=== PATIENT | male | born 1950 | race Caucasian/White ===

== ENCOUNTER → 2016-10-25 | Outpatient (CLI) | payer MEDICARE ==
--- NOTE | 2016-10-25 15:50 | XR ---
EXAMINATION TYPE: XR chest 2V DATE OF EXAM: 10/25/2016 COMPARISON: Prior chest x-ray 10/16/2008 HISTORY: Annual physical, I 82.90, Z 87.89 1 TECHNIQUE: Frontal and lateral views of the chest are obtained. FINDINGS: Patient is post median sternotomy. Minimal strand-like densities at the lung bases compati ble with subsegmental atelectasis or scarring. Patient is rotated, heart size thought to be borderlin e enlarged. Patient is status post aortic valve replacement. Prominent lung volumes suggest underlyin g COPD. No evident pneumothorax. No pleural effusion. IMPRESSION: Subsegmental atelectasis or scarring at the lung bases. Borderline cardiac enlargement.
[2016-10-25 16:23] LABS: Blood Urea Nitrogen 9 mg/dL (9-20); Non-African American GFR(MDRD) >60 (>60 ml/min/1.73 sqM)
--- NOTE | 2016-10-26 09:09 | CT ---
EXAMINATION TYPE: CT abdomen pelvis wo/w con DATE OF EXAM: 10/25/2016 COMPARISON: NONE HISTORY: Right foot/ankle swelling x 20 months. Looking for possible tumors in pelvis per patient. CT DLP: 2938.00 mGycm Automated exposure control for dose reduction was used. TECHNIQUE: Helical acquisition of images was performed from the lung bases through the pelvis. CONTRAST: Performed with Oral Contrast and without and with IV Contrast, patient injected with 100 mL of Omnipa que 300. FINDINGS: LUNG BASES: Subcentimeter noncalcified right basilar pulmonary nodule is present. Minimal subsegmenta l bibasilar atelectasis is also seen. LIVER/GB: Solitary punctate hypoattenuated hepatic lesion is seen on series 6 image 19 that is too sm all to accurately characterize. Mild fatty infiltration is seen in segment IVb on series 6 image 21. The remainder of the liver is of normal enhancement and morphology. The gallbladder contained a singl e lamellated calcified gallstone in the gallbladder fundus measuring 1.9 cm. No common bile duct dila tion. PANCREAS: There is mild fatty atrophy of the pancreatic head with no ductal dilatation. Duodenal dive rticulum is present impressing upon the uncinate process and inferior body. SPLEEN: No significant abnormality is seen. ADRENALS: No significant abnormality is seen. KIDNEYS: No significant abnormality is seen. FREE AIR: No free air is visualized. RETROPERITONEAL ADENOPATHY: None visualized REPRODUCTIVE ORGANS: The prostate gland is enlarged and heterogenous containing central gland calcifi cations and measuring 5.9 cm in transverse dimension. Small fat filled left inguinal hernia is presen t. URINARY BLADDER: No significant abnormality is seen. PELVIC ADENOPATHY: None visualized. OSSEOUS STRUCTURES: Appearance of surgical clips are seen along the right abdominal wall musculature extending towards the right pubic symphysis. Mild degenerative changes are seen of the femoral aceta bular joints and thoracolumbar spine. No suspicious osseous lesions are identified. There is partial visualization of median sternotomy wires. BOWEL: The cecum is slightly malrotated with the terminal ileum oriented anterior posterior and a re trocecal appendix containing intraluminal air, within normal limits. Tethered to this there is a comp genny lesion measuring high density complex fluid and simple fluid in portions without surrounding infl ammatory change. This is intimately associated with the appendix but appears to be nonobstructive as there is no periappendiceal fat stranding. The more solid portion, complex fluid attenuated, does min imally enhance. Overall this mass measures approximately 3.8 x 2.6 x 3.6 cm in transverse by anterior posterior by craniocaudal dimension. No air is seen within this collection to suggest abscess or per forated appendicitis. No obstructive bowel process is identified. Descending duodenal diverticulum is seen, which is large and impresses upon the pancreas. Scattered c olonic diverticula are seen without pericolonic fat stranding. Small bowel is nondilated. VASCULATURE: Abdominal aorta is of normal course and caliber. Mild atheromatous changes are seen of t he abdominal aorta and its branches. IMPRESSION: 1. COMPLEX, MINIMALLY ENHANCING 3.8 CM MASS INTIMATELY ASSOCIATED WITH THE RETROCECAL APPENDIX ALONG THE RIGHT LATERAL CONAL FASCIA WITHOUT SURROUNDING INFLAMMATORY CHANGE OR INTERNAL AIR. PRIMARY DIAGN OSTIC CONSIDERATION IS FOR COMPLICATED ENTERIC DUPLICATION CYST ALTHOUGH OTHER ETIOLOGIES SUCH MUC INOUS NEOPLASM OR PERITONEAL METASTASIS ARE POSSIBLE. CONSIDERATION COULD BE GIVEN TO PET CT OR DISCU SSION WITH INTERVENTIONAL RADIOLOGY REGARDING ASPIRATION/BIOPSY ALTHOUGH THIS DOES ABUT BOWEL MUCOSA. 2. 6 MM NONCALCIFIED RIGHT LOWER LOBE PULMONARY NODULE. CT THORAX COULD BE PERFORMED FOR FULL EVALUAT ION OF THE CHEST. IF CT CHEST IS NOT PERFORMED, FOLLOW-UP IN 12 MONTHS IS RECOMMENDED FOR REEVALUATIO N OF THIS NODULE. 3. CHOLELITHIASIS WITHOUT CT EVIDENCE OF CHOLECYSTITIS. 4. PANCOLONIC DIVERTICULOSIS.
== END | disposition home or self-care (01) ==
LOC: RADCTMAIN 15:26
PROVIDERS: ATTEND Family Medicine
DX: K80.20 Calculus of gallbladder without cholecystitis without obstruction (principal); K57.30 Diverticulosis of large intestine without perforation or abscess without bleeding; K38.8 Other specified diseases of appendix; I82.890 Acute embolism and thrombosis of other specified veins; I51.7 Cardiomegaly; Z87.891 Personal history of nicotine dependence
CPT/HCPCS: 82565; 84520; 71020; 74178; 36415; Q9967

== ENCOUNTER → 2016-11-10 | Outpatient (CLI) | payer MEDICARE ==
[2016-11-10 18:56] LABS: Blood Urea Nitrogen 11 mg/dL (9-20); Non-African American GFR(MDRD) >60 (>60 ml/min/1.73 sqM)
--- NOTE | 2016-11-10 19:34 | CT ---
EXAMINATION TYPE: CT chest w con DATE OF EXAM: 11/10/2016 COMPARISON: NONE HISTORY: Abnormal CT scan on 10/25/16. No Chest complaints at time of scan CT DLP: 671 mGycm Automated exposure control for dose reduction was used. CONTRAST: CT scan of the chest is performed with IV Contrast, patient injected with 100 mL of Omnipaque 300. FINDINGS: The lungs are clear of consolidation. There is patchy linear density at the lung bases consistent wit h scarring and atelectasis. There is a very low density 7 mm rounded nodule at the subpleural lateral right lung base. There is no evidence of a pulmonary mass. There is some coronary artery calcification. There are sternal wires. There is aortic valve prosthesi s. Heart is enlarged. There is no evidence of aortic dissection. Ascending aorta measures 3.7 cm. The re is no mediastinal adenopathy. There are no hilar masses. IMPRESSION: There is subsegmental atelectasis or scarring at the lung bases without change compared to CT scan 10/25/2016. Low-density right lower lobe nodule is unchanged. This is of doubtful clinical significance. Cardiomegaly. Atherosclerotic vascular disease.
== END ==
LOC: RADCTMAIN 18:23
PROVIDERS: ATTEND Family Medicine
DX: I51.7 Cardiomegaly (principal); I70.90 Unspecified atherosclerosis
CPT/HCPCS: 82565; 84520; 71260; 36415; Q9967

== ENCOUNTER 2016-11-13 10:21 | Day surgery (SDC) | payer MEDICARE ==
[2016-11-08 15:50] VITALS: BMI 30.8
[~2016-11-13 10:21] MED LIST: LACTATED RINGERS 1,000 ML IV SCH
[2016-11-13 10:35] VITALS: RESP 16; TEMP 97.9
[2016-11-13] MEDS ORDERED: LIDOCAINE 1% 20 ML VIAL (10MG/ML) FOR IV START INTRADERMA ONE (10:42)
[2016-11-13] MEDS ORDERED: PROPOFOL 10 MG/ML 20 ML VIAL IV ONE (11:41)
[2016-11-13] MEDS ORDERED: LIDOCAINE 1% INJ 10MG/ML (20 ML MDV) ONE (11:41)
[2016-11-13 13:02] VITALS: BP 138/80; PULSE 66
--- NOTE | 2016-12-14 16:59 | P.OP ---
Date of Procedure: 11/13/16 Preoperative Diagnosis: Right lower quadrant mass Right lower extremity swelling Postoperative Diagnosis: Same Procedure(s) Performed: Colonoscopy Implants: NA Anesthesia: MAC Surgeon: Kitty Carpio Pathology: none sent Condition: stable Disposition: PACU Indications for Procedure: 66 years old male presents with intermittent swelling of the right lower extremity. Computed tomography scan of the abdomen and pelvis shows a mass in the right lower quadrant which is suspicious to be arising from appendix vs colon vx duplication cyst. On consent obtained and patient elected to undergo colonoscopy with possible biopsy. Operative Findings: Sigmoid diverticulosis Description of Procedure: The patient was brought to the endoscopy suite and placed in lateral decubitus position. IV sedation was given as per anesthesia team. Patient was on continuous vitals and pulse oximetry monitoring throughout the procedure. A timeout was performed to verify correct patient and correct procedure. Perianal examination did not show any external hemorrhoids. Digital rectal examination was performed. No masses or gross blood. A well-lubricated Olympus colonoscope was passed per rectally and was gradually advanced beyond the sigmoid colon, splenic flexure, transverse colon, hepatic flexure and cecum. The ileocecal valve was visualized as well as the appendiceal orifice . The colonoscope was gradually withdrawn inspecting all the mucosal surfaces. Bowel prep was good. No polyps, masses, AV malformations noted. Sigmoid diverticulosis noted without any evidence of acute diverticulitis. The scope was gradually withdrawn and retroflexed in the rectum . Grade 1 internal hemorrhoids seen. Total withdrawal time was greater than 6 minutes . Patient tolerated the procedure well and was taken to post anesthesia care unit in stable condition. Recommend repeat colonoscopy in 10 years .
== END 2016-11-13 14:00 | disposition home or self-care (01) ==
LOC: ORWHC2ENDO 10:21
PROVIDERS: ATTEND Surgery
DX: K57.30 Diverticulosis of large intestine without perforation or abscess without bleeding (principal); K64.0 First degree hemorrhoids; R19.03 Right lower quadrant abdominal swelling, mass and lump; I10 Essential (primary) hypertension; Z88.0 Allergy status to penicillin; Z79.82 Long term (current) use of aspirin; Z79.899 Other long term (current) drug therapy; Z95.2 Presence of prosthetic heart valve
CPT/HCPCS: 45378; J2001; J2704

== ENCOUNTER → 2016-12-07 | Outpatient (CLI) | payer MEDICARE ==
[2016-12-07 09:39] LABS: EKG EKG PERFORMED
[2016-12-07 09:55] LABS: Basophils % (A) 1 %; CH 32.3; CHCM 32.9; Eosinophils # (A) 0.2 k/uL (0-0.7); Eosinophils % (A) 3 %; HDW 2.23; HGB 15.2 gm/dL (13.0-17.5); Luc % (Auto) 5; Lymphocytes # (A) 1.7 k/uL (1.0-4.8); Lymphocytes % (A) 26 %; MCH 33.3 pg (25.0-35.0); MCHC 33.8 g/dL (31.0-37.0); MCV 98.6 fL (80.0-100.0); Mean Platelet Volume 6.8; Monocytes # (A) 0.5 k/uL (0-1.0); Monocytes % (A) 8 %; Neutrophils # (A) 3.8 k/uL (1.3-7.7); Neutrophils % (A) 58 %; RBC 4.57 m/uL (4.30-5.90); RDW 12.4 % (11.5-15.5); WBC 6.6 k/uL (3.8-10.6); WBC (Perox) 6.61
[2016-12-07 10:13] LABS: Anion Gap 8 mmol/L; Carbon Dioxide 26 mmol/L (22-30); Chloride 100 mmol/L (98-107); Potassium 4.8 mmol/L (3.5-5.1); Sodium 134 mmol/L (137-145)
== END | disposition home or self-care (01) ==
LOC: LABPAT 09:16
PROVIDERS: ATTEND Surgery
DX: Z01.810 Encounter for preprocedural cardiovascular examination (principal); R94.31 Abnormal electrocardiogram [ECG] [EKG]; I10 Essential (primary) hypertension
CPT/HCPCS: 36415; 80051; 85025; 86850; 86900; 86901; 93005

== ENCOUNTER 2016-12-15 09:00 | Inpatient (IN) | payer MEDICARE ==
[2016-12-06 14:47] VITALS: BMI 30.8
[~2016-12-15 09:00] MED LIST changes: +DEXAMETHASONE SOD PHOSPHATE 10 MG/ML 1 ML VIAL IV ONE; +HEPARIN SODIUM,PORCINE 5,000 UNIT/ML 1 ML VIAL SQ ONE; +HYDROmorphone 0.5 MG/0.5 ML SYRINGE IVP PRN; -LACTATED RINGERS 1,000 ML IV SCH; +MIDAZOLAM 2 MG/2 ML VIAL IV PRN; +ONDANSETRON 4 MG/2 ML VIAL IVP ONE; +ceFAZolin 2 GM in SODIUM CHLORIDE 0.9% 100 ML IVPB ONE
[2016-12-15] MEDS ORDERED: LIDOCAINE 1% 20 ML VIAL (10MG/ML) FOR IV START INTRADERMA ONE (13:36)
[2016-12-15] MEDS: LACTATED RINGERS 1,000 ML IV SCH (14:03)
[2016-12-15] MEDS ORDERED: NEOSTIGMINE 1 MG/ML 10 ML VIAL ONE (14:36)
[2016-12-15] MEDS ORDERED: LABETALOL 5 MG/ML VIAL MDV ONE (14:36)
[2016-12-15] MEDS ORDERED: MIDAZOLAM 2 MG/2 ML VIAL ONE (14:36)
[2016-12-15] MEDS ORDERED: ROCURONIUM BROMIDE 10 MG/ML 10 ML VIAL IV ONE (14:36)
[2016-12-15] MEDS ORDERED: fentaNYL (PF) 50 MCG/ML 2 ML AMP ONE (14:36)
[2016-12-15] MEDS ORDERED: GLYCOPYRROLATE 0.2 MG/ML 2 ML VIAL ONE (14:36)
[2016-12-15] MEDS ORDERED: PROPOFOL 10 MG/ML 20 ML VIAL IV ONE (14:36)
[2016-12-15] MEDS ORDERED: ePHEDrine SULFATE/0.9% NACL/PF 50 MG/5 ML SYRINGE IV ONE (14:36)
[2016-12-15] MEDS ORDERED: SUCCINYLCHOLINE CHLORIDE 100 MG/5 ML SYR IV ONE (14:36)
[2016-12-15] MEDS ORDERED: BUPIVACAINE-EPI 0.5%-1:200,000 10 ML VIAL SQ ONE (15:48)
[2016-12-15] MEDS ORDERED: LACTATED RINGERS 1,000 ML IV ONE (15:49)
[2016-12-15] MEDS ORDERED: HYDROmorphone 1 MG/ML 1 ML SYRINGE IVP PRN (17:12)
--- NOTE | 2016-12-15 17:21 | P.OP ---
Date of Procedure: 12/15/16 Preoperative Diagnosis: RLQ mass on CT scan Right lower extremity swelling Postoperative Diagnosis: No definite intrabdominal mass Procedure(s) Performed: Diagnostic laparoscopy Laparoscopic appendectomy Lysis of adhesions Implants: NA Anesthesia: KITAA Surgeon: Kitty Carpio Estimated Blood Loss (ml): 10 Pathology: other Condition: stable Disposition: PACU Indications for Procedure: 66 years old male presents with right lower quadrant mass on CT scan. Colonoscopy was negative for any colonic mass. Patient denies any abdominal pain. Informed consent obtained for diagnostic laparoscopy, possible small bowel resection, possible appendicectomy and all indicated procedure Operative Findings: Adhesions between right lower quadrant and small bowel. The cecum appeared normal. The appendix appeared normal. The small bowel was run from ligament of Treitz to terminal ileum and no small bowel diverticulum noted Description of Procedure: The patient was brought to the operating room and placed in supine position with left arm tucked and a footboard was placed. General anesthesia with endotracheal intubation was performed as per anesthesia team. A Cunningham catheter was inserted under sterile aseptic precautions. Chlorhexidine was used to prep the abdomen followed by application of sterile drapes. A timeout was performed to verify correct patient and correct procedure. Patient was confirmed to receive perioperative IV antibiotics, subcutaneous heparin for VTE prophylaxis and bilateral SCDs were placed. A 5 mm skin incision was made in the left anterior axillary line and a Veress needle was inserted into the peritoneal cavity and CO2 insufflated to a pressure of 15 mmHg. A 5 mm Optiview trocar was loaded on a 5 mm 30 laparoscope and peritoneal cavity was entered under direct vision. An additional 5 mm trocar was placed in the suprapubic location in midline and a 12 mm trocar in the infraumbilical location. Patient was placed in Trendelenburg with right side up. There were adhesions between small bowel and right anterior abdominal wall which were taken down using sharp dissection. The appendix was identified. It appeared normal .A window was made in the mesoappendix close to the cecal base using a [place] dissector. Laparoscopic Ligasure was used to divide the mesoappendix. No bleeding noted from the mesoappendiceal stump. The appendix was divided at its base, at the confluence of three tenia using Ethicon stapler 45 blue load. The staple line was intact without evidence of bleeding. The appendix was placed in an endocatch bag and was retrieved through the periumbilical port site. All the trocar sites were examined and no evidence of bleeding. The small The 12 mm trocar site was closed using three transfascial sutures of 0 Vicryl which were placed using a Sin Roxane device. Local anesthetic was infiltrated along all the ports sites. The sponge, instrument and needle count were correct x2. CO2 gas was evacuated and trocars were removed. 4-0 Monocryl was used to close the skin incisions followed by Dermabond skin glue. Cunningham catheter was discontinued. Patient tolerated the procedure well and was taken to post anesthesia care unit in stable condition.
[2016-12-15] MEDS: HYDROcodone/APAP 5-325MG 1 EACH TAB PO PRN (20:29)
[2016-12-16] MEDS: HYDROcodone/APAP 5-325MG 1 EACH TAB PO PRN ×5 (02:23→23:14)
[2016-12-16] MEDS: LACTATED RINGERS 1,000 ML IV SCH (12:09)
[2016-12-16] MEDS ORDERED: BISACODYL 10 MG SUPP RECTAL STA (12:23)
[2016-12-16] MEDS ORDERED: FUROSEMIDE 20 MG TAB PO PRN (15:00)
[2016-12-16] MEDS: METOPROLOL TARTRATE 25 MG TAB PO SCH (21:02)
--- NOTE | 2016-12-16 22:19 | P.PN ---
Subjective Progress Note Date: 12/16/16 Principal diagnosis: S/P diagnostic laparoscopy S/P diagnostic lap, lysis of adhesions and appendectomy. Pain is well controlled. No nausea or vomiting. No flatus or BM. He c/o abdominal bloating. Ambulating in hallways. Objective - Vital Signs Vital signs: Vital Signs Temp 98.3 F 12/16/16 22:04 Pulse 83 12/16/16 22:04 Resp 17 12/16/16 22:04 BP 127/65 12/16/16 22:04 Pulse Ox 97 12/16/16 22:04 Intake & Output 12/16/16 12/16/16 12/17/16 06:59 18:59 06:59 Intake Total 70 2100 Output Total 600 Balance 70 2100 -600 Weight 108.862 kg Intake: Intake, IV Titration 70 Amount Lactated Ringers 1,000 ml 70 @ 20 mls/hr IV .Q24H NOAH Rx#:[id number] Oral 2100 Output: Urine 600 Other: Voiding Method Toilet # Voids 1 2 - Exam General: Alert and orinted, not in acute distress Abdominal: Mild distension, sluggish bowel sounds - Labs CBC & Chem 7: 12/15/16 13:55 Assessment and Plan (1) History of appendectomy Status: Acute Plan: 1. POD#1 S/P diagnostic laparoscopy, lysis of adhesions and appendectomy 2. No bowel function yet 3. Sips of clear liquid only 4, Start home meds 5. CBC, CMP in am 6. Dulcolax suppository 7. If no improvement, AXR in am
[2016-12-17] MEDS: METOPROLOL TARTRATE 25 MG TAB PO SCH (07:46)
[2016-12-17 08:01] LABS: Basophils % (A) 0 %; CH 33.4; CHCM 34.3; Eosinophils # (A) 0.1 k/uL (0-0.7); Eosinophils % (A) 1 %; HCT 38.8 % (39.0-53.0); HDW 2.26; Luc % (Auto) 2; Lymphocytes # (A) 2.2 k/uL (1.0-4.8); Lymphocytes % (A) 18 %; MCH 32.9 pg (25.0-35.0); MCHC 33.6 g/dL (31.0-37.0); MCV 97.9 fL (80.0-100.0); Mean Platelet Volume 7.4; Monocytes # (A) 0.8 k/uL (0-1.0); Monocytes % (A) 6 %; Neutrophils % (A) 73 %; RBC 3.96 m/uL (4.30-5.90); RDW 12.8 % (11.5-15.5); WBC 12.3 k/uL (3.8-10.6); WBC (Perox) 12.49
[2016-12-17 08:04] VITALS: BP 117/72; PULSE 78; RESP 14; TEMP 97.2
[2016-12-17 08:23] LABS: ALT 31 U/L (21-72); AST 20 U/L (17-59); Alkaline Phosphatase 60 U/L (38-126); Anion Gap 12 mmol/L; Blood Urea Nitrogen 11 mg/dL (9-20); Calcium 9.3 mg/dL (8.4-10.2); Carbon Dioxide 21 mmol/L (22-30); Chloride 100 mmol/L (98-107); Glucose 108 mg/dL (74-99); Non-African American GFR(MDRD) >60 (>60 ml/min/1.73 sqM); Sodium 133 mmol/L (137-145); Total Bilirubin 1.1 mg/dL (0.2-1.3); Total Protein 6.8 g/dL (6.3-8.2)
[2016-12-17] MEDS ORDERED: LISINOPRIL 20 MG TAB PO SCH (09:00)
[2016-12-17] MEDS ORDERED: MULTIVITAMINS, THERA 1 EACH TAB PO SCH (09:00)
--- NOTE | 2016-12-17 09:54 | P.DS ---
Providers Date of admission: 12/15/16 10:26 Expected date of discharge: 12/17/16 Attending physician: Kitty Carpio Primary care physician: Stated None - Discharge Diagnosis(es) (1) History of appendectomy Status: Acute Hospital Course: S/P diagnostic laparoscopy,lysis of adhesions and appendectomy Procedures: Diagnostic laparoscopy, lap lysis of adhesions and lap appendectomy Patient Condition at Discharge: Good Plan - Discharge Summary New Discharge Prescriptions: No Action Metoprolol Tartrate [Lopressor] 25 mg PO BID Lisinopril [Zestril] 20 mg PO DAILY Vit C/E/Zn/Coppr/Lutein/Zeaxan [Preservision Areds 2 Softgel] 1 cap PO DAILY Multivit-Min/FA/Lycopen/Lutein [Centrum Silver Men Tablet] 1 tab PO DAILY Aspirin [Adult Low Dose Aspirin EC] 81 mg PO DAILY Furosemide [Lasix] 20 mg PO DAILY PRN PRN Reason: leg edema Potassium Chloride [K-Tab ER] 10 meq PO DAILY PRN PRN Reason: with lasix Discharge Medication List Aspirin [Adult Low Dose Aspirin EC] 81 mg PO DAILY 11/08/16 [History] Lisinopril [Zestril] 20 mg PO DAILY 11/08/16 [History] Metoprolol Tartrate [Lopressor] 25 mg PO BID 11/08/16 [History] Multivit-Min/FA/Lycopen/Lutein [Centrum Silver Men Tablet] 1 tab PO DAILY [History] Vit C/E/Zn/Coppr/Lutein/Zeaxan [Preservision Areds 2 Softgel] 1 cap PO DAILY 08/19 [History] Furosemide [Lasix] 20 mg PO DAILY PRN 12/06/16 [History] Potassium Chloride [K-Tab ER] 10 meq PO DAILY PRN 12/06/16 [History] Follow up Appointment(s)/Referral(s): Kitty Carpio MD [STAFF PHYSICIAN] - 1 Week Activity/Diet/Wound Care/Special Instructions: OK to shower . No soaking bath. No heavy lifting more than 10 lbs for 6 weeks post surgery. No driving while taking narcotics for pain. May use ice packs for local pain relief Take Motrin 600 mg po TID after meals if pain is not controlled Use incentive spirometry 10 times an hour while awake Discharge Disposition: HOME SELF-CARE
== END 2016-12-17 12:20 | disposition home or self-care (01) | DRG 337 ==
LOC: 2ORWHC 10:26 → 3SUR 16:31
PROVIDERS: ADMIT Surgery; ATTEND Surgery
PROC: 0DTJ4ZZ Resection of Appendix, Percutaneous Endoscopic Approach (ICD-10-PCS; principal; 2016-12-15 11:40)
PROC: 0DN84ZZ Release Small Intestine, Percutaneous Endoscopic Approach (ICD-10-PCS; principal; 2016-12-15 11:40)
DX: K66.0 Peritoneal adhesions (postprocedural) (postinfection) (principal); I10 Essential (primary) hypertension; Z82.49 Family history of ischemic heart disease and other diseases of the circulatory system; Z79.82 Long term (current) use of aspirin; Z79.899 Other long term (current) drug therapy; Z95.2 Presence of prosthetic heart valve
CPT/HCPCS: 80053; 84132; 85025; 86850; 86900; 86901; 88304

== ENCOUNTER 2018-09-30 15:46 | Inpatient (IN) | payer MEDICARE ==
--- NOTE | 2018-09-30 16:00 | US ---
EXAMINATION TYPE: US abdomen limited DATE OF EXAM: 09/30/2018 COMPARISON: CT 02/12/2017 CLINICAL HISTORY: 68-year-old male pain, Attn: gallbladder R10.11 RUQ pain. Known gallstones, abdomin al pain. TECHNIQUE: Multiple sonographic images of the right upper quadrant are obtained. FINDINGS: EXAM MEASUREMENTS: Liver Length: 17.9 cm Gallbladder Wall: 1.0 cm CBD: 0.4 cm Right Kidney: 11.5 x 5.6 x 5.2 cm Property [employer] Officer notes: Difficult exam due to overlying bowel gas Pancreas: Obscured by bowel gas Liver: Heterogeneous, somewhat hypoechoic appearance to the liver. There is a small echogenic lesion measuring 1.2 x 0.8 x 0.8 cm that was not well depicted on CT. Gallbladder: Hydropic, gallbladder wall thickened measuring 1 cm with trace pericholecystic fluid, s tone visualized within neck measuring 1.2 cm with sludge Evidence for sonographic Ayala's sign: Yes CBD: wnl as visualized, distal portion obscured by bowel gas Right Kidney: No hydronephrosis or masses seen Property And Supply Officer notes: Preliminary results called to Dr. Hendrickson at time of exam. Patient taken to ER to be admitted to hospital at time of exam IMPRESSION: 1. Cholelithiasis with gallbladder wall thickening, trace pericholecystic fluid, and positive sonogra phic Ayala's sign. Findings suggestive of acute cholecystitis. 2. Heterogeneous, somewhat hypoechoic appearance to the liver. Correlate with LFTs in patient risk fa ctors to exclude hepatitis. 3. A 1.2 cm echogenic lesion within the liver not well depicted on patient's recent CT. A benign alexandre ngioma is suspected. Follow-up ultrasound in 3 months to reassess.
[2018-09-30] MEDS ORDERED: SODIUM CHLORIDE 0.9% 1,000 ML IV STA (17:47)
[2018-09-30] MEDS ORDERED: cefTRIAXone IN SWFI 1,000 MG/10 ML SYRINGE IVP STA ×2 (18:04→18:14)
--- NOTE | 2018-09-30 18:16 | ED ---
General Adult HPI - General Source: patient, RN notes reviewed Mode of arrival: ambulatory Limitations: no limitations <Luis Alberto Quijano - Last Filed: 09/30/18 20:02> <Jose Davis - Last Filed: 09/30/18 21:08> - General Chief complaint: Abdominal Pain Stated complaint: ABd Pain - History of Present Illness Initial comments: Neville is a 68-year-old male with a past medical history of hypertension, cardiac valve replacement who presents to the emergency department for a chief complaint of right upper quadrant pain 3 days. Patient states that Sunday night he woke up in the middle of the night with a mild dull right upper quadrant pain. States over the past several days as has worsened. Denies nausea or vomiting but states he has not eaten since this started. States he is drinking water. Denies diarrhea. Patient does admit to subjective fevers and chills. States he had an out patient ultrasound ordered and was told to come here to the emergency department.Patient has no other complaints at this time including shortness of breath, chest pain, nausea or vomiting, headache, or visual changes. (Luis Alberto Quijano) - Related Data Home Medications Medication Instructions Recorded Confirmed Aspirin [Adult Low Dose Aspirin EC] 81 mg PO DAILY 11/08/16 09/30/18 Metoprolol Tartrate [Lopressor] 25 mg PO BID 11/08/16 09/30/18 Vit C/E/Zn/Coppr/Lutein/Zeaxan 1 cap PO DAILY 11/08/16 09/30/18 [Preservision Areds 2 Softgel] Irbesartan [Avapro] 300 mg PO DAILY 09/30/18 09/30/18 Allergies Allergy/AdvReac Type Severity Reaction Status Date / Time Penicillins Allergy Rash/Hives Verified 09/30/18 17:06 Review of Systems ROS Other: All systems not noted in ROS Statement are negative. <Luis Alberto Quijano - Last Filed: 09/30/18 20:02> ROS Other: All systems not noted in ROS Statement are negative. <Jose Davis - Last Filed: 09/30/18 21:08> ROS Statement: Those systems with pertinent positive or pertinent negative responses have been documented in the HPI. Past Medical History Past Medical History: Hypertension History of Any Multi-Drug Resistant Organisms: None Reported Past Surgical History: Cardiac Valve Replacement, Hernia Repair Additional Past Surgical History / Comment(s): AORTIC VALVE REPLACEMENT 2009. INGUINAL HERNIA REPAIR. UMBILICAL HERNIA REPAIR. COLONOSCOPY Past Anesthesia/Blood Transfusion Reactions: No Reported Reaction Past Psychological History: No Psychological Hx Reported Smoking Status: Former smoker Past Alcohol Use History: Daily, Heavy Past Drug Use History: None Reported - Past Family History Mother Family Medical History: No Reported History, Hypertension <Luis Alberto Quijano - Last Filed: 09/30/18 20:02> General Exam Limitations: no limitations General appearance: alert, in no apparent distress Head exam: Present: atraumatic, normocephalic, normal inspection Eye exam: Present: normal appearance, PERRL, EOMI. Absent: scleral icterus, conjunctival injection, periorbital swelling ENT exam: Present: normal exam, mucous membranes moist Neck exam: Present: normal inspection, full ROM. Absent: tenderness, meningismus, lymphadenopathy Respiratory exam: Present: normal lung sounds bilaterally. Absent: respiratory distress, wheezes, rales, rhonchi, stridor Cardiovascular Exam: Present: regular rate, normal rhythm, normal heart sounds. Absent: systolic murmur, diastolic murmur, rubs, gallop, clicks GI/Abdominal exam: Present: soft, tenderness (Tenderness noted in the RUQ, + ayala sign), normal bowel sounds. Absent: distended, guarding, rebound, rigid Neurological exam: Present: alert Psychiatric exam: Present: normal affect, normal mood <Luis Alberto Quijano - Last Filed: 09/30/18 20:02> Course <Jose Davis - Last Filed: 09/30/18 21:08> Vital Signs 09/30/18 09/30/18 15:58 19:27 Temperature 98.3 F 98.4 F Pulse Rate 111 H 75 Respiratory 18 18 Rate Blood Pressure 151/77 135/82 O2 Sat by Pulse 95 96 Oximetry - Reevaluation(s) Reevaluation #1: 09/30/18 21:07 PA supervision: I proceeded [id number] evaluation the patient did discuss findings with him and his as well as with Dr. Silverio who is covering for Dr. Arriola. Patient does demonstrate evidence of cholecystitis and cholelithiasis. He will be admitted and placed on IV antibiotics. After discussion he will be placed on Zosyn. He states he does have a mild rash when he was on penicillin the past and had an issue with any other medication he is aware of. (Jose Davis) Medical Decision Making - Lab Data Result diagrams: 09/30/18 18:22 09/30/18 18:22 <Luis Alberto Quijano - Last Filed: 09/30/18 20:02> - Lab Data Result diagrams: 09/30/18 18:22 09/30/18 18:22 <Jose Davis - Last Filed: 09/30/18 21:08> - Medical Decision Making Neville is a 68-year-old male with a past medical history of hypertension, cardiac valve replacement who presents to the ED for a chief complaint of right upper quadrant pain 3 days. Patient states he has not been eating since that time due to the pain. Denies nausea vomiting. Patient does have tenderness noted to the right upper quadrant. Positive Ayala sign. Outpatient ultrasound did show findings consistent with acute cholecystitis. There is also a liver lesion likely a benign hemangioma noted. CBC does show mild leukocytosis of 12.9 with a left shift. CMP shows a hyperbilirubinemia of 2.0, otherwise unremarkable. Patient has seen Dr Arriola in the past but Dr. Ovalle is covering for him. Discussed case with Dr. Davis who discussed this case with Dr. Ovalle. Patient does have an ALLERGY to penicillins but his ALLERGY is a rash, no anaphy lactic reaction. Dr. Ovalle prefers he has Zosyn as this is the best medication of choice, Benadryl will be ordered as well. Patient will be kept nothing by mouth after midnight. (Luis Alberto Quijano) - Lab Data Lab Results 09/30/18 09/30/18 09/30/18 Range/Units 18:22 18:22 18:22 WBC 12.9 H (3.8-10.6) k/uL RBC 4.17 L (4.30-5.90) m/uL Hgb 13.7 (13.0-17.5) gm/dL Hct 40.1 (39.0-53.0) % MCV 96.2 (80.0-100.0) fL MCH 32.7 (25.0-35.0) pg MCHC 34.0 (31.0-37.0) g/dL RDW 14.0 (11.5-15.5) % Plt Count 140 L (150-450) k/uL Neutrophils % 91 % Lymphocytes % 3 % Monocytes % 4 % Eosinophils % 0 % Basophils % 0 % Neutrophils # 11.7 H (1.3-7.7) k/uL Lymphocytes # 0.4 L (1.0-4.8) k/uL Monocytes # 0.6 (0-1.0) k/uL Eosinophils # 0.0 (0-0.7) k/uL Basophils # 0.0 (0-0.2) k/uL Sodium 134 L (137-145) mmol/L Potassium 3.7 (3.5-5.1) mmol/L Chloride 102 (98-107) mmol/L Carbon Dioxide 22 (22-30) mmol/L Anion Gap 10 mmol/L BUN 12 (9-20) mg/dL Creatinine 0.60 L (0.66-1.25) mg/dL Est GFR (CKD-EPI)AfAm >90 (>60 ml/min/1.73 sqM) Est GFR (CKD-EPI)NonAf >90 (>60 ml/min/1.73 sqM) Glucose 112 H (74-99) mg/dL Plasma Lactic Acid Srinivasan 1.0 (0.7-2.0) mmol/L Calcium 8.8 (8.4-10.2) mg/dL Total Bilirubin 2.0 H (0.2-1.3) mg/dL AST 23 (17-59) U/L ALT 24 (21-72) U/L Alkaline Phosphatase 71 (38-126) U/L Total Protein 6.6 (6.3-8.2) g/dL Albumin 3.8 (3.5-5.0) g/dL Amylase 34 (30-110) U/L Lipase 20 L (23-300) U/L Urine Color Urine Appearance (Clear) Urine pH (5.0-8.0) Ur Specific [place] (1.001-1.035) Urine Protein (Negative) Urine Glucose (UA) (Negative) Urine Ketones (Negative) Urine Blood (Negative) Urine Nitrite (Negative) Urine Bilirubin (Negative) Urine Urobilinogen (<2.0) mg/dL Ur Leukocyte Esterase (Negative) Urine RBC (0-5) /hpf Urine WBC (0-5) /hpf Ur Squamous Epith Cells (0-4) /hpf Hyaline Casts (0-2) /lpf Urine Mucus (None) /hpf 09/30/18 Range/Units 18:22 WBC (3.8-10.6) k/uL RBC (4.30-5.90) m/uL Hgb (13.0-17.5) gm/dL Hct (39.0-53.0) % MCV (80.0-100.0) fL MCH (25.0-35.0) pg MCHC (31.0-37.0) g/dL RDW (11.5-15.5) % Plt Count (150-450) k/uL Neutrophils % % Lymphocytes % % Monocytes % % Eosinophils % % Basophils % % Neutrophils # (1.3-7.7) k/uL Lymphocytes # (1.0-4.8) k/uL Monocytes # (0-1.0) k/uL Eosinophils # (0-0.7) k/uL Basophils # (0-0.2) k/uL Sodium (137-145) mmol/L Potassium (3.5-5.1) mmol/L Chloride (98-107) mmol/L Carbon Dioxide (22-30) mmol/L Anion Gap mmol/L BUN (9-20) mg/dL Creatinine (0.66-1.25) mg/dL Est GFR (CKD-EPI)AfAm (>60 ml/min/1.73 sqM) Est GFR (CKD-EPI)NonAf (>60 ml/min/1.73 sqM) Glucose (74-99) mg/dL Plasma Lactic Acid Srinivasan (0.7-2.0) mmol/L Calcium (8.4-10.2) mg/dL Total Bilirubin (0.2-1.3) mg/dL AST (17-59) U/L ALT (21-72) U/L Alkaline Phosphatase (38-126) U/L Total Protein (6.3-8.2) g/dL Albumin (3.5-5.0) g/dL Amylase (30-110) U/L Lipase (23-300) U/L Urine Color Louisa Urine Appearance Clear (Clear) Urine pH 7.0 (5.0-8.0) Ur Specific [place] 1.030 (1.001-1.035) Urine Protein 2+ H (Negative) Urine Glucose (UA) Trace H (Negative) Urine Ketones 3+ H (Negative) Urine Blood Trace H (Negative) Urine Nitrite Negative (Negative) Urine Bilirubin 1+ H (Negative) Urine Urobilinogen 12.0 (<2.0) mg/dL Ur Leukocyte Esterase Negative (Negative) Urine RBC 6 H (0-5) /hpf Urine WBC 1 (0-5) /hpf Ur Squamous Epith Cells <1 (0-4) /hpf Hyaline Casts 1 (0-2) /lpf Urine Mucus Rare H (None) /hpf Disposition Is patient prescribed a controlled substance at d/c from ED?: No Time of Disposition: 20:03 <Luis Alberto Quijano - Last Filed: 09/30/18 20:02> <Jose Davis - Last Filed: 09/30/18 21:08> Clinical Impression: Acute cholecystitis, Leukocytosis Disposition: ADMITTED IP TO THIS HOSP Condition: Fair Referrals: Ryan Hendrickson DO [Primary Care Provider] - 1-2 days
[2018-09-30 18:42] LABS: Appearance,Urine Clear (Clear); Bilirubin,Urine 1+ (Negative); Blood,Urine Trace (Negative); Color,Urine Orange; Glucose,Urine (UA) Trace (Negative); Hyaline Casts,Urine 1 /lpf (0-2); Ketones,Urine 3+ (Negative); Leukocyte Esterase,Urine Negative (Negative); Mucus,Urine Rare /hpf; Nitrite,Urine Negative (Negative); Protein,Urine 2+ (Negative); RBC,Urine 6 /hpf (0-5); Squamous Epithelial Cell,Urine <1 /hpf (0-4); WBC,Urine 1 /hpf (0-5)
[2018-09-30 18:43] LABS: ALT 24 U/L (21-72); AST 23 U/L (17-59); African American GFR (CKD) >90 (>60 ml/min/1.73 sqM); Albumin 3.8 g/dL (3.5-5.0); Alkaline Phosphatase 71 U/L (38-126); Amylase 34 U/L (30-110); Anion Gap 10 mmol/L; Blood Urea Nitrogen 12 mg/dL (9-20); Calcium 8.8 mg/dL (8.4-10.2); Carbon Dioxide 22 mmol/L (22-30); Chloride 102 mmol/L (98-107); Glucose 112 mg/dL (74-99); Non-African American GFR(CKD) >90 (>60 ml/min/1.73 sqM); Potassium 3.7 mmol/L (3.5-5.1); Sodium 134 mmol/L (137-145); Total Protein 6.6 g/dL (6.3-8.2)
[2018-09-30 18:51] LABS: Basophils % (A) 0 %; Eosinophils % (A) 0 %; HCT 40.1 % (39.0-53.0); HGB 13.7 gm/dL (13.0-17.5); Lymphocytes # (A) 0.4 k/uL (1.0-4.8); Lymphocytes % (A) 3 %; MCH 32.7 pg (25.0-35.0); MCV 96.2 fL (80.0-100.0); Mean Platelet Volume 7.3; Monocytes # (A) 0.6 k/uL (0-1.0); Monocytes % (A) 4 %; Neutrophils # (A) 11.7 k/uL (1.3-7.7); Neutrophils % (A) 91 %; Platelet Count 140 k/uL (150-450); RBC 4.17 m/uL (4.30-5.90); WBC 12.9 k/uL (3.8-10.6)
[2018-09-30] MEDS ORDERED: NALOXONE 0.4 MG/ML 1 ML VIAL IV PRN (19:58)
[2018-09-30] MEDS ORDERED: diphenhydrAMINE 50 MG/ML 1 ML VIAL IVP PRN (19:59)
[2018-09-30] MEDS: SODIUM CHLORIDE 0.9% 1,000 ML IV SCH (20:07)
[2018-09-30] MEDS ORDERED: PIPERACILLIN-TAZOBACTAM 3.375 GM in SODIUM CHLORIDE 0.9% 100 ML IVPB STA (20:41)
[2018-10-01] MEDS: PIPERACILLIN-TAZOBACTAM 3.375 GM in SODIUM CHLORIDE 0.9% 100 ML IVPB SCH ×3 (03:11→19:52)
[2018-10-01] MEDS: SODIUM CHLORIDE 0.9% 1,000 ML IV SCH ×3 (05:10→23:56)
[2018-10-01 10:14] LABS: Basophils % (A) 0 %; Eosinophils % (A) 0 %; HCT 37.7 % (39.0-53.0); HGB 12.3 gm/dL (13.0-17.5); Lymphocytes # (A) 0.3 k/uL (1.0-4.8); Lymphocytes % (A) 3 %; MCH 31.2 pg (25.0-35.0); MCHC 32.7 g/dL (31.0-37.0); MCV 95.5 fL (80.0-100.0); Mean Platelet Volume 7.2; Monocytes # (A) 0.5 k/uL (0-1.0); Monocytes % (A) 5 %; Neutrophils # (A) 10.1 k/uL (1.3-7.7); Neutrophils % (A) 90 %; Platelet Count 161 k/uL (150-450); RBC 3.95 m/uL (4.30-5.90); RDW 12.5 % (11.5-15.5); WBC 11.2 k/uL (3.8-10.6)
[2018-10-01] MEDS: PANTOPRAZOLE 40 MG/10 ML VIAL IVP SCH (10:21)
[2018-10-01 10:22] LABS: ALT 26 U/L (21-72); AST 27 U/L (17-59); African American GFR (CKD) >90 (>60 ml/min/1.73 sqM); Albumin 3.4 g/dL (3.5-5.0); Alkaline Phosphatase 74 U/L (38-126); Anion Gap 10 mmol/L; Blood Urea Nitrogen 12 mg/dL (9-20); Calcium 8.2 mg/dL (8.4-10.2); Carbon Dioxide 22 mmol/L (22-30); Chloride 103 mmol/L (98-107); Glucose 120 mg/dL (74-99); Non-African American GFR(CKD) >90 (>60 ml/min/1.73 sqM); Potassium 3.5 mmol/L (3.5-5.1); Sodium 135 mmol/L (137-145); Total Bilirubin 1.8 mg/dL (0.2-1.3); Total Protein 6.1 g/dL (6.3-8.2)
[2018-10-01] MEDS ORDERED: METOPROLOL TARTRATE 25 MG TAB PO SCH (11:45)
[2018-10-01] MEDS: ASPIRIN 81 MG PO SCH (11:52)
[2018-10-01] MEDS: LOSARTAN 50 MG TAB PO SCH (11:54)
[2018-10-01] MEDS ORDERED: METOPROLOL TARTRATE 25 MG TAB PO STA (12:47)
[2018-10-01] MEDS ORDERED: POTASSIUM CHLORIDE ER 20 MEQ TAB.ER PO STA (12:50)
[2018-10-01] MEDS ORDERED: LORazepam 2 MG/ML INJ IV PRN ×3 (12:56)
--- NOTE | 2018-10-01 13:07 | P.GSHP ---
<Iman Reina A - Last Filed: 10/01/18 13:06> History of Present Illness H&P Date: 10/01/18 Chief Complaint: abdominal pain CHIEF COMPLAINT: Abdominal pain HISTORY OF PRESENT ILLNESS: 68-year-old male who presents to emergency room with chief complaint of abdominal pain. Patient reports he began having generalized abdominal pain around midnight on Sunday. He states he initially thought he was having gas pains and possibly needed to have a bowel movement. He reports his pain has continued since that time and is mostly localized to the right upper quadrant currently. Patient denies nausea or vomiting. He denies fever or chills. PAST MEDICAL HISTORY: See list. PAST SURGICAL HISTORY: See list. MEDICATIONS: See list. ALLERGIES: See list. SOCIAL HISTORY: No illicit drug use. REVIEW OF SYSTEMS: CONSTITUTIONAL: Denies fever or chills. HEENT: Denies blurred vision, vision changes, or eye pain. Denies hemoptysis ENDOCRINE: Denies heat or cold intolerance. CARDIOVASCULAR: Denies chest pain or pressure. Reports history of aortic valve replacement. RESPIRATORY: No shortness of breath. GASTROINTESTINAL: See HPI for pertinent findings. NEURO: Denies history of seizures. PSYCH: No depression or suicidal ideation HEMATOLOGIC: Denies bleeding disorders. Denies long-term anticoagulation. LYMPHATIC: The patient denies any lumps and bumps around the neck. GENITOURINARY: Denies any blood in urine or increased urinary frequency. MUSCULOSKELETAL: Denies myalgias. Denies joint swelling. Denies decreased range of motion beyond patients baseline. SKIN: Denies pruitis. Denies rash. PHYSICAL EXAM: VITAL SIGNS: Reviewed GENERAL: Well-developed in no acute distress. HEENT: No sclera icterus. Extraocular movements grossly intact. Moist buccal mucosa. Head is atraumatic, normocephalic. Hears conversational speech. No nasal drainage. NECK: Supple without lymphadenopathy. CHEST: Non-labored respirations and equal bilateral excursions. CARDIOVASCULAR: Irregular rhythm. Palpable 2+ radial pulses. ABDOMEN: Soft. Nondistended, but obese. Tenderness upon palpation of right upper quadrant. Positive bowel sounds. MUSCULOSKELETAL: No clubbing, cyanosis or edema. NEUROLOGIC: No focal or lateralizing signs. Cranial nerves II through XII grossly intact. PSYCH: Appropriate affect. Alert and oriented to person, place and time. SKIN: Well perfused. Good skin turgor. LABORATORY DATA: Laboratory data on admission reveals white count 12.9. Hemoglobin 13.7. Neutrophil count 11.7. Sodium 134. Potassium 3.7. BUN 12. Creatinine 0.60. Lactic acid 1.0. Bilirubin 2.0. AST 23. ALT 24. Amylase 34. Lipase 20. IMAGING: Abdominal ultrasound: Cholelithiasis with gallbladder wall thickening, trace pericholecystic fluid, and positive sonographic Ayala sign. Findings suggestive of acute cholecystitis. Heterogeneous, somewhat hypoechoic appearance to the liver. A 1.2 cm echogenic lesion within the liver not well depicted on patient's recent CAT scan. A benign hemangioma suspected. Follow- up ultrasound in 3 months to reassess. ASSESSMENT: 1. Abdominal pain 2. Acute cholecystitis 3. History of aortic valve replacement 4. History of hernia repair and appendectomy 5. History of nicotine dependence, quit smoking in 2003 6. Daily alcohol use 7. Hypokalemia PLAN: 1. Nothing by mouth except ice chips and medications. Continue IV fluids at 100 mL an hour 2. 40 mEq potassium chloride 1 dose. Magnesium level added to AM labs. Replace magnesium per protocol if magnesium less than 2.0. 3. Continue Zosyn IV every 8 hours 4. Consult cardiology for surgical clearance 5. CIWA scale secondary to daily alcohol use Nurse practitioner note has been reviewed by physician. Signing provider agrees with the documented findings, assessment, and plan of care. Past Medical History Past Medical History: Hypertension History of Any Multi-Drug Resistant Organisms: None Reported Past Surgical History: Appendectomy, Cardiac Valve Replacement, Hernia Repair Additional Past Surgical History / Comment(s): AORTIC VALVE REPLACEMENT 2008. INGUINAL HERNIA REPAIR. UMBILICAL HERNIA REPAIR. COLONOSCOPY Past Anesthesia/Blood Transfusion Reactions: No Reported Reaction Past Psychological History: No Psychological Hx Reported Smoking Status: Former smoker Past Alcohol Use History: Daily, Heavy Additional Past Alcohol Use History / Comment(s): QUIT SMOKING 2003. DRINKS 4-5 BEERS DAILY Past Drug Use History: None Reported - Past Family History Mother Family Medical History: No Reported History, Hypertension Medications and Allergies Home Medications Medication Instructions Recorded Confirmed Type Aspirin [Adult Low Dose Aspirin EC] 81 mg PO DAILY 11/08/16 09/30/18 History Metoprolol Tartrate [Lopressor] 25 mg PO BID 11/08/16 09/30/18 History Vit C/E/Zn/Coppr/Lutein/Zeaxan 1 cap PO DAILY 11/08/16 09/30/18 History [Preservision Areds 2 Softgel] Irbesartan [Avapro] 300 mg PO DAILY 09/30/18 09/30/18 History Allergies Allergy/AdvReac Type Severity Reaction Status Date / Time Penicillins Allergy Rash/Hives Verified 09/30/18 17:06 Surgical - Exam Vital Signs Temp Pulse Resp BP Pulse Ox 98.3 F 111 H 18 151/77 95 09/30/18 15:58 09/30/18 15:58 09/30/18 15:58 09/30/18 15:58 09/30/18 15:58 Results - Labs 10/01/18 09:25 10/01/18 09:25 Abnormal Lab Results - Last 24 Hours (Table) 09/30/18 09/30/18 09/30/18 Range/Units 18:22 18:22 18:22 WBC 12.9 H (3.8-10.6) k/uL RBC 4.17 L (4.30-5.90) m/uL Hgb (13.0-17.5) gm/dL Hct (39.0-53.0) % Plt Count 140 L (150-450) k/uL Neutrophils # 11.7 H (1.3-7.7) k/uL Lymphocytes # 0.4 L (1.0-4.8) k/uL Sodium 134 L (137-145) mmol/L Creatinine 0.60 L (0.66-1.25) mg/dL Glucose 112 H (74-99) mg/dL Calcium (8.4-10.2) mg/dL Total Bilirubin 2.0 H (0.2-1.3) mg/dL Total Protein (6.3-8.2) g/dL Albumin (3.5-5.0) g/dL Lipase 20 L (23-300) U/L Urine Protein 2+ H (Negative) Urine Glucose (UA) Trace H (Negative) Urine Ketones 3+ H (Negative) Urine Blood Trace H (Negative) Urine Bilirubin 1+ H (Negative) Urine RBC 6 H (0-5) /hpf Urine Mucus Rare H (None) /hpf 10/01/18 10/01/18 Range/Units 09:25 09:25 WBC 11.2 H (3.8-10.6) k/uL RBC 3.95 L (4.30-5.90) m/uL Hgb 12.3 L (13.0-17.5) gm/dL Hct 37.7 L (39.0-53.0) % Plt Count (150-450) k/uL Neutrophils # 10.1 H (1.3-7.7) k/uL Lymphocytes # 0.3 L (1.0-4.8) k/uL Sodium 135 L (137-145) mmol/L Creatinine (0.66-1.25) mg/dL Glucose 120 H (74-99) mg/dL Calcium 8.2 L (8.4-10.2) mg/dL Total Bilirubin 1.8 H (0.2-1.3) mg/dL Total Protein 6.1 L (6.3-8.2) g/dL Albumin 3.4 L (3.5-5.0) g/dL Lipase (23-300) U/L Urine Protein (Negative) Urine Glucose (UA) (Negative) Urine Ketones (Negative) Urine Blood (Negative) Urine Bilirubin (Negative) Urine RBC (0-5) /hpf Urine Mucus (None) /hpf Diabetes panel 09/30/18 10/01/18 Range/Units 18:22 09:25 Sodium 134 L 135 L (137-145) mmol/L Potassium 3.7 3.5 (3.5-5.1) mmol/L Chloride 102 103 (98-107) mmol/L Carbon Dioxide 22 22 (22-30) mmol/L BUN 12 12 (9-20) mg/dL Creatinine 0.60 L 0.72 (0.66-1.25) mg/dL Glucose 112 H 120 H (74-99) mg/dL Calcium 8.8 8.2 L (8.4-10.2) mg/dL AST 23 27 (17-59) U/L ALT 24 26 (21-72) U/L Alkaline Phosphatase 71 74 (38-126) U/L Total Protein 6.6 6.1 L (6.3-8.2) g/dL Albumin 3.8 3.4 L (3.5-5.0) g/dL Calcium panel 09/30/18 10/01/18 Range/Units 18:22 09:25 Calcium 8.8 8.2 L (8.4-10.2) mg/dL Albumin 3.8 3.4 L (3.5-5.0) g/dL Pituitary panel 09/30/18 10/01/18 Range/Units 18:22 09:25 Sodium 134 L 135 L (137-145) mmol/L Potassium 3.7 3.5 (3.5-5.1) mmol/L Chloride 102 103 (98-107) mmol/L Carbon Dioxide 22 22 (22-30) mmol/L BUN 12 12 (9-20) mg/dL Creatinine 0.60 L 0.72 (0.66-1.25) mg/dL Glucose 112 H 120 H (74-99) mg/dL Calcium 8.8 8.2 L (8.4-10.2) mg/dL Adrenal panel 09/30/18 10/01/18 Range/Units 18:22 09:25 Sodium 134 L 135 L (137-145) mmol/L Potassium 3.7 3.5 (3.5-5.1) mmol/L Chloride 102 103 (98-107) mmol/L Carbon Dioxide 22 22 (22-30) mmol/L BUN 12 12 (9-20) mg/dL Creatinine 0.60 L 0.72 (0.66-1.25) mg/dL Glucose 112 H 120 H (74-99) mg/dL Calcium 8.8 8.2 L (8.4-10.2) mg/dL Total Bilirubin 2.0 H 1.8 H (0.2-1.3) mg/dL AST 23 27 (17-59) U/L ALT 24 26 (21-72) U/L Alkaline Phosphatase 71 74 (38-126) U/L Total Protein 6.6 6.1 L (6.3-8.2) g/dL Albumin 3.8 3.4 L (3.5-5.0) g/dL Assessment and Plan (1) Acute cholecystitis Current Visit: Yes Status: Acute Code(s): K81.0 - ACUTE CHOLECYSTITIS SNOMED Code(s): 50147744 <Mely Ovalle - Last Filed: 10/02/18 08:48> History of Present Illness Patient seen and evaluated. He reports a three-day history of right upper quadrant abdominal pain. I personally reviewed his ultrasound however findings more consistent with gallbladder wall of 4 mm not 10 mm as per radiology report. Otherwise recommended robotic cholecystectomy as he is high risk for intraoperative and perioperative complications for the severity of acute cholecystitis including possibility of open technique and injury to biliary tree Surgical - Exam Vital Signs Temp Pulse Resp BP Pulse Ox 98.3 F 111 H 18 151/77 95 09/30/18 15:58 09/30/18 15:58 09/30/18 15:58 09/30/18 15:58 09/30/18 15:58 Results - Labs 10/02/18 07:24 10/02/18 07:15 Abnormal Lab Results - Last 24 Hours (Table) 10/01/18 10/01/18 10/02/18 Range/Units 09:25 09:25 07:15 WBC 11.2 H (3.8-10.6) k/uL RBC 3.95 L (4.30-5.90) m/uL Hgb 12.3 L (13.0-17.5) gm/dL Hct 37.7 L (39.0-53.0) % Plt Count (150-450) k/uL Neutrophils # 10.1 H (1.3-7.7) k/uL Lymphocytes # 0.3 L (1.0-4.8) k/uL Sodium 135 L (137-145) mmol/L Chloride 109 H (98-107) mmol/L Glucose 120 H 116 H (74-99) mg/dL Calcium 8.2 L 7.7 L (8.4-10.2) mg/dL Magnesium 2.5 H (1.6-2.3) mg/dL Total Bilirubin 1.8 H (0.2-1.3) mg/dL Total Protein 6.1 L (6.3-8.2) g/dL Albumin 3.4 L (3.5-5.0) g/dL 10/02/18 Range/Units 07:24 WBC (3.8-10.6) k/uL RBC 3.47 L (4.30-5.90) m/uL Hgb 11.4 L (13.0-17.5) gm/dL Hct 34.6 L (39.0-53.0) % Plt Count 119 L (150-450) k/uL Neutrophils # (1.3-7.7) k/uL Lymphocytes # (1.0-4.8) k/uL Sodium (137-145) mmol/L Chloride (98-107) mmol/L Glucose (74-99) mg/dL Calcium (8.4-10.2) mg/dL Magnesium (1.6-2.3) mg/dL Total Bilirubin (0.2-1.3) mg/dL Total Protein (6.3-8.2) g/dL Albumin (3.5-5.0) g/dL Microbiology - Last 24 Hours (Table) 09/30/18 18:22 Blood Culture Gram Stain - Preliminary Blood 09/30/18 18:22 Blood Culture - Final Blood Diabetes panel 10/01/18 10/02/18 Range/Units 09:25 07:15 Sodium 135 L 139 (137-145) mmol/L Potassium 3.5 3.5 (3.5-5.1) mmol/L Chloride 103 109 H (98-107) mmol/L Carbon Dioxide 22 24 (22-30) mmol/L BUN 12 19 (9-20) mg/dL Creatinine 0.72 0.84 (0.66-1.25) mg/dL Glucose 120 H 116 H (74-99) mg/dL Calcium 8.2 L 7.7 L (8.4-10.2) mg/dL AST 27 (17-59) U/L ALT 26 (21-72) U/L Alkaline Phosphatase 74 (38-126) U/L Total Protein 6.1 L (6.3-8.2) g/dL Albumin 3.4 L (3.5-5.0) g/dL Thyroid panel 10/01/18 Range/Units 09:25 TSH 1.150 (0.465-4.680) mIU/L Calcium panel 10/01/18 10/02/18 Range/Units 09:25 07:15 Calcium 8.2 L 7.7 L (8.4-10.2) mg/dL Albumin 3.4 L (3.5-5.0) g/dL Pituitary panel 10/01/18 10/01/18 10/02/18 Range/Units 09:25 09:25 07:15 Sodium 135 L 139 (137-145) mmol/L Potassium 3.5 3.5 (3.5-5.1) mmol/L Chloride 103 109 H (98-107) mmol/L Carbon Dioxide 22 24 (22-30) mmol/L BUN 12 19 (9-20) mg/dL Creatinine 0.72 0.84 (0.66-1.25) mg/dL Glucose 120 H 116 H (74-99) mg/dL Calcium 8.2 L 7.7 L (8.4-10.2) mg/dL TSH 1.150 (0.465-4.680) mIU/L Adrenal panel 10/01/18 10/02/18 Range/Units 09:25 07:15 Sodium 135 L 139 (137-145) mmol/L Potassium 3.5 3.5 (3.5-5.1) mmol/L Chloride 103 109 H (98-107) mmol/L Carbon Dioxide 22 24 (22-30) mmol/L BUN 12 19 (9-20) mg/dL Creatinine 0.72 0.84 (0.66-1.25) mg/dL Glucose 120 H 116 H (74-99) mg/dL Calcium 8.2 L 7.7 L (8.4-10.2) mg/dL Total Bilirubin 1.8 H (0.2-1.3) mg/dL AST 27 (17-59) U/L ALT 26 (21-72) U/L Alkaline Phosphatase 74 (38-126) U/L Total Protein 6.1 L (6.3-8.2) g/dL Albumin 3.4 L (3.5-5.0) g/dL
[2018-10-01] MEDS ORDERED: diphenhydrAMINE 25 MG CAP PO PRN (14:02)
--- NOTE | 2018-10-01 14:43 | P.CRDCN ---
History of Present Illness History of present illness: This is a pleasant 68-year-old male past medical history significant for aortic insufficiency status post aortic valve repair with a tissue valve in 2008, hypertension, former nicotine dependence and regular daily alcohol use. We have been asked to see him in consultation secondary to pre-surgical evaluation. He initially presented to the hospital yesterday afternoon with sym ptoms of abdominal discomfort. Abdominal ultrasound revealed cholelithiasis with gallbladder wall thickening, trace pericholecystic fluid and positive Ayala sign suggestive of acute cholecystitis. He is seen and examined sitting up in bed in no acute distress. He continues to complain of significant right upper quadrant tenderness. He denies chest pain, shortness of breath, dizziness or palpitations. We requested an EKG as part of her preoperative evaluation. The EKG revealed left bundle branch block pattern, atrial fibrillation and left axis deviation. The patient states he did have an episode of atrial fibrillation back in 2008 just after his valve was replaced however since that t di has not had any recurrences no longer on anticoagulation. Laboratory data reviewed, WBC 11.2, hemoglobin 12.3, platelets 161, sodium 135, potassium 3.5, creatinine 0.72, magnesium 1.6. Current cardiac medications include aspirin 81 mg daily, irbesartan 300 mg daily and Lopressor 25 mg twice a day. He underwent cardiac catheterization in 2008 prior to his valve surgery revealing normal coronary arteries with no obstructive disease. At the time of my exam: CONSTITUTIONAL: Denies fever. Denies chills. EYES: Denies blurred vision. Denies vision changes. Denies eye pain. EARS, NOSE, MOUTH & THROAT: Denies headache. Denies sore throat. Denies ear pain. CARDIOVASCULAR: Denies chest pain. Denies shortness of breath. Denies orthopnea. Denies PND. Denies palpitations. RESPIRATORY: Denies cough. GASTROINTESTINAL: Complains of right upper quadrant abdominal pain. Denies diarrhea. Denies constipation. Denies nausea. Denies vomiting. MUSCULOSKELETAL: Denies myalgias. INTEGUMENTARY: Denies pruitis. Denies rash. NEUROLOGIC: Denies numbness. Denies tingling. Denies weakness. PSYCHIATRIC: Denies anxiety. Denies depression. ENDOCRINE: Denies fatigue. Denies weight change. Denies polydipsia. Denies polyurina. GENITOURINARY: Denies burning, hematuria or urgency with micturation. HEMATOLOGIC: Denies history of anemia. Denies bleeding. Blood pressure 149/87 heart rate 107 afebrile maintaining oxygen saturation on room air GENERAL: This is a 68-year-old male in no apparent distress at the time of my examination. HEENT: Head is atraumatic, normocephalic. Pupils are equal, round. Sclerae anicteric. Conjunctivae are clear. Mucous membranes of the mouth are moist. Neck is supple. There is no jugular venous distention. No carotid bruit is heard. LUNGS: Clear to auscultation no wheezes, rales or rhonchi. No chest wall tenderness is noted on palpation or with deep breathing. HEART: Irregular rate and rhythm without murmurs, rubs or gallops. S1 and S2 heard. ABDOMEN: Soft, tenderness noted to right upper quadrant. Bowel sounds are heard. No organomegaly noted. EXTREMITIES: No evidence of peripheral edema and no calf tenderness noted. VASCULAR: Radial and dorsalis pedis pulses palpated, no evidence of clubbing. NEUROLOGIC: Patient is awake, alert and oriented x3. ASSESSMENT Acute cholecystitis with cholelithiasis and wall thickening Leukocytosis Febrile illness New onset paroxysmal atrial fibrillation with mildly rapid ventricular rates Non-ischemic cardiomyopathy, last EF 42% with mild MR, mild TR and normally functioning prosthetic valve Hypertension History of aortic insufficiency s/p tissue valve replacement 2008 PLAN Increase beta emma to 50 mg BID, given an additional dose of 25 mg now. Continue losartan. Check TSH. Obtain 2D echocardiogram and doppler study to assess cardiac structure and function. Apply gambling monitor for ongoing evaluation of heart rates. This does not contraindicate him from undergoing surgery. He is a moderate risk due to his co-morbid conditions. We recommend optimal heart rate control with continuous use of beta blockers. He will require buttermaker continuous churn anti-coagulation, however this will be initiated after he undergoes surgery for thromboembolic protection. Further recommendations to follow based on clinical course. Thank you kindly for this consultation. Nurse Practitioner note has been reviewed, I agree with a documented findings and plan of care. Patient was seen and examined. Past Medical History Past Medical History: Hypertension History of Any Multi-Drug Resistant Organisms: None Reported Past Surgical History: Appendectomy, Cardiac Valve Replacement, Hernia Repair Additional Past Surgical History / Comment(s): AORTIC VALVE REPLACEMENT 2009. INGUINAL HERNIA REPAIR. UMBILICAL HERNIA REPAIR. COLONOSCOPY Past Anesthesia/Blood Transfusion Reactions: No Reported Reaction Past Psychological History: No Psychological Hx Reported Smoking Status: Former smoker Past Alcohol Use History: Daily, Heavy Additional Past Alcohol Use History / Comment(s): QUIT SMOKING 2003. DRINKS 4-5 BEERS DAILY Past Drug Use History: None Reported - Past Family History Mother Family Medical History: No Reported History, Hypertension Medications and Allergies Home Medications Medication Instructions Recorded Confirmed Type Aspirin [Adult Low Dose Aspirin EC] 81 mg PO DAILY 11/08/16 09/30/18 History Metoprolol Tartrate [Lopressor] 25 mg PO BID 11/08/16 09/30/18 History Vit C/E/Zn/Coppr/Lutein/Zeaxan 1 cap PO DAILY 11/08/16 09/30/18 History [Preservision Areds 2 Softgel] Irbesartan [Avapro] 300 mg PO DAILY 09/30/18 09/30/18 History Allergies Allergy/AdvReac Type Severity Reaction Status Date / Time Penicillins Allergy Rash/Hives Verified 09/30/18 17:06 Physical Exam Vitals: Vital Signs Temp Pulse Pulse Resp BP BP Pulse Ox 10/01/18 13:51 97.3 F L 107 H 16 149/87 93 L 10/01/18 12:29 97.6 F 113 H 20 137/93 97 10/01/18 10:50 98.5 F 136 H 22 160/81 96 10/01/18 07:11 98.7 F 10/01/18 04:00 100.1 F H 95 20 106/64 92 L 09/30/18 22:20 98 F 97 20 144/98 98 09/30/18 21:38 98 18 155/92 97 09/30/18 19:27 98.4 F 75 18 135/82 96 09/30/18 15:58 98.3 F 111 H 18 151/77 95 Intake and Output 09/30/18 10/01/18 10/01/18 22:59 06:59 14:59 Intake Total 0 Balance 0 Intake: Oral 0 Other: Voiding Method Toilet # Voids 1 2 2 Weight 108.862 kg Results 10/01/18 09:25 10/01/18 09:25 Cardiac Enzymes 09/30/18 10/01/18 Range/Units 18:22 09:25 AST 23 27 (17-59) U/L CBC 09/30/18 10/01/18 Range/Units 18:22 09:25 WBC 12.9 H 11.2 H (3.8-10.6) k/uL RBC 4.17 L 3.95 L (4.30-5.90) m/uL Hgb 13.7 12.3 L (13.0-17.5) gm/dL Hct 40.1 37.7 L (39.0-53.0) % Plt Count 140 L 161 (150-450) k/uL Comprehensive Metabolic Panel 09/30/18 10/01/18 Range/Units 18:22 09:25 Sodium 134 L 135 L (137-145) mmol/L Potassium 3.7 3.5 (3.5-5.1) mmol/L Chloride 102 103 (98-107) mmol/L Carbon Dioxide 22 22 (22-30) mmol/L BUN 12 12 (9-20) mg/dL Creatinine 0.60 L 0.72 (0.66-1.25) mg/dL Glucose 112 H 120 H (74-99) mg/dL Calcium 8.8 8.2 L (8.4-10.2) mg/dL AST 23 27 (17-59) U/L ALT 24 26 (21-72) U/L Alkaline Phosphatase 71 74 (38-126) U/L Total Protein 6.6 6.1 L (6.3-8.2) g/dL Albumin 3.8 3.4 L (3.5-5.0) g/dL Current Medications Generic Name Dose Route Start Last Admin Trade Name Freq PRN Reason Stop Dose Admin Aspirin 81 mg 10/01/18 11:45 10/01/18 11:52 Aspirin PO 81 mg DAILY NOAH Administration Diphenhydramine HCl 25 mg 10/01/18 14:02 Benadryl PO Q6H PRN Rash Heparin Sodium (Porcine) 5,000 unit 10/01/18 16:00 Heparin SQ Q8HR NOAH Hydromorphone HCl 0.5 mg 09/30/18 19:58 Dilaudid IVP Q6H PRN Severe Pain Piperacillin Sod/Tazobactam 100 mls @ 25 mls/hr 10/01/18 04:00 10/01/18 11:19 Sod 3.375 gm/ Sodium Chloride IVPB 25 mls/hr Q8H NOAH Administration Sodium Chloride 1,000 mls @ 100 mls/hr 09/30/18 20:00 10/01/18 05:10 Saline 0.9% IV Not Given .Q10H NOAH Lorazepam 1 mg 10/01/18 12:56 Ativan IV Q2HR PRN CIWA 8 or 9 Lorazepam 1 mg 10/01/18 12:56 Ativan IV Q1HR PRN CIWA 10 to 15 Lorazepam 2 mg 10/01/18 12:56 Ativan IV 10/03/18 12:56 Q10M PRN CIWA 16 or higher Losartan Potassium 100 mg 10/01/18 11:40 10/01/18 11:54 Cozaar PO 100 mg DAILY NOAH Administration Metoprolol Tartrate 25 mg 10/01/18 11:45 10/01/18 11:52 Lopressor PO 25 mg BID NOAH Administration Naloxone HCl 0.2 mg 09/30/18 19:58 Narcan IV Q2M PRN Opioid Reversal Pantoprazole Sodium 40 mg 10/01/18 09:45 10/01/18 10:21 Protonix IVP 40 mg DAILY NOAH Administration Thiamine HCl 100 mg 10/02/18 17:30 Vitamin B-1 PO BID-W/MEALS NOAH Intake and Output 09/30/18 10/01/18 10/01/18 22:59 06:59 14:59 Intake Total 0 Balance 0 Intake: Oral 0 Other: Voiding Method Toilet # Voids 1 2 2 Weight 108.862 kg 10/01/18 09:25 10/01/18 09:25
[2018-10-01] MEDS ORDERED: Magnesium Replacement Protocol 1 EACH MISC MISCELLANE PRN (15:13)
[2018-10-01] MEDS: MAGNESIUM SULFATE-D5W PMX 1 GM in DEXTROSE/WATER 1 100ML.BAG IVPB SCH ×2 (16:20→17:50)
[2018-10-01] MEDS: HEPARIN SODIUM,PORCINE 5,000 UNIT/ML 1 ML VIAL SQ SCH ×2 (16:24→22:52)
[2018-10-01] MEDS: DILTIAZEM 125 MG in SODIUM CHLORIDE 0.9% 100 ML IV SCH (19:34)
[2018-10-01] MEDS: METOPROLOL TARTRATE 50 MG TAB PO SCH (19:40)
[2018-10-02] MEDS: DILTIAZEM 125 MG in SODIUM CHLORIDE 0.9% 100 ML IV SCH ×2 (03:07→20:43)
[2018-10-02] MEDS: PIPERACILLIN-TAZOBACTAM 3.375 GM in SODIUM CHLORIDE 0.9% 100 ML IVPB SCH ×3 (03:09→17:35)
[2018-10-02 07:52] LABS: African American GFR (CKD) >90 (>60 ml/min/1.73 sqM); Anion Gap 6 mmol/L; Blood Urea Nitrogen 19 mg/dL (9-20); Calcium 7.7 mg/dL (8.4-10.2); Carbon Dioxide 24 mmol/L (22-30); Chloride 109 mmol/L (98-107); Glucose 116 mg/dL (74-99); Magnesium 2.5 mg/dL (1.6-2.3); Non-African American GFR(CKD) 89 (>60 ml/min/1.73 sqM); Potassium 3.5 mmol/L (3.5-5.1); Sodium 139 mmol/L (137-145)
[2018-10-02 08:20] LABS: HCT 34.6 % (39.0-53.0); HGB 11.4 gm/dL (13.0-17.5); MCH 32.7 pg (25.0-35.0); MCHC 32.8 g/dL (31.0-37.0); MCV 99.8 fL (80.0-100.0); Mean Platelet Volume 7.9; Platelet Count 119 k/uL (150-450); RBC 3.47 m/uL (4.30-5.90); RDW 13.8 % (11.5-15.5); WBC 6.2 k/uL (3.8-10.6)
[2018-10-02] MEDS ORDERED: ONDANSETRON 4 MG/2 ML VIAL IVP ONE (08:35)
[2018-10-02] MEDS ORDERED: DEXAMETHASONE SOD PHOSPHATE 10 MG/ML 1 ML VIAL IV ONE (08:35)
[2018-10-02] MEDS ORDERED: HYDROmorphone 0.5 MG/0.5 ML SYRINGE IVP PRN (08:35)
[2018-10-02] MEDS ORDERED: LIDOCAINE 1% 20 ML VIAL (10MG/ML) FOR IV START INTRADERMA PRN (08:35)
[2018-10-02] MEDS ORDERED: ONDANSETRON 4 MG/2 ML VIAL IVP PRN (08:35)
[2018-10-02] MEDS: HEPARIN SODIUM,PORCINE 5,000 UNIT/ML 1 ML VIAL SQ SCH ×3 (08:37→23:02)
[2018-10-02] MEDS: METOPROLOL TARTRATE 50 MG TAB PO SCH ×2 (08:37→21:00)
[2018-10-02] MEDS: PANTOPRAZOLE 40 MG/10 ML VIAL IVP SCH (08:41)
[2018-10-02] MEDS ORDERED: POTASSIUM CHLORIDE ER 20 MEQ TAB.ER PO STA (08:48)
--- NOTE | 2018-10-02 08:49 | P.HPADDEND ---
H&P Addendum H&P Addendum Date: 10/02/18 Overall findings consistent with acute cholecystitis with new atrial fibrillation. Patient has history of aortic valvular replacement. Cardiac consultation appreciated. We'll proceed with robotic cholecystectomy
[2018-10-02 10:13] LABS: Band Neutrophils % 1 %; Lymphocytes # (M) 0.62 k/uL (1.0-4.8); Monocytes # (M) 0.56 k/uL (0-1.0); Neutrophils % (M) 80 %; Nucleated Red Blood Cells 0 /100 WBC (0-0); Total Cells Counted 100
[2018-10-02] MEDS ORDERED: INDOCYANINE GREEN 25 MG VIAL IV STA (10:42)
--- NOTE | 2018-10-02 11:13 | ECHOF ---
Referral Reason: MEASUREMENTS -------- HEIGHT: 188.0 cm WEIGHT: 108.9 kg BP: 106/64 RVIDd: 4.7 cm (< 3.3) IVSd: 1.4 cm (0.6 - 1.1) LVIDd: 5.2 cm (3.9 - 5.3) LVPWd: 1.4 cm (0.6 - 1.1) IVSs: 1.8 cm LVIDs: 4.0 cm LVPWs: 1.8 cm LAESV Index (A-L): 40.60 ml/m Ao Diam: 3.9 cm (2.0 - 3.7) AV Cusp: 1.8 cm (1.5 - 2.6) LA Diam: 5.3 cm (2.7 - 3.8) MV EXCURSION: 14.837 mm (> 18.000) MV EF SLOPE: 86 mm/s (70 - 150) EPSS: 2.3 cm AV maxP.20 mmHg AV meanP.69 mmHg RAP: 5.00 mmHg RVSP: 54.48 mmHg FINDINGS -------- Atrial fibrillation. This was a technically difficult study with suboptimal views. The left ventricular size is normal. There is moderate concentric left ventricular hypertrophy. T here is moderate global hypokinesis of LV . Overall left ventricular systolic function is severely impaired with, an EF between 25 - 30 %. Left ventricular fillimg pressure cannot be estimated due t o Atrial fibrillation. The right ventricle is severely enlarged. LA is severely dilated >40 ml/m2 RA appears enlarged. xx ml of Lumason was utilized for enhancement of images. Interatrial and interventricular septum intact. Peak/mean gradient across the Aortic Valve is 27.20mmHg / 15.69mmHg. There is mild stenosis of the bioprosthetic aortic valve. Mild mitral annular calcification present. Cahs-tp-eyefogpt mitral regurgitation is present. Moderate tricuspid regurgitation present. There is moderate to severe pulmonary hypertension. The right ventricular systolic pressure, as measured by Doppler, is 54.48mmHg. There is no pulmonic regurgitation present. The aortic root size is normal. IVC Not well visulized. There is no pericardial effusion. CONCLUSIONS -------- 1. Atrial fibrillation. 2. This was a technically difficult study with suboptimal views. 3. The left ventricular size is normal. 4. There is moderate concentric left ventricular hypertrophy. 5. There is moderate global hypokinesis of LV . 6. Left ventricular fillimg pressure cannot be estimated due to Atrial fibrillation. 7. The right ventricle is severely enlarged. 8. LA is severely dilated >40 ml/m2 9. RA appears enlarged. 10. xx ml of Lumason was utilized for enhancement of images. 11. Interatrial and interventricular septum intact. 12. Peak/mean gradient across the Aortic Valve is 27.20mmHg / 15.69mmHg. 13. There is mild stenosis of the bioprosthetic aortic valve. 14. Mild mitral annular calcification present. 15. Umzz-fa-wrcreqdf mitral regurgitation is present. 16. Moderate tricuspid regurgitation present. 17. There is moderate to severe pulmonary hypertension. 18. The right ventricular systolic pressure, as measured by Doppler, is 54.48mmHg. 19. There is no pulmonic regurgitation present. 20. The aortic root size is normal. 21. IVC Not well visulized. 22. There is no pericardial effusion. MONOTYPE MACHINIST: Liz Candelario RDCS
[2018-10-02] MEDS ORDERED: IV FLUID CONTINUATION 1,000 ML IV ONE (11:34)
--- NOTE | 2018-10-02 12:20 | P.PN ---
Subjective Progress Note Date: 10/02/18 This is a pleasant 68-year-old male past medical history significant for aortic insufficiency status post aortic valve repair with a tissue valve in 2008, hypertension, former nicotine dependence and regular daily alcohol use. We have been asked to see him in consultation secondary to pre-surgical evaluation. He initially presented to the hospital yesterday afternoon with symptoms of abdominal discomfort. Abdominal ultrasound revealed cholelithiasis with gallbladder wall thickening, trace pericholecystic fluid and positive Ayala sign suggestive of acute cholecystitis. He is seen and examined sitting up in bed in no acute distress. He continues to complain of significant right upper quadrant tenderness. He denies chest pain, shortness of breath, dizziness or palpitations. We requested an EKG as part of her preoperative evaluation. The EKG revealed left bundle branch block pattern, atrial fibrillation and left axis deviation. The patient states he did have an episode of atrial fibrillation back in 2008 just after his valve was replaced however since that time has not had any recurrences no longer on anticoagulation. Laboratory data reviewed, WBC 11.2, hemoglobin 12.3, platelets 161, sodium 135, potassium 3.5, creatinine 0.72, magnesium 1.6. Current cardiac medications include aspirin 81 mg daily, irbesartan 300 mg daily and Lopressor 25 mg twice a day. He underwent cardiac catheterization in 2008 prior to his valve surgery revealing normal coronary arteries with no obstructive disease. 10/02/2018 Patient continues to be in atrial fibrillation this morning, his heart rate of 70-80, blood pressure 122/60. Scheduled for gallbladder surgery today. Objective - Vital Signs Vital signs: Vital Signs Temp 96.5 F L 10/02/18 11:28 Pulse 86 10/02/18 11:28 Resp 16 10/02/18 11:28 BP 118/61 10/02/18 11:28 Pulse Ox 92 L 10/02/18 11:28 Intake & Output 10/01/18 10/02/18 10/02/18 18:59 06:59 18:59 Intake Total 75.5 Balance 75.5 Intake: Intake, IV Titration 75.5 Amount Diltiazem 125 mg In 75.5 Sodium Chloride 0.9% 100 ml @ 10 MG/HR 10 mls/hr IV .[id number] NOAH Rx#: [id number] Other: Voiding Method Toilet Toilet # Voids 2 1 - Exam GENERAL: This is a 68-year-old male in no apparent distress at the time of my examination. HEENT: Head is atraumatic, normocephalic. Pupils are equal, round. Sclerae anicteric. Conjunctivae are clear. Mucous membranes of the mouth are moist. Neck is supple. There is no jugular venous distention. No carotid bruit is heard. LUNGS: Clear to auscultation no wheezes, rales or rhonchi. No chest wall tenderness is noted on palpation or with deep breathing. HEART: Irregular rate and rhythm without murmurs, rubs or gallops. S1 and S2 heard. ABDOMEN: Soft, tenderness noted to right upper quadrant. Bowel sounds are heard. No organomegaly noted. EXTREMITIES: No evidence of peripheral edema and no calf tenderness noted. VASCULAR: Radial and dorsalis pedis pulses palpated, no evidence of clubbing. NEUROLOGIC: Patient is awake, alert and oriented x3. - Labs CBC & Chem 7: 10/02/18 07:24 10/02/18 07:15 Labs: Abnormal Lab Results - Last 24 Hours (Table) 10/02/18 10/02/18 Range/Units 07:15 07:24 RBC 3.47 L (4.30-5.90) m/uL Hgb 11.4 L (13.0-17.5) gm/dL Hct 34.6 L (39.0-53.0) % Plt Count 119 L (150-450) k/uL Lymphocytes # (Manual) 0.62 L (1.0-4.8) k/uL Chloride 109 H (98-107) mmol/L Glucose 116 H (74-99) mg/dL Calcium 7.7 L (8.4-10.2) mg/dL Magnesium 2.5 H (1.6-2.3) mg/dL Microbiology - Last 24 Hours (Table) 09/30/18 18:22 Blood Culture Gram Stain - Preliminary Blood 09/30/18 18:22 Blood Culture - Final Blood Assessment and Plan Plan: ASSESSMENT and plan #1 Acute cholecystitis with cholelithiasis and wall thickening, scheduled for surgery today #2 Leukocytosis #3 Febrile illness #4 New onset paroxysmal atrial fibrillation with mildly rapid ventricular rates #5 Non-ischemic cardiomyopathy, last EF 42% with mild MR, mild TR and normally functioning prosthetic valve #6 Hypertension #7 History of aortic insufficiency s/p tissue valve replacement 2009 Plan Echocardiogram with Doppler study revealed an ejection fraction of 25-30%, mild to moderate mitral regurgitation noted. Patient had been seen in consultation yesterday by Dr. KRIS Hinojosa and approved for surgery today. We will continue to follow him throughout his duration. DNP note has been reviewed, I agree with a documented findings and plan of care. Patient was seen and examined.
[2018-10-02] MEDS ORDERED: ROCURONIUM BROMIDE 10 MG/ML 10 ML VIAL IV ONE (12:59)
[2018-10-02] MEDS ORDERED: PROPOFOL 10 MG/ML 20 ML VIAL IV ONE (12:59)
[2018-10-02] MEDS ORDERED: NEOSTIGMINE 1 MG/ML 10 ML VIAL ONE (12:59)
[2018-10-02] MEDS ORDERED: HYDROmorphone (PF) 1 MG/ML ONE (12:59)
[2018-10-02] MEDS ORDERED: SUCCINYLCHOLINE CHLORIDE 100 MG/5 ML SYR IV ONE (12:59)
[2018-10-02] MEDS ORDERED: INDOCYANINE GREEN 25 MG VIAL IV ONE (12:59)
[2018-10-02] MEDS ORDERED: GLYCOPYRROLATE 0.2 MG/ML 2 ML VIAL ONE (12:59)
[2018-10-02] MEDS ORDERED: MIDAZOLAM 2 MG/2 ML VIAL ONE (12:59)
[2018-10-02] MEDS ORDERED: LIDOCAINE 1% INJ 10MG/ML (20 ML MDV) ONE (12:59)
[2018-10-02] MEDS ORDERED: PHENYLEPHRINE-0.9% NACL SYG 1 MG/10 ML SYRINGE ONE (12:59)
[2018-10-02] MEDS ORDERED: fentaNYL (PF) 50 MCG/ML 2 ML AMP ONE (12:59)
[2018-10-02] MEDS ORDERED: BUPIVACAINE (PF) 0.5% 30 ML VIAL SQ ONE (13:31)
--- NOTE | 2018-10-02 17:18 | P.OP ---
Date of Procedure: 10/02/18 Description of Procedure: Date of Procedure: 10/02/18 SURGEON: ADELAIDE CRUZ MD PREOPERATIVE DIAGNOSES: 1. Acute cholecystitis with localized peritonitis 2. Hypertensive heart disease 3. History of aortic valvular replacement 4. Atrial fibrillation, new onset 5. History of anticoagulant use POSTOPERATIVE DIAGNOSES: 1. Acute cholecystitis with localized peritonitis 2. Hypertensive heart disease 3. History of aortic valvular replacement 4. Atrial fibrillation, new onset 5. History of anticoagulant use 6. Purulent necrotic acute cholecystitis with localized perforation OPERATION: 1. Robotic-assisted da Rere Xi laparoscopic cholecystectomy, multiport with FIREFLY 2. Placement of #19 Ismael-Avitia drain Anesthesia: GETA, local Estimated Blood Loss (ml): 40 Pathology: other (gallbladder and gallbladder fluid) Condition: stable Disposition: floor OPERATIVE FINDINGS: 1. Purulent necrotic acute cholecystitis with localized perforation INDICATIONS: The patient is a 68-year-old male who presents with acute right upper quadrant abdominal pain. Surgical intervention with a laparoscopic cholecystectomy was described at length including injury to the biliary tree, bleeding, infection, need for further surgery. Informed consent was obtained. Robotic assisted laparoscopic approach was described. Benefits and risks of the procedure including but not limited to bleeding, infection, injury to the biliary tree was described. Informed consent was obtained. DESCRIPTION OF PROCEDURE: Patient was brought to the operating room, placed in supine position. After general induction, the abdomen had been prepped and draped in standard sterile fashion. The robotic da Rere XI system was primed. After a timeout protocol was performed, the patient had been prepped and draped in standard sterile fashion. The patient was injected with indocyanine green. A 5 mm 0 degrees laparoscopic trocar entry was performed along the left upper quadrant. The abdomen insufflated to 15 mmHg pressure which he tolerated well. Diagnostic laparoscopy demonstrated no injury to bowel viscera or mesentery. The gallbladder was completely encased in omentum with localized perforation. Next, two 8 mm robotic ports were placed along the right upper abdomen. The camera 8-mm port was maintained along the epigastrium. Another 8 mm port was placed along the left upper abdominal wall after exchanging the 5 mm port. Please note that the ports were placed at least 10 to 15 cm away from the target anatomy of the gallbladder. The robot was docked along the left lateral abdomen. The patient was repositioned in reverse Trendelenburg position. Using a grasper for arm 3, a grasper for arm 4, including hook cautery for arm 1, the robotic system was docked and primed as described. Instruments were interchanged by the laundry assistant including hook cautery, Bovie cautery and clip appliers. I had sat at the console. Adhesions were identified along the infundibulum of the gallbladder and addressed using hook cautery. The gallbladder fundus was retracted over the dome of the liver. Initial attention was brought to the infundibulum which was gently retracted in the inferior lateral approach. The cystic structures were completely obscured with edematous infundibulum and fatty tissue. A dome down technique was performed removing the gallbladder from the hepatic fossa. Additionally the gallbladder was intrahepatic adding complexity to the case. The gallbladder wall was completely necrotic with purulence including localized perforation to the hepatic fossa. Additionally, firefly confirmed acute cholecystitis with nonvisualization of the gallbladder. Separately with the severe edema at the cystic structures, dissection was performed at the infundibulum and prepared for resection. The port along the left upper quadrant was exchanged for a 12 mm port. A green 45 mm robotic stapler was used to divide the gallbladder at the infundibulum. Electro-Bovie cautery was used to remove the gallbladder from the hepatic fossa. Hemostasis was checked and found to be adequate. The abdomen was irrigated with 1 L normal saline until solution was clear. A round #19 drain was placed at the hepatic fossa and exited via the right lateral abdominal wall with a 2-0 nylon stitch and bulb suction. The robot was undocked. I re-scrubbed into the case. Using a 10 mm Endo Catch bag via the left upper quadrant incision, the specimen was removed from the abdominal cavity. All pneumoperitoneum instruments were evacuated from the abdominal cavity. The incisions were reapproximated using 4-0 Monocryl in an interrupted subcuticular fashion. Fascial defects were less than 8 mm in size. Please note along the trocar sites, local anesthetic was placed as a field block prior to insertion of all instruments. The skin was cleansed with dilute hydrogen peroxide. Liquid glue was applied to the skin. Optifoam dressing was placed along the left upper quadrant and IVONNE drain site. At the end of the procedure needle, sponge, and instrument count had been verified correct by the surgical technology instructor. The patient was transferred to postanesthesia care unit in stable condition. Console time over 90 minutes
[2018-10-02] MEDS: SODIUM CHLORIDE 0.9% 1,000 ML IV SCH ×2 (17:34→23:00)
[2018-10-02] MEDS: THIAMINE 100 MG TAB PO SCH (17:37)
[2018-10-02] MEDS: LACTATED RINGERS 1,000 ML IV SCH (18:39)
[2018-10-02] MEDS: ASPIRIN 81 MG PO SCH (18:40)
[2018-10-02] MEDS: LOSARTAN 50 MG TAB PO SCH (18:40)
[2018-10-02] MEDS: HYDROmorphone 1 MG/ML 1 ML SYRINGE IVP PRN (21:01)
[2018-10-03] MEDS: PIPERACILLIN-TAZOBACTAM 3.375 GM in SODIUM CHLORIDE 0.9% 100 ML IVPB SCH ×3 (02:01→19:43)
[2018-10-03] MEDS: HYDROmorphone 1 MG/ML 1 ML SYRINGE IVP PRN (05:34)
[2018-10-03] MEDS: THIAMINE 100 MG TAB PO SCH ×2 (05:39→15:52)
[2018-10-03 06:47] LABS: Basophils % (A) 0 %; Eosinophils # (A) 0.1 k/uL (0-0.7); Eosinophils % (A) 1 %; HCT 36.9 % (39.0-53.0); HGB 11.6 gm/dL (13.0-17.5); Lymphocytes # (A) 0.8 k/uL (1.0-4.8); Lymphocytes % (A) 10 %; MCH 31.7 pg (25.0-35.0); MCHC 31.6 g/dL (31.0-37.0); MCV 100.2 fL (80.0-100.0); Mean Platelet Volume 8.2; Monocytes # (A) 0.6 k/uL (0-1.0); Monocytes % (A) 8 %; Neutrophils # (A) 6.2 k/uL (1.3-7.7); Neutrophils % (A) 77 %; Platelet Count 143 k/uL (150-450); RBC 3.68 m/uL (4.30-5.90); RDW 13.5 % (11.5-15.5); WBC 8.1 k/uL (3.8-10.6)
[2018-10-03 06:55] LABS: ALT 44 U/L (21-72); AST 50 U/L (17-59); African American GFR (CKD) >90 (>60 ml/min/1.73 sqM); Albumin 2.8 g/dL (3.5-5.0); Alkaline Phosphatase 65 U/L (38-126); Anion Gap 7 mmol/L; Blood Urea Nitrogen 22 mg/dL (9-20); Calcium 7.7 mg/dL (8.4-10.2); Carbon Dioxide 25 mmol/L (22-30); Chloride 107 mmol/L (98-107); Glucose 103 mg/dL (74-99); Non-African American GFR(CKD) >90 (>60 ml/min/1.73 sqM); Potassium 3.6 mmol/L (3.5-5.1); Sodium 139 mmol/L (137-145); Total Bilirubin 0.5 mg/dL (0.2-1.3); Total Protein 5.5 g/dL (6.3-8.2)
[2018-10-03] MEDS ORDERED: SODIUM CHLORIDE 0.9% 500 ML 500 ML IV ONE (08:58)
[2018-10-03] MEDS: METOPROLOL TARTRATE 50 MG TAB PO SCH ×2 (09:22→21:26)
[2018-10-03] MEDS: LOSARTAN 50 MG TAB PO SCH (09:22)
[2018-10-03] MEDS: PANTOPRAZOLE 40 MG/10 ML VIAL IVP SCH (09:22)
[2018-10-03] MEDS: HEPARIN SODIUM,PORCINE 5,000 UNIT/ML 1 ML VIAL SQ SCH ×3 (09:22→23:36)
[2018-10-03] MEDS: ASPIRIN 81 MG PO SCH (09:23)
[2018-10-03] MEDS: LACTATED RINGERS 1,000 ML IV SCH (09:23)
[2018-10-03] MEDS: SODIUM CHLORIDE 0.9% 1,000 ML IV SCH ×2 (09:23→15:54)
[2018-10-03] MEDS: DILTIAZEM 125 MG in SODIUM CHLORIDE 0.9% 100 ML IV SCH (09:30)
[2018-10-03] MEDS: HYDROcodone/APAP 5-325MG 1 EACH TAB PO PRN ×2 (09:34→19:43)
--- NOTE | 2018-10-03 09:58 | P.PN ---
<Iman Reina Gabby - Last Filed: 10/03/18 09:50> Subjective Progress Note Date: 10/03/18 CHIEF COMPLAINT: Abdominal pain HISTORY OF PRESENT ILLNESS: patient is status post robotic cholecystectomy and was found to have a purulent necrotic gallbladder. POD #1. Patient examined at t he bedside. He denies abdominal pain. He has been tolerating ice chips, popsicles, and sips of water. Denies nausea or vomiting. Urinal at bedside with 150cc of dark bette urine. WBC 8.1. Hemoglobin 11.6. Potassium 3.6. PHYSICAL EXAM: VITAL SIGNS: Reviewed GENERAL: Well-developed in no acute distress. HEENT: No sclera icterus. Extraocular movements grossly intact. Moist buccal mucosa. Head is atraumatic, normocephalic. Hears conversational speech. No nasal drainage. NECK: Supple without lymphadenopathy. CHEST: Non-labored respirations and equal bilateral excursions. CARDIOVASCULAR: Irregular rhythm. Palpable 2+ radial pulses. ABDOMEN: Soft. Nondistended. Surgical incision sites clean dry intact without drainage or signs of infection. Positive bowel sounds. IVONNE drain with serosanguineous fluid. MUSCULOSKELETAL: No clubbing, cyanosis or edema. NEUROLOGIC: No focal or lateralizing signs. Cranial nerves II through XII grossly intact. PSYCH: Appropriate affect. Alert and oriented to person, place and time. SKIN: Well perfused. Good skin turgor. ASSESSMENT: 1. Abdominal pain 2. Acute cholecystitis 3. History of aortic valve replacement 4. History of hernia repair and appendectomy 5. History of nicotine dependence, quit smoking in 2003 6. Daily alcohol use 7. Hypokalemia PLAN: 1. Begin clear liquid diet 2. Continue to monitor IVONNE drainage 3. Incentive spirometry 4. Activity as tolerated 5. 500cc bolus secondary to dark bette urine. Continue maintenance IV fluids 6. Continue Zosyn 7. Replace potassium Nurse practitioner note has been reviewed by physician. Signing provider agrees with the documented findings, assessment, and plan of care. Objective - Vital Signs Vital signs: Vital Signs Temp 98.4 F 10/03/18 03:33 Pulse 80 10/03/18 03:33 Resp 20 10/03/18 03:33 BP 131/79 10/03/18 03:33 Pulse Ox 96 10/03/18 03:33 Intake & Output 10/02/18 10/03/1819 18:59 06:59 18:59 Intake Total 780 100 Output Total 1140 470 Balance -360 -370 Weight 110.4 kg Intake: IV 700 Intake, IV Titration 100 Amount Piperacillin-Tazobactam 3 100 .375 gm In Sodium Chloride 0.9% 100 ml @ 25 mls/hr IVPB Q8H [facility] Rx#: [id number] Oral 80 Output: Drainage 20 Right Medial Abdomen 20 Urine 1100 450 Estimated Blood Loss 40 Other: Voiding Method Toilet Toilet # Voids 1 - Labs CBC & Chem 7: 10/03/18 06:04 10/03/18 06:04 Labs: Abnormal Lab Results - Last 24 Hours (Table) 10/02/18 10/03/18 10/03/18 Range/Units 07:24 06:04 06:04 RBC 3.68 L (4.30-5.90) m/uL Hgb 11.6 L (13.0-17.5) gm/dL Hct 36.9 L (39.0-53.0) % MCV 100.2 H (80.0-100.0) fL Plt Count 143 L (150-450) k/uL Lymphocytes # 0.8 L (1.0-4.8) k/uL Lymphocytes # (Manual) 0.62 L (1.0-4.8) k/uL BUN 22 H (9-20) mg/dL Glucose 103 H (74-99) mg/dL Calcium 7.7 L (8.4-10.2) mg/dL Total Protein 5.5 L (6.3-8.2) g/dL Albumin 2.8 L (3.5-5.0) g/dL Microbiology - Last 24 Hours (Table) 10/02/18 15:40 Gram Stain - Preliminary Abdomen Wound Culture - Preliminary 09/30/18 18:22 Blood Culture Gram Stain - Final Blood Blood Culture - Final Bacteroides distasonis 10/02/18 15:40 Anaerobic Culture - Preliminary Abdomen Assessment and Plan (1) Acute cholecystitis Current Visit: Yes Status: Acute Code(s): K81.0 - ACUTE CHOLECYSTITIS SNOMED Code(s): 27599732 <Mely Ovalle N - Last Filed: 10/03/18 23:01> Subjective Intraoperative findings reviewed. He is tolerating diet. IVONNE is more serous than sanguinous. May start anticoagulation in 24 hrs. Will advance diet. Keep IVONNE drain for 2 weeks for removal in office October 22. Objective - Vital Signs Vital signs: Vital Signs Temp 97.5 F L 10/03/18 15:30 Pulse 90 10/03/18 15:30 Resp 18 10/03/18 15:30 BP 127/78 10/03/18 15:30 Pulse Ox 97 10/03/18 15:30 Intake & Output 10/03/18 10/03/18 10/04/18 06:59 18:59 06:59 Intake Total 100 1460 Output Total 470 50 Balance -370 1410 Weight 110.4 kg Intake: Intake, IV Titration 100 500 Amount Piperacillin-Tazobactam 3 100 .375 gm In Sodium Chloride 0.9% 100 ml @ 25 mls/hr IVPB Q8H [facility] Rx#: [id number] Sodium Chloride 0.9% 500 500 ml 500 ml @ 999 mls/hr IV .Q31M ONE Rx#:[id number] Oral 960 Output: Drainage 20 50 Right Medial Abdomen 20 50 Urine 450 Other: Voiding Method Toilet # Voids 1 - Labs CBC & Chem 7: 10/03/18 06:04 10/03/18 06:04 Labs: Abnormal Lab Results - Last 24 Hours (Table) 10/03/18 10/03/18 Range/Units 06:04 06:04 RBC 3.68 L (4.30-5.90) m/uL Hgb 11.6 L (13.0-17.5) gm/dL Hct 36.9 L (39.0-53.0) % MCV 100.2 H (80.0-100.0) fL Plt Count 143 L (150-450) k/uL Lymphocytes # 0.8 L (1.0-4.8) k/uL BUN 22 H (9-20) mg/dL Glucose 103 H (74-99) mg/dL Calcium 7.7 L (8.4-10.2) mg/dL Total Protein 5.5 L (6.3-8.2) g/dL Albumin 2.8 L (3.5-5.0) g/dL Microbiology - Last 24 Hours (Table) 10/02/18 15:40 Gram Stain - Preliminary Abdomen Wound Culture - Preliminary 09/30/18 18:22 Blood Culture Gram Stain - Final Blood Blood Culture - Final Bacteroides distasonis 10/02/18 15:40 Anaerobic Culture - Preliminary Abdomen
[2018-10-03] MEDS ORDERED: POTASSIUM CHLORIDE ER 20 MEQ TAB.ER PO STA (09:59)
--- NOTE | 2018-10-03 12:50 | P.PN ---
Subjective Progress Note Date: 10/03/18 This is a pleasant 68-year-old male past medical history significant for aortic insufficiency status post aortic valve repair with a tissue valve in 2008, hypertension, former nicotine dependence and regular daily alcohol use. We have been asked to see him in consultation secondary to pre-surgical evaluation. He initially presented to the hospital yesterday afternoon with symptoms of abdominal discomfort. Abdominal ultrasound revealed cholelithiasis with gallbladder wall thickening, trace pericholecystic fluid and positive Ayala sign suggestive of acute cholecystitis. He is seen and examined sitting up in bed in no acute distress. He continues to complain of significant right upper quadrant tenderness. He denies chest pain, shortness of breath, dizziness or palpitations. We requested an EKG as part of her preoperative evaluation. The EKG revealed left bundle branch block pattern, atrial fibrillation and left axis deviation. The patient states he did have an episode of atrial fibrillation back in 2008 just after his valve was replaced however since that time has not had any recurrences no longer on anticoagulation. Laboratory data reviewed, WBC 11.2, hemoglobin 12.3, platelets 161, sodium 135, potassium 3.5, creatinine 0.72, magnesium 1.6. Current cardiac medications include aspirin 81 mg daily, irbesartan 300 mg daily and Lopressor 25 mg twice a day. He underwent cardiac catheterization in 2008 prior to his valve surgery revealing normal coronary arteries with no obstructive disease. 10/02/2018 Patient continues to be in atrial fibrillation this morning, his heart rate of 70-80, blood pressure 122/60. Scheduled for gallbladder surgery today. 10/03/2018 Patient was seen and examined this morning, he is status post robotic cholecystectomy, was found to have a purulent necrotic gallbladder, denies any abdominal discomfort today. Blood pressure 130/70 with a heart rate in the 100s, 96% on room air. White blood cell count 8.1, hemoglobin 11.6, platelet count 143. Sodium 139, potassium 3.6, BUN 22 and creatinine 0.8. Continues at this time to be on a Cardizem drip at 10 mg per hour. Objective - Vital Signs Vital signs: Vital Signs Temp 98.4 F 10/03/18 03:33 Pulse 80 10/03/18 03:33 Resp 20 10/03/18 03:33 BP 131/79 10/03/18 03:33 Pulse Ox 96 10/03/18 03:33 Intake & Output 10/02/18 10/03/18 10/03/18 18:59 06:59 18:59 Intake Total 780 100 Output Total 1140 470 Balance -360 -370 Weight 110.4 kg Intake: IV 700 Intake, IV Titration 100 Amount Piperacillin-Tazobactam 3 100 .375 gm In Sodium Chloride 0.9% 100 ml @ 25 mls/hr IVPB Q8H [facility] Rx#: [id number] Oral 80 Output: Drainage 20 Right Medial Abdomen 20 Urine 1100 450 Estimated Blood Loss 40 Other: Voiding Method Toilet Toilet # Voids 1 - Exam GENERAL: This is a 68-year-old male in no apparent distress at the time of my examination. HEENT: Head is atraumatic, normocephalic. Pupils are equal, round. Sclerae anicteric. Conjunctivae are clear. Mucous membranes of the mouth are moist. Neck is supple. There is no jugular venous distention. No carotid bruit is heard. LUNGS: Clear to auscultation no wheezes, rales or rhonchi. No chest wall tenderness is noted on palpation or with deep breathing. HEART: Irregular rate and rhythm without murmurs, rubs or gallops. S1 and S2 heard. ABDOMEN: Soft, no distention noted, surgical incision sites clean and dry without any evidence of any drainage. IVONNE Drain in place with serosanguineous fluid tenderness noted to right upper quadrant. Bowel sounds are heard. No organomegaly noted. EXTREMITIES: No evidence of peripheral edema and no calf tenderness noted. VASCULAR: Radial and dorsalis pedis pulses palpated, no evidence of clubbing. NEUROLOGIC: Patient is awake, alert and oriented x3. - Labs CBC & Chem 7: 10/03/18 06:04 10/03/18 06:04 Labs: Abnormal Lab Results - Last 24 Hours (Table) 10/03/18 10/03/18 Range/Units 06:04 06:04 RBC 3.68 L (4.30-5.90) m/uL Hgb 11.6 L (13.0-17.5) gm/dL Hct 36.9 L (39.0-53.0) % MCV 100.2 H (80.0-100.0) fL Plt Count 143 L (150-450) k/uL Lymphocytes # 0.8 L (1.0-4.8) k/uL BUN 22 H (9-20) mg/dL Glucose 103 H (74-99) mg/dL Calcium 7.7 L (8.4-10.2) mg/dL Total Protein 5.5 L (6.3-8.2) g/dL Albumin 2.8 L (3.5-5.0) g/dL Microbiology - Last 24 Hours (Table) 10/02/18 15:40 Gram Stain - Preliminary Abdomen Wound Culture - Preliminary 09/30/18 18:22 Blood Culture Gram Stain - Final Blood Blood Culture - Final Bacteroides distasonis 10/02/18 15:40 Anaerobic Culture - Preliminary Abdomen Assessment and Plan Plan: ASSESSMENT and plan #1 Acute cholecystitis with cholelithiasis and wall thickening, scheduled for surgery today #2 Leukocytosis #3 Febrile illness #4 New onset paroxysmal atrial fibrillation with mildly rapid ventricular rates #5 Non-ischemic cardiomyopathy, last EF 42% with mild MR, mild TR and normally functioning prosthetic valve #6 Hypertension #7 History of aortic insufficiency s/p tissue valve replacement 2008 Plan We will continue the IV Cardizem drip at this time until the patient is taking a full diet. Patient will need to be on oral anticoagulation once cleared from surgery perspective. DNP note has been reviewed, I agree with a documented findings and plan of care. Patient was seen and examined.
[2018-10-03 13:02] VITALS: RESP 18
[2018-10-04] MEDS: PIPERACILLIN-TAZOBACTAM 3.375 GM in SODIUM CHLORIDE 0.9% 100 ML IVPB SCH (02:52)
[2018-10-04] MEDS: SODIUM CHLORIDE 0.9% 1,000 ML IV SCH (02:53)
[2018-10-04 04:30] VITALS: BP 131/88; PULSE 88; TEMP 98
[2018-10-04] MEDS: THIAMINE 100 MG TAB PO SCH (05:56)
[2018-10-04] MEDS: HEPARIN SODIUM,PORCINE 5,000 UNIT/ML 1 ML VIAL SQ SCH (07:44)
[2018-10-04] MEDS: HYDROcodone/APAP 5-325MG 1 EACH TAB PO PRN (07:44)
[2018-10-04] MEDS: LACTATED RINGERS 1,000 ML IV SCH (07:52)
[2018-10-04] MEDS ORDERED: BISACODYL 10 MG SUPP RECTAL STA (08:45)
[2018-10-04] MEDS ORDERED: ACETAMINOPHEN TAB 325 MG TAB PO PRN (08:47)
[2018-10-04] MEDS: PANTOPRAZOLE 40 MG/10 ML VIAL IVP SCH (09:21)
[2018-10-04] MEDS: LOSARTAN 50 MG TAB PO SCH (09:22)
[2018-10-04] MEDS: ASPIRIN 81 MG PO SCH (09:22)
[2018-10-04] MEDS: METOPROLOL TARTRATE 50 MG TAB PO SCH (09:22)
[2018-10-04 09:56] LABS: ALT 35 U/L (21-72); AST 25 U/L (17-59); African American GFR (CKD) >90 (>60 ml/min/1.73 sqM); Alkaline Phosphatase 70 U/L (38-126); Anion Gap 9 mmol/L; Blood Urea Nitrogen 15 mg/dL (9-20); Calcium 8.1 mg/dL (8.4-10.2); Carbon Dioxide 24 mmol/L (22-30); Chloride 107 mmol/L (98-107); Glucose 112 mg/dL (74-99); Non-African American GFR(CKD) >90 (>60 ml/min/1.73 sqM); Potassium 3.8 mmol/L (3.5-5.1); Sodium 140 mmol/L (137-145); Total Bilirubin 0.5 mg/dL (0.2-1.3); Total Protein 5.8 g/dL (6.3-8.2)
[2018-10-04 09:58] LABS: Basophils % (A) 0 %; Eosinophils # (A) 0.2 k/uL (0-0.7); Eosinophils % (A) 2 %; HCT 38.9 % (39.0-53.0); HGB 12.5 gm/dL (13.0-17.5); Lymphocytes # (A) 1.1 k/uL (1.0-4.8); Lymphocytes % (A) 13 %; MCH 31.8 pg (25.0-35.0); MCV 99.3 fL (80.0-100.0); Mean Platelet Volume 8.2; Monocytes # (A) 0.5 k/uL (0-1.0); Monocytes % (A) 6 %; Neutrophils # (A) 6.4 k/uL (1.3-7.7); Neutrophils % (A) 76 %; Platelet Count 189 k/uL (150-450); RBC 3.92 m/uL (4.30-5.90); RDW 13.9 % (11.5-15.5); WBC 8.5 k/uL (3.8-10.6)
[2018-10-04] MEDS ORDERED: APIXABAN 5 MG TAB PO SCH (10:00)
--- NOTE | 2018-10-04 11:00 | P.DS ---
Providers Date of admission: 10/01/18 11:45 Expected date of discharge: 10/04/18 Attending physician: Mely Ovalle Consults: 10/01/18 08:51 Consult Physician Routine Consulting Provider: Qian Otero Consult Reason/Comments: surgical clearance Do you want consulting provider notified?: Yes Primary care physician: Ryan Hendrickson - Discharge Diagnosis(es) (1) Acute cholecystitis Current Visit: Yes Status: Acute Hospital Course: 68-year-old male presenting to the emergency room she complained of abdominal pain. Patient was found to have acute cholecystitis. Patient underwent robotic cholecystectomy. He was found to have a purulent necrotic gallbladder. Cardiology was consulted for surgical clearance. Patient was found to be in atrial fibrillation. His metoprolol was increased to 50 mg bid. He was also started on Eliquis 5 mg twice a day. Patient is tolerating diet without nausea or vomiting. He is passing flatus. Vital signs have been stable. Pain is controlled on oral medications. Patient is stable for discharge home today. Patient requesting to be discharged home on Tylenol only for pain control. He does not want narcotics. Patient also discharged home with Augmentin for 7 days. Penicillin listed as allergy in EMR but patient has been tolerating Zosyn since admission. Patient to be discharged home today with IVONNE drain intact. He will have this removed at his follow-up appointment with Dr. Ovalle on 10/15/2018. Please see EMR for further hospital course details. Discharge Diagnosis: 1. Abdominal pain 2. Acute cholecystitis 3. History of aortic valve replacement 4. History of hernia repair and appendectomy 5. History of nicotine dependence, quit smoking in 2003 6. Daily alcohol use 7. Hypokalemia Nurse practitioner note has been reviewed by physician. Signing provider agrees with the documented findings, assessment, and plan of care. Patient Condition at Discharge: Stable Plan - Discharge Summary New Discharge Prescriptions: New Amoxic-Pot Clav 875-125Mg [Augmentin 875-125] 1 tab PO Q12HR #14 tablet Acetaminophen Tab [Tylenol Tab] 650 mg PO Q4H PRN #30 tablet PRN Reason: Pain Apixaban [Eliquis] 5 mg PO BID #60 tab Metoprolol Tartrate [Lopressor] 50 mg PO BID #60 tab Continue Vit C/E/Zn/Coppr/Lutein/Zeaxan [Preservision Areds 2 Softgel] 1 cap PO DAILY Aspirin [Adult Low Dose Aspirin EC] 81 mg PO DAILY Irbesartan [Avapro] 300 mg PO DAILY Discontinued Metoprolol Tartrate [Lopressor] 25 mg PO BID Discharge Medication List Aspirin [Adult Low Dose Aspirin EC] 81 mg PO DAILY 11/08/16 [History] Vit C/E/Zn/Coppr/Lutein/Zeaxan [Preservision Areds 2 Softgel] 1 cap PO DAILY 11/08/16 [History] Irbesartan [Avapro] 300 mg PO DAILY 09/30/18 [History] Acetaminophen Tab [Tylenol Tab] 650 mg PO Q4H PRN #30 tablet 10/04/18 [Rx] Amoxic-Pot Clav 875-125Mg [Augmentin 875-125] 1 tab PO Q12HR #14 tablet 10/04/18 [Rx] Apixaban [Eliquis] 5 mg PO BID #60 tab 10/04/18 [Rx] Metoprolol Tartrate [Lopressor] 50 mg PO BID #60 tab 10/04/18 [Rx] Follow up Appointment(s)/Referral(s): Qian Otero MD [STAFF PHYSICIAN] - 10/18/18 9:30 am Mely Ovalle MD [STAFF PHYSICIAN] - 10/15/18 4:00 pm Ryan Hendrickson DO [Primary Care Provider] - 10/17/18 2:00 pm Patient Instructions/Handouts: A-fib (Atrial Fibrillation) (DC), Low Fat Diet (DC), Ismael-Avitia Drain Care (DC), Safe Use of Anticoagulants (DC), Laparoscopic Cholecystectomy (DC) Activity/Diet/Wound Care/Special Instructions: No lifting over 10 pounds in 10 days, Oct 12. Sponge bath. Low fat diet advised. Avoid bathtub soaks or getting IVONNE site wet. Discharge Disposition: HOME SELF-CARE
--- NOTE | 2018-10-04 11:24 | PN ---
PROGRESS NOTE A 68-year-old gentleman who was admitted to hospital with cholecystitis and was cleared for surgery by my associate, Dr. Hinojosa, currently in atrial fibrillation with controlled ventricular rate. His atrial fibrillation is new. He has a prosthetic valve and ideally should be on Coumadin but he does not want to take Coumadin. So we are going to give him Eliquis 5 b.i.d. as a compromise. He is on aspirin, Eliquis, Lopressor 50 b.i.d. PHYSICAL EXAMINATION: On exam, comfortable at rest. Vital signs are stable. Chest exam reveals good air entry bilaterally. Heart exam reveals first and second heart sounds. Ejection systolic murmur in the aortic area. Abdomen is soft. Examination of extremities did not reveal any edema. Peripheral pulses are felt. ASSESSMENT: 1. Persistent atrial fibrillation with controlled ventricular rate. 2. Status post aortic valve replacement. 3. Status post cholecystectomy. PLAN: Patient is doing better. I am told by the nurse that both the surgeon and the primary have okayed anticoagulant. Will start him on Eliquis 5 b.i.d. on discharge and follow up with Cardiology. MMODL / IJN: [id number] /
--- NOTE | 2018-10-07 11:26 | CDI ---
Documentation Clarification Form Date: 10/07/18 From: Renée Ruiz Phone: If you have a question regarding this query, please contact Arlin Jimenez at [phone] between 8am and 5pm. Admit Date: 10/01/2018 11:45:00 AM Patient Name: Neville Mcnair Visit Number: [id number] Discharge Date: 10/04/2018 2:22:00 PM ATTENTION: The Clinical Documentation Specialists (CDI) and [facility] Coding Staff appreciate your assistance in clarifying documentation. Please respond to the clarification below the line at the bottom and electronically sign. The CDI & [facility] Coding staff will review the response and follow-up if needed. Please note: Queries are made part of the Legal Health Record. If you have any questions, please contact the author of this message via ITS. Dr. Mely Ovalle The patient presented with acute cholecystitis with cholelithiasis, perforation and peritonitis. Sepsis was documented in the Op note but not consistently throughout the chart. History/Risk Factors: Acute cholecystitis Clinical Indicators: Leukocytosis. WBC: 12.9 Lactic acid: 1.0 Blood cultures: Bacteroides distasonis Vitals signs on admission: 98.3 on admit and up to 100.1 on 10/01, P. 111, R. 18, BP 151/77 Antibiotics: IV Cefazolin, IV Rocephin and IV Zosyn IV Bolus: 1 liter and then @100 mls/hr In your professional opinion, please clarify if these findings signify one of the following conditions, whether the condition is POA, and cause, if known: Sepsis ruled out SIRS, without underlying infectious process Sepsis Severe Sepsis Septic Shock Other, please specify Unable to determine Present on Admission Yes No Identify the (suspected) organism gallbladder Link or clarify if there is associated (due to/with): Organ failure Shock KM 8/11/19 @ 0813 NORISD
== END 2018-10-04 14:22 | disposition home or self-care (01) | DRG 853 ==
LOC: SUPCPDRO 15:46 → EC 15:46 → 4MS4W 21:07 → OBSVTOIN 10-01 11:45 → 3SCARD 10-01 13:42
PROVIDERS: ADMIT Surgery Plastic and Reconstructive Surgery; ATTEND Surgery Plastic and Reconstructive Surgery
PROC: 8E0W4CZ Robotic Assisted Procedure of Trunk Region, Percutaneous Endoscopic Approach (ICD-10-PCS; 2018-10-02)
PROC: 0FT44ZZ Resection of Gallbladder, Percutaneous Endoscopic Approach (ICD-10-PCS; principal; 2018-10-02 11:45)
DX: A41.9 Sepsis, unspecified organism (principal); K65.9 Peritonitis, unspecified; K80.00 Calculus of gallbladder with acute cholecystitis without obstruction; K82.A2 Perforation of gallbladder in cholecystitis; I42.9 Cardiomyopathy, unspecified; I48.0 Paroxysmal atrial fibrillation; K82.A1 Gangrene of gallbladder in cholecystitis; I08.1 Rheumatic disorders of both mitral and tricuspid valves; I44.7 Left bundle-branch block, unspecified; D18.03 Hemangioma of intra-abdominal structures; E87.6 Hypokalemia; I10 Essential (primary) hypertension; Z79.82 Long term (current) use of aspirin; Z79.899 Other long term (current) drug therapy; Z87.891 Personal history of nicotine dependence; Z88.0 Allergy status to penicillin; Z95.2 Presence of prosthetic heart valve; Z82.49 Family history of ischemic heart disease and other diseases of the circulatory system; Z90.49 Acquired absence of other specified parts of digestive tract
CPT/HCPCS: 36415; 76705; 80048; 80053; 81001; 82150; 83605; 83690; 83735; 84443; 85025; 87040; 87070; 87075; 87077; 87186; 87205; 88304; 93005; 93306; 96361; 96365; 96375; 99285

== ENCOUNTER → 2019-01-01 | Outpatient (CLI) | payer MEDICARE ==
[2019-01-01 12:48] LABS: HCT 41.9 % (39.0-53.0); HGB 14.1 gm/dL (13.0-17.5); MCH 32.3 pg (25.0-35.0); MCHC 33.7 g/dL (31.0-37.0); MCV 95.9 fL (80.0-100.0); Mean Platelet Volume 6.7; Platelet Count 206 k/uL (150-450); RBC 4.37 m/uL (4.30-5.90); RDW 13.3 % (11.5-15.5); WBC 7.2 k/uL (3.8-10.6)
[2019-01-01 13:05] LABS: African American GFR (CKD) >90 (>60 ml/min/1.73 sqM); Anion Gap 7 mmol/L; Blood Urea Nitrogen 11 mg/dL (9-20); Carbon Dioxide 26 mmol/L (22-30); Chloride 103 mmol/L (98-107); Glucose 97 mg/dL (74-99); Potassium 4.6 mmol/L (3.5-5.1); Sodium 136 mmol/L (137-145)
== END | disposition home or self-care (01) ==
LOC: LABPAT 11:47
PROVIDERS: ATTEND Internal Medicine Clinical Cardiac Electrophysiology
DX: Z01.812 Encounter for preprocedural laboratory examination (principal); I42.8 Other cardiomyopathies; I47.2 Ventricular tachycardia
CPT/HCPCS: 36415; 80051; 82565; 82947; 84520; 85027

== ENCOUNTER 2019-01-07 10:31 | Day surgery (SDC) | payer MEDICARE ==
[2019-01-02 11:47] VITALS: BMI 31.4
[2019-01-07] MEDS ORDERED: SODIUM CHLORIDE 0.9% 1,000 ML IV ONE (12:24)
[2019-01-07] MEDS ORDERED: IOPAMIDOL-370 50ML BTL INJ ONE (12:32)
[2019-01-07] MEDS: CLINDAMYCIN 600 MG in SODIUM CHLORIDE 0.9% IRRIGATIO 250 ML IRRIGATION ONE ×2 (12:33→12:34)
[2019-01-07] MEDS: CLINDAMYCIN 900 MG in DEXTROSE 5% IN WATER 50 ML IVPB ONE ×4 (12:33→12:34)
[2019-01-07] MEDS ORDERED: LIDOCAINE 1% INJ 10MG/ML (20 ML MDV) ONE (12:47)
[2019-01-07] MEDS ORDERED: LIDOCAINE 1% INJ 10MG/ML (20 ML MDV) SQ ONE ×6 (12:57→13:08)
[2019-01-07] MEDS ORDERED: ACETAMINOPHEN TAB 325 MG TAB PO PRN (15:16)
[2019-01-07] MEDS ORDERED: ACETAMINOPHEN IV (For NPO) 1,000 MG in EMPTY BAG 1 BAG IVPB ONE (15:16)
--- NOTE | 2019-01-07 15:24 | P.PRLE ---
RE: XuNeville Dear Ryan Lozada Xu underwent implantation of a biventricular ICD successfully for management of nonischemic cardiomyopathy congestive heart failure and a left bu ndle branch block pattern He does have frequent runs of fast nonsustained ventricular tachycardia Hopefully this helps with improvement in his LV function was heart failure status He will continue to follow with you and Dr. Otero as before Thank you for entrusting me with the care of the patient Warm regards Sincerely Denton Jackson
[2019-01-07] MEDS ORDERED: PROPOFOL 10 MG/ML 20 ML VIAL IV ONE (15:36)
[2019-01-07] MEDS ORDERED: MIDAZOLAM 2 MG/2 ML VIAL ONE (15:36)
[2019-01-07] MEDS ORDERED: fentaNYL (PF) 50 MCG/ML 2 ML AMP ONE (15:36)
[2019-01-07] MEDS ORDERED: METOPROLOL TARTRATE 50 MG TAB ONE (16:17)
[2019-01-07] MEDS: CLINDAMYCIN 900 MG in DEXTROSE 5% IN WATER 50 ML IVPB SCH ×2 (18:00)
[2019-01-07] MEDS: HYDROcodone/APAP 5-325MG 1 EACH TAB PO PRN (18:05)
[2019-01-07 18:14] VITALS: RESP 18
[2019-01-07] MEDS: SODIUM CHLORIDE 0.9% 1,000 ML IV SCH ×2 (19:33)
[2019-01-07] MEDS: APIXABAN 5 MG TAB PO SCH (20:33)
[2019-01-07] MEDS ORDERED: METOPROLOL TARTRATE 50 MG TAB PO SCH (21:00)
--- NOTE | 2019-01-08 00:06 | PCN ---
PROCEDURE NOTE Mr. Mcnair is a 68-year-old male patient who has severe nonischemic cardiomyopathy, valvular heart disease with underlying left bundle branch block, congestive heart failure, dilated left ventricle with very frequent episodes of nonsustained ventricular tachycardia, nonsustained fast VT. A biventricular ICD was recommended for primary prevention of sudden cardiac as well as heart failure management. DESCRIPTION OF PROCEDURE: The patient is brought to the EP lab in a fasting state. Written informed consent was obtained prior to the procedure. The left shoulder area was prepped and draped as per protocol. 1% lidocaine was used for local anesthesia. A 4 cm incision was made parallel to the deltopectoral groove, about 1.5 cm medial to it. The incision was carried down to the level of the pectoralis muscle. A subfascial pocket was made. Hemostasis was assured. The left axillary vein was accessed at the 2nd rib laterally and position of the right heart. Subsequently via appropriately-sized introducer sheaths, 3 leads were positioned. The atrial lead was a Medtronic model #708614, 52 cm in length and serial number [id number]. P waves 5.2 mV, pacing impedance 781 ohms, pacing threshold 0.3 V at 0.5 milliseconds. 10 V test negative. The ICD lead was a single coil Medtronic lead model #6935M, 62 cm length and serial [id number]. This was positioned in the RV apex. R-waves 16.5 mV, pacing impedance 566 ohms, pacing threshold 0.4 V at 0.5 milliseconds. 10 V test negative. The third lead was finally implanted in the left ventricle. However, before that physiologic septal pacing was attempted and the lead was screwed in at the proximal HIS bundle level and the distal HIS bundle level with excellent His bundle current of injury. However, while the pacing thresholds were excellent, and selective capture was obtained, there was absence of narrowing of the left bundle branch block to any appreciable extent. The left bundle branch block persisted beyond a QRS width of greater than 145 milliseconds and therefore this was abandoned. The LV lead was placed. The LV lead was placed successfully in the anterolateral vein but the tip was positioned in the lateral position in the GISELA view. Excellent thresholds were obtained. There was no evidence for phrenic nerve stimulation. This was a Medtronic model #4398, lead, 88 cm in length and serial number [id number]. Pacing impedance 1328 ohms, pacing threshold 2.1 V at 0.5 milliseconds in the distal bipolar. 10 V test negative. All 3 leads were secured to the underlying pectoralis fascia after removing the sheaths. The leads were connected to the generator ([employer] model number [id number], serial number [id number]) leads and generator were then placed in subfascial pocket. The wound was closed in 3 layers and dressed per protocol. The device is then programmed to adaptive LV pacing, VT zone 175 beats per minute, VF zone 214 beats per minute. Monitor zone 150 beats per minute. Appropriate antitachycardia pacing cardioversion defibrillations were programmed. RESULT: Successful biventricular ICD implantation for primary prevention of sudden cardiac and heart failure management. The patient tolerated the procedure well without any acute complication. MMJOSIANE / AZUCENAN: [id number] /
[2019-01-08] MEDS: CLINDAMYCIN 900 MG in DEXTROSE 5% IN WATER 50 ML IVPB SCH ×6 (00:39→12:01)
[2019-01-08] MEDS: SODIUM CHLORIDE 0.9% 1,000 ML IV SCH ×2 (01:47→03:41)
[2019-01-08] MEDS: HYDROcodone/APAP 5-325MG 1 EACH TAB PO PRN (02:13)
[2019-01-08] MEDS ORDERED: diphenhydrAMINE 50 MG/ML 1 ML VIAL IVP PRN (06:04)
[2019-01-08] MEDS: APIXABAN 5 MG TAB PO SCH (08:08)
--- NOTE | 2019-01-08 08:08 | P.DS ---
Providers Attending physician: Denton Jackson Primary care physician: [place] [facility] Course: Patient is doing well. He has minimal discomfort in the ICD site No swelling minimal oozing Blood pressure 135/75 mmHg temperature 97.5F pulse rate in the 60s normal respirations Patient is very comfortable no chest discomfort dizziness lightheadedness palpitations Breath sounds are equal bilaterally no rhonchi no crackles Heart sounds S1 and S2 are normal no murmurs or gallop or rub Abdomen soft nontender Extremities 70s are warm no edema Impression Severe nonischemic cardiomyopathy with class II CHF with chronic systolic dysfunction on medical treatment Left bundle branch block pattern Frequent runs of fast nonsustained ventricular tachycardia of different morphologies Status post AVR Status post biventricular ICD Plan - Discharge Summary Discharge Rx Participant: Yes New Discharge Prescriptions: No Action Vit C/E/Zn/Coppr/Lutein/Zeaxan [Preservision Areds 2 Softgel] 1 cap PO DAILY Irbesartan [Avapro] 300 mg PO DAILY Acetaminophen Tab [Tylenol Tab] 650 mg PO Q4H PRN #30 tablet PRN Reason: Pain Apixaban [Eliquis] 5 mg PO BID #60 tab Metoprolol Tartrate [Lopressor] 50 mg PO BID #60 tab Discharge Medication List Vit C/E/Zn/Coppr/Lutein/Zeaxan [Preservision Areds 2 Softgel] 1 cap PO DAILY 11/08/16 [History] Irbesartan [Avapro] 300 mg PO DAILY 09/30/18 [History] Acetaminophen Tab [Tylenol Tab] 650 mg PO Q4H PRN #30 tablet 10/04/18 [Rx] Apixaban [Eliquis] 5 mg PO BID #60 tab 10/04/18 [Rx] Metoprolol Tartrate [Lopressor] 50 mg PO BID #60 tab 10/04/18 [Rx] Follow up Appointment(s)/Referral(s): Qian Otero MD [STAFF PHYSICIAN] - 1 Week (Follow-up in the device clinic in one week Follow up with Dr. Otero/yasmin as previously scheduled or in 3 months) Activity/Diet/Wound Care/Special Instructions: PATIENT EDUCATION MATERIAL Instructions following a heart rhythm device implant. 1. Keep dressing DRY for 5 DAYS. You may cover the area with Saran or Cling Wrap, prior to a shower. 2. The dressing will be removed in the Device Clinic at [facility]. Absorbable sutures were used to close the wound. 3. Avoid raising the left arm above the shoulder level. 4 week restriction 4. Avoid arm movements, like backscratching, rubbing the head, or pulling on a cord. 4 weeks restriction 5. Gentle range of motion movements of the shoulder, closest to the incision should be performed to avoid a frozen shoulder. (Pendulum exercises of the shoulder) 6. The opposite arm may be used freely. 7. Avoid driving for 7 days. 8. Avoid activities such as golfing, swimming, weed whacking, lifting more than 10 pounds weight, bowling, gymnastics and weight training/lifting. (6 weeks restriction) 9. Activities such as wood chopping with an axe, pull-ups in the gymnasium, power lifting, arc-welding, being close to home induction cooktops will always be a problem. 10. Arm sling is only a reminder not to raise the arm above the head. You do not need to keep the arm completely immobilized. Your free to move the arm and use it and for normal activities. In case of any problems, please call [facility], [place], @ [phone], Attention: Device Clinic Device clinic follow-up in 5 days Follow-up with primary agricultural real estate agent in 2-3 months Continue all current cardiac medications Discharge Disposition: HOME SELF-CARE
--- NOTE | 2019-01-08 08:18 | XR ---
EXAMINATION TYPE: XR chest 2V DATE OF EXAM: 01/08/2019 COMPARISON: October 25, 2016 HISTORY: Shortness of breath TECHNIQUE: Frontal and lateral views of the chest are obtained. FINDINGS: Scattered senescent parenchymal changes noted. Hyperinflation compatible with COPD. No evidence for infiltrate. No evidence for atelectasis. Heart size is stable. Pacer device is place with the distal leads within the right atrium and right v entricle respectively. No evidence for pneumothorax. Mediastinal structures are stable and grossly unremarkable. No evidence for hilar prominence. Degenerative changes dorsal spine. IMPRESSION: 1. No evidence for acute pulmonary disease.
[2019-01-08] MEDS ORDERED: METOPROLOL TARTRATE 50 MG TAB PO SCH (09:00)
[2019-01-08] MEDS ORDERED: LOSARTAN 50 MG TAB PO SCH (09:00)
[2019-01-08 11:57] VITALS: BP 139/80; PULSE 52; TEMP 98.1
== END 2019-01-08 13:43 | disposition home or self-care (01) ==
LOC: CATHEP 10:31 → 1SOBS 16:15 → CATHEP 01-08 13:43
PROVIDERS: ATTEND Internal Medicine Clinical Cardiac Electrophysiology
DX: I11.0 Hypertensive heart disease with heart failure (principal); I50.9 Heart failure, unspecified; I47.2 Ventricular tachycardia; I44.7 Left bundle-branch block, unspecified; I48.0 Paroxysmal atrial fibrillation; Z87.891 Personal history of nicotine dependence; Z82.49 Family history of ischemic heart disease and other diseases of the circulatory system; Z79.01 Long term (current) use of anticoagulants; Z79.899 Other long term (current) drug therapy; Z88.0 Allergy status to penicillin
CPT/HCPCS: 33225; 33249; 71046; C1769 ×5; C1892; C1730; C1898; C1895; C1900; C1882; J2250; J1200; J2001; J3010; J2704; Q9967

== ENCOUNTER 2019-10-15 19:52 | Inpatient (IN) | payer MEDICARE ==
[2019-10-15] MEDS ORDERED: DILTIAZEM DRIP BOLUS FROM BAG 1 MG SOLN IV ONE ×2 (20:08→20:30)
[2019-10-15] MEDS ORDERED: DILTIAZEM 125 MG in SODIUM CHLORIDE 0.9% 100 ML IV SCH (20:15)
--- NOTE | 2019-10-15 20:19 | ED ---
Weakness HPI - General Chief complaint: Weakness Stated complaint: Fall Time Seen by Provider: 10/15/19 19:54 Source: EMS, RN notes reviewed, old records reviewed Mode of arrival: EMS Limitations: no limitations - History of Present Illness Initial comments: This is a 69-year-old male DF for evaluation of weakness coming in for severe weakness today that he may have passed out found down. Patient himself without complaint Lasix patient's activity level over the last 2 days of been significantly diminished. Patient states his urine output has been minimal but again denies abdominal pain no chest pain no shortness of breath or complaint patient does appear dehydrated states his appetite is been diminished MD Complaint: generalized weakness, lack of energy -: days(s) (2) Location: generalized Severity: moderate Severity scale (1-10): 6 Consistency: constant Improves with: none Worsens with: none Context: recent illness Associated Symptoms: confusion, loss of appetite - Related Data Home Medications Medication Instructions Recorded Confirmed Vit C/E/Zn/Coppr/Lutein/Zeaxan 1 cap PO DAILY 11/08/16 01/07/19 [Preservision Areds 2 Softgel] Irbesartan [Avapro] 300 mg PO DAILY 09/30/18 01/07/19 Previous Rx's Medication Instructions Recorded Acetaminophen Tab [Tylenol Tab] 650 mg PO Q4H PRN #30 tablet 10/04/18 Apixaban [Eliquis] 5 mg PO BID #60 tab 10/04/18 Metoprolol Tartrate [Lopressor] 50 mg PO BID #60 tab 10/04/18 Allergies Allergy/AdvReac Type Severity Reaction Status Date / Time Penicillins AdvReac Rash/Hives Verified 10/15/19 19:56 Review of Systems ROS Statement: Those systems with pertinent positive or pertinent negative responses have been documented in the HPI. ROS Other: All systems not noted in ROS Statement are negative. Past Medical History Past Medical History: Atrial Fibrillation, Eye Disorder, Hyperlipidemia, Hypertension Additional Past Medical History / Comment(s): PAST EPISODE OF AFIB SUMMER 2018. MACULAR DEGENERATION AND GLAUCOMA History of Any Multi-Drug Resistant Organisms: None Reported Past Surgical History: Appendectomy, Cardiac Valve Replacement, Cholecystectomy, Hernia Repair, Pacemaker Additional Past Surgical History / Comment(s): AORTIC VALVE REPLACEMENT 2008. INGUINAL HERNIA REPAIR. UMBILICAL HERNIA REPAIR. COLONOSCOPY Past Anesthesia/Blood Transfusion Reactions: No Reported Reaction Past Psychological History: No Psychological Hx Reported Smoking Status: Former smoker Past Alcohol Use History: Daily, Heavy Past Drug Use History: None Reported - Past Family History Mother Family Medical History: No Reported History, Hypertension General Exam Limitations: no limitations General appearance: alert, in no apparent distress, anxious, in distress Head exam: Present: atraumatic, normocephalic, normal inspection Eye exam: Present: normal appearance, PERRL, EOMI. Absent: scleral icterus, conjunctival injection, periorbital swelling ENT exam: Present: normal exam, mucous membranes moist Neck exam: Present: normal inspection. Absent: tenderness, meningismus, lymphadenopathy Respiratory exam: Present: normal lung sounds bilaterally. Absent: respiratory distress, wheezes, rales, rhonchi, stridor Cardiovascular Exam: Present: regular rate, normal rhythm, normal heart sounds. Absent: systolic murmur, diastolic murmur, rubs, gallop, clicks GI/Abdominal exam: Present: soft, normal bowel sounds. Absent: distended, tenderness, guarding, rebound, rigid Extremities exam: Present: normal inspection, full ROM, normal capillary refill. Absent: tenderness, pedal edema, joint swelling, calf tenderness Back exam: Present: normal inspection Neurological exam: Present: alert, oriented X3, CN II-XII intact Psychiatric exam: Present: normal affect, normal mood Skin exam: Present: warm, dry, intact, normal color. Absent: rash Course Vital Signs 10/15/19 10/15/19 10/15/19 19:53 20:04 20:55 Temperature 97.7 F Pulse Rate 156 H 172 H 124 H Respiratory 20 18 19 Rate Blood Pressure 101/67 90/61 129/11 O2 Sat by Pulse 98 97 100 Oximetry EKG Findings - EKG Comments: EKG Findings:: EKG is undetermined rhythm of 150 QRS 160 QTC 466 Medical Decision Making - Medical Decision Making 69 male persisting weakness has known hematuria on blood thinners patient also in nature for which with RVR will admit for cardiology evaluation and consultation - Lab Data Result diagrams: 10/15/19 20:16 10/15/19 20:16 Lab Results 10/15/19 10/15/19 10/15/19 Range/Units 20:16 20:16 20:16 WBC 7.8 (3.8-10.6) k/uL RBC 4.18 L (4.30-5.90) m/uL Hgb 13.1 (13.0-17.5) gm/dL Hct 40.2 (39.0-53.0) % MCV 96.2 (80.0-100.0) fL MCH 31.4 (25.0-35.0) pg MCHC 32.6 (31.0-37.0) g/dL RDW 12.9 (11.5-15.5) % PT 9.4 (9.0-12.0) sec INR 0.9 (<1.2) APTT 32.6 H (22.0-30.0) sec Sodium (137-145) mmol/L Potassium (3.5-5.1) mmol/L Chloride (98-107) mmol/L Carbon Dioxide (22-30) mmol/L Anion Gap mmol/L BUN (9-20) mg/dL Creatinine (0.66-1.25) mg/dL Est GFR (CKD-EPI)AfAm (>60 ml/min/1.73 sqM) Est GFR (CKD-EPI)NonAf (>60 ml/min/1.73 sqM) Glucose (74-99) mg/dL Plasma Lactic Acid Srinivasan (0.7-2.0) mmol/L Calcium (8.4-10.2) mg/dL Phosphorus (2.5-4.5) mg/dL Magnesium (1.6-2.3) mg/dL Total Bilirubin (0.2-1.3) mg/dL AST (17-59) U/L ALT (4-49) U/L Alkaline Phosphatase (38-126) U/L Creatine Kinase (55-170) U/L Troponin I (0.000-0.034) ng/mL Total Protein (6.3-8.2) g/dL Albumin (3.5-5.0) g/dL Urine Color Dark Brown Urine Appearance Turbid (Clear) Urine pH 5.5 (5.0-8.0) Ur Specific [place] 1.022 (1.001-1.035) Urine Protein 2+ H (Negative) Urine Glucose (UA) Negative (Negative) Urine Ketones Negative (Negative) Urine Blood Large H (Negative) Urine Nitrite Negative (Negative) Urine Bilirubin Negative (Negative) Urine Urobilinogen <2.0 (<2.0) mg/dL Ur Leukocyte Esterase Large H (Negative) Urine RBC 146 H (0-5) /hpf Urine WBC >182 H (0-5) /hpf Urine WBC Clumps Many H (None) /hpf Ur Squamous Epith Cells 3 (0-4) /hpf Urine Bacteria Many H (None) /hpf Hyaline Casts 129 H (0-2) /lpf Granular Casts 14 (0) /lpf Urine Mucus Moderate H (None) /hpf 10/15/19 10/15/19 10/15/19 Range/Units 20:16 20:16 20:16 WBC (3.8-10.6) k/uL RBC (4.30-5.90) m/uL Hgb (13.0-17.5) gm/dL Hct (39.0-53.0) % MCV (80.0-100.0) fL MCH (25.0-35.0) pg MCHC (31.0-37.0) g/dL RDW (11.5-15.5) % PT (9.0-12.0) sec INR (<1.2) APTT (22.0-30.0) sec Sodium 133 L (137-145) mmol/L Potassium 3.7 (3.5-5.1) mmol/L Chloride 105 (98-107) mmol/L Carbon Dioxide 16 L (22-30) mmol/L Anion Gap 12 mmol/L BUN 45 H (9-20) mg/dL Creatinine 1.87 H (0.66-1.25) mg/dL Est GFR (CKD-EPI)AfAm 41 (>60 ml/min/1.73 sqM) Est GFR (CKD-EPI)NonAf 36 (>60 ml/min/1.73 sqM) Glucose 127 H (74-99) mg/dL Plasma Lactic Acid Srinivasan 2.5 H* (0.7-2.0) mmol/L Calcium 8.1 L (8.4-10.2) mg/dL Phosphorus 1.4 L (2.5-4.5) mg/dL Magnesium 1.4 L (1.6-2.3) mg/dL Total Bilirubin 1.1 (0.2-1.3) mg/dL AST 29 (17-59) U/L ALT 15 (4-49) U/L Alkaline Phosphatase 114 (38-126) U/L Creatine Kinase 39 L (55-170) U/L Troponin I 0.129 H* (0.000-0.034) ng/mL Total Protein 5.8 L (6.3-8.2) g/dL Albumin 2.8 L (3.5-5.0) g/dL Urine Color Urine Appearance (Clear) Urine pH (5.0-8.0) Ur Specific [place] (1.001-1.035) Urine Protein (Negative) Urine Glucose (UA) (Negative) Urine Ketones (Negative) Urine Blood (Negative) Urine Nitrite (Negative) Urine Bilirubin (Negative) Urine Urobilinogen (<2.0) mg/dL Ur Leukocyte Esterase (Negative) Urine RBC (0-5) /hpf Urine WBC (0-5) /hpf Urine WBC Clumps (None) /hpf Ur Squamous Epith Cells (0-4) /hpf Urine Bacteria (None) /hpf Hyaline Casts (0-2) /lpf Granular Casts (0) /lpf Urine Mucus (None) /hpf - Radiology Data Radiology results: report reviewed (Chest x-rays negative for acute disease), image reviewed Critical Care Time Critical Care Time: Yes Total Critical Care Time: 31 Disposition Clinical Impression: Weakness, Hematuria, Atrial fibrillation with RVR Disposition: ADMITTED IP TO THIS [facility] Condition: Serious Is patient prescribed a controlled substance at d/c from ED?: No Referrals: Ryan Hendrickson DO [Primary Care Provider] - 1-2 days
--- NOTE | 2019-10-15 20:36 | XR ---
EXAMINATION TYPE: XR chest 2V DATE OF EXAM: 10/15/2019 COMPARISON: Chest x-ray January 08, 2019. CT chest November 10, 2016. HISTORY: Weakness. TECHNIQUE: Frontal and lateral views of the chest are obtained. FINDINGS: Background chronic emphysematous change with persistent left basilar linear scarring and el evated left hemidiaphragm. There is no new suspicious focal air space opacity, pleural effusion, or p neumothorax seen. The cardiac silhouette size remains enlarged with multi lead pacemaker/ICD redemon strated. Overlying sternal wires along with metallic aortic valve are again seen. The osseous struct ures are intact. IMPRESSION: Chronic changes and cardiomegaly without acute pulmonary process.
[2019-10-15 20:37] LABS: Albumin 2.8 g/dL (3.5-5.0); Calcium 8.1 mg/dL (8.4-10.2); Magnesium 1.4 mg/dL (1.6-2.3); Phosphorus 1.4 mg/dL (2.5-4.5); Potassium 3.7 mmol/L (3.5-5.1); Total Bilirubin 1.1 mg/dL (0.2-1.3); Total Protein 5.8 g/dL (6.3-8.2)
[2019-10-15 20:41] LABS: Appearance,Urine Turbid (Clear); Bacteria,Urine Many /hpf; Bilirubin,Urine Negative (Negative); Blood,Urine Large (Negative); Color,Urine Dark Brown; Glucose,Urine (UA) Negative (Negative); Granular Casts,Urine 14 /lpf (0); Hyaline Casts,Urine 129 /lpf (0-2); Ketones,Urine Negative (Negative); Leukocyte Esterase,Urine Large (Negative); Mucus,Urine Moderate /hpf; Nitrite,Urine Negative (Negative); PH, Urine 5.5 (5.0-8.0); Protein,Urine 2+ (Negative); RBC,Urine 146 /hpf (0-5); Specific Gravity,Urine 1.022 (1.001-1.035); Squamous Epithelial Cell,Urine 3 /hpf (0-4); Urobilinogen,Urine <2.0 mg/dL (<2.0); WBC,Urine >182 /hpf (0-5)
[2019-10-15 20:53] LABS: INR 0.9 (<1.2); Partial Thromboplastin Time 32.6 sec (22.0-30.0); Prothrombin Time 9.4 sec (9.0-12.0)
[2019-10-15 21:22] LABS: Basophils % (A) 0 %; Eosinophils % (A) 1 %; HCT 40.2 % (39.0-53.0); HGB 13.1 gm/dL (13.0-17.5); Lymphocytes # (A) 0.4 k/uL (1.0-4.8); Lymphocytes % (A) 5 %; MCH 31.4 pg (25.0-35.0); MCHC 32.6 g/dL (31.0-37.0); MCV 96.2 fL (80.0-100.0); Mean Platelet Volume 11.9; Monocytes # (A) 0.5 k/uL (0-1.0); Monocytes % (A) 7 %; Neutrophils # (A) 6.6 k/uL (1.3-7.7); Neutrophils % (A) 84 %; RBC 4.18 m/uL (4.30-5.90); RDW 12.9 % (11.5-15.5); WBC 7.8 k/uL (3.8-10.6)
[2019-10-15] MEDS ORDERED: HEPARIN SODIUM,PORCINE 5,000 UNIT/ML 1 ML VIAL IV PRN (21:29)
[2019-10-15] MEDS ORDERED: HEPARIN SODIUM,PORCINE 5,000 UNIT/ML 1 ML VIAL IV ONE (21:29)
[2019-10-15] MEDS ORDERED: POTASSIUM CHLORIDE 20 MEQ in WATER FOR INJECTION 1 100ML.BAG IVPB STA (21:29)
[2019-10-15] MEDS ORDERED: NITROGLYCERIN SL TABS 0.4 MG TAB SUBLINGUAL PRN (21:29)
[2019-10-15] MEDS ORDERED: MAGNESIUM OXIDE 400 MG TAB PO STA (21:29)
[2019-10-15] MEDS ORDERED: POTASSIUM BICARBONATE/CIT AC 20 MEQ TABLET.EFF PO ONE (21:29)
[2019-10-15] MEDS ORDERED: HEPARIN SOD,PORK IN 0.45% NACL 25,000 UNIT in 0.45% NACL 1 250ML.BAG IV SCH (21:30)
[2019-10-15 21:38] LABS: Platelet Count 38 k/uL (150-450)
[2019-10-15] MEDS: MAGNESIUM SULFATE-D5W PMX 1 GM in DEXTROSE/WATER 1 100ML.BAG IVPB SCH (22:11)
[2019-10-15] MEDS: POTASSIUM CHLORIDE 10 MEQ in WATER FOR INJECTION 1 100ML.BAG IVPB SCH (22:22)
[2019-10-15] MEDS: SODIUM CHLORIDE 0.9% 1,000 ML IV SCH (22:26)
[2019-10-16 03:08] LABS: Basophils % (A) 0 %; Eosinophils % (A) 0 %; HCT 40.4 % (39.0-53.0); HGB 13.2 gm/dL (13.0-17.5); Lymphocytes # (A) 0.3 k/uL (1.0-4.8); Lymphocytes % (A) 3 %; MCH 31.5 pg (25.0-35.0); MCHC 32.6 g/dL (31.0-37.0); MCV 96.7 fL (80.0-100.0); Mean Platelet Volume 11.8; Monocytes # (A) 0.5 k/uL (0-1.0); Monocytes % (A) 6 %; Neutrophils # (A) 8.1 k/uL (1.3-7.7); Neutrophils % (A) 86 %; RBC 4.17 m/uL (4.30-5.90); RDW 12.5 % (11.5-15.5); WBC 9.4 k/uL (3.8-10.6)
[2019-10-16 03:11] LABS: Platelet Count 35 k/uL (150-450)
[2019-10-16] MEDS: POTASSIUM CHLORIDE 10 MEQ in WATER FOR INJECTION 1 100ML.BAG IVPB SCH (03:12)
[2019-10-16] MEDS: MAGNESIUM SULFATE-D5W PMX 1 GM in DEXTROSE/WATER 1 100ML.BAG IVPB SCH (03:13)
[2019-10-16 03:26] LABS: Calcium 7.8 mg/dL (8.4-10.2); Potassium 3.7 mmol/L (3.5-5.1)
[2019-10-16] MEDS ORDERED: PANTOPRAZOLE 40 MG TABLET PO STA (05:36)
[2019-10-16] MEDS: SODIUM CHLORIDE 0.9% 1,000 ML IV SCH ×2 (08:28→18:03)
[2019-10-16] MEDS: APIXABAN 5 MG TAB PO SCH ×2 (08:29→21:04)
[2019-10-16] MEDS: TAMSULOSIN 0.4 MG CAP.ER.24H PO SCH (08:29)
[2019-10-16] MEDS ORDERED: METOPROLOL TARTRATE 50 MG TAB PO SCH ×2 (09:00→09:01)
[2019-10-16] MEDS ORDERED: ASPIRIN 325 MG TAB PO SCH (09:00)
[2019-10-16] MEDS ORDERED: METOPROLOL TARTRATE 25 MG TAB PO SCH (09:00)
[2019-10-16] MEDS ORDERED: LOSARTAN 50 MG TAB PO SCH (09:00)
--- NOTE | 2019-10-16 10:30 | P.NPCON ---
History of Present Illness - Reason for Consult acute renal failure - History of Present Illness Reason for consultation: Acute kidney injury History of present illness: Patient is a 69-year-old male seen in consultation for acute kidney injury. Patient baseline creatinine is near 1. Creatinine was 1.87 on admission and is 1.84 today. Patient presented to the hospital due to not feeling well and also sustained a fall yesterday. Patient states that for about last 2 weeks he has not been feeling well. Appetite has been poor. Patient states he was sleeping on a different bed which is narrow and subsequently fell last night and then came to the hospital. He was noted to be in A. fib with RVR and is currently on Cardizem drip. He admits to good urine output. Patient states he's having dysuria for the last week to 10 days. No hematuria. He admits to chills but denies any fever. Denies use of nonsteroidals. No edema. Chest x-ray is not suggestive of fluid overload. Patient has history of systolic CHF and has an AICD in place. Blood pressure was as low as 90/61 this admission and was 101/53 this morning. He was taking losartan at home which is currently held. He is currently maintained on metoprolol. He is also on anticoagulation. No history of diabetes. No family history of renal disease. Vital signs are stable. General: The patient appeared well nourished and normally developed. HEENT: Head exam is unremarkable. Neck is without jugular venous distension. LUNGS: Breath sounds decreased. HEART: Irregular rate and rhythm. ABDOMEN: Soft, nontender. EXTREMITITES: No clubbing, cyanosis, or edema. Past Medical History Past Medical History: Atrial Fibrillation, Eye Disorder, Hyperlipidemia, Hypertension Additional Past Medical History / Comment(s): PAST EPISODE OF AFIB SUMMER 2018. MACULAR DEGENERATION AND GLAUCOMA History of Any Multi-Drug Resistant Organisms: None Reported Past Surgical History: Appendectomy, Cardiac Valve Replacement, Cholecystectomy, Hernia Repair, Pacemaker Additional Past Surgical History / Comment(s): AORTIC VALVE REPLACEMENT 2008. INGUINAL HERNIA REPAIR. UMBILICAL HERNIA REPAIR. COLONOSCOPY. PACEMAKER 2019 Past Anesthesia/Blood Transfusion Reactions: No Reported Reaction Type of Cardiac Device: Permanent Pacemaker Device Placement Date:: 2018 Past Psychological History: No Psychological Hx Reported Smoking Status: Former smoker Past Alcohol Use History: Daily, Heavy Additional Past Alcohol Use History / Comment(s): QUIT SMOKING 2004. DRINKS 4-5 BEERS DAILY Past Drug Use History: None Reported - Past Family History Mother Family Medical History: Hypertension Father Additional Family Medical History / Comment(s): Enlarged Heart Medications and Allergies Home Medications Medication Instructions Recorded Confirmed Type Apixaban [Eliquis] 5 mg PO BID #60 tab 10/04/18 10/15/19 Rx Losartan Potassium 100 mg PO DAILY 10/15/19 10/15/19 History Metoprolol Tartrate [Lopressor] 75 mg PO BID 10/15/19 10/15/19 History Tamsulosin [Flomax] 0.4 mg PO DAILY 10/15/19 10/15/19 History Allergies Allergy/AdvReac Type Severity Reaction Status Date / Time Penicillins Allergy Rash/Hives Verified 10/15/19 22:08 Physical Exam Vitals: Vital Signs Temp Pulse Pulse Resp BP BP Pulse Ox 10/16/19 04:00 107 H 20 101/53 96 10/16/19 00:00 98.2 F 106 H 20 134/66 100 10/15/19 22:49 106 H 10/15/19 22:30 106 H 17 119/71 100 10/15/19 22:03 98.2 F 106 H 20 134/66 100 10/15/19 21:30 117 H 18 129/77 100 10/15/19 21:00 98.4 F 138 H 19 118/71 100 10/15/19 20:55 124 H 19 129/11 100 10/15/19 20:04 172 H 18 90/61 97 10/15/19 19:53 97.7 F 156 H 20 101/67 98 Intake and Output 10/15/19 10/16/19 10/16/19 22:59 06:59 14:59 Output Total 200 300 Balance -200 -300 Output: Urine 200 300 Other: Voiding Method Toilet Indwelling Catheter Urinal Weight 108.862 kg 105.5 kg Results - Lab Results Most recent lab results Calcium 7.8 mg/dL (8.4-10.2) L 10/16/19 03:00 Phosphorus 1.4 mg/dL (2.5-4.5) L 10/15/19 20:16 Magnesium 1.4 mg/dL (1.6-2.3) L 10/15/19 20:16 10/16/19 03:00 10/16/19 03:00 Assessment and Plan Plan: Assessment: 1. Acute kidney injury secondary to ATN secondary to hypotension and A. fib. Creatinine 1.87 on admission and fairly stable at 1.84 today. Baseline creati nine near 1. UA is to just above UTI. 2. A. fib with RVR maintained on Cardizem drip and anti-coagulation. 3. Metabolic acidosis secondary to acute kidney injury. 4. Chronic systolic CHF status post AICD placement. 5. Hypomagnesemia from poor intake. 6. Hyperphosphatemia from poor intake. Plan: Maintain normal saline at 75 mL an hour. Follow-up cultures. Add Rocephin 1 g every 24 hours. Add oral sodium bicarbonate. Check renal ultrasound. Maintain Cunningham catheter. Strict I's and O's. Check phosphorus and magnesium level today. Replace per protocol. Thank you for the consultation. I will continue to follow the patient with you during his hospital stay.
[2019-10-16 10:34] LABS: Magnesium 2.1 mg/dL (1.6-2.3); Potassium 3.7 mmol/L (3.5-5.1)
[2019-10-16] MEDS ORDERED: DEXTROSE 5% IN WATER 100 ML with AMIODARONE 150 MG IV ONE (11:15)
[2019-10-16] MEDS ORDERED: AMIODARONE 360 MG in DEXTROSE 5% IN WATER 200 ML IV ONE ×2 (11:30)
--- NOTE | 2019-10-16 11:31 | PN ---
PROGRESS NOTE Mr. Mcnair is a 69-year-old male with a known history of aortic valve replacement, performed in 2008. No history of obstructive coronary artery disease. History of paroxysmal fibrillation, history of nonischemic cardiomyopathy, status post ICD implantation who presented with symptoms of not feeling well. It started about 2 weeks ago when he felt chills that subsequently resolved then started to have again recurring symptoms with shows some symptoms of dyspnea with a decreased urine output and decreased appetite. He did not have any documented fever. He did not have any change in his breathing. He has chronic mild edema that has been stable. He has no chest pain. No PND. No orthopnea. He has been feeling progressively fatigued. Because of that, came into the emergency room and subsequently admitted. He is usually active physically, has no difficulty. His energy is good on a regular basis. He was noted to be in atrial fibrillation on presentation. The patient has been anticoagulated in the past. He has a history of hypertension. He is nondiabetic and his lipid profile has been normal. He was diagnosed with the atrial fibrillation paroxysmal recently and he was started on Eliquis. MEDICATION: At home included the Eliquis 5 mg twice a day, losartan 100 mg daily, Lopressor 75 mg twice a day, and Flomax 0.4 mg daily. REVIEW OF SYSTEMS: RESPIRATORY SYSTEM: He has dyspnea on exertion. No recent wheezing. No significant cough. No history of obstructive lung disease. GI SYSTEM: No recent GI bleeding, no peptic ulcer disease. SYSTEM: He had dysuria as well as decreased urine output. NERVOUS SYSTEM: No history of stroke or seizure. PAST SURGICAL HISTORY: Significant for the aortic valve replacement for bicuspid aortic valve performed in 2008. He also has a history of ICD implantation. PHYSICAL EXAMINATION: He is a 69-year-old male, alert, oriented, mild dyspnea. Blood pressure running in the 130s with a heart rate in the low 100s. HEAD: Normocephalic. EYES: Sclerae nonicteric. NECK: Good upstroke, no bruit, no jugular venous distention. LUNGS: Clear to auscultation. HEART: Irregular, regular, S1, S2. No S3 with systolic murmur heard at the base. No diastolic murmur, no rub. ABDOMEN: Soft, nontender, positive bowel sounds, no organomegaly. EXTREMITIES: 1+ edema, more on the right side that is chronic. EKG revealed atrial fibrillation with evidence of ventricular pacing and he had episodes on nonsustained ventricular tachycardia. His BUN and creatinine are 50 and 1.84, which is worse than his baseline. His potassium 3.7. Troponin 0.129, 0.154 and 0.1695. NT proBNP 17,100, hemoglobin of 13.2, white blood cell of 9.4. His cholesterol 96, LDL is 43. He has blood in the urine and large avascular side esterase. Chest x-ray shows no acute infiltrate. IMPRESSION: 1. Atrial fibrillation, paroxysmal in the past, has been anticoagulated. 2. Worsening renal failure with questionable urinary tract infection with symptoms of dyspnea of unclear etiology. 3. History of nonischemic cardiomyopathy, status post ICD implantation. 4. Status post aortic valve replacement for bicuspid aortic valve. 5. Prior history of hypertension. RECOMMENDATION: I would hold his losartan at this time. I do not believe that the elevation of the troponin presents an acute coronary syndrome. I will increase his IV fluid. The patient does not appear to be in heart failure and the elevation could be related to an infectious process and the cardiomyopathy in addition to the renal failure. Will interrogate his device. I will obtain a blood culture and renal evaluation. Will continue on the beta emma. I will stop the IV Cardizem. Will follow his lab data and depending on his progress, further recommendation will be made. Thank you for this consult. Will follow with you. EDUAR / DEE: [id number] /
[2019-10-16] MEDS ORDERED: Phosphorus Replacement Protoco 1 EACH MISC MISCELLANE PRN (12:04)
[2019-10-16] MEDS: SODIUM PHOSPHATE 10 MMOL in SODIUM CHLORIDE 0.9% 250 ML IVPB SCH ×2 (12:48→18:03)
--- NOTE | 2019-10-16 13:17 | P.HPIM ---
History of Present Illness H&P Date: 10/16/19 Chief Complaint: Weakness HISTORY OF PRESENT ILLNESS This is a 69-year-old male patient of Dr. Hendrickson and Dr. Otero with past medical history of nonischemic cardiomyopathy and nonsustained ventricular tachycardia status post biventricular AICD, prosthetic aortic valve, paroxysmal atrial fibrillation, hypertension, hyperlipidemia, glaucoma and macular degeneration, remote history of tobacco use. Patient states that he was going to bed early last night and falling out of bed. He states he slipped out onto the floor. He denies any injury and denies any loss of consciousness. He denies any episodes like this in the past. He denies having any chest pain, lightheadedness. He does complain of shortness of breath and mild lower extremity edema. Patient came into [facility] emergency center for evaluation. He was afebrile, initial heart rate 156. EKG ventricular paced rhythm at heart rate of 119 with wide complex beats possible ventricular tachycardia. Blood pressure 101/67, pulse ox 90% on room air. Initial blood work revealed the previously 7.8, hemoglobin 13.1, platelet count 38 with previous normal level. Sodium 133, potassium 3.7, chloride 105, CO2 16, BUN 45 creatinine 1.87. Blood sugar 127. Liver function tests normal. Phosphorus 1.4, magnesium 1.4. Lactic acid initially 2.5 and repeat of 1.6. Triglycerides 192, cholesterol 96, LDL 43, HDL 15. Chest x-ray revealed chronic changes and cardiomegaly without acute pulmonary process. Patient admitted to the cardiac stepdown unit and consult re quested with cardiology, nephrology and oncology. Echocardiogram and TSH pending. REVIEW OF SYSTEMS Constitutional: No fever, no chills, no night sweats. No weight change. Reports weakness, Reportsfatigue Reports lethargy. No daytime sleepiness. EENT: No headache. No blurred vision or double vision, no loss of vision. No loss of Hearing, no ringing in the ears, no dizziness. No nasal drainage or congestion. No epistaxis. No sore throat. Lungs: Reports shortness of breath, reports dyspnea on exertion, cough, no sputum production. No wheezing. Cardiovascular: No chest pain, Reports lower extremity edema. No palpitations. No paroxysmal nocturnal dyspnea. No orthopnea. No lightheadedness or dizziness. No syncopal episodes. Abdominal: No abdominal pain. No nausea, vomiting. No diarrhea. No constipation. No bloody or tarry stools.. No loss of appetite. Genitourinary: Reports dysuria, decreased frequency. No urinary retention. Musculoskeletal: No myalgias. No muscle weakness, no gait dysfunction, no frequent falls. No back pain. No neck pain. Integumentary: No wounds, no lesions. No rash or pruritus. No unusual bruising. No change in hair or nails. Neurologic: No aphasia. No facial droop. No change in mentation. No head injury. No headache. No paralysis. No paresthesia. Psychiatric: No depression. No anxiety. No mood swings. Endocrine: No abnormal blood sugars. No weight change. No excessive sweating or thirst. No cold intolerance. SOCIAL HISTORY Patient smoked 2 packs of cigarettes per day for 20 years and quit 15 years ago. Patient drinks 10 beers per day for at least the last 15-20 years. He denies any marijuana or illicit drug use. 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 He is and lives at home with his in the winter in [place]. FAMILY HISTORY Mother at age 97 from old age. Father at age 59 from cardiomyopathy. Patient has 1 brother with no major medical problems and one sister that from some type of cancer. Patient has one child with no major medical problems. PHYSICAL EXAMINATION Gen: This is 69-year-old male patient resting in bed and in no acute distress. HEENT: Head is atraumatic, normocephalic. Pupils equal, round. Sclerae is anicteric. NECK: Supple. No JVD. No lymphadenopathy. No thyromegaly. LUNGS: Clear to auscultation. No wheezes or rhonchi. No intercostal retractions. HEART: Irregularly irregular rate and rhythm. Systolic murmur. ABDOMEN: Soft. Bowel sounds are present. No masses. No tenderness. EXTREMITIES: 1+ bilateral pedal edema. No calf tenderness. Dorsalis pedis palpable bilaterally. NEUROLOGICAL: Patient is awake, alert and oriented x3. Cranial nerves 2 through 12 are grossly intact. ASSESSMENT AND PLAN 1. Episodes of nonsustained ventricular tachycardia with ventricular paced rhythm and atrial fibrillation. Cardiology consult. Dr. Otero discontinued Cardizem drip and patient was started on amiodarone drip. 2. Acute kidney injury secondary to ATN, hypotension and atrial fibrillation. Nephrology consult appreciated. Patient continued on normal saline at 75 mL per hour. Patient has Cunningham catheter. Sodium bicarb oral added and renal ultrasound ordered 3. Acute urinary tract infection. Continue Rocephin 1 g daily. Await urine culture. Blood cultures been ordered by cardiology. 4. Elevated troponin, rule out acute coronary syndrome. Cardiology consult. Echocardiogram. 5. Thrombocytopenia. Oncology consult. 6. Nonischemic cardiomyopathy and nonsustained ventricular tachycardia status post biventricular AICD. Cardiology consult. 7. Prosthetic aortic valve. 8. Paroxysmal atrial fibrillation. Continue eliquis 5 mg twice daily, Lopressor 50 mg 3 times daily. Patient is currently on amiodarone. 9. Hypertension. Continue Lopressor. 10. Hyperlipidemia. Patient is not currently on statin. 11. Benign prostatic hypertrophy. Continue Flomax or 0.4 mg daily. 12. Macular degeneration and glaucoma, stable. 13. GI prophylaxis. Protonix. 14. DVT prophylaxis. Eliquis. Patient will be admitted to the hospital for a minimum of 2 night stay. Discharge plan: To be determined. PT and OT evaluations. Impression and plan of care have been directed as dictated by the signing physician. Stephenie Chow nurse practitioner acting as scribe for signing physician. Past Medical History Past Medical History: Atrial Fibrillation, Eye Disorder, Hyperlipidemia, Hypertension Additional Past Medical History / Comment(s): PAST EPISODE OF AFIB SUMMER 2018. MACULAR DEGENERATION AND GLAUCOMA History of Any Multi-Drug Resistant Organisms: None Reported Past Surgical History: Appendectomy, Cardiac Valve Replacement, Cholecystectomy, Hernia Repair, Pacemaker Additional Past Surgical History / Comment(s): AORTIC VALVE REPLACEMENT 2008. INGUINAL HERNIA REPAIR. UMBILICAL HERNIA REPAIR. COLONOSCOPY. PACEMAKER 2018 Past Anesthesia/Blood Transfusion Reactions: No Reported Reaction Type of Cardiac Device: Permanent Pacemaker Device Placement Date:: 2018 Past Psychological History: No Psychological Hx Reported Smoking Status: Former smoker Past Alcohol Use History: Daily, Heavy Additional Past Alcohol Use History / Comment(s): QUIT SMOKING 2003. DRINKS 4-5 BEERS DAILY Past Drug Use History: None Reported - Past Family History Mother Family Medical History: Hypertension Father Additional Family Medical History / Comment(s): Enlarged Heart Medications and Allergies Home Medications Medication Instructions Recorded Confirmed Type Apixaban [Eliquis] 5 mg PO BID #60 tab 10/04/18 10/15/19 Rx Losartan Potassium 100 mg PO DAILY 10/15/19 10/15/19 History Metoprolol Tartrate [Lopressor] 75 mg PO BID 10/15/19 10/15/19 History Tamsulosin [Flomax] 0.4 mg PO DAILY 10/15/19 10/15/19 History Allergies Allergy/AdvReac Type Severity Reaction Status Date / Time Penicillins Allergy Rash/Hives Verified 10/15/19 22:08 Physical Exam Vitals: Vital Signs Temp Pulse Pulse Resp BP BP Pulse Ox 10/16/19 04:00 107 H 20 101/53 96 10/16/19 00:00 98.2 F 106 H 20 134/66 100 10/15/19 22:49 106 H 10/15/19 22:30 106 H 17 119/71 100 10/15/19 22:03 98.2 F 106 H 20 134/66 100 10/15/19 21:30 117 H 18 129/77 100 10/15/19 21:00 98.4 F 138 H 19 118/71 100 10/15/19 20:55 124 H 19 129/11 100 10/15/19 20:04 172 H 18 90/61 97 10/15/19 19:53 97.7 F 156 H 20 101/67 98 Intake and Output 10/15/19 10/16/19 10/16/19 22:59 06:59 14:59 Output Total 200 Balance -200 Output: Urine 200 Other: Voiding Method Toilet Indwelling Catheter Urinal Weight 108.862 kg 105.5 kg Results CBC & Chem 7: 10/16/19 03:00 10/16/19 09:42 Labs: Abnormal Lab Results - Last 24 Hours (Table) 10/15/19 10/15/19 10/15/19 Range/Units 20:16 20:16 20:16 RBC 4.18 L (4.30-5.90) m/uL Plt Count 38 L (150-450) k/uL Neutrophils # (1.3-7.7) k/uL Lymphocytes # 0.4 L (1.0-4.8) k/uL APTT 32.6 H (22.0-30.0) sec Sodium (137-145) mmol/L Carbon Dioxide (22-30) mmol/L BUN (9-20) mg/dL Creatinine (0.66-1.25) mg/dL Glucose (74-99) mg/dL Plasma Lactic Acid Srinivasan (0.7-2.0) mmol/L Calcium (8.4-10.2) mg/dL Phosphorus (2.5-4.5) mg/dL Magnesium (1.6-2.3) mg/dL Creatine Kinase (55-170) U/L Troponin I (0.000-0.034) ng/mL Total Protein (6.3-8.2) g/dL Albumin (3.5-5.0) g/dL Triglycerides (<150) mg/dL HDL Cholesterol (40-60) mg/dL Urine Protein 2+ H (Negative) Urine Blood Large H (Negative) Ur Leukocyte Esterase Large H (Negative) Urine RBC 146 H (0-5) /hpf Urine WBC >182 H (0-5) /hpf Urine WBC Clumps Many H (None) /hpf Urine Bacteria Many H (None) /hpf Hyaline Casts 129 H (0-2) /lpf Urine Mucus Moderate H (None) /hpf 10/15/19 10/15/19 10/15/19 Range/Units 20:16 20:16 20:16 RBC (4.30-5.90) m/uL Plt Count (150-450) k/uL Neutrophils # (1.3-7.7) k/uL Lymphocytes # (1.0-4.8) k/uL APTT (22.0-30.0) sec Sodium 133 L (137-145) mmol/L Carbon Dioxide 16 L (22-30) mmol/L BUN 45 H (9-20) mg/dL Creatinine 1.87 H (0.66-1.25) mg/dL Glucose 127 H (74-99) mg/dL Plasma Lactic Acid Srinivasan 2.5 H* (0.7-2.0) mmol/L Calcium 8.1 L (8.4-10.2) mg/dL Phosphorus 1.4 L (2.5-4.5) mg/dL Magnesium 1.4 L (1.6-2.3) mg/dL Creatine Kinase 39 L (55-170) U/L Troponin I 0.129 H* (0.000-0.034) ng/mL Total Protein 5.8 L (6.3-8.2) g/dL Albumin 2.8 L (3.5-5.0) g/dL Triglycerides (<150) mg/dL HDL Cholesterol (40-60) mg/dL Urine Protein (Negative) Urine Blood (Negative) Ur Leukocyte Esterase (Negative) Urine RBC (0-5) /hpf Urine WBC (0-5) /hpf Urine WBC Clumps (None) /hpf Urine Bacteria (None) /hpf Hyaline Casts (0-2) /lpf Urine Mucus (None) /hpf 10/15/19 10/16/19 10/16/19 Range/Units 23:19 03:00 03:00 RBC (4.30-5.90) m/uL Plt Count (150-450) k/uL Neutrophils # (1.3-7.7) k/uL Lymphocytes # (1.0-4.8) k/uL APTT 34.8 H (22.0-30.0) sec Sodium (137-145) mmol/L Carbon Dioxide (22-30) mmol/L BUN (9-20) mg/dL Creatinine (0.66-1.25) mg/dL Glucose (74-99) mg/dL Plasma Lactic Acid Srinivasan (0.7-2.0) mmol/L Calcium (8.4-10.2) mg/dL Phosphorus (2.5-4.5) mg/dL Magnesium (1.6-2.3) mg/dL Creatine Kinase (55-170) U/L Troponin I 0.154 H* 0.169 H* (0.000-0.034) ng/mL Total Protein (6.3-8.2) g/dL Albumin (3.5-5.0) g/dL Triglycerides (<150) mg/dL HDL Cholesterol (40-60) mg/dL Urine Protein (Negative) Urine Blood (Negative) Ur Leukocyte Esterase (Negative) Urine RBC (0-5) /hpf Urine WBC (0-5) /hpf Urine WBC Clumps (None) /hpf Urine Bacteria (None) /hpf Hyaline Casts (0-2) /lpf Urine Mucus (None) /hpf 10/16/19 10/16/19 Range/Units 03:00 03:00 RBC 4.17 L (4.30-5.90) m/uL Plt Count 35 L (150-450) k/uL Neutrophils # 8.1 H (1.3-7.7) k/uL Lymphocytes # 0.3 L (1.0-4.8) k/uL APTT (22.0-30.0) sec Sodium 133 L (137-145) mmol/L Carbon Dioxide 18 L (22-30) mmol/L BUN 50 H (9-20) mg/dL Creatinine 1.84 H (0.66-1.25) mg/dL Glucose 143 H (74-99) mg/dL Plasma Lactic Acid Srinivasan (0.7-2.0) mmol/L Calcium 7.8 L (8.4-10.2) mg/dL Phosphorus (2.5-4.5) mg/dL Magnesium (1.6-2.3) mg/dL Creatine Kinase (55-170) U/L Troponin I (0.000-0.034) ng/mL Total Protein (6.3-8.2) g/dL Albumin (3.5-5.0) g/dL Triglycerides 192 H (<150) mg/dL HDL Cholesterol 15 L (40-60) mg/dL Urine Protein (Negative) Urine Blood (Negative) Ur Leukocyte Esterase (Negative) Urine RBC (0-5) /hpf Urine WBC (0-5) /hpf Urine WBC Clumps (None) /hpf Urine Bacteria (None) /hpf Hyaline Casts (0-2) /lpf Urine Mucus (None) /hpf Microbiology - Last 24 Hours (Table) 10/15/19 20:16 Urine Culture - Preliminary Urine,Voided Thrombosis Risk Factor Assmnt - DVT/VTE Prophylaxis DVT/VTE Prophylaxis: Pharmacologic Prophylaxis ordered - Choose All That Apply Any of the Below Risk Factors Present?: Yes Each Factor Represents 1 point: Obesity (BMI >25), Swollen legs (current) Each Risk Factor Represents 2 Points: Age 61-74 years Thrombosis Risk Factor Assessment Total Risk Factor Score: 4 Thrombosis Risk Factor Assessment Level: Moderate Risk
--- NOTE | 2019-10-16 13:19 | US ---
EXAMINATION TYPE: US kidneys/renal and bladder DATE OF EXAM: 10/16/2019 COMPARISON: None CLINICAL HISTORY: 69-year-old male acute kidney injury GLADYS TECHNIQUE: Multiple sonographic images of the kidneys and bladder are obtained. FINDINGS: EXAM MEASUREMENTS: Right Kidney: 11.1 x 4.7 x 5.8 cm Left Kidney: 12.2 x 5.4 x 6.1 cm No hydronephrosis on either side. Bladder: Limited assessment as there is a catheter in place IMPRESSION: No hydronephrosis. Cunningham catheter in place.
[2019-10-16] MEDS: METOPROLOL TARTRATE 50 MG TAB PO SCH ×2 (17:18→21:04)
[2019-10-16] MEDS ORDERED: LORazepam 2 MG/ML INJ IV PRN ×3 (17:22)
[2019-10-16] MEDS ORDERED: THIAMINE 100 MG/ML 2 ML VIAL IM STA (17:22)
[2019-10-16] MEDS: LORazepam 2 MG/ML INJ IV PRN ×2 (17:46→22:03)
--- NOTE | 2019-10-16 18:00 | ECHOF ---
Referral Reason:avr MEASUREMENTS -------- HEIGHT: 182.9 cm WEIGHT: 105.2 kg BP: RVIDd: 4.1 cm (< 3.3) IVSd: 1.3 cm (0.6 - 1.1) LVIDd: 6.0 cm (3.9 - 5.3) LVPWd: 1.7 cm (0.6 - 1.1) EDV(Teich): 183 ml IVSs: 1.4 cm LVIDs: 5.7 cm LVPWs: 1.4 cm %IVS Thck: 8 % ESV(Teich): 160 ml EF(Teich): 12 % %FS: 6 % SV(Teich): 23 ml LA Diam: 4.8 cm (2.7 - 3.8) Ao Diam: 4.1 cm (2.0 - 3.7) AV Cusp: 1.9 cm (1.5 - 2.6) MV EXCURSION: 21.432 mm (> 18.000) MV EF SLOPE: 82 mm/s (70 - 150) EPSS: 1.1 cm LVOT Vmax: 0.97 m/s LVOT maxP.78 mmHg LVOT Vmax: 0.96 m/s LVOT Vmean: 0.64 m/s LVOT maxP.68 mmHg LVOT meanP.86 mmHg LVOT Env.Ti: 254 ms LVOT VTI: 16.2 cm AV Vmax: 2.81 m/s AV maxP.75 mmHg AV Vmax: 2.83 m/s AV Vmean: 2.07 m/s AV maxP.20 mmHg AV meanP.24 mmHg AV Env.Ti: 212 ms AV VTI: 44.1 cm TR Vmax: 2.76 m/s TR maxP.42 mmHg RAP: 5.00 mmHg RVSP: 35.42 mmHg FINDINGS -------- Paced rhythm. This was a techncally difficult study with suboptimal views, , Lumason utilized for enhancement of im ages. The left ventricular size is normal. Overall left ventricular systolic function is severely impaire d with, an EF between 25 - 30 %. Inferior Hypokinesis The right ventricle is normal in size. The left atrium is moderately dilated. The right atrial size is normal. Peak/mean gradient across the Aortic Valve is 32.20mmHg / 19.24mmHg. There is mild stenosis of the bioprosthetic aortic valve. Mild mitral annular calcification present. Mild mitral regurgitation is present. Mild tricuspid regurgitation present. There is mild pulmonary hypertension. There is no pulmonic regurgitation present. The aortic root size is normal. There is a small, generalized pericardial effusion present. CONCLUSIONS -------- 1. The left ventricular size is normal. 2. Overall left ventricular systolic function is severely impaired with, an EF between 25 - 30 %. 3. Inferior Hypokinesis 4. The right ventricle is normal in size. 5. The left atrium is moderately dilated. 6. The right atrial size is normal. 7. Peak/mean gradient across the Aortic Valve is 32.20mmHg / 19.24mmHg. 8. There is mild stenosis of the bioprosthetic aortic valve. 9. Mild mitral annular calcification present. 10. Mild mitral regurgitation is present. 11. Mild tricuspid regurgitation present. 12. There is mild pulmonary hypertension. 13. There is a small, generalized pericardial effusion present. SYSTEMS INTEGRATION MANAGER: Gisela Vaca RDCS
[2019-10-16] MEDS: AMIODARONE 300 MG in DEXTROSE 5% IN WATER 250 ML IV SCH ×2 (18:44)
--- NOTE | 2019-10-16 23:49 | P.CONS ---
History of Present Illness - Reason for Consult Consult date: 10/16/19 Thrombocytopenia on Eliquis Requesting physician: Stephenie Chow - Chief Complaint SOB - History of Present Illness Mr. Mcnair is a 69 year old male patient that hematology was asked to see regarding anticoagulation on ELiquis. He has a significant cardiac history of no n-ischemic cardiomyopathy, V-Tach with biventricular AICD, Prosthetic aortic valve, a fib, HTN, HLD, Glucoma, macular degeneration, and history of alcohol and tobacco abuse. He presented to hospital after a fall at home, apparently out of his bed. Because of his complicated cardiac history and the need for anticoagulation, but with platelet count less than 50K we have been asked to further evaluate. Review of Systems All systems: negative (HPI) Past Medical History Past Medical History: Atrial Fibrillation, Eye Disorder, Hyperlipidemia, Hypertension Additional Past Medical History / Comment(s): PAST EPISODE OF AFIB SUMMER 2018. MACULAR DEGENERATION AND GLAUCOMA History of Any Multi-Drug Resistant Organisms: None Reported Past Surgical History: Appendectomy, Cardiac Valve Replacement, Cholecystectomy, Hernia Repair, Pacemaker Additional Past Surgical History / Comment(s): AORTIC VALVE REPLACEMENT 2008. INGUINAL HERNIA REPAIR. UMBILICAL HERNIA REPAIR. COLONOSCOPY. PACEMAKER 2018 Past Anesthesia/Blood Transfusion Reactions: No Reported Reaction Type of Cardiac Device: Permanent Pacemaker Device Placement Date:: 2018 Past Psychological History: No Psychological Hx Reported Smoking Status: Former smoker Past Alcohol Use History: Daily, Heavy Additional Past Alcohol Use History / Comment(s): QUIT SMOKING 2003. DRINKS 4-5 BEERS DAILY Past Drug Use History: None Reported - Past Family History Mother Family Medical History: Hypertension Father Additional Family Medical History / Comment(s): Enlarged Heart Medications and Allergies Home Medications Medication Instructions Recorded Confirmed Type Apixaban [Eliquis] 5 mg PO BID #60 tab 10/04/18 10/15/19 Rx Losartan Potassium 100 mg PO DAILY 10/15/19 10/15/19 History Metoprolol Tartrate [Lopressor] 75 mg PO BID 10/15/19 10/15/19 History Tamsulosin [Flomax] 0.4 mg PO DAILY 10/15/19 10/15/19 History Allergies Allergy/AdvReac Type Severity Reaction Status Date / Time Penicillins Allergy Rash/Hives Verified 10/15/19 22:08 Physical Exam Vitals: Vital Signs Temp Pulse Pulse Resp BP BP Pulse Ox 10/16/19 12:20 82 18 97/63 96 10/16/19 12:05 98.1 F 87 16 98/62 97 10/16/19 11:50 85 16 97/60 97 10/16/19 11:40 99 16 99/60 98 10/16/19 08:05 98.1 F 102 H 16 112/77 98 10/16/19 04:00 107 H 20 101/53 96 10/16/19 00:00 98.2 F 106 H 20 134/66 100 10/15/19 22:49 106 H 10/15/19 22:30 106 H 17 119/71 100 10/15/19 22:03 98.2 F 106 H 20 134/66 100 10/15/19 21:30 117 H 18 129/77 100 10/15/19 21:00 98.4 F 138 H 19 118/71 100 10/15/19 20:55 124 H 19 129/11 100 10/15/19 20:04 172 H 18 90/61 97 10/15/19 19:53 97.7 F 156 H 20 101/67 98 Intake and Output 10/16/19 10/16/19 10/16/19 06:59 14:59 22:59 Intake Total 240 Output Total 200 300 Balance -200 -60 Intake: Oral 240 Output: Urine 200 300 Other: Voiding Method Indwelling Catheter Indwelling Catheter Weight 105.5 kg - Constitutional General appearance: cooperative, no acute distress - EENT Eyes: EOMI, poor dentition ENT: hard of hearing, NA/AT - Neck Neck: normal ROM - Respiratory Respiratory: bilateral: diminished, wheezing - Cardiovascular Rhythm: irregularly irregular - Gastrointestinal General gastrointestinal: hepatomegaly, soft, tenderness - Integumentary Areas of eccymosis Integumentary: pale - Neurologic non-focal - Musculoskeletal Musculoskeletal: generalized weakness - Psychiatric alert, poor historian Results CBC & Chem 7: 10/17/19 05:22 10/17/19 05:22 Labs: Abnormal Lab Results - Last 24 Hours (Table) 10/15/19 10/15/19 10/15/19 Range/Units 20:16 20:16 20:16 RBC 4.18 L (4.30-5.90) m/uL Plt Count 38 L (150-450) k/uL Neutrophils # (1.3-7.7) k/uL Lymphocytes # 0.4 L (1.0-4.8) k/uL APTT 32.6 H (22.0-30.0) sec Sodium (137-145) mmol/L Carbon Dioxide (22-30) mmol/L BUN (9-20) mg/dL Creatinine (0.66-1.25) mg/dL Glucose (74-99) mg/dL Plasma Lactic Acid Srinivasan (0.7-2.0) mmol/L Calcium (8.4-10.2) mg/dL Phosphorus (2.5-4.5) mg/dL Magnesium (1.6-2.3) mg/dL Creatine Kinase (55-170) U/L Troponin I (0.000-0.034) ng/mL Total Protein (6.3-8.2) g/dL Albumin (3.5-5.0) g/dL Triglycerides (<150) mg/dL HDL Cholesterol (40-60) mg/dL Urine Protein 2+ H (Negative) Urine Blood Large H (Negative) Ur Leukocyte Esterase Large H (Negative) Urine RBC 146 H (0-5) /hpf Urine WBC >182 H (0-5) /hpf Urine WBC Clumps Many H (None) /hpf Urine Bacteria Many H (None) /hpf Hyaline Casts 129 H (0-2) /lpf Urine Mucus Moderate H (None) /hpf 10/15/19 10/15/19 10/15/19 Range/Units 20:16 20:16 20:16 RBC (4.30-5.90) m/uL Plt Count (150-450) k/uL Neutrophils # (1.3-7.7) k/uL Lymphocytes # (1.0-4.8) k/uL APTT (22.0-30.0) sec Sodium 133 L (137-145) mmol/L Carbon Dioxide 16 L (22-30) mmol/L BUN 45 H (9-20) mg/dL Creatinine 1.87 H (0.66-1.25) mg/dL Glucose 127 H (74-99) mg/dL Plasma Lactic Acid Srinivasan 2.5 H* (0.7-2.0) mmol/L Calcium 8.1 L (8.4-10.2) mg/dL Phosphorus 1.4 L (2.5-4.5) mg/dL Magnesium 1.4 L (1.6-2.3) mg/dL Creatine Kinase 39 L (55-170) U/L Troponin I 0.129 H* (0.000-0.034) ng/mL Total Protein 5.8 L (6.3-8.2) g/dL Albumin 2.8 L (3.5-5.0) g/dL Triglycerides (<150) mg/dL HDL Cholesterol (40-60) mg/dL Urine Protein (Negative) Urine Blood (Negative) Ur Leukocyte Esterase (Negative) Urine RBC (0-5) /hpf Urine WBC (0-5) /hpf Urine WBC Clumps (None) /hpf Urine Bacteria (None) /hpf Hyaline Casts (0-2) /lpf Urine Mucus (None) /hpf 10/15/19 10/16/19 10/16/19 Range/Units 23:19 03:00 03:00 RBC (4.30-5.90) m/uL Plt Count (150-450) k/uL Neutrophils # (1.3-7.7) k/uL Lymphocytes # (1.0-4.8) k/uL APTT 34.8 H (22.0-30.0) sec Sodium (137-145) mmol/L Carbon Dioxide (22-30) mmol/L BUN (9-20) mg/dL Creatinine (0.66-1.25) mg/dL Glucose (74-99) mg/dL Plasma Lactic Acid Srinivasan (0.7-2.0) mmol/L Calcium (8.4-10.2) mg/dL Phosphorus (2.5-4.5) mg/dL Magnesium (1.6-2.3) mg/dL Creatine Kinase (55-170) U/L Troponin I 0.154 H* 0.169 H* (0.000-0.034) ng/mL Total Protein (6.3-8.2) g/dL Albumin (3.5-5.0) g/dL Triglycerides (<150) mg/dL HDL Cholesterol (40-60) mg/dL Urine Protein (Negative) Urine Blood (Negative) Ur Leukocyte Esterase (Negative) Urine RBC (0-5) /hpf Urine WBC (0-5) /hpf Urine WBC Clumps (None) /hpf Urine Bacteria (None) /hpf Hyaline Casts (0-2) /lpf Urine Mucus (None) /hpf 10/16/19 10/16/19 10/16/19 Range/Units 03:00 03:00 09:37 RBC 4.17 L (4.30-5.90) m/uL Plt Count 35 L (150-450) k/uL Neutrophils # 8.1 H (1.3-7.7) k/uL Lymphocytes # 0.3 L (1.0-4.8) k/uL APTT 31.7 H (22.0-30.0) sec Sodium 133 L (137-145) mmol/L Carbon Dioxide 18 L (22-30) mmol/L BUN 50 H (9-20) mg/dL Creatinine 1.84 H (0.66-1.25) mg/dL Glucose 143 H (74-99) mg/dL Plasma Lactic Acid Srinivasan (0.7-2.0) mmol/L Calcium 7.8 L (8.4-10.2) mg/dL Phosphorus (2.5-4.5) mg/dL Magnesium (1.6-2.3) mg/dL Creatine Kinase (55-170) U/L Troponin I (0.000-0.034) ng/mL Total Protein (6.3-8.2) g/dL Albumin (3.5-5.0) g/dL Triglycerides 192 H (<150) mg/dL HDL Cholesterol 15 L (40-60) mg/dL Urine Protein (Negative) Urine Blood (Negative) Ur Leukocyte Esterase (Negative) Urine RBC (0-5) /hpf Urine WBC (0-5) /hpf Urine WBC Clumps (None) /hpf Urine Bacteria (None) /hpf Hyaline Casts (0-2) /lpf Urine Mucus (None) /hpf 10/16/19 Range/Units 09:42 RBC (4.30-5.90) m/uL Plt Count (150-450) k/uL Neutrophils # (1.3-7.7) k/uL Lymphocytes # (1.0-4.8) k/uL APTT (22.0-30.0) sec Sodium (137-145) mmol/L Carbon Dioxide (22-30) mmol/L BUN (9-20) mg/dL Creatinine (0.66-1.25) mg/dL Glucose (74-99) mg/dL Plasma Lactic Acid Srinivasan (0.7-2.0) mmol/L Calcium (8.4-10.2) mg/dL Phosphorus 2.0 L (2.5-4.5) mg/dL Magnesium (1.6-2.3) mg/dL Creatine Kinase (55-170) U/L Troponin I (0.000-0.034) ng/mL Total Protein (6.3-8.2) g/dL Albumin (3.5-5.0) g/dL Triglycerides (<150) mg/dL HDL Cholesterol (40-60) mg/dL Urine Protein (Negative) Urine Blood (Negative) Ur Leukocyte Esterase (Negative) Urine RBC (0-5) /hpf Urine WBC (0-5) /hpf Urine WBC Clumps (None) /hpf Urine Bacteria (None) /hpf Hyaline Casts (0-2) /lpf Urine Mucus (None) /hpf Microbiology - Last 24 Hours (Table) 10/15/19 20:16 Urine Culture - Preliminary Urine,Voided Assessment and Plan Plan: Assessment and Recommendations: THrombocytopenia on Anticoagulation: - Prosthetic heart valve and need for anticoagualtion must keep platelet count greater than 50K - Assess for rhabdomyolysis with worsening renal function - Underlying liver disease with history of ETOH - Probable consumption secondary to underlying infection and chronic liver disease - Daily CBC and transfuse platelets less than 50 K, unless patient's eliquis can be held, defer to cardiology on holding of antioagulation Thank you for allowing us to participate with you and this patient
[2019-10-17] MEDS: LORazepam 2 MG/ML INJ IV PRN (03:26)
[2019-10-17 05:01] LABS: Glucose,Whole Blood 148 mg/dL (75-99)
[2019-10-17 05:15] LABS: ABG Base Excess -9.8 mmol/L; ABG HCO3 16 mmol/L (21-25); ABG PCO2 30 mmHg (35-45); ABG PH 7.34 (7.35-7.45); ABG PO2 117 mmHg (83-108); ABG TCO2 17 mmol/L (19-24); Allen Test Performed? Yes
[2019-10-17] MEDS ORDERED: propofoL 100 ML IV ONE (05:23)
[2019-10-17] MEDS ORDERED: NALOXONE 0.4 MG/ML 1 ML VIAL IV PRN (05:36)
[2019-10-17 05:45] LABS: HCT 40.9 % (39.0-53.0); HGB 13.4 gm/dL (13.0-17.5); MCHC 32.7 g/dL (31.0-37.0); MCV 97.9 fL (80.0-100.0); Mean Platelet Volume 12.1; RBC 4.18 m/uL (4.30-5.90); RDW 13.2 % (11.5-15.5); WBC 8.5 k/uL (3.8-10.6)
[2019-10-17 05:46] LABS: Platelet Count 34 k/uL (150-450)
[2019-10-17] MEDS ORDERED: PROPOFOL 10 MG/ML 20 ML VIAL IV ONE (05:50)
[2019-10-17] MEDS ORDERED: SUCCINYLCHOLINE CHLORIDE VIAL 200 MG/10 ML VIAL IV ONE (05:50)
[2019-10-17] MEDS ORDERED: ROCURONIUM BROMIDE 10 MG/ML 5 ML VIAL IV ONE (05:50)
[2019-10-17 05:54] LABS: Albumin 2.5 g/dL (3.5-5.0); Calcium 7.8 mg/dL (8.4-10.2); Magnesium 2.1 mg/dL (1.6-2.3); Potassium 3.6 mmol/L (3.5-5.1); Total Bilirubin 1.5 mg/dL (0.2-1.3); Total Protein 5.1 g/dL (6.3-8.2)
[2019-10-17 06:11] LABS: Lymphocytes # (M) 0.26 k/uL (1.0-4.8); Monocytes # (M) 0.17 k/uL (0-1.0); Neutrophils # (M) 8.08 k/uL (1.3-7.7); Neutrophils % (M) 95 %; Nucleated Red Blood Cells 0 /100 WBC (0-0); Total Cells Counted 100
[2019-10-17 06:13] LABS: ABG Base Excess -6.4 mmol/L; ABG HCO3 20 mmol/L (21-25); ABG Oxygen Saturation 99.6 % (94-97); ABG PCO2 44 mmHg (35-45); ABG PH 7.27 (7.35-7.45); ABG PO2 290 mmHg (83-108); ABG TCO2 22 mmol/L (19-24); Allen Test Performed? Yes
--- NOTE | 2019-10-17 06:19 | XR ---
EXAMINATION TYPE: XR chest 1V portable DATE OF EXAM: 10/17/2019 COMPARISON: 10/15/2019 HISTORY: Respiratory failure TECHNIQUE: FINDINGS: Heart is enlarged. There is mild pulmonary congestion. There is blunting of the costophreni c angles. There is left axillary pacemaker. There is nasogastric tube in the stomach. Endotracheal tu be is 5 cm from the mis. IMPRESSION: There is increased pleural fluid and pulmonary congestion compared to recent exam. Mild h eart failure is present.
[2019-10-17 08:30] LABS: Glucose,Whole Blood 158 mg/dL (75-99)
[2019-10-17] MEDS ORDERED: VANCOMYCIN 1,000 MG in SODIUM CHLORIDE 0.9% 250 ML IVPB STA (09:06)
[2019-10-17] MEDS ORDERED: VANCOMYCIN 1,750 MG in SODIUM CHLORIDE 0.9% 500 ML 500 ML IVPB ONE (09:15)
[2019-10-17] MEDS ORDERED: NOREPINEPHRINE 4 MG in SODIUM CHLORIDE 0.9% 250 ML IV SCH (09:30)
[2019-10-17] MEDS: SODIUM CHLORIDE 0.9% 1,000 ML IV SCH (09:55)
[2019-10-17] MEDS: AMIODARONE 300 MG in DEXTROSE 5% IN WATER 250 ML IV SCH ×4 (09:56→17:05)
--- NOTE | 2019-10-17 10:14 | PN ---
PROGRESS NOTE Mr. Mcnair is a 69-year-old male with known history of nonischemic cardiomyopathy, status post bioprosthetic aortic valve replacement, ICD Bi V placement, who presented yesterday with not feeling well, with chills and dyspnea and he had worsening renal failure. During the night, he became more hypoxemic, requiring mechanical ventilation. He is intubated and sedated at this time. He continued to be in atrial fibrillation with ventricular ectopic activity. His urine output has been down. He is not requiring any vasopressor. He had a febrile episode earlier. His echocardiogram revealed a severely impaired left ventricular systolic function with no evidence of vegetations. He had mild mitral and tricuspid regurgitation and his peak gradient across the aortic valve was 32 mmHg. He continues to be at this time on the IV amiodarone, ceftriaxone, metoprolol tartrate 50 mg 3 times a day and he is on Eliquis 5 mg twice a day. PHYSICAL EXAMINATION: Blood pressure 120/60 with a heart rate in the 90s. LUNGS: Clear. HEART: Irregular, regular, S1-S2 no S3 with systolic murmur heard at the base, ejection type, no diastolic murmur, no rub. ABDOMEN: Soft, positive bowel sounds, no organomegaly. EXTREMITIES: Trace to 1+ edema. Neurologically, he is intubated and sedated. LAB DATA: Revealed a white blood cell of 8.5, hemoglobin 13.4. His pH this morning 7.27, pCO2 of 44, PO2 of 290. BUN and creatinine 15 and 1.15, which is improved compared to yesterday. His bicarb is 17. His total bilirubin is 1.5. Chest x-ray revealed small pleural effusion. There is no evidence of clear infiltrate. IMPRESSION: 1. Respiratory failure with febrile episode, UTI with bacteremia with the possibility of endocarditis cannot be totally excluded. 2. Renal failure, improving. 3. Status post aortic valve replacement. 4. Severe nonischemic cardiomyopathy. 5. Status post ICD Bi V implanted in January of last year. 6. Atrial fibrillation was paroxysmal before persistent at this time. 7. Ventricular ectopic activity. RECOMMENDATION: At this time, will continue present therapy. The patient has thrombocytopenia and that will be followed closely. It could be related to his infectious process. Will await the input of the Critical Care Team. If there is bacteremia that is persistent, patient may require a transesophageal echocardiogram. Unfortunately, the prognosis is guarded. ELEL / IJN: [id number] / HELEN
[2019-10-17] MEDS: METOPROLOL TARTRATE 50 MG TAB PO SCH ×3 (10:48→20:56)
[2019-10-17] MEDS: THIAMINE 100 MG TAB PO SCH ×2 (10:56→18:54)
[2019-10-17] MEDS: FUROSEMIDE 10 MG/ML 4 ML VIAL IV SCH (10:56)
[2019-10-17] MEDS: APIXABAN 5 MG TAB PO SCH ×2 (10:56→20:55)
[2019-10-17] MEDS: TAMSULOSIN 0.4 MG CAP.ER.24H PO SCH (10:57)
[2019-10-17] MEDS: PANTOPRAZOLE 40 MG/10 ML VIAL IV SCH (10:57)
[2019-10-17] MEDS: MULTIVITAMINS, THERA 1 EACH TAB PO SCH (10:57)
--- NOTE | 2019-10-17 11:01 | P.PN ---
Subjective Patient is seen in follow for acute kidney injury. Creatinine was 1.87 on admission and is 1.15 today. Patient had a respiratory arrest and was intubated yesterday. Blood pressure is low with a systolic 70s. He is maintained on amiodarone drip. Patient has been oliguric last few hours. He is also noted to have gram-negative bacilli in the urine and E. coli bacteremia. Vital signs are stable. Blood pressure in the lower side. General: The patient appeared well nourished and normally developed. HEENT: Head exam is unremarkable. Neck is without jugular venous distension. Intubated. LUNGS: Breath sounds decreased. Scattered rhonchi. HEART: Regular rate and rhythm. ABDOMEN: Soft, no distention noted. EXTREMITITES: No clubbing, cyanosis, or edema. Objective - Vital Signs Vital signs: Vital Signs Temp 100.5 F H 10/17/19 06:30 Pulse 83 10/17/19 10:45 Resp 21 10/17/19 10:45 BP 107/65 10/17/19 10:45 Pulse Ox 96 10/17/19 10:45 Intake & Output 10/16/19 10/17/19 10/17/19 18:59 06:59 18:59 Intake Total 240 325 754.622 Output Total 700 550 60 Balance -460 -225 694.622 Intake: IV 75 690 Sodium Chloride 0.9% 1, 75 190 000 ml @ 75 mls/hr IV . [id number] NOAH Rx#:[id number] Vancomycin 1,750 mg In 500 Sodium Chloride 0.9% 500 ml 500 ml @ 167 mls/hr IVPB ONCE ONE Rx#: [id number] Intake, IV Titration 250 64.622 Amount Amiodarone 300 mg In 250 Dextrose 5% in Water 250 ml @ 0.5 MG/MIN 25 mls/hr IV .Q10H NOAH Rx#: [id number] Norepinephrine 4 mg In 21.103 Sodium Chloride 0.9% 250 ml @ 0.05 MCG/KG/MIN 20. 098 mls/hr IV .[id number] NO[facility] Rx#:[id number] propofoL 1,000 mg In 43.519 Empty Bag 1 bag @ Titrate IV .Q0M NOAH Rx#: [id number] Oral 240 Output: Urine 700 550 60 Other: Voiding Method Indwelling Catheter Indwelling Catheter - Labs CBC & Chem 7: 10/17/19 05:22 10/17/19 05:22 Labs: Abnormal Lab Results - Last 24 Hours (Table) 10/17/19 10/17/19 10/17/19 Range/Units 04:49 05:12 05:22 RBC 4.18 L (4.30-5.90) m/uL Plt Count 34 L (150-450) k/uL Neutrophils # (Manual) 8.08 H (1.3-7.7) k/uL Lymphocytes # (Manual) 0.26 L (1.0-4.8) k/uL ABG pH 7.34 L (7.35-7.45) ABG pCO2 30 L (35-45) mmHg ABG pO2 117 H (83-108) mmHg ABG HCO3 16 L (21-25) mmol/L ABG Total CO2 17 L (19-24) mmol/L ABG O2 Saturation 98.0 H (94-97) % Sodium (137-145) mmol/L Chloride (98-107) mmol/L Carbon Dioxide (22-30) mmol/L BUN (9-20) mg/dL Glucose (74-99) mg/dL POC Glucose (mg/dL) 148 H (75-99) mg/dL Calcium (8.4-10.2) mg/dL Total Bilirubin (0.2-1.3) mg/dL Total Protein (6.3-8.2) g/dL Albumin (3.5-5.0) g/dL 10/17/19 10/17/19 10/17/19 Range/Units 05:22 06:08 08:28 RBC (4.30-5.90) m/uL Plt Count (150-450) k/uL Neutrophils # (Manual) (1.3-7.7) k/uL Lymphocytes # (Manual) (1.0-4.8) k/uL ABG pH 7.27 L (7.35-7.45) ABG pCO2 (35-45) mmHg ABG pO2 290 H (83-108) mmHg ABG HCO3 20 L (21-25) mmol/L ABG Total CO2 (19-24) mmol/L ABG O2 Saturation 99.6 H (94-97) % Sodium 135 L (137-145) mmol/L Chloride 108 H (98-107) mmol/L Carbon Dioxide 17 L (22-30) mmol/L BUN 50 H (9-20) mg/dL Glucose 160 H (74-99) mg/dL POC Glucose (mg/dL) 158 H (75-99) mg/dL Calcium 7.8 L (8.4-10.2) mg/dL Total Bilirubin 1.5 H (0.2-1.3) mg/dL Total Protein 5.1 L (6.3-8.2) g/dL Albumin 2.5 L (3.5-5.0) g/dL Microbiology - Last 24 Hours (Table) 10/16/19 09:37 Blood Culture Gram Stain - Preliminary Blood Blood Culture - Preliminary Escherichia coli 10/15/19 20:16 Urine Culture - Preliminary Urine,Voided Gram Neg Bacilli 10/16/19 09:37 Blood Culture - Final Blood Assessment and Plan Plan: Assessment: 1. Acute kidney injury secondary to ATN secondary to hypotension and A. fib. Creatinine 1.87 on admission and is down to 1.15 today. However the patient is oliguric. Baseline creatinine near 1. No hydronephrosis noted on kidney ultrasound. 2. A. fib with RVR maintained on amiodarone drip. 3. Metabolic acidosis secondary to acute kidney injury. 4. Chronic systolic CHF status post AICD placement. 5. Hypomagnesemia from poor intake. Improved posterior placement. 6. Hyperphosphatemia from poor intake. Better posterior placement. 7. Volume overload. 8. E. coli bacteremia and urine culture positive for gram-negative bacilli maintained on IV antibiotics. Plan: Hep-Lock IV fluids. Lasix 40 mg IV once today. Add Levophed to maintain adequate MAP. Add oral sodium bicarbonate. Maintain Cunningham catheter. Strict I's and O's. Follow-up cultures.
[2019-10-17 11:11] LABS: Glucose,Whole Blood 150 mg/dL (75-99)
--- NOTE | 2019-10-17 11:50 | XR ---
EXAMINATION TYPE: XR chest 1V portable DATE OF EXAM: 10/17/2019 CLINICAL HISTORY: Status post line placement. TECHNIQUE: Supine view of the chest obtained. COMPARISON: 10/17/2019 chest radiograph at 5:56 AM FINDINGS: Interval placement of right-sided internal jugular central venous catheter with distal tip over the right atrium. Endotracheal tube distal tip at the level of the clavicles. Enteric tube appe ars coiled distally within the esophagus, with the distal tip at the level of the mid to distal esoph johnny. Left-sided biventricular AICD. Sternotomy wires. Cardiomegaly. Unchanged mild pulmonary vascula r congestion and small bilateral pleural effusions. No evidence of large pneumothorax within limits o f supine technique. IMPRESSION: 1. Right internal jugular central venous catheter distal tip over the right atrium. No large pneumoth orax within limits of supine technique. 2. Enteric tube distally coiled with retrograde course over the mid to distal esophagus. 3. Unchanged pulmonary vascular congestion and small bilateral pleural effusions.
--- NOTE | 2019-10-17 12:41 | P.PN ---
Subjective Progress Note Date: 10/17/19 HISTORY OF PRESENT ILLNESS This is a 69-year-old male patient of Dr. Hendrickson and Dr. Otero with past medical history of nonischemic cardiomyopathy and nonsustained karina tricular tachycardia status post biventricular AICD, prosthetic aortic valve, paroxysmal atrial fibrillation, hypertension, hyperlipidemia, glaucoma and macular degeneration, remote history of tobacco use. Patient states that he was going to bed early last night and falling out of bed. He states he slipped out onto the floor. He denies any injury and denies any loss of consciousness. He denies any episodes like this in the past. He denies having any chest pain, lightheadedness. He does complain of shortness of breath and mild lower extremity edema. Patient came into [facility] emergency center for evaluation. He was afebrile, initial heart rate 156. EKG ventricular paced rhythm at heart rate of 119 with wide complex beats possible ventricular tachycardia. Blood pressure 101/67, pulse ox 90% on room air. Initial blood work revealed the previously 7.8, hemoglobin 13.1, platelet count 38 with previous normal level. Sodium 133, potassium 3.7, chloride 105, CO2 16, BUN 45 creatinine 1.87. Blood sugar 127. Liver function tests normal. Phosphorus 1.4, magnesium 1.4. Lactic acid initially 2.5 and repeat of 1.6. Triglycerides 192, cholesterol 96, LDL 43, HDL 15. Chest x-ray revealed chronic changes and cardiomegaly without acute pulmonary process. Patient admitted to the cardiac stepdown unit and consult requested with cardiology, nephrology and oncology. Echocardiogram and TSH pending. 10/16: A-Team was called early this morning as patient had a drop in his pulse ox and was placed on 15 L nonrebreather, heart rate increased and patient was in A. fib with RVR. Patient was transferred into the intensive care unit, intubated and placed on mechanical ventilation. Tidal volume 550, FiO2 50, PEEP of 5. Blood pressure is currently 80/59 and patient is currently on norepinephrine. Amiodarone drip has been discontinued. We have ordered one dose of vancomycin and consult added for Dr. Fletcher for E. coli bacteremia. Urine culture is still pending but gram-negative bacilli. Echocardiogram reveals EF of 25-30%, mild stenosis of the bioprosthetic aortic valve, mild mitral regurgitation, mild tricuspid regurgitation, mild pulmonary hypertension. Renal ultrasound revealed no hydronephrosis. The patient's is at bedside and updated regarding condition. Condition is currently guarded. REVIEW OF SYSTEMS Unable to obtain due to intubation and sedation. PHYSICAL EXAMINATION Gen: This is 69-year-old male patient resting in bed and in no acute distress. Patient is seen in the ICU, resting in bed and appears to be comfortable on mechanical ventilation. HEENT: Head is atraumatic, normocephalic. Pupils equal, round. Sclerae is anicteric. ET and oral gastric tube in place. NECK: Supple. No JVD. No lymphadenopathy. No thyromegaly. LUNGS: Clear to auscultation. No wheezes or rhonchi. No intercostal retractions. HEART: Irregularly irregular rate and rhythm. Systolic murmur. ABDOMEN: Soft. Bowel sounds are present. No masses. No tenderness. Cunningham catheter in place. EXTREMITIES: 1+ bilateral pedal edema. No calf tenderness. Dorsalis pedis palpable bilaterally. NEUROLOGICAL: Intubated and sedated. ASSESSMENT AND PLAN 1. Episodes of nonsustained ventricular tachycardia with ventricular paced rhythm and atrial fibrillation. Cardiology consult appreciated. Off amiodarone drip. 2. Acute kidney injury secondary to ATN, hypotension and atrial fibrillation. Nephrology consult appreciated. Patient has Cunningham catheter. Sodium bicarb oral added and renal ultrasound ordered 3. Acute urinary tract infection with E. coli bacteremia. Continue Rocephin 1 g daily. Await urine culture. Blood cultures been ordered by cardiology. Consult with Dr. Fletcher. 4. Elevated troponin, rule out acute coronary syndrome. Cardiology consult. Echocardiogram as above. 5. Septic shock requiring vasopressor. Continue norepinephrine. 6. Acute hypoxic respiratory failure secondary to sepsis. Consult with Dr. Salinas. 7. Thrombocytopenia. Oncology consult. 8. Nonischemic cardiomyopathy and nonsustained ventricular tachycardia status post biventricular AICD. Cardiology consult. 9. Prosthetic aortic valve. 10. Paroxysmal atrial fibrillation with episode of RVR. Continue eliquis 5 mg twice daily, Lopressor 50 mg 3 times daily. Amiodarone drip discontinued. 11. Hypertension. Currently hypotensive 12. Hyperlipidemia. Patient is not currently on statin. 13. Benign prostatic hypertrophy. Continue Flomax or 0.4 mg daily. Cunningham cat heter in place. 14. Macular degeneration and glaucoma, stable. 15. GI prophylaxis. Protonix. 16. DVT prophylaxis. Eliquis. Discharge plan: To be determined. Prognosis guarded. Impression and plan of care have been directed as dictated by the signing physician. Stephenie Chow nurse practitioner acting as scribe for signing physician Objective - Vital Signs Vital signs: Vital Signs Temp 100.5 F H 10/17/19 06:30 Pulse 103 H 10/17/19 08:15 Resp 16 10/17/19 08:15 BP 80/62 10/17/19 08:15 Pulse Ox 97 10/17/19 08:15 Intake & Output 10/16/19 10/17/19 10/17/19 18:59 06:59 18:59 Intake Total 240 75 75 Output Total 700 550 10 Balance -460 -475 65 Intake: IV 75 75 Sodium Chloride 0.9% 1, 75 75 000 ml @ 75 mls/hr IV . [id number] [facility] Rx#:[id number] Oral 240 Output: Urine 700 550 10 Other: Voiding Method Indwelling Catheter Indwelling Catheter - Labs CBC & Chem 7: 10/17/19 05:22 10/17/19 05:22 Labs: Abnormal Lab Results - Last 24 Hours (Table) 10/16/19 10/16/19 10/17/19 Range/Units 09:37 09:42 04:49 RBC (4.30-5.90) m/uL Plt Count (150-450) k/uL Neutrophils # (Manual) (1.3-7.7) k/uL Lymphocytes # (Manual) (1.0-4.8) k/uL APTT 31.7 H (22.0-30.0) sec ABG pH (7.35-7.45) ABG pCO2 (35-45) mmHg ABG pO2 (83-108) mmHg ABG HCO3 (21-25) mmol/L ABG Total CO2 (19-24) mmol/L ABG O2 Saturation (94-97) % Sodium (137-145) mmol/L Chloride (98-107) mmol/L Carbon Dioxide (22-30) mmol/L BUN (9-20) mg/dL Glucose (74-99) mg/dL POC Glucose (mg/dL) 148 H (75-99) mg/dL Calcium (8.4-10.2) mg/dL Phosphorus 2.0 L (2.5-4.5) mg/dL Total Bilirubin (0.2-1.3) mg/dL Total Protein (6.3-8.2) g/dL Albumin (3.5-5.0) g/dL 10/17/19 10/17/19 10/17/19 Range/Units 05:12 05:22 05:22 RBC 4.18 L (4.30-5.90) m/uL Plt Count 34 L (150-450) k/uL Neutrophils # (Manual) 8.08 H (1.3-7.7) k/uL Lymphocytes # (Manual) 0.26 L (1.0-4.8) k/uL APTT (22.0-30.0) sec ABG pH 7.34 L (7.35-7.45) ABG pCO2 30 L (35-45) mmHg ABG pO2 117 H (83-108) mmHg ABG HCO3 16 L (21-25) mmol/L ABG Total CO2 17 L (19-24) mmol/L ABG O2 Saturation 98.0 H (94-97) % Sodium 135 L (137-145) mmol/L Chloride 108 H (98-107) mmol/L Carbon Dioxide 17 L (22-30) mmol/L BUN 50 H (9-20) mg/dL Glucose 160 H (74-99) mg/dL POC Glucose (mg/dL) (75-99) mg/dL Calcium 7.8 L (8.4-10.2) mg/dL Phosphorus (2.5-4.5) mg/dL Total Bilirubin 1.5 H (0.2-1.3) mg/dL Total Protein 5.1 L (6.3-8.2) g/dL Albumin 2.5 L (3.5-5.0) g/dL 10/17/19 10/17/19 Range/Units 06:08 08:28 RBC (4.30-5.90) m/uL Plt Count (150-450) k/uL Neutrophils # (Manual) (1.3-7.7) k/uL Lymphocytes # (Manual) (1.0-4.8) k/uL APTT (22.0-30.0) sec ABG pH 7.27 L (7.35-7.45) ABG pCO2 (35-45) mmHg ABG pO2 290 H (83-108) mmHg ABG HCO3 20 L (21-25) mmol/L ABG Total CO2 (19-24) mmol/L ABG O2 Saturation 99.6 H (94-97) % Sodium (137-145) mmol/L Chloride (98-107) mmol/L Carbon Dioxide (22-30) mmol/L BUN (9-20) mg/dL Glucose (74-99) mg/dL POC Glucose (mg/dL) 158 H (75-99) mg/dL Calcium (8.4-10.2) mg/dL Phosphorus (2.5-4.5) mg/dL Total Bilirubin (0.2-1.3) mg/dL Total Protein (6.3-8.2) g/dL Albumin (3.5-5.0) g/dL Microbiology - Last 24 Hours (Table) 10/15/19 20:16 Urine Culture - Preliminary Urine,Voided Gram Neg Bacilli 10/16/19 09:37 Blood Culture Gram Stain - Preliminary Blood Blood Culture - Preliminary Escherichia coli 10/16/19 09:37 Blood Culture - Final Blood
[2019-10-17] MEDS: SODIUM BICARBONATE TAB 650 MG TAB PO SCH ×2 (12:44→20:56)
[2019-10-17] MEDS: CHLORHEXIDINE GLUCONATE 15 ML CUP MUCOUS MEM SCH ×2 (12:44→21:11)
[2019-10-17] MEDS ORDERED: Potassium Replacement Protocol 1 EACH MISC MISCELLANE PRN ×2 (13:16→14:44)
[2019-10-17] MEDS ORDERED: POTASSIUM BICARBONATE/CIT AC 20 MEQ TABLET.EFF NG-TUBE SCH (14:00)
--- NOTE | 2019-10-17 15:09 | P.CNPUL ---
History of Present Illness Consult date: 10/17/19 Requesting physician: Bart Hoffman Reason for consult: other (Acute hypoxic respiratory failure requiring intubation and mechanical ventilation.) Chief complaint: Weakness. History of present illness: This is a 69-year-old white male, presented initially to [facility] on 10/15/19, and his chief complaint was mostly weakness. Apparently the patient was going to bed early the night before, and he fell out of bed. Slipped out onto the floor. He had no significant injury. Brought into the ER on 10/14, and he was noted to have intermittent ventricular tachycardia. Labs were significant for low platelets, relatively normal electrolytes, abnormal BUN of 45 creatinine 1.87, lactic acid of 2.5. Chest x-ray showed mostly chronic changes, no acute process was noted and there was no evidence of pneumonia or evidence of congestive heart failure. Patient was admitted, and multiple consultants where consulted including cardiology and nephrology and oncology. Admitting diagnoses was possible ventricular tachycardia, nonsustained, and atrial fibrillation. Patient was placed on amiodarone drip, and he was also noted to have evidence of urinary tract infection without symptoms. Eventually his blood cultures came back positive for gram-negative bacilli. At any rate less than night to the patient was transferred to the ICU mostly because of his worsening shortness of breath, and he was noted to have atrial fibrillation with RVR. I was notified about this patient early in the morning after transfer to the ICU, and I recommended immediate intubation since the patient was extremely short of breath based on the nurse taking care of him. I saw him this morning, patient is now on mechanical ventilation. His assist-control rate is 16 tidal volume is 550 FiO2 is 50% and PEEP of 5. ABG showed a pO2 of 290 pCO2 of 44 pH of 7.27. Patient is on 0.9 normal saline at 25 mL per hour, amiodarone at 0.5 mg per hour, and on propofol at 10 mcg/kg/m. His echocardiogram showed LV dysfunction with ejection fraction of 50-55%. Considering the patient was critically ill, I have arranged for placement of a arterial line and right IJ central line was placed on this patient. In the meantime The patient on Rocephin and vancomycin for his positive blood cultures showing E. coli. Review of Systems ROS unobtainable: due to endotracheal tube Past Medical History Past Medical History: Atrial Fibrillation, Eye Disorder, Hyperlipidemia, Hypertension Additional Past Medical History / Comment(s): PAST EPISODE OF AFIB SUMMER 2018. MACULAR DEGENERATION AND GLAUCOMA History of Any Multi-Drug Resistant Organisms: None Reported Past Surgical History: Appendectomy, Cardiac Valve Replacement, Cholecystectomy, Hernia Repair, Pacemaker Additional Past Surgical History / Comment(s): AORTIC VALVE REPLACEMENT 2008. INGUINAL HERNIA REPAIR. UMBILICAL HERNIA REPAIR. COLONOSCOPY. PACEMAKER 2019 Past Anesthesia/Blood Transfusion Reactions: No Reported Reaction Type of Cardiac Device: Permanent Pacemaker Device Placement Date:: 2018 Past Psychological History: No Psychological Hx Reported Smoking Status: Former smoker Past Alcohol Use History: Daily, Heavy Additional Past Alcohol Use History / Comment(s): QUIT SMOKING 2003. DRINKS 4-5 BEERS DAILY Past Drug Use History: None Reported - Past Family History Mother Family Medical History: Hypertension Father Additional Family Medical History / Comment(s): Enlarged Heart Medications and Allergies Home Medications Medication Instructions Recorded Confirmed Type Apixaban [Eliquis] 5 mg PO BID #60 tab 10/04/18 10/15/19 Rx Losartan Potassium 100 mg PO DAILY 10/15/19 10/15/19 History Metoprolol Tartrate [Lopressor] 75 mg PO BID 10/15/19 10/15/19 History Tamsulosin [Flomax] 0.4 mg PO DAILY 10/15/19 10/15/19 History Allergies Allergy/AdvReac Type Severity Reaction Status Date / Time Penicillins Allergy Rash/Hives Verified 10/15/19 22:08 Physical Exam Vitals: Vital Signs Temp Pulse Pulse Resp BP BP Pulse Ox 10/17/19 13:00 93 19 97 10/17/19 12:45 89 21 97 10/17/19 12:30 88 21 97 10/17/19 12:15 86 29 H 98 10/17/19 12:00 99.5 F 86 23 97 10/17/19 11:45 89 22 97 10/17/19 11:30 85 19 118/68 97 10/17/19 11:15 88 23 107/81 98 10/17/19 11:00 89 21 93/70 98 10/17/19 10:45 83 21 107/65 96 10/17/19 10:30 84 24 101/66 10/17/19 10:15 83 24 94/64 98 10/17/19 10:00 89 23 78/51 98 10/17/19 09:45 94 25 H 87/57 98 10/17/19 09:30 91 29 H 78/52 97 10/17/19 09:15 96 25 H 78/52 97 10/17/19 09:00 92 24 80/59 96 10/17/19 08:45 96 18 79/51 96 10/17/19 08:30 98 15 80/63 96 10/17/19 08:15 103 H 16 80/62 97 10/17/19 08:00 111 H 16 81/58 97 10/17/19 07:45 96 16 82/65 96 10/17/19 07:30 104 H 16 106/65 96 10/17/19 07:15 123 H 23 107/63 97 10/17/19 07:00 125 H 18 107/65 97 10/17/19 06:45 133 H 16 89/53 97 10/17/19 06:30 100.5 F H 129 H 20 103/64 97 10/17/19 06:15 128 H 19 74/54 98 10/17/19 06:00 114 H 16 83/57 97 10/17/19 05:45 117 H 24 104/64 89 L 10/17/19 05:30 115 H 36 H 137/123 97 10/17/19 04:00 90 22 122/68 96 10/17/19 00:00 89 20 121/76 96 10/16/19 20:00 98.3 F 100 22 113/71 98 10/16/19 16:15 98.3 F 103 H 20 137/66 99 Intake and Output 10/16/19 10/17/19 10/17/19 22:59 06:59 14:59 Intake Total 325 882.452 Output Total 950 0 580 Balance -950 325 302.452 Intake: IV 75 800 Sodium Chloride 0.9% 1, 75 250 000 ml @ 75 mls/hr IV . [id number] [facility] Rx#:[id number] Vancomycin 1,750 mg In 500 Sodium Chloride 0.9% 500 ml 500 ml @ 167 mls/hr IVPB ONCE ONE Rx#: [id number] cefTRIAXone 1 gm In 50 Sodium Chloride 0.9% 50 ml @ 100 mls/hr IVPB Q24HR [facility] Rx#:[id number] Intake, IV Titration 250 82.452 Amount Amiodarone 300 mg In 250 Dextrose 5% in Water 250 ml @ 0.5 MG/MIN 25 mls/hr IV .Q10H [facility] Rx#: [id number] Norepinephrine 4 mg In 21.103 Sodium Chloride 0.9% 250 ml @ 0.05 MCG/KG/MIN 20. 098 mls/hr IV .[id number] [facility] Rx#:[id number] propofoL 1,000 mg In 61.349 Empty Bag 1 bag @ Titrate IV .Q0M [facility] Rx#: [id number] Output: Urine 950 0 580 Other: Voiding Method Indwelling Catheter Indwelling Catheter ABP, PAP, CO, CI - Last 8 Hours Arterial Blood Pressure 106/56 Arterial Blood Pressure 100/54 Arterial Blood Pressure 79/45 Arterial Blood Pressure 115/62 Arterial Blood Pressure 84/51 Arterial Blood Pressure 83/49 Arterial Blood Pressure 108/57 Physical Exam: Revealed 69-year-old white male, intubated and mechanically ventilated. On small dose of propofol, responds mostly to deep painful stimuli. Head: Atraumatic, normocephalic. Endotracheal tube and orogastric tube are intact. HEENT:[Neck is supple.] [No neck masses.] [No thyromegaly.] [No JVD.] EOMI, no icterus. Chest: [Clear throughout, no crackles, no rhonchi, no wheezes.] Cardiac Exam: Irregular irregular rhythm. [Normal S1 and S2, no S3 gallop, 2/6 systolic murmur thought the precordium..] Abdomen: [Soft, nontender, no megaly, no rebound, no guarding, normal bowel sounds.] Extremities: [No clubbing, 1+ bipedal edema, no cyanosis.] Neurological Exam: [Could not be assessed, patient is sedated, on propofol, and he is mechanically ventilated. Skin: No rashes. Psychiatric: Could not be assessed. Lymphatics: No lymphadenopathy. Results - Laboratory Findings CBC and BMP: 10/17/19 05:22 10/17/19 05:22 ABG ABG pH 7.27 (7.35-7.45) L 10/17/19 06:08 ABG pCO2 44 mmHg (35-45) 10/17/19 06:08 ABG pO2 290 mmHg (83-108) H 10/17/19 06:08 ABG O2 Saturation 99.6 % (94-97) H 10/17/19 06:08 PT/INR, D-dimer PT 9.4 sec (9.0-12.0) 10/15/19 20:16 INR 0.9 (<1.2) 10/15/19 20:16 Abnormal lab findings: Abnormal Labs 10/15/19 10/15/19 10/15/19 20:16 20:16 20:16 RBC 4.18 L Plt Count 38 L Neutrophils # Neutrophils # (Manual) Lymphocytes # 0.4 L Lymphocytes # (Manual) APTT 32.6 H ABG pH ABG pCO2 ABG pO2 ABG HCO3 ABG Total CO2 ABG O2 Saturation Sodium Chloride Carbon Dioxide BUN Creatinine Glucose POC Glucose (mg/dL) Plasma Lactic Acid Srinivasan Calcium Phosphorus Magnesium Total Bilirubin Creatine Kinase Troponin I Total Protein Albumin Triglycerides HDL Cholesterol Urine Protein 2+ H Urine Blood Large H Ur Leukocyte Esterase Large H Urine RBC 146 H Urine WBC >182 H Urine WBC Clumps Many H Urine Bacteria Many H Hyaline Casts 129 H Urine Mucus Moderate H 10/15/19 10/15/19 10/15/19 20:16 20:16 20:16 RBC Plt Count Neutrophils # Neutrophils # (Manual) Lymphocytes # Lymphocytes # (Manual) APTT ABG pH ABG pCO2 ABG pO2 ABG HCO3 ABG Total CO2 ABG O2 Saturation Sodium 133 L Chloride Carbon Dioxide 16 L BUN 45 H Creatinine 1.87 H Glucose 127 H POC Glucose (mg/dL) Plasma Lactic Acid Srinivasan 2.5 H* Calcium 8.1 L Phosphorus 1.4 L Magnesium 1.4 L Total Bilirubin Creatine Kinase 39 L Troponin I 0.129 H* Total Protein 5.8 L Albumin 2.8 L Triglycerides HDL Cholesterol Urine Protein Urine Blood Ur Leukocyte Esterase Urine RBC Urine WBC Urine WBC Clumps Urine Bacteria Hyaline Casts Urine Mucus 10/15/19 10/16/19 10/16/19 23:19 03:00 03:00 RBC Plt Count Neutrophils # Neutrophils # (Manual) Lymphocytes # Lymphocytes # (Manual) APTT 34.8 H ABG pH ABG pCO2 ABG pO2 ABG HCO3 ABG Total CO2 ABG O2 Saturation Sodium Chloride Carbon Dioxide BUN Creatinine Glucose POC Glucose (mg/dL) Plasma Lactic Acid Srinivasan Calcium Phosphorus Magnesium Total Bilirubin Creatine Kinase Troponin I 0.154 H* 0.169 H* Total Protein Albumin Triglycerides HDL Cholesterol Urine Protein Urine Blood Ur Leukocyte Esterase Urine RBC Urine WBC Urine WBC Clumps Urine Bacteria Hyaline Casts Urine Mucus 10/16/19 10/16/19 10/16/19 03:00 03:00 09:37 RBC 4.17 L Plt Count 35 L Neutrophils # 8.1 H Neutrophils # (Manual) Lymphocytes # 0.3 L Lymphocytes # (Manual) APTT 31.7 H ABG pH ABG pCO2 ABG pO2 ABG HCO3 ABG Total CO2 ABG O2 Saturation Sodium 133 L Chloride Carbon Dioxide 18 L BUN 50 H Creatinine 1.84 H Glucose 143 H POC Glucose (mg/dL) Plasma Lactic Acid Srinivasan Calcium 7.8 L Phosphorus Magnesium Total Bilirubin Creatine Kinase Troponin I Total Protein Albumin Triglycerides 192 H HDL Cholesterol 15 L Urine Protein Urine Blood Ur Leukocyte Esterase Urine RBC Urine WBC Urine WBC Clumps Urine Bacteria Hyaline Casts Urine Mucus 10/16/19 10/17/19 10/17/19 09:42 04:49 05:12 RBC Plt Count Neutrophils # Neutrophils # (Manual) Lymphocytes # Lymphocytes # (Manual) APTT ABG pH 7.34 L ABG pCO2 30 L ABG pO2 117 H ABG HCO3 16 L ABG Total CO2 17 L ABG O2 Saturation 98.0 H Sodium Chloride Carbon Dioxide BUN Creatinine Glucose POC Glucose (mg/dL) 148 H Plasma Lactic Acid Srinivasan Calcium Phosphorus 2.0 L Magnesium Total Bilirubin Creatine Kinase Troponin I Total Protein Albumin Triglycerides HDL Cholesterol Urine Protein Urine Blood Ur Leukocyte Esterase Urine RBC Urine WBC Urine WBC Clumps Urine Bacteria Hyaline Casts Urine Mucus 10/17/19 10/17/19 10/17/19 05:22 05:22 06:08 RBC 4.18 L Plt Count 34 L Neutrophils # Neutrophils # (Manual) 8.08 H Lymphocytes # Lymphocytes # (Manual) 0.26 L APTT ABG pH 7.27 L ABG pCO2 ABG pO2 290 H ABG HCO3 20 L ABG Total CO2 ABG O2 Saturation 99.6 H Sodium 135 L Chloride 108 H Carbon Dioxide 17 L BUN 50 H Creatinine Glucose 160 H POC Glucose (mg/dL) Plasma Lactic Acid Srinivasan Calcium 7.8 L Phosphorus Magnesium Total Bilirubin 1.5 H Creatine Kinase Troponin I Total Protein 5.1 L Albumin 2.5 L Triglycerides HDL Cholesterol Urine Protein Urine Blood Ur Leukocyte Esterase Urine RBC Urine WBC Urine WBC Clumps Urine Bacteria Hyaline Casts Urine Mucus 10/17/19 10/17/19 08:28 11:09 RBC Plt Count Neutrophils # Neutrophils # (Manual) Lymphocytes # Lymphocytes # (Manual) APTT ABG pH ABG pCO2 ABG pO2 ABG HCO3 ABG Total CO2 ABG O2 Saturation Sodium Chloride Carbon Dioxide BUN Creatinine Glucose POC Glucose (mg/dL) 158 H 150 H Plasma Lactic Acid Srinivasan Calcium Phosphorus Magnesium Total Bilirubin Creatine Kinase Troponin I Total Protein Albumin Triglycerides HDL Cholesterol Urine Protein Urine Blood Ur Leukocyte Esterase Urine RBC Urine WBC Urine WBC Clumps Urine Bacteria Hyaline Casts Urine Mucus Assessment and Plan Assessment: Impression: Acute hypoxic respiratory failure requiring intubation and mechanical ventilation secondary to sepsis and suspected septic shock. Acute gram-negative bacteremia with sepsis and septic shock. Acute urinary tract infection. Recurrent episodes of nonsustained ventricular tachycardia with ventricular paced rhythm and atrial fibrillation. Acute kidney injury secondary to hypotension and sepsis. Possible non-ST elevation myocardial infarction. Thrombocytopenia, possibly secondary to sepsis, or could be a component of ITP. History of nonischemic cardiomyopathy and LV dysfunction. Previous AICD placement. History of prosthetic aortic valve. Paroxysmal atrial fibrillation. Benign essential hypertension. Dyslipidemia. Recommendation: Continue ventilatory support. Continue hemodynamic support and pressors. Consider inotropes if necessary. Continue antibiotics for his E. coli bacteremia and strongly suspect E. coli urinary tract infection. Continue nutritional support, patient is to be started on enteral feeding. Continue anticoagulation therapy, patient is known to have history of atrial fibrillation. Discussed his condition with his at bedside. Patient is critically ill, no plans to wean and extubate today, but that could be addressed in the next 24 hours. Lines including a right IJ central line and right radial arterial line were placed. Done for hemodynamic monitoring. And for pressors Critical care time is 45 minutes, not including time spent on procedures Time with Patient: Greater than 30
[2019-10-17] MEDS: POTASSIUM CHLORIDE 20 MEQ in WATER FOR INJECTION 1 100ML.BAG IVPB SCH ×2 (15:40→18:56)
[2019-10-17] MEDS: NOREPINEPHRINE 8 MG in SODIUM CHLORIDE 0.9% 250 ML IV SCH (16:22)
[2019-10-17 17:19] LABS: Glucose,Whole Blood 91 mg/dL (75-99)
--- NOTE | 2019-10-17 17:42 | OP ---
OPERATIVE REPORT OPERATION: Placement of the right radial arterial line. PREOPERATIVE DIAGNOSIS: Hypotension and acute hypoxic respiratory failure secondary to gram-negative sepsis. POSTOPERATIVE DIAGNOSIS: Hypotension and acute hypoxic respiratory failure secondary to gram-negative sepsis. ANESTHESIA USED: None deployed. PROCEDURE: The right wrist was prepared in a sterile fashion and drapes were applied. The right radial artery was palpated, cannulated, and a guidewire was placed. A Cook catheter was inserted over the guidewire, and the guidewire was removed. Good blood flow, good waveform noted. No evidence of any immediate complications. Line was secured using 3.0 silk sutures. MMODL / IJN: [id number] /
--- NOTE | 2019-10-17 17:42 | OP ---
OPERATIVE REPORT OPERATION: Placement of a right IJ triple-lumen catheter. PREOPERATIVE DIAGNOSIS: Acute hypoxic respiratory failure and gram-negative sepsis. POSTOPERATIVE DIAGNOSIS: Acute hypoxic respiratory failure and gram-negative sepsis. ANESTHESIA USED: 2 mL of 1% lidocaine. PROCEDURE: The patient was placed in a Trendelenburg position. The area of the right neck was prepared in a sterile fashion and drapes were applied. The area behind the posterior belly of the sternocleidomastoid was locally anesthetized. Then using the posterior approach, the right internal jugular vein was easily cannulated and a guidewire was placed. The area around the guidewire was dilated. Then a triple-lumen catheter was inserted over the guidewire, the guidewire was removed. Good blood flow in the three different ports noted. Line was secured using 3.0 silk sutures. No evidence of any immediate complications. Chest x-ray was reviewed postoperatively. MMJOSIANE / AZUCENAN: [id number] /
[2019-10-17 18:00] LABS: Glucose,Whole Blood 152 mg/dL (75-99)
--- NOTE | 2019-10-17 23:31 | P.PN ---
Subjective Progress Note Date: 10/17/19 Principal diagnosis: Sepsis Patient is now in ICU on Ventilator. Objective - Vital Signs Vital signs: Vital Signs Temp 99.5 F 10/17/19 12:00 Pulse 93 10/17/19 13:00 Resp 19 10/17/19 13:00 BP 118/68 10/17/19 11:30 Pulse Ox 97 10/17/19 13:00 Intake & Output 10/16/19 10/17/19 10/17/19 18:59 06:59 18:59 Intake Total 240 325 882.452 Output Total 700 550 580 Balance -460 -225 302.452 Intake: IV 75 800 Sodium Chloride 0.9% 1, 75 250 000 ml @ 75 mls/hr IV . [id number] Rx#:[id number] Vancomycin 1,750 mg In 500 Sodium Chloride 0.9% 500 ml 500 ml @ 167 mls/hr IVPB ONCE ONE Rx#: [id number] cefTRIAXone 1 gm In 50 Sodium Chloride 0.9% 50 ml @ 100 mls/hr IVPB Q24HR [facility] Rx#:[id number] Intake, IV Titration 250 82.452 Amount Amiodarone 300 mg In 250 Dextrose 5% in Water 250 ml @ 0.5 MG/MIN 25 mls/hr IV .Q10H [facility] Rx#: [id number] Norepinephrine 4 mg In 21.103 Sodium Chloride 0.9% 250 ml @ 0.05 MCG/KG/MIN 20. 098 mls/hr IV .[id number] [facility] Rx#:[id number] propofoL 1,000 mg In 61.349 Empty Bag 1 bag @ Titrate IV .Q0M [facility] Rx#: [id number] Oral 240 Output: Urine 700 550 580 Other: Voiding Method Indwelling Catheter Indwelling Catheter ABP, PAP, CO, CI - Last Documented Arterial Blood Pressure 106/56 - Exam Ventilator and sedated NAD Pale No rashes Gen edema HR-Irr - Labs CBC & Chem 7: 10/17/19 05:22 10/17/19 05:22 Labs: Abnormal Lab Results - Last 24 Hours (Table) 10/17/19 10/17/19 10/17/19 Range/Units 04:49 05:12 05:22 RBC 4.18 L (4.30-5.90) m/uL Plt Count 34 L (150-450) k/uL Neutrophils # (Manual) 8.08 H (1.3-7.7) k/uL Lymphocytes # (Manual) 0.26 L (1.0-4.8) k/uL ABG pH 7.34 L (7.35-7.45) ABG pCO2 30 L (35-45) mmHg ABG pO2 117 H (83-108) mmHg ABG HCO3 16 L (21-25) mmol/L ABG Total CO2 17 L (19-24) mmol/L ABG O2 Saturation 98.0 H (94-97) % Sodium (137-145) mmol/L Chloride (98-107) mmol/L Carbon Dioxide (22-30) mmol/L BUN (9-20) mg/dL Glucose (74-99) mg/dL POC Glucose (mg/dL) 148 H (75-99) mg/dL Calcium (8.4-10.2) mg/dL Total Bilirubin (0.2-1.3) mg/dL Total Protein (6.3-8.2) g/dL Albumin (3.5-5.0) g/dL 10/17/19 10/17/19 10/17/19 Range/Units 05:22 06:08 08:28 RBC (4.30-5.90) m/uL Plt Count (150-450) k/uL Neutrophils # (Manual) (1.3-7.7) k/uL Lymphocytes # (Manual) (1.0-4.8) k/uL ABG pH 7.27 L (7.35-7.45) ABG pCO2 (35-45) mmHg ABG pO2 290 H (83-108) mmHg ABG HCO3 20 L (21-25) mmol/L ABG Total CO2 (19-24) mmol/L ABG O2 Saturation 99.6 H (94-97) % Sodium 135 L (137-145) mmol/L Chloride 108 H (98-107) mmol/L Carbon Dioxide 17 L (22-30) mmol/L BUN 50 H (9-20) mg/dL Glucose 160 H (74-99) mg/dL POC Glucose (mg/dL) 158 H (75-99) mg/dL Calcium 7.8 L (8.4-10.2) mg/dL Total Bilirubin 1.5 H (0.2-1.3) mg/dL Total Protein 5.1 L (6.3-8.2) g/dL Albumin 2.5 L (3.5-5.0) g/dL 10/17/19 Range/Units 11:09 RBC (4.30-5.90) m/uL Plt Count (150-450) k/uL Neutrophils # (Manual) (1.3-7.7) k/uL Lymphocytes # (Manual) (1.0-4.8) k/uL ABG pH (7.35-7.45) ABG pCO2 (35-45) mmHg ABG pO2 (83-108) mmHg ABG HCO3 (21-25) mmol/L ABG Total CO2 (19-24) mmol/L ABG O2 Saturation (94-97) % Sodium (137-145) mmol/L Chloride (98-107) mmol/L Carbon Dioxide (22-30) mmol/L BUN (9-20) mg/dL Glucose (74-99) mg/dL POC Glucose (mg/dL) 150 H (75-99) mg/dL Calcium (8.4-10.2) mg/dL Total Bilirubin (0.2-1.3) mg/dL Total Protein (6.3-8.2) g/dL Albumin (3.5-5.0) g/dL Microbiology - Last 24 Hours (Table) 10/16/19 09:37 Blood Culture Gram Stain - Preliminary Blood Blood Culture - Preliminary Escherichia coli 10/15/19 20:16 Urine Culture - Preliminary Urine,Voided Gram Neg Bacilli 10/16/19 09:37 Blood Culture - Final Blood Assessment and Plan Plan: Assessment and Recommendations: THrombocytopenia on Anticoagulation: - Prosthetic heart valve and need for anticoagualtion must keep platelet count greater than 50K - Assess for rhabdomyolysis with worsening renal function - Underlying liver disease with history of ETOH - Probable consumption secondary to underlying infection and chronic liver disease - Daily CBC and transfuse platelets less than 50 K, unless patient's eliquis can be held, defer to cardiology on holding of antioagulation Acute Hypoxic respiratory failure: - Secondary to bacteremia and UTI Bacteremia: - ID is following - Care per ICU tea, Physician Attest: I have completed the full history and phaycial and agree with above dication dictated as a scribe
[2019-10-17 23:58] LABS: Glucose,Whole Blood 172 mg/dL (75-99)
--- NOTE | 2019-10-18 00:39 | P.CONS ---
History of Present Illness - Reason for Consult Consult date: 10/17/19 Gram-negative bacteremia Requesting physician: Bart Hoffman - Chief Complaint Weakness and fall x one day - History of Present Illness Patient is a 69-year-old male presenting to the ER at [facility] on 10/15/2019 with a chief complaints of weakness and apparently the patient fell out of the bed patient did not losses consciousness or hit his head patient on arrival to the ER noticed to have a intermittent ventricular tachycardia patient subsequently has been admitted to the floor and has been treated with amiodarone, patient on admission to the hospital was afebrile he did have a positive UA and has been diagnosed with urinary tract infection and was started on Rocephin last 1 and the patient went into respiratory distress he was in A. fib with RVR and was transferred out of the ICU patient also spike a low-grade fever 100.5. White count remains to normal rate and getting intubated because of worsening respiratory status on admission(secretion was noticed the time of intubation however he noticed to have been more congested and did have output through the ET, patient blood cultures coming back positive with gram- negative was suspicious for E. coli that after this infection disease consultation patient did have a chest x-ray that was reported negative for any consolidation repeat x-ray showing pulmonary vascular evaluation and effusion ultrasound of the kidneys was negative for any hydronephrosis most information has been obtained from review the chart and talking to her sister if patient is currently intubated on the vent and is unable to provide any history Review of Systems Positive points has been mentioned in HPI complete review could not be obtained because of his underlying mental status Past Medical History Past Medical History: Atrial Fibrillation, Eye Disorder, Hyperlipidemia, Hypertension Additional Past Medical History / Comment(s): PAST EPISODE OF AFIB SUMMER 2018. MACULAR DEGENERATION AND GLAUCOMA History of Any Multi-Drug Resistant Organisms: None Reported Past Surgical History: Appendectomy, Cardiac Valve Replacement, Cholecystectomy, Hernia Repair, Pacemaker Additional Past Surgical History / Comment(s): AORTIC VALVE REPLACEMENT 2008. INGUINAL HERNIA REPAIR. UMBILICAL HERNIA REPAIR. COLONOSCOPY. PACEMAKER 2019 Past Anesthesia/Blood Transfusion Reactions: No Reported Reaction Type of Cardiac Device: Permanent Pacemaker Device Placement Date:: 2018 Past Psychological History: No Psychological Hx Reported Smoking Status: Former smoker Past Alcohol Use History: Daily, Heavy Additional Past Alcohol Use History / Comment(s): QUIT SMOKING 2003. DRINKS 4-5 BEERS DAILY Past Drug Use History: None Reported - Past Family History Mother Family Medical History: Hypertension Father Additional Family Medical History / Comment(s): Enlarged Heart Medications and Allergies Home Medications Medication Instructions Recorded Confirmed Type Apixaban [Eliquis] 5 mg PO BID #60 tab 10/04/18 10/15/19 Rx Losartan Potassium 100 mg PO DAILY 10/15/19 10/15/19 History Metoprolol Tartrate [Lopressor] 75 mg PO BID 10/15/19 10/15/19 History Tamsulosin [Flomax] 0.4 mg PO DAILY 10/15/19 10/15/19 History Allergies Allergy/AdvReac Type Severity Reaction Status Date / Time Penicillins Allergy Rash/Hives Verified 10/15/19 22:08 Physical Exam Vitals: Vital Signs Temp Pulse Pulse Resp BP BP Pulse Ox 10/17/19 13:00 93 19 97 10/17/19 12:45 89 21 97 10/17/19 12:30 88 21 97 10/17/19 12:15 86 29 H 98 10/17/19 12:00 99.5 F 86 23 97 10/17/19 11:45 89 22 97 10/17/19 11:30 85 19 118/68 97 10/17/19 11:15 88 23 107/81 98 10/17/19 11:00 89 21 93/70 98 10/17/19 10:45 83 21 107/65 96 10/17/19 10:30 84 24 101/66 10/17/19 10:15 83 24 94/64 98 10/17/19 10:00 89 23 78/51 98 10/17/19 09:45 94 25 H 87/57 98 10/17/19 09:30 91 29 H 78/52 97 10/17/19 09:15 96 25 H 78/52 97 10/17/19 09:00 92 24 80/59 96 10/17/19 08:45 96 18 79/51 96 10/17/19 08:30 98 15 80/63 96 10/17/19 08:15 103 H 16 80/62 97 10/17/19 08:00 111 H 16 81/58 97 10/17/19 07:45 96 16 82/65 96 10/17/19 07:30 104 H 16 106/65 96 10/17/19 07:15 123 H 23 107/63 97 10/17/19 07:00 125 H 18 107/65 97 10/17/19 06:45 133 H 16 89/53 97 10/17/19 06:30 100.5 F H 129 H 20 103/64 97 10/17/19 06:15 128 H 19 74/54 98 10/17/19 06:00 114 H 16 83/57 97 10/17/19 05:45 117 H 24 104/64 89 L 10/17/19 05:30 115 H 36 H 137/123 97 10/17/19 04:00 90 22 122/68 96 10/17/19 00:00 89 20 121/76 96 10/16/19 20:00 98.3 F 100 22 113/71 98 10/16/19 16:15 98.3 F 103 H 20 137/66 99 Intake and Output 10/17/19 10/17/19 10/17/19 06:59 14:59 22:59 Intake Total 325 882.452 Output Total 0 580 Balance 325 302.452 Intake: IV 75 800 Sodium Chloride 0.9% 1, 75 250 000 ml @ 75 mls/hr IV . [id number] [facility] Rx#:[id number] Vancomycin 1,750 mg In 500 Sodium Chloride 0.9% 500 ml 500 ml @ 167 mls/hr IVPB ONCE ONE Rx#: [id number] cefTRIAXone 1 gm In 50 Sodium Chloride 0.9% 50 ml @ 100 mls/hr IVPB Q24HR [facility] Rx#:[id number] Intake, IV Titration 250 82.452 Amount Amiodarone 300 mg In 250 Dextrose 5% in Water 250 ml @ 0.5 MG/MIN 25 mls/hr IV .Q10H [facility] Rx#: [id number] Norepinephrine 4 mg In 21.103 Sodium Chloride 0.9% 250 ml @ 0.05 MCG/KG/MIN 20. 098 mls/hr IV .[id number] [facility] Rx#:[id number] propofoL 1,000 mg In 61.349 Empty Bag 1 bag @ Titrate IV .Q0M [facility] Rx#: [id number] Output: Urine 0 580 Other: Voiding Method Indwelling Catheter ABP, PAP, CO, CI - Last 8 Hours Arterial Blood Pressure 106/56 Arterial Blood Pressure 100/54 Arterial Blood Pressure 79/45 Arterial Blood Pressure 115/62 Arterial Blood Pressure 84/51 Arterial Blood Pressure 83/49 Arterial Blood Pressure 108/57 GENERAL DESCRIPTION: Elderly male intubated on the vent, no distress. No tachypnea or accessory muscle of respiration use. HEENT: Shows Pallor , no scleral icterus. Oral mucous membrane is dry. Patient is orally intubated NECK: Trachea central, no thyromegaly. LUNGS: Unlabored breathing. Decreased breath sounds at the base. No wheeze or crackle. HEART: S1, S2, regular rate and rhythm. No loud murmur ABDOMEN: Soft, no tenderness , guarding or rigidity, no organomegaly EXTREMITIES: No edema of feet. SKIN: No rash, no masses palpable. NEUROLOGICAL: The patient is sedated on vent Results CBC & Chem 7: 10/17/19 05:22 10/17/19 05:22 Labs: Abnormal Lab Results - Last 24 Hours (Table) 10/17/19 10/17/19 10/17/19 Range/Units 04:49 05:12 05:22 RBC 4.18 L (4.30-5.90) m/uL Plt Count 34 L (150-450) k/uL Neutrophils # (Manual) 8.08 H (1.3-7.7) k/uL Lymphocytes # (Manual) 0.26 L (1.0-4.8) k/uL ABG pH 7.34 L (7.35-7.45) ABG pCO2 30 L (35-45) mmHg ABG pO2 117 H (83-108) mmHg ABG HCO3 16 L (21-25) mmol/L ABG Total CO2 17 L (19-24) mmol/L ABG O2 Saturation 98.0 H (94-97) % Sodium (137-145) mmol/L Chloride (98-107) mmol/L Carbon Dioxide (22-30) mmol/L BUN (9-20) mg/dL Glucose (74-99) mg/dL POC Glucose (mg/dL) 148 H (75-99) mg/dL Calcium (8.4-10.2) mg/dL Total Bilirubin (0.2-1.3) mg/dL Total Protein (6.3-8.2) g/dL Albumin (3.5-5.0) g/dL 10/17/19 10/17/1910/16/20 Range/Units 05:22 06:08 08:28 RBC (4.30-5.90) m/uL Plt Count (150-450) k/uL Neutrophils # (Manual) (1.3-7.7) k/uL Lymphocytes # (Manual) (1.0-4.8) k/uL ABG pH 7.27 L (7.35-7.45) ABG pCO2 (35-45) mmHg ABG pO2 290 H (83-108) mmHg ABG HCO3 20 L (21-25) mmol/L ABG Total CO2 (19-24) mmol/L ABG O2 Saturation 99.6 H (94-97) % Sodium 135 L (137-145) mmol/L Chloride 108 H (98-107) mmol/L Carbon Dioxide 17 L (22-30) mmol/L BUN 50 H (9-20) mg/dL Glucose 160 H (74-99) mg/dL POC Glucose (mg/dL) 158 H (75-99) mg/dL Calcium 7.8 L (8.4-10.2) mg/dL Total Bilirubin 1.5 H (0.2-1.3) mg/dL Total Protein 5.1 L (6.3-8.2) g/dL Albumin 2.5 L (3.5-5.0) g/dL 10/17/19 Range/Units 11:09 RBC (4.30-5.90) m/uL Plt Count (150-450) k/uL Neutrophils # (Manual) (1.3-7.7) k/uL Lymphocytes # (Manual) (1.0-4.8) k/uL ABG pH (7.35-7.45) ABG pCO2 (35-45) mmHg ABG pO2 (83-108) mmHg ABG HCO3 (21-25) mmol/L ABG Total CO2 (19-24) mmol/L ABG O2 Saturation (94-97) % Sodium (137-145) mmol/L Chloride (98-107) mmol/L Carbon Dioxide (22-30) mmol/L BUN (9-20) mg/dL Glucose (74-99) mg/dL POC Glucose (mg/dL) 150 H (75-99) mg/dL Calcium (8.4-10.2) mg/dL Total Bilirubin (0.2-1.3) mg/dL Total Protein (6.3-8.2) g/dL Albumin (3.5-5.0) g/dL Microbiology - Last 24 Hours (Table) 10/16/19 09:37 Blood Culture Gram Stain - Preliminary Blood Blood Culture - Preliminary Escherichia coli 10/15/19 20:16 Urine Culture - Preliminary Urine,Voided Gram Neg Bacilli 10/16/19 09:37 Blood Culture - Final Blood Assessment and Plan Assessment: 1- patient with gram-negative bacteremia in this patient has been admitted to the hospital with generalized weakness and falls patient did have a positive UA with concern for urinary tract infection and likely the source of his bacteremia patient chest x-ray was negative for any pneumonia Ultrasound of the kidney for any hydronephrosis, now with worsening of his respiratory status more likely from A. fib with RVR and no clinical suspicion for possible aspiration pneumonitis 2- penicillin ALLERGY but limited number of antibiotic safe to use (1) Gram-negative bacteremia Current Visit: Yes Status: Acute Code(s): R78.81 - BACTEREMIA SNOMED Code(s): 870259047923 Plan: 1-we will increase Rocephin to 2 g IV piggyback daily 2-wait for the final ID and sensitivity on the blood and urine culture 3-we'll obtain sputum for Gram stain and culture We will follow on clinical condition and cultures to further adjust medication if needed Thank you for this consultation will follow this patient with you Time with Patient: Greater than 30
[2019-10-18] MEDS: AMIODARONE 300 MG in DEXTROSE 5% IN WATER 250 ML IV SCH ×4 (03:23→15:49)
[2019-10-18] MEDS: NOREPINEPHRINE 8 MG in SODIUM CHLORIDE 0.9% 250 ML IV SCH (03:24)
[2019-10-18 04:43] LABS: Basophils % (A) 0 %; Eosinophils # (A) 0.1 k/uL (0-0.7); Eosinophils % (A) 1 %; HCT 37.6 % (39.0-53.0); Lymphocytes # (A) 0.8 k/uL (1.0-4.8); Lymphocytes % (A) 5 %; MCH 31.4 pg (25.0-35.0); Mean Platelet Volume 10.7; Monocytes # (A) 0.6 k/uL (0-1.0); Monocytes % (A) 4 %; Neutrophils # (A) 13.8 k/uL (1.3-7.7); Neutrophils % (A) 86 %; RBC 3.84 m/uL (4.30-5.90); RDW 13.6 % (11.5-15.5)
[2019-10-18 04:44] LABS: Platelet Count 55 k/uL (150-450)
[2019-10-18 05:06] LABS: African American GFR (CKD) >90 (>60 ml/min/1.73 sqM); Anion Gap 6 mmol/L; Blood Urea Nitrogen 47 mg/dL (9-20); Calcium 7.4 mg/dL (8.4-10.2); Carbon Dioxide 20 mmol/L (22-30); Chloride 111 mmol/L (98-107); Glucose 156 mg/dL (74-99); Non-African American GFR(CKD) 78 (>60 ml/min/1.73 sqM); Phosphorus 3.1 mg/dL (2.5-4.5); Potassium 3.2 mmol/L (3.5-5.1); Sodium 137 mmol/L (137-145)
[2019-10-18] MEDS: POTASSIUM CHLORIDE 20 MEQ in WATER FOR INJECTION 1 100ML.BAG IVPB SCH ×4 (05:42→22:35)
[2019-10-18 06:05] LABS: Glucose,Whole Blood 141 mg/dL (75-99)
[2019-10-18 07:16] LABS: ABG Base Excess -4.4 mmol/L; ABG HCO3 21 mmol/L (21-25); ABG Oxygen Saturation 99.4 % (94-97); ABG PCO2 33 mmHg (35-45); ABG PO2 184 mmHg (83-108); ABG TCO2 22 mmol/L (19-24); Allen Test Performed? Yes
--- NOTE | 2019-10-18 07:34 | XR ---
EXAMINATION TYPE: XR chest 1V portable DATE OF EXAM: 10/18/2019 CLINICAL HISTORY: Difficulty breathing progress study. TECHNIQUE: Single AP portable semiupright view of the chest is obtained. COMPARISON: Chest x-ray from one day earlier and older studies. FINDINGS: Stable right internal jugular central venous catheter and endotracheal tube. Interval alecia mary of coiled orogastric tube. Persistent cardiomegaly with multiphasic pacemaker/AICD. Overlying sternal wires and metallic aortic valve are redemonstrated. Persistent left greater than right bibasilar opacities on background chroni c parenchymal change. Osseous structures are intact. IMPRESSION: Cardiomegaly with small left greater than right pleural effusions and left greater than r ight bibasilar acute infiltrate and/or atelectasis on background chronic parenchymal changes are all redemonstrated. No significant change from one day earlier.
[2019-10-18] MEDS: THIAMINE 100 MG TAB PO SCH ×2 (08:20→16:54)
[2019-10-18] MEDS: SODIUM CHLORIDE 0.9% 1,000 ML IV SCH (08:20)
[2019-10-18] MEDS: FUROSEMIDE 10 MG/ML 4 ML VIAL IV SCH (08:26)
[2019-10-18] MEDS: CHLORHEXIDINE GLUCONATE 15 ML CUP MUCOUS MEM SCH (08:26)
[2019-10-18] MEDS: PANTOPRAZOLE 40 MG/10 ML VIAL IV SCH (08:26)
--- NOTE | 2019-10-18 09:52 | PN ---
PROGRESS NOTE Mr. Mcnair is a 69-year-old male with known history of nonischemic cardiomyopathy, status post aortic valve replacement, history of ICD implant and Bi-V implantation, who presented with evidence of sepsis and was found to have Staph bacteremia and urosepsis. He had respiratory failure requiring mechanical ventilation. He is intubated and sedated. There was inability to advance an NG tube yesterday. He continued to be in atrial fibrillation with episode of paced rhythm. He is on IV amiodarone. He is scheduled to be seen by the GI Service today for placement of an NG tube. PHYSICAL EXAMINATION: Blood pressure is 101/56 with a heart rate in the 80s. LUNGS: Clear anteriorly. Heart irregularly irregular, S1, S2. No S3 with a systolic murmur heard at the base. No diastolic murmur. No rub. ABDOMEN: Soft, positive bowel sounds. No organomegaly. Extremities is trace edema. He is afebrile today. He had a repeat blood culture early this morning. LAB DATA: Revealed the white blood cell of 15,000, hemoglobin of 12. BUN and creatinine 47 and 0.98, potassium 3.2. His urine output is good receiving IV Lasix once a day. IMPRESSION: 1. Bacteremia with urosepsis. 2. Respiratory failure. 3. Severely impaired left ventricular systolic function with nonischemic cardiomyopathy. 4. Status post aortic valve replacement. 5. History of ICD implantation. 6. Prior history of paroxysmal fibrillation, persistent at this time. 7. Prior history of hypertension. 8. History of hyperlipidemia. RECOMMENDATIONS: At this time is hopefully to introduced the NG tube today and proceed with restarting his anticoagulation. We will await the repeat blood culture. If there is persistent bacteremia, he may be a candidate for the examination to rule out endocarditis. Once his NG tube is in place, I will switch him to oral amiodarone. Depending on his progress, further recommendations will be made. MMODL / IJN: [id number] /
--- NOTE | 2019-10-18 11:06 | P.PN ---
Subjective Progress Note Date: 10/18/19 HISTORY OF PRESENT ILLNESS This is a 69-year-old male patient of Dr. Hendrickson and Dr. Otero with past medical history of nonischemic cardiomyopathy and nonsustained karina tricular tachycardia status post biventricular AICD, prosthetic aortic valve, paroxysmal atrial fibrillation, hypertension, hyperlipidemia, glaucoma and macular degeneration, remote history of tobacco use. Patient states that he was going to bed early last night and falling out of bed. He states he slipped out onto the floor. He denies any injury and denies any loss of consciousness. He denies any episodes like this in the past. He denies having any chest pain, lightheadedness. He does complain of shortness of breath and mild lower extremity edema. Patient came into [facility] emergency center for evaluation. He was afebrile, initial heart rate 156. EKG ventricular paced rhythm at heart rate of 119 with wide complex beats possible ventricular tachycardia. Blood pressure 101/67, pulse ox 90% on room air. Initial blood work revealed the previously 7.8, hemoglobin 13.1, platelet count 38 with previous normal level. Sodium 133, potassium 3.7, chloride 105, CO2 16, BUN 45 creatinine 1.87. Blood sugar 127. Liver function tests normal. Phosphorus 1.4, magnesium 1.4. Lactic acid initially 2.5 and repeat of 1.6. Triglycerides 192, cholesterol 96, LDL 43, HDL 15. Chest x-ray revealed chronic changes and cardiomegaly without acute pulmonary process. Patient admitted to the cardiac stepdown unit and consult requested with cardiology, nephrology and oncology. Echocardiogram and TSH pending. 10/16: A-Team was called early this morning as patient had a drop in his pulse ox and was placed on 15 L nonrebreather, heart rate increased and patient was in A. fib with RVR. Patient was transferred into the intensive care unit, intubated and placed on mechanical ventilation. Tidal volume 550, FiO2 50, PEEP of 5. Blood pressure is currently 80/59 and patient is currently on norepinephrine. Amiodarone drip has been discontinued. We have ordered one dose of vancomycin and consult added for Dr. Fletcher for E. coli bacteremia. Urine culture is still pending but gram-negative bacilli. Echocardiogram reveals EF of 25-30%, mild stenosis of the bioprosthetic aortic valve, mild mitral regurgitation, mild tricuspid regurgitation, mild pulmonary hypertension. Renal ultrasound revealed no hydronephrosis. The patient's is at bedside and updated regarding condition. Condition is currently guarded. 10/17: Patient remains intubated and on mechanical ventilation with tidal volume 550, FiO2 40, PEEP of 5. Patient is currently on norepinephrine and propofol. He received 1 unit of platelets yesterday and repeat platelet count today is at 55, hemoglobin 12 and WBC 16. Sodium 137, potassium 3.2 and replaced, chloride 111, CO2 20, BUN 47 creatinine 0.98. Blood sugar 156. Urine culture finalized with Citrobacter farmeri and blood culture is E. coli. Sputum culture is in progress. Patient has been seen by Dr. Fletcher and ceftriaxone increased to 2 g daily. OG tube was unable to be passed yesterday and GI consult in place to ass ist with this. He has had good urine output at 75 mL per hour. He has had no fevers overnight. REVIEW OF SYSTEMS Unable to obtain due to intubation and sedation. PHYSICAL EXAMINATION Gen: This is 69-year-old male patient resting in bed and in no acute distress. Patient is seen in the ICU, resting in bed and appears to be comfortable on mechanical ventilation. HEENT: Head is atraumatic, normocephalic. Pupils equal, round. Sclerae is anicteric. ET oral in place. NECK: Supple. No JVD. No lymphadenopathy. No thyromegaly. LUNGS: Clear to auscultation. No wheezes or rhonchi. No intercostal retractions. HEART: Irregularly irregular rate and rhythm. Systolic murmur. ABDOMEN: Soft. Bowel sounds are present. No masses. No tenderness. Cunningham catheter in place. EXTREMITIES: 1+ bilateral pedal edema. No calf tenderness. Dorsalis pedis p alpable bilaterally. NEUROLOGICAL: Intubated and sedated. ASSESSMENT AND PLAN 1. Episodes of nonsustained ventricular tachycardia with ventricular paced rhythm and atrial fibrillation. Cardiology consult appreciated. Off amiodarone drip. 2. Acute kidney injury secondary to ATN, hypotension and atrial fibrillation. Nephrology consult appreciated. Patient has Cunningham catheter. Sodium bicarb oral added and renal ultrasound as above 3. Acute urinary tract infection with E. coli bacteremia. Continue Rocephin 2 g daily. Await urine culture. Blood cultures been ordered by cardiology. Consult with Dr. Chance. 4. Elevated troponin, rule out acute coronary syndrome. Cardiology consult appreciated. Echocardiogram as above. 5. Septic shock requiring vasopressor. Continue norepinephrine. 6. Acute hypoxic respiratory failure secondary to sepsis status post intubation and mechanical ventilation. Consult with Dr. Jara appreciated. 7. Thrombocytopenia. Oncology consult. 8. Nonischemic cardiomyopathy and nonsustained ventricular tachycardia status post biventricular AICD. Cardiology consult. 9. Prosthetic aortic valve. 10. Paroxysmal atrial fibrillation with episode of RVR. Continue eliquis 5 mg twice daily, Lopressor 50 mg 3 times daily. Amiodarone drip discontinued. 11. Hypertension. Currently hypotensive 12. Hyperlipidemia. Patient is not currently on statin. 13. Benign prostatic hypertrophy. Continue Flomax or 0.4 mg daily. Cunningham catheter in place. 14. Macular degeneration and glaucoma, stable. 15. GI prophylaxis. Protonix. 16. DVT prophylaxis. Eliquis. 17. Oral gastric tube placement. GI consult. Discharge plan: To be determined. Prognosis guarded. Impression and plan of care have been directed as dictated by the signing physician. Stephenie Chow nurse practitioner acting as scribe for signing physician Objective - Vital Signs Vital signs: Vital Signs Temp 98.7 F 10/18/19 08:00 Pulse 88 10/18/19 08:15 Resp 22 10/18/19 08:15 BP 110/60 10/17/19 23:30 Pulse Ox 98 10/18/19 08:15 Intake & Output 10/17/19 10/18/19 10/18/19 18:59 06:59 18:59 Intake Total 3094.514 3416.223 76 Output Total 1415 1050 150 Balance -209.120 652.223 -74 Weight 112.4 kg Intake: IV 1050 461 76 Potassium Chloride 20 meq 100 150 50 In Water For Injection 1 100ml.bag @ 50 mls/hr IVPB Q2H [facility] Rx#: [id number] Sodium Chloride 0.9% 1, 350 270 20 000 ml @ 75 mls/hr IV . [id number] [facility] Rx#:[id number] Vancomycin 1,750 mg In 500 Sodium Chloride 0.9% 500 ml 500 ml @ 167 mls/hr IVPB ONCE ONE Rx#: [id number] cefTRIAXone 1 gm In 50 Sodium Chloride 0.9% 50 ml @ 100 mls/hr IVPB Q24HR [facility] Rx#:[id number] cefTRIAXone 2 gm In 50 Sodium Chloride 0.9% 50 ml @ 100 mls/hr IVPB Q24HR [facility] Rx#:[id number] pressure bag 41 6 Intake, IV Titration 155.880 895.223 Amount Amiodarone 300 mg In 250 Dextrose 5% in Water 250 ml @ 0.5 MG/MIN 25 mls/hr IV .Q10H [facility] Rx#: [id number] Norepinephrine 4 mg In 21.103 Sodium Chloride 0.9% 250 ml @ 0.05 MCG/KG/MIN 20. 098 mls/hr IV .[id number] [facility] Rx#:[id number] Norepinephrine 8 mg In 271.201 Sodium Chloride 0.9% 250 ml @ 0.05 MCG/KG/MIN 10. 207 mls/hr IV .Q24H [facility] Rx#:[id number] propofoL 1,000 mg In 134.777 374.022 Empty Bag 1 bag @ Titrate IV .Q0M [facility] Rx#: [id number] Blood Product 346 Platelet Pheresis Acd-A 346 Pasc 1 Unit [id number] Output: Urine 1415 1050 150 Other: Voiding Method Indwelling Catheter Indwelling Catheter ABP, PAP, CO, CI - Last Documented Arterial Blood Pressure 101/56 - Labs CBC & Chem 7: 10/18/19 04:35 10/18/19 04:35 Labs: Abnormal Lab Results - Last 24 Hours (Table) 10/17/19 10/17/19 10/17/19 Range/Units 11:09 15:26 17:59 WBC (3.8-10.6) k/uL RBC (4.30-5.90) m/uL Hgb (13.0-17.5) gm/dL Hct (39.0-53.0) % Plt Count (150-450) k/uL Neutrophils # (1.3-7.7) k/uL Lymphocytes # (1.0-4.8) k/uL Fibrinogen 627 H (200-500) mg/dL ABG pCO2 (35-45) mmHg ABG pO2 (83-108) mmHg ABG O2 Saturation (94-97) % Potassium (3.5-5.1) mmol/L Chloride (98-107) mmol/L Carbon Dioxide (22-30) mmol/L BUN (9-20) mg/dL Glucose (74-99) mg/dL POC Glucose (mg/dL) 150 H 152 H (75-99) mg/dL Calcium (8.4-10.2) mg/dL 10/17/19 10/18/19 10/18/19 Range/Units 23:57 04:35 04:35 WBC 16.0 H (3.8-10.6) k/uL RBC 3.84 L (4.30-5.90) m/uL Hgb 12.0 L (13.0-17.5) gm/dL Hct 37.6 L (39.0-53.0) % Plt Count 55 L D (150-450) k/uL Neutrophils # 13.8 H (1.3-7.7) k/uL Lymphocytes # 0.8 L (1.0-4.8) k/uL Fibrinogen (200-500) mg/dL ABG pCO2 (35-45) mmHg ABG pO2 (83-108) mmHg ABG O2 Saturation (94-97) % Potassium 3.2 L (3.5-5.1) mmol/L Chloride 111 H (98-107) mmol/L Carbon Dioxide 20 L (22-30) mmol/L BUN 47 H (9-20) mg/dL Glucose 156 H (74-99) mg/dL POC Glucose (mg/dL) 172 H (75-99) mg/dL Calcium 7.4 L (8.4-10.2) mg/dL 10/18/19 10/18/19 Range/Units 06:04 07:14 WBC (3.8-10.6) k/uL RBC (4.30-5.90) m/uL Hgb (13.0-17.5) gm/dL Hct (39.0-53.0) % Plt Count (150-450) k/uL Neutrophils # (1.3-7.7) k/uL Lymphocytes # (1.0-4.8) k/uL Fibrinogen (200-500) mg/dL ABG pCO2 33 L (35-45) mmHg ABG pO2 184 H (83-108) mmHg ABG O2 Saturation 99.4 H (94-97) % Potassium (3.5-5.1) mmol/L Chloride (98-107) mmol/L Carbon Dioxide (22-30) mmol/L BUN (9-20) mg/dL Glucose (74-99) mg/dL POC Glucose (mg/dL) 141 H (75-99) mg/dL Calcium (8.4-10.2) mg/dL Microbiology - Last 24 Hours (Table) 10/16/19 09:37 Blood Culture Gram Stain - Final Blood Blood Culture - Final Escherichia coli 10/15/19 20:16 Urine Culture - Final Urine,Voided Aldoobacter opal
--- NOTE | 2019-10-18 11:27 | P.PN ---
Subjective Progress Note Date: 10/18/19 Follow-up for acute kidney injury. Good urine output, 2.4 L in the last 24 hours with positive of 450 ML's. On ventilator minimal settings. Alert awake. Objective - Vital Signs Vital signs: Vital Signs Temp 98.7 F 10/18/19 08:00 Pulse 87 10/18/19 11:15 Resp 25 H 10/18/19 11:15 BP 110/60 10/17/19 23:30 Pulse Ox 97 10/18/19 11:15 Intake & Output 10/17/19 10/18/19 10/18/19 18:59 06:59 18:59 Intake Total 9625.583 7830.223 392.994 Output Total 1415 1050 360 Balance -209.120 652.223 32.994 Weight 112.4 kg Intake: IV 1050 461 295 Potassium Chloride 20 meq 100 150 200 In Water For Injection 1 100ml.bag @ 50 mls/hr IVPB Q2H [facility] Rx#: [id number] Sodium Chloride 0.9% 1, 350 270 80 000 ml @ 75 mls/hr IV . [id number] [facility] Rx#:[id number] Vancomycin 1,750 mg In 500 Sodium Chloride 0.9% 500 ml 500 ml @ 167 mls/hr IVPB ONCE ONE Rx#: [id number] cefTRIAXone 1 gm In 50 Sodium Chloride 0.9% 50 ml @ 100 mls/hr IVPB Q24HR [facility] Rx#:[id number] cefTRIAXone 2 gm In 50 Sodium Chloride 0.9% 50 ml @ 100 mls/hr IVPB Q24HR [facility] Rx#:[id number] pressure bag 41 15 Intake, IV Titration 155.880 895.223 97.994 Amount Amiodarone 300 mg In 250 Dextrose 5% in Water 250 ml @ 0.5 MG/MIN 25 mls/hr IV .Q10H [facility] Rx#: [id number] Norepinephrine 4 mg In 21.103 Sodium Chloride 0.9% 250 ml @ 0.05 MCG/KG/MIN 20. 098 mls/hr IV .[id number] [facility] Rx#:[id number] Norepinephrine 8 mg In 271.201 Sodium Chloride 0.9% 250 ml @ 0.05 MCG/KG/MIN 10. 207 mls/hr IV .Q24H [facility] Rx#:[id number] propofoL 1,000 mg In 134.777 374.022 97.994 Empty Bag 1 bag @ Titrate IV .Q0M [facility] Rx#: [id number] Blood Product 346 Platelet Pheresis Acd-A 346 Pasc 1 Unit [id number] Output: Urine 1415 1050 360 Other: Voiding Method Indwelling Catheter Indwelling Catheter ABP, PAP, CO, CI - Last Documented Arterial Blood Pressure 126/64 - Exam No acute distress S1-S2 heard Decreased breath sounds Abdomen soft Trace edema - Labs CBC & Chem 7: 10/18/19 04:35 10/18/19 04:35 Labs: Abnormal Lab Results - Last 24 Hours (Table) 10/17/19 10/17/19 10/17/19 Range/Units 15:26 17:59 23:57 WBC (3.8-10.6) k/uL RBC (4.30-5.90) m/uL Hgb (13.0-17.5) gm/dL Hct (39.0-53.0) % Plt Count (150-450) k/uL Neutrophils # (1.3-7.7) k/uL Lymphocytes # (1.0-4.8) k/uL Fibrinogen 627 H (200-500) mg/dL ABG pCO2 (35-45) mmHg ABG pO2 (83-108) mmHg ABG O2 Saturation (94-97) % Potassium (3.5-5.1) mmol/L Chloride (98-107) mmol/L Carbon Dioxide (22-30) mmol/L BUN (9-20) mg/dL Glucose (74-99) mg/dL POC Glucose (mg/dL) 152 H 172 H (75-99) mg/dL Calcium (8.4-10.2) mg/dL 10/18/19 10/18/19 10/18/19 Range/Units 04:35 04:35 06:04 WBC 16.0 H (3.8-10.6) k/uL RBC 3.84 L (4.30-5.90) m/uL Hgb 12.0 L (13.0-17.5) gm/dL Hct 37.6 L (39.0-53.0) % Plt Count 55 L D (150-450) k/uL Neutrophils # 13.8 H (1.3-7.7) k/uL Lymphocytes # 0.8 L (1.0-4.8) k/uL Fibrinogen (200-500) mg/dL ABG pCO2 (35-45) mmHg ABG pO2 (83-108) mmHg ABG O2 Saturation (94-97) % Potassium 3.2 L (3.5-5.1) mmol/L Chloride 111 H (98-107) mmol/L Carbon Dioxide 20 L (22-30) mmol/L BUN 47 H (9-20) mg/dL Glucose 156 H (74-99) mg/dL POC Glucose (mg/dL) 141 H (75-99) mg/dL Calcium 7.4 L (8.4-10.2) mg/dL 10/18/19 Range/Units 07:14 WBC (3.8-10.6) k/uL RBC (4.30-5.90) m/uL Hgb (13.0-17.5) gm/dL Hct (39.0-53.0) % Plt Count (150-450) k/uL Neutrophils # (1.3-7.7) k/uL Lymphocytes # (1.0-4.8) k/uL Fibrinogen (200-500) mg/dL ABG pCO2 33 L (35-45) mmHg ABG pO2 184 H (83-108) mmHg ABG O2 Saturation 99.4 H (94-97) % Potassium (3.5-5.1) mmol/L Chloride (98-107) mmol/L Carbon Dioxide (22-30) mmol/L BUN (9-20) mg/dL Glucose (74-99) mg/dL POC Glucose (mg/dL) (75-99) mg/dL Calcium (8.4-10.2) mg/dL Microbiology - Last 24 Hours (Table) 10/18/19 00:28 Sputum Culture - Preliminary Sputum 10/16/19 09:37 Blood Culture Gram Stain - Final Blood Blood Culture - Final Escherichia coli 10/15/19 20:16 Urine Culture - Final Urine,Voided Citrobacter farmeri Assessment and Plan Assessment: #1 nonoliguric acute kidney injury secondary to septic ATN. Peak creatinine of 1.8 MG per DL, baseline creatinine of 2.6-0.7 MG per DL. #2 ventilator-dependent respiratory failure #3 cardiomyopathy with the EF of 25% #4 E. coli bacteremia/sepsis on levo fed #5 volume overload #6 metabolic acidosis #7 hypokalemia Plan: 1 currently on Lasix 40 mg IV daily. Continue with current regimen. #2 replace potassium and check magnesium in the morning #3 wean off levo fed and ventilator #4 avoid nephrotoxic agents and hypotensive episodes.
[2019-10-18 11:42] LABS: Glucose,Whole Blood 131 mg/dL (75-99)
[2019-10-18 11:52] LABS: ABG Base Excess -4.3 mmol/L; ABG HCO3 20 mmol/L (21-25); ABG Oxygen Saturation 98.9 % (94-97); ABG PCO2 31 mmHg (35-45); ABG PH 7.43 (7.35-7.45); ABG PO2 135 mmHg (83-108); ABG TCO2 21 mmol/L (19-24)
--- NOTE | 2019-10-18 13:28 | P.PN ---
Subjective Progress Note Date: 10/18/19 Principal diagnosis: Septic shock and acute hypoxic respiratory failure This is a 69-year-old white male, presented initially to [facility] on 10/15/19, and his chief complaint was mostly weakness. Apparently the patient was going to bed early the night before, and he fell out of bed. Slipped out onto the floor. He had no significant injury. Brought into the ER on 10/14, and he was noted to have intermittent ventricular tachycardia. Labs were significant for low platelets, relatively normal electrolytes, abnormal BUN of 45 creatinine 1.87, lactic acid of 2.5. Chest x-ray showed mostly chronic changes, no acute process was noted and there was no evidence of pneumonia or evidence of congestive heart failure. Patient was admitted, and multiple consul tants where consulted including cardiology and nephrology and oncology. Admitting diagnoses was possible ventricular tachycardia, nonsustained, and atrial fibrillation. Patient was placed on amiodarone drip, and he was also noted to have evidence of urinary tract infection without symptoms. Eventually his blood cultures came back positive for gram-negative bacilli. At any rate less than night to the patient was transferred to the ICU mostly because of his worsening shortness of breath, and he was noted to have atrial fibrillation with RVR. I was notified about this patient early in the morning after transfer to the ICU, and I recommended immediate intubation since the patient was extremely short of breath based on the nurse taking care of him. I saw him this morning, patient is now on mechanical ventilation. His assist-control rate is 16 tidal volume is 550 FiO2 is 50% and PEEP of 5. ABG showed a pO2 of 290 pCO2 of 44 pH of 7.27. Patient is on 0.9 normal saline at 25 mL per hour, amiodarone at 0.5 mg per hour, and on propofol at 10 mcg/kg/m. His echocardiogram showed LV dys function with ejection fraction of 50-55%. Considering the patient was critically ill, I have arranged for placement of a arterial line and right IJ central line was placed on this patient. In the meantime The patient on Rocephin and vancomycin for his positive blood cultures showing E. coli. Patient was reevaluated today on 10/18/19, remains in the ICU intubated and mechanically ventilated. Patient is on assist control rate of 16 tidal volume is 550 FiO2 is 45% and I cut it down to 35% PEEP is at 5. Remains on propofol at 35 mcg/kg/m, amiodarone at 0.5 mg per hour he is also on norepinephrine at 6 mcg/m. Patient is being treated for gram-negative sepsis and bacteremia. Blood cultures are positive for E. coli, urine cultures are positive for Citrobacter. Patient is on Rocephin, he is also on vancomycin which I plan to discontinue. Chest x-ray showed cardiomegaly with small bilateral pleural effusions, and by basilar atelectasis. Patient has been responding well to diuresis. Labs were reviewed his ABG showed a pO2 of 135 pCO2 of 31 pH of 7.43. WBC count is 16 hemoglobin is 12. Renal profile is improving with BUN 47 creatinine 0.98. Potassium is a bit low being corrected as per protocol. Objective - Vital Signs Vital signs: Vital Signs Temp 98.7 F 10/18/19 08:00 Pulse 87 10/18/19 11:15 Resp 25 H 10/18/19 11:15 BP 110/60 10/17/19 23:30 Pulse Ox 97 10/18/19 11:15 Intake & Output 10/17/19 10/18/19 10/18/19 18:59 06:59 18:59 Intake Total 3086.144 0292.223 457.505 Output Total 1415 1050 360 Balance -209.120 652.223 97.505 Weight 112.4 kg Intake: IV 1050 461 295 Potassium Chloride 20 meq 100 150 200 In Water For Injection 1 100ml.bag @ 50 mls/hr IVPB Q2H [facility] Rx#: [id number] Sodium Chloride 0.9% 1, 350 270 80 000 ml @ 75 mls/hr IV . [id number] [facility] Rx#:[id number] Vancomycin 1,750 mg In 500 Sodium Chloride 0.9% 500 ml 500 ml @ 167 mls/hr IVPB ONCE ONE Rx#: [id number] cefTRIAXone 1 gm In 50 Sodium Chloride 0.9% 50 ml @ 100 mls/hr IVPB Q24HR [facility] Rx#:[id number] cefTRIAXone 2 gm In 50 Sodium Chloride 0.9% 50 ml @ 100 mls/hr IVPB Q24HR [facility] Rx#:[id number] pressure bag 41 15 Intake, IV Titration 155.880 895.223 162.505 Amount Amiodarone 300 mg In 250 Dextrose 5% in Water 250 ml @ 0.5 MG/MIN 25 mls/hr IV .Q10H [facility] Rx#: [id number] Norepinephrine 4 mg In 21.103 Sodium Chloride 0.9% 250 ml @ 0.05 MCG/KG/MIN 20. 098 mls/hr IV .[id number] [facility] Rx#:[id number] Norepinephrine 8 mg In 271.201 64.511 Sodium Chloride 0.9% 250 ml @ 0.05 MCG/KG/MIN 10. 207 mls/hr IV .Q24H [facility] Rx#:[id number] propofoL 1,000 mg In 134.777 374.022 97.994 Empty Bag 1 bag @ Titrate IV .Q0M [facility] Rx#: [id number] Blood Product 346 Platelet Pheresis Acd-A 346 Pasc 1 Unit [id number] Output: Urine 1415 1050 360 Other: Voiding Method Indwelling Catheter Indwelling Catheter Indwelling Catheter ABP, PAP, CO, CI - Last Documented Arterial Blood Pressure 126/64 - Exam Physical Exam: Revealed 69-year-old white male, intubated and mechanically ventilated. Head: Atraumatic, normocephalic. Endotracheal tube is intact HEENT:[Neck is supple.] [No neck masses.] [No thyromegaly.] [No JVD.] EOMI, no icterus. Chest: [Clear throughout, no crackles, no rhonchi, no wheezes.] Cardiac Exam: Irregular irregular rhythm. [Normal S1 and S2, no S3 gallop, 2/6 systolic murmur thought the precordium..] Abdomen: [Soft, nontender, no megaly, no rebound, no guarding, normal bowel sounds.] Extremities: [No clubbing, 1+ bipedal edema, no cyanosis.] Neurological Exam: [Could not be assessed, patient is sedated, on propofol, and he is mechanically ventilated. Skin: No rashes. Psychiatric: Could not be assessed. Lymphatics: No lymphadenopathy. - Labs CBC & Chem 7: 10/18/19 04:35 10/18/19 04:35 Labs: Abnormal Lab Results - Last 24 Hours (Table) 10/17/19 10/17/19 10/17/19 Range/Units 15:26 17:59 23:57 WBC (3.8-10.6) k/uL RBC (4.30-5.90) m/uL Hgb (13.0-17.5) gm/dL Hct (39.0-53.0) % Plt Count (150-450) k/uL Neutrophils # (1.3-7.7) k/uL Lymphocytes # (1.0-4.8) k/uL Fibrinogen 627 H (200-500) mg/dL ABG pCO2 (35-45) mmHg ABG pO2 (83-108) mmHg ABG HCO3 (21-25) mmol/L ABG O2 Saturation (94-97) % Potassium (3.5-5.1) mmol/L Chloride (98-107) mmol/L Carbon Dioxide (22-30) mmol/L BUN (9-20) mg/dL Glucose (74-99) mg/dL POC Glucose (mg/dL) 152 H 172 H (75-99) mg/dL Calcium (8.4-10.2) mg/dL 10/18/19 10/18/19 10/18/19 Range/Units 04:35 04:35 06:04 WBC 16.0 H (3.8-10.6) k/uL RBC 3.84 L (4.30-5.90) m/uL Hgb 12.0 L (13.0-17.5) gm/dL Hct 37.6 L (39.0-53.0) % Plt Count 55 L D (150-450) k/uL Neutrophils # 13.8 H (1.3-7.7) k/uL Lymphocytes # 0.8 L (1.0-4.8) k/uL Fibrinogen (200-500) mg/dL ABG pCO2 (35-45) mmHg ABG pO2 (83-108) mmHg ABG HCO3 (21-25) mmol/L ABG O2 Saturation (94-97) % Potassium 3.2 L (3.5-5.1) mmol/L Chloride 111 H (98-107) mmol/L Carbon Dioxide 20 L (22-30) mmol/L BUN 47 H (9-20) mg/dL Glucose 156 H (74-99) mg/dL POC Glucose (mg/dL) 141 H (75-99) mg/dL Calcium 7.4 L (8.4-10.2) mg/dL 10/18/19 10/18/19 10/18/19 Range/Units 07:14 11:40 11:47 WBC (3.8-10.6) k/uL RBC (4.30-5.90) m/uL Hgb (13.0-17.5) gm/dL Hct (39.0-53.0) % Plt Count (150-450) k/uL Neutrophils # (1.3-7.7) k/uL Lymphocytes # (1.0-4.8) k/uL Fibrinogen (200-500) mg/dL ABG pCO2 33 L 31 L (35-45) mmHg ABG pO2 184 H 135 H (83-108) mmHg ABG HCO3 20 L (21-25) mmol/L ABG O2 Saturation 99.4 H 98.9 H (94-97) % Potassium (3.5-5.1) mmol/L Chloride (98-107) mmol/L Carbon Dioxide (22-30) mmol/L BUN (9-20) mg/dL Glucose (74-99) mg/dL POC Glucose (mg/dL) 131 H (75-99) mg/dL Calcium (8.4-10.2) mg/dL Microbiology - Last 24 Hours (Table) 10/18/19 00:28 Sputum Culture - Preliminary Sputum 10/16/19 09:37 Blood Culture Gram Stain - Final Blood Blood Culture - Final Escherichia coli 10/15/19 20:16 Urine Culture - Final Urine,Voided Citrobacter farmeri Assessment and Plan Assessment: Impression: Acute hypoxic respiratory failure requiring intubation and mechanical ventilation secondary to sepsis and suspected septic shock. Acute gram-negative bacteremia with sepsis and septic shock. Acute urinary tract infection. Recurrent episodes of nonsustained ventricular tachycardia with ventricular paced rhythm and atrial fibrillation. Acute kidney injury secondary to hypotension and sepsis. Improving based on the labs today. Possible non-ST elevation myocardial infarction. Thrombocytopenia, possibly secondary to sepsis, or could be a component of ITP. History of nonischemic cardiomyopathy and LV dysfunction. Previous AICD placement. History of prosthetic aortic valve. Paroxysmal atrial fibrillation. Benign essential hypertension. Dyslipidemia. Recommendation: Continue ventilatory support. However I plan to awaken the patient today, hold sedation, give the patient possibly a weaning trial, and if tolerated may even consider extubating the patient. Continue hemodynamic support and pressors. Titrate norepinephrine down to maint ain adequate mean arterial blood pressure above 60. Continue antibiotics for his E. coli bacteremia and his Citrobacter urinary tract infection Continue nutritional support, patient is to be started on enteral feeding. Continue anticoagulation therapy, patient is known to have history of atrial fibrillation. Monitor CVP via right IJ central line which I placed yesterday. Address fluids accordingly. My goal today is to awaken the patient, check weaning parameters, and possibly extubate the patient if weaning parameters are adequate. Critical care time is 34 minutes Time with Patient: Greater than 30
[2019-10-18] MEDS: MULTIVITAMINS, THERA 1 EACH TAB PO SCH (13:35)
[2019-10-18] MEDS: APIXABAN 5 MG TAB PO SCH ×2 (13:35→22:34)
[2019-10-18] MEDS: SODIUM BICARBONATE TAB 650 MG TAB PO SCH ×2 (13:35→22:34)
[2019-10-18] MEDS: METOPROLOL TARTRATE 50 MG TAB PO SCH ×3 (13:35→22:34)
[2019-10-18] MEDS: TAMSULOSIN 0.4 MG CAP.ER.24H PO SCH (13:35)
--- NOTE | 2019-10-18 14:11 | P.PN ---
Subjective Progress Note Date: 10/18/19 The patient is currently on nasal cannula. He is somewhat short of breath on conversation but otherwise does not appear to be in acute distress. No obvious bleeding noted. He denied any chest pain. Objective - Vital Signs Vital signs: Vital Signs Temp 98.7 F 10/18/19 12:00 Pulse 82 10/18/19 13:30 Resp 26 H 10/18/19 13:30 BP 110/60 10/17/19 23:30 Pulse Ox 97 10/18/19 13:30 Intake & Output 10/17/19 10/18/19 10/18/19 18:59 06:59 18:59 Intake Total 9302.219 2190.223 503.505 Output Total 1415 1050 835 Balance -209.120 652.223 -331.495 Weight 112.4 kg Intake: IV 1050 461 341 Potassium Chloride 20 meq 100 150 200 In Water For Injection 1 100ml.bag @ 50 mls/hr IVPB Q2H [facility] Rx#: [id number] Sodium Chloride 0.9% 1, 350 270 120 000 ml @ 75 mls/hr IV . [id number] [facility] Rx#:[id number] Vancomycin 1,750 mg In 500 Sodium Chloride 0.9% 500 ml 500 ml @ 167 mls/hr IVPB ONCE ONE Rx#: [id number] cefTRIAXone 1 gm In 50 Sodium Chloride 0.9% 50 ml @ 100 mls/hr IVPB Q24HR [facility] Rx#:[id number] cefTRIAXone 2 gm In 50 Sodium Chloride 0.9% 50 ml @ 100 mls/hr IVPB Q24HR [facility] Rx#:[id number] pressure bag 41 21 Intake, IV Titration 155.880 895.223 162.505 Amount Amiodarone 300 mg In 250 Dextrose 5% in Water 250 ml @ 0.5 MG/MIN 25 mls/hr IV .Q10H [facility] Rx#: [id number] Norepinephrine 4 mg In 21.103 Sodium Chloride 0.9% 250 ml @ 0.05 MCG/KG/MIN 20. 098 mls/hr IV .[id number] [facility] Rx#:[id number] Norepinephrine 8 mg In 271.201 64.511 Sodium Chloride 0.9% 250 ml @ 0.05 MCG/KG/MIN 10. 207 mls/hr IV .Q24H [facility] Rx#:[id number] propofoL 1,000 mg In 134.777 374.022 97.994 Empty Bag 1 bag @ Titrate IV .Q0M [facility] Rx#: [id number] Blood Product 346 Platelet Pheresis Acd-A 346 Pasc 1 Unit [id number] Output: Urine 1415 1050 835 Other: Voiding Method Indwelling Catheter Indwelling Catheter Indwelling Catheter ABP, PAP, CO, CI - Last Documented Arterial Blood Pressure 134/63 - Constitutional General appearance: Present: mild distress - EENT Eyes: Present: EOMI ENT: Present: hearing grossly normal, normal oropharynx - Respiratory Respiratory: bilateral: diminished - Cardiovascular Rhythm: regular Heart sounds: normal: S1, S2 - Gastrointestinal General gastrointestinal: Present: normal bowel sounds, soft - Integumentary Integumentary: Present: normal - Neurologic Neurologic: Present: CNII-XII intact - Musculoskeletal Musculoskeletal: Present: generalized weakness, strength equal bilaterally - Psychiatric Psychiatric: Present: A&O x's 3, appropriate affect - Labs CBC & Chem 7: 10/18/19 04:35 10/18/19 04:35 Labs: Abnormal Lab Results - Last 24 Hours (Table) 10/17/19 10/17/19 10/17/19 Range/Units 15:26 17:59 23:57 WBC (3.8-10.6) k/uL RBC (4.30-5.90) m/uL Hgb (13.0-17.5) gm/dL Hct (39.0-53.0) % Plt Count (150-450) k/uL Neutrophils # (1.3-7.7) k/uL Lymphocytes # (1.0-4.8) k/uL Fibrinogen 627 H (200-500) mg/dL ABG pCO2 (35-45) mmHg ABG pO2 (83-108) mmHg ABG HCO3 (21-25) mmol/L ABG O2 Saturation (94-97) % Potassium (3.5-5.1) mmol/L Chloride (98-107) mmol/L Carbon Dioxide (22-30) mmol/L BUN (9-20) mg/dL Glucose (74-99) mg/dL POC Glucose (mg/dL) 152 H 172 H (75-99) mg/dL Calcium (8.4-10.2) mg/dL 10/18/19 10/18/19 10/18/19 Range/Units 04:35 04:35 06:04 WBC 16.0 H (3.8-10.6) k/uL RBC 3.84 L (4.30-5.90) m/uL Hgb 12.0 L (13.0-17.5) gm/dL Hct 37.6 L (39.0-53.0) % Plt Count 55 L D (150-450) k/uL Neutrophils # 13.8 H (1.3-7.7) k/uL Lymphocytes # 0.8 L (1.0-4.8) k/uL Fibrinogen (200-500) mg/dL ABG pCO2 (35-45) mmHg ABG pO2 (83-108) mmHg ABG HCO3 (21-25) mmol/L ABG O2 Saturation (94-97) % Potassium 3.2 L (3.5-5.1) mmol/L Chloride 111 H (98-107) mmol/L Carbon Dioxide 20 L (22-30) mmol/L BUN 47 H (9-20) mg/dL Glucose 156 H (74-99) mg/dL POC Glucose (mg/dL) 141 H (75-99) mg/dL Calcium 7.4 L (8.4-10.2) mg/dL 10/18/19 10/18/19 10/18/19 Range/Units 07:14 11:40 11:47 WBC (3.8-10.6) k/uL RBC (4.30-5.90) m/uL Hgb (13.0-17.5) gm/dL Hct (39.0-53.0) % Plt Count (150-450) k/uL Neutrophils # (1.3-7.7) k/uL Lymphocytes # (1.0-4.8) k/uL Fibrinogen (200-500) mg/dL ABG pCO2 33 L 31 L (35-45) mmHg ABG pO2 184 H 135 H (83-108) mmHg ABG HCO3 20 L (21-25) mmol/L ABG O2 Saturation 99.4 H 98.9 H (94-97) % Potassium (3.5-5.1) mmol/L Chloride (98-107) mmol/L Carbon Dioxide (22-30) mmol/L BUN (9-20) mg/dL Glucose (74-99) mg/dL POC Glucose (mg/dL) 131 H (75-99) mg/dL Calcium (8.4-10.2) mg/dL Microbiology - Last 24 Hours (Table) 10/18/19 00:28 Gram Stain - Preliminary Sputum Sputum Culture - Preliminary 10/16/19 09:37 Blood Culture Gram Stain - Final Blood Blood Culture - Final Escherichia coli 10/15/19 20:16 Urine Culture - Final Urine,Voided Citrobacter farmeri Assessment and Plan (1) Thrombocytopenia Narrative/Plan: At this time this is felt to be most likely consumption due to underlying bacteremia. Labs do not show any evidence of overt DIC. There may be some chronic underlying marrow compromise from prior history of heavy alcohol use, but there is no history of pancytopenia previously. - The above was discussed with the ID service. Today. Counts of greater than 50,000 which is considered safe for anticoagulation. Therefore the patient does not require platelet transfusions today. Continue to monitor and transfuse as needed to keep counts above 50,000 so as to be able to continue anticoagulation. - Above also discussed with the patient and family. They were advised that in this situation is expected that platelet counts will recover spontaneously as acute underlying infection resolves. Current Visit: Yes Status: Acute Code(s): D69.6 - THROMBOCYTOPENIA, UNSPECIFIED SNOMED Code(s): 282906748 (2) Gram-negative bacteremia Narrative/Plan: Defer to the admitting service, CCL and ID for continued management Current Visit: Yes Status: Acute Code(s): R78.81 - BACTEREMIA SNOMED Co de(s): 977784621504
[2019-10-18] MEDS ORDERED: METOPROLOL TARTRATE 5 MG/5 ML VIAL IVP ONE ×2 (15:43→15:55)
[2019-10-18] MEDS ORDERED: Potassium Replacement Protocol 1 EACH MISC MISCELLANE PRN (17:21)
[2019-10-18 17:33] LABS: Glucose,Whole Blood 92 mg/dL (75-99)
--- NOTE | 2019-10-18 23:11 | PN ---
PROGRESS NOTE DATE OF SERVICE: 10/18/2019 REASON FOR FOLLOWUP: E coli bacteremia. INTERVAL HISTORY: Patient is currently afebrile. The patient has been extubated. He is breathing comfortably on nasal cannula oxygen. Denies having any chest pain. Complaining of some sore throat. Apparently the patient having no nausea. No vomiting. No abdominal pain. No diarrhea. PHYSICAL EXAMINATION: Blood pressure 123/62 with a pulse of 82. Temperature is 97.5. He is 99% on 2 L nasal cannula. General description is an elderly male lying in bed in no distress. Respiratory system: Unlabored breathing. Clear to auscultation anteriorly. Heart S1, S2. Regular rate and rhythm. ABDOMEN: Soft. No tenderness. No guarding. No rigidity. Extremities are no edema of the feet. LABS: Hemoglobin is 12, white count of 16. BUN of 47, creatinine 0.98. Blood cultures E coli. Urine is showing Citrobacter. DIAGNOSTIC IMPRESSION AND PLAN: Patient with E. coli bacteremia with concern for urinary source as the patient did have positive UA. However the cultures are different in the urine than the blood. We will obtain a CT of abdomen and pelvis with oral contrast to make sure there is no evidence of any abdominal source for his bacteremia. Continue with Rocephin. Questions and concerns were answered. MMODL / IJN: [id number] /
[2019-10-19] MEDS: AMIODARONE 300 MG in DEXTROSE 5% IN WATER 250 ML IV SCH ×2 (01:08)
[2019-10-19 04:43] LABS: Basophils # (A) 0.1 k/uL (0-0.2); Basophils % (A) 0 %; Eosinophils # (A) 0.1 k/uL (0-0.7); Eosinophils % (A) 1 %; HCT 36.7 % (39.0-53.0); Lymphocytes % (A) 7 %; MCHC 32.8 g/dL (31.0-37.0); MCV 97.6 fL (80.0-100.0); Mean Platelet Volume 10.9; Monocytes # (A) 0.7 k/uL (0-1.0); Monocytes % (A) 5 %; Neutrophils # (A) 11.6 k/uL (1.3-7.7); Neutrophils % (A) 83 %; Platelet Count 79 k/uL (150-450); RBC 3.76 m/uL (4.30-5.90); RDW 13.7 % (11.5-15.5); WBC 13.9 k/uL (3.8-10.6)
[2019-10-19 04:55] LABS: African American GFR (CKD) >90 (>60 ml/min/1.73 sqM); Anion Gap 5 mmol/L; Blood Urea Nitrogen 41 mg/dL (9-20); Calcium 7.3 mg/dL (8.4-10.2); Carbon Dioxide 20 mmol/L (22-30); Chloride 110 mmol/L (98-107); Glucose 131 mg/dL (74-99); Magnesium 2.2 mg/dL (1.6-2.3); Non-African American GFR(CKD) 87 (>60 ml/min/1.73 sqM); Potassium 3.7 mmol/L (3.5-5.1); Sodium 135 mmol/L (137-145)
[2019-10-19 05:56] LABS: Glucose,Whole Blood 105 mg/dL (75-99)
[2019-10-19] MEDS ORDERED: POTASSIUM CHLORIDE ER 20 MEQ TAB.ER PO SCH (06:00)
--- NOTE | 2019-10-19 07:31 | XR ---
EXAMINATION TYPE: XR chest 1V portable DATE OF EXAM: 10/19/2019 Comparison: 10/18/2019 Clinical History: 69-year-old male Tube placement Findings: Median sternotomy wires are present. Left anterior chest wall AICD generator with right atrial, right ventricular, and coronary sinus leads. Heart remains mildly enlarged. Slightly prominent upper lung pulmonary vasculature. Right-sided CVC tip remains in the lower right atrium. Continued small left gr eater than right effusions with adjacent opacity. Impression: 1. Slightly prominent upper lung pulmonary vasculature. Correlate to exclude developing mild pulmonar y vascular congestion. 2. Continued small left greater than right pleural effusions with adjacent atelectasis and/or consoli dation.
[2019-10-19] MEDS: IOPAMIDOL CONTRAST (ORAL USE) VIAL PO PRN ×2 (08:01→09:17)
--- NOTE | 2019-10-19 10:08 | P.PN ---
Subjective Progress Note Date: 10/19/19 Follow-up for acute kidney injury. Good urine output, 2.0 L in the last 24 hours. Objective - Vital Signs Vital signs: Vital Signs Temp 99.1 F 10/19/19 08:00 Pulse 85 10/19/19 09:00 Resp 32 H 10/19/19 09:00 BP 99/67 10/19/19 05:30 Pulse Ox 100 10/19/19 09:00 Intake & Output 10/18/19 10/19/19 10/19/19 18:59 06:59 18:59 Intake Total 924.423 4648.234 39 Output Total 1195 750 280 Balance -756.975 1226.234 -241 Weight 113 kg Intake: IV 456 270 39 Potassium Chloride 20 meq 200 In Water For Injection 1 100ml.bag @ 50 mls/hr IVPB Q2H [facility] Rx#: [id number] Sodium Chloride 0.9% 1, 220 220 30 000 ml @ 75 mls/hr IV . [id number] [facility] Rx#:[id number] pressure bag 36 50 9 Intake, IV Titration 170.263 427.234 Amount Amiodarone 300 mg In 232.917 Dextrose 5% in Water 250 ml @ 0.5 MG/MIN 25 mls/hr IV .Q10H [facility] Rx#: [id number] Norepinephrine 8 mg In 72.269 94.317 Sodium Chloride 0.9% 250 ml @ 0.05 MCG/KG/MIN 10. 207 mls/hr IV .Q24H [facility] Rx#:[id number] Potassium Chloride 20 meq 100 In Water For Injection 1 100ml.bag @ 50 mls/hr IVPB Q2H [facility] Rx#: [id number] propofoL 1,000 mg In 97.994 Empty Bag 1 bag @ Titrate IV .Q0M [facility] Rx#: [id number] Oral 1680 Output: Urine 1195 750 280 Other: Voiding Method Indwelling Catheter Indwelling Catheter # Voids 0 ABP, PAP, CO, CI - Last Documented Arterial Blood Pressure 98/60 - Exam No acute distress S1-S2 heard Decreased breath sounds Abdomen soft Trace edema - Labs CBC & Chem 7: 10/19/19 04:30 10/19/19 04:30 Labs: Abnormal Lab Results - Last 24 Hours (Table) 10/18/19 10/18/19 10/19/19 Range/Units 11:40 11:47 04:30 WBC 13.9 H (3.8-10.6) k/uL RBC 3.76 L (4.30-5.90) m/uL Hgb 12.0 L (13.0-17.5) gm/dL Hct 36.7 L (39.0-53.0) % Plt Count 79 L (150-450) k/uL Neutrophils # 11.6 H (1.3-7.7) k/uL ABG pCO2 31 L (35-45) mmHg ABG pO2 135 H (83-108) mmHg ABG HCO3 20 L (21-25) mmol/L ABG O2 Saturation 98.9 H (94-97) % Sodium (137-145) mmol/L Chloride (98-107) mmol/L Carbon Dioxide (22-30) mmol/L BUN (9-20) mg/dL Glucose (74-99) mg/dL POC Glucose (mg/dL) 131 H (75-99) mg/dL Calcium (8.4-10.2) mg/dL 10/19/19 10/19/19 Range/Units 04:30 05:55 WBC (3.8-10.6) k/uL RBC (4.30-5.90) m/uL Hgb (13.0-17.5) gm/dL Hct (39.0-53.0) % Plt Count (150-450) k/uL Neutrophils # (1.3-7.7) k/uL ABG pCO2 (35-45) mmHg ABG pO2 (83-108) mmHg ABG HCO3 (21-25) mmol/L ABG O2 Saturation (94-97) % Sodium 135 L (137-145) mmol/L Chloride 110 H (98-107) mmol/L Carbon Dioxide 20 L (22-30) mmol/L BUN 41 H (9-20) mg/dL Glucose 131 H (74-99) mg/dL POC Glucose (mg/dL) 105 H (75-99) mg/dL Calcium 7.3 L (8.4-10.2) mg/dL Microbiology - Last 24 Hours (Table) 10/18/19 05:14 Blood Culture Gram Stain - Preliminary Blood 10/18/19 05:14 Blood Culture - Final Blood 10/18/19 00:28 Gram Stain - Preliminary Sputum Sputum Culture - Preliminary 10/16/19 09:37 Blood Culture Gram Stain - Final Blood Blood Culture - Final Escherichia coli Assessment and Plan Assessment: #1 nonoliguric acute kidney injury secondary to septic ATN. Peak creatinine of 1.8 MG per DL, baseline creatinine of 0.6-0.7 MG per DL. #2 ventilator-dependent respiratory failure #3 cardiomyopathy with the EF of 25% #4 E. coli bacteremia/sepsis on levo fed #5 volume overload #6 metabolic acidosis #7 hypokalemia Plan: 1 currently on Lasix 40 mg IV daily. Continue with current regimen. #2 replace electrolytes. #3 off ventilator. #4 avoid nephrotoxic agents and hypotensive episodes.
--- NOTE | 2019-10-19 10:26 | PN ---
PROGRESS NOTE Mr. Mcnair is a 69-year-old male with known history of aortic valve replacement, history of severe nonischemic cardiomyopathy status post ICD presented with evidence of urosepsis and bacteremia, had an episode of respiratory failure requiring mechanical ventilation. He is extubated. He is in atrial fibrillation with paced rhythm. His rate is controlled. He continues to be on IV Cardizem. He is feeling better overall. He denies any chest pain. He denies any dizziness. His appetite is improving. He denies any nausea. He has no significant fever this morning. He continues to be on IV amiodarone, Eliquis 5 mg twice a day, Lasix 40 mg IV daily, metoprolol tartrate 50 mg 3 times a day. PHYSICAL EXAMINATION: Blood pressure 122/60 with a heart rate in the 80s. Lungs: No wheezes. Heart irregularly irregular, S1, S2. No S3 with systolic murmur, no diastolic murmur. No rub. ABDOMEN: Soft, nontender. Positive bowel sounds. No organomegaly. EXTREMITIES: No significant edema. LAB DATA: Revealed a white blood cells 13.9 which is improved compared to yesterday. Hemoglobin of 12. BUN and creatinine 41 and 0.87. IMPRESSION: 1. Urosepsis with bacteremia with E coli. 2. Respiratory failure improved. 3. Status post aortic valve replacement. 4. Severe nonischemic myopathy. 5. Status post ICD implantation. 6. Atrial fibrillation persistent at this time. 7. Prior history of hypertension. 8. Hyperlipidemia. RECOMMENDATIONS: Patient is off his pressors. I will switch him to oral amiodarone at this time. We will await the repeat blood culture. If he has persistent bacteremia or febrile episode, he may require a BLAZE. At this time I see no evidence of endocarditis. He will continue on antibiotics treatment as initiated by Dr. Fletcher and Dr. Jara. Depending on his progress, further recommendation will be made. MMODL / IJN: [id number] /
--- NOTE | 2019-10-19 10:37 | P.PN ---
Subjective Progress Note Date: 10/19/19 HISTORY OF PRESENT ILLNESS This is a 69-year-old male patient of Dr. Hendrickson and Dr. Otero with past medical history of nonischemic cardiomyopathy and nonsustained karina tricular tachycardia status post biventricular AICD, prosthetic aortic valve, paroxysmal atrial fibrillation, hypertension, hyperlipidemia, glaucoma and macular degeneration, remote history of tobacco use. Patient states that he was going to bed early last night and falling out of bed. He states he slipped out onto the floor. He denies any injury and denies any loss of consciousness. He denies any episodes like this in the past. He denies having any chest pain, lightheadedness. He does complain of shortness of breath and mild lower extremity edema. Patient came into [facility] emergency center for evaluation. He was afebrile, initial heart rate 156. EKG ventricular paced rhythm at heart rate of 119 with wide complex beats possible ventricular tachycardia. Blood pressure 101/67, pulse ox 90% on room air. Initial blood work revealed the previously 7.8, hemoglobin 13.1, platelet count 38 with previous normal level. Sodium 133, potassium 3.7, chloride 105, CO2 16, BUN 45 creatinine 1.87. Blood sugar 127. Liver function tests normal. Phosphorus 1.4, magnesium 1.4. Lactic acid initially 2.5 and repeat of 1.6. Triglycerides 192, cholesterol 96, LDL 43, HDL 15. Chest x-ray revealed chronic changes and cardiomegaly without acute pulmonary process. Patient admitted to the cardiac stepdown unit and consult requested with cardiology, nephrology and oncology. Echocardiogram and TSH pending. 10/16: A-Team was called early this morning as patient had a drop in his pulse ox and was placed on 15 L nonrebreather, heart rate increased and patient was in A. fib with RVR. Patient was transferred into the intensive care unit, intubated and placed on mechanical ventilation. Tidal volume 550, FiO2 50, PEEP of 5. Blood pressure is currently 80/59 and patient is currently on norepinephrine. Amiodarone drip has been discontinued. We have ordered one dose of vancomycin and consult added for Dr. Fletcher for E. coli bacteremia. Urine culture is still pending but gram-negative bacilli. Echocardiogram reveals EF of 25-30%, mild stenosis of the bioprosthetic aortic valve, mild mitral regurgitation, mild tricuspid regurgitation, mild pulmonary hypertension. Renal ultrasound revealed no hydronephrosis. The patient's is at bedside and updated regarding condition. Condition is currently guarded. 10/17: Patient remains intubated and on mechanical ventilation with tidal volume 550, FiO2 40, PEEP of 5. Patient is currently on norepinephrine and propofol. He received 1 unit of platelets yesterday and repeat platelet count today is at 55, hemoglobin 12 and WBC 16. Sodium 137, potassium 3.2 and replaced, chloride 111, CO2 20, BUN 47 creatinine 0.98. Blood sugar 156. Urine culture finalized with Citrobacter farmeri and blood culture is E. coli. Sputum culture is in progress. Patient has been seen by Dr. Fletcher and ceftriaxone increased to 2 g daily. OG tube was unable to be passed yesterday and GI consult in place to ass ist with this. He has had good urine output at 75 mL per hour. He has had no fevers overnight. 10/18: Patient was successfully extubated yesterday. He is not requiring oxygen at this time. monitoring manager is paced rhythm. He is currently on amiodarone drip but will be transitioned to oral today. Cunningham catheter showing dark bette urine. He is just starting on water for now. He has no difficulty swallowing. He did have episode of A. fib with RVR yesterday. Patient has had some hallucinations since he was extubated and seen rats and bats. We will add and clonazepam 3 times daily as needed. He is scheduled for CAT scan of the abdomen and pelvis this morning due to 2 separate organisms and blood in urine. He had Cunningham catheter for urinary retention and Flomax increased to twice daily. Patient has been afebrile, heart rate 85, blood pressure 98/60, pulse ox 100%. Respiratory rate 32. WBC 13.9, hemoglobin 12.0, platelet count 79. Sodium 135, potassium 3.7, chloride 110, CO2 20, BUN 41 creatinine 0.87. Blood sugar 131. Urine culture is Citrobacter and blood culture E. coli. Repeat blood cultures are in progress. Sputum cultures in progress. REVIEW OF SYSTEMS Constitutional: No fever, no chills, no night sweats. No weight change. Reports weakness, fatigue or lethargy. No daytime sleepiness. EENT: No headache. No blurred vision or double vision, no loss of vision. Lungs: No shortness of breath, cough, no sputum production. No wheezing. Cardiovascular: No chest pain, no lower extremity edema. No palpitations. No paroxysmal nocturnal dyspnea. No orthopnea. No lightheadedness or dizziness. No syncopal episodes. Abdominal: No abdominal pain. No nausea, vomiting. No diarrhea. No constipation. No bloody or tarry stools. No loss of appetite. Genitourinary: No dysuria, increased frequency, urgency. Reports urinary retention. Musculoskeletal: No myalgias. No muscle weakness, no gait dysfunction, no frequent falls. No back pain. No neck pain. Integumentary: No wounds, no lesions. No rash or pruritus. No unusual brui sing. No change in hair or nails. Neurologic: No aphasia. No facial droop. No change in mentation. No head injury. No headache. No paralysis. No paresthesia. Psychiatric: No depression. No anxiety. No mood swings. Endocrine: No abnormal blood sugars. No weight change. PHYSICAL EXAMINATION Gen: This is 69-year-old male patient resting in bed and in no acute distress. Patient is seen in the ICU, resting in bed and appears to be comfortable. HEENT: Head is atraumatic, normocephalic. Pupils equal, round. Sclerae is anicteric. NECK: Supple. No JVD. No lymphadenopathy. No thyromegaly. LUNGS: Clear to auscultation. No wheezes or rhonchi. No intercostal retractio ns. HEART: Irregularly irregular rate and rhythm. Systolic murmur. ABDOMEN: Soft. Bowel sounds are present. No masses. No tenderness. Cunningham catheter in place. EXTREMITIES: 1+ bilateral pedal edema. No calf tenderness. Dorsalis pedis palpable bilaterally. NEUROLOGICAL: Awake and alert and oriented 3. No focal neural deficits. ASSESSMENT AND PLAN 1. Episodes of nonsustained ventricular tachycardia with ventricular paced rhythm and atrial fibrillation. Cardiology consult appreciated. Amiodarone drip to be transitioned to oral. 2. Acute kidney injury secondary to ATN, hypotension and atrial fibrillation. Nephrology consult appreciated. Patient has Cunningham catheter. Sodium bicarb oral added and renal ultrasound as above 3. Acute Citrobacter urinary tract infection. Continue Rocephin 2 g daily[address] Consult with Dr. Fletcher. 4. Acute E. coli bacteremia. Abdominal and pelvic CAT scan. Continue Rocephin. 5. Septic shock requiring vasopressor. Continue norepinephrine. 6. Acute hypoxic respiratory failure secondary to sepsis status post intubation and mechanical ventilation. Consult with Dr. Jara appreciated. 7. Thrombocytopenia. Possibly due to chronic alcohol use Oncology consult. 8. Elevated troponin, rule out acute coronary syndrome. Cardiology consult appreciated. Echocardiogram as above. 9. Nonischemic cardiomyopathy and nonsustained ventricular tachycardia status post biventricular AICD. Cardiology consult. 10. Prosthetic aortic valve. 11. Paroxysmal atrial fibrillation with episode of RVR. Continue eliquis 5 mg twice daily, Lopressor 50 mg 3 times daily. Amiodarone drip to be transitioned to oral. 12. Hypertension. Currently hypotensive 13. Hyperlipidemia. Patient is not currently on statin. 14. Benign prostatic hypertrophy. Continue Flomax or 0.4 mg daily. Cunningham catheter in place. 15. Macular degeneration and glaucoma, stable. 16. GI prophylaxis. Protonix. 17. DVT prophylaxis. Eliquis. Discharge plan: To be determined. Impression and plan of care have been directed as dictated by the signing physician. Stephenie Chow nurse practitioner acting as scribe for signing physician Objective - Vital Signs Vital signs: Vital Signs Temp 99.1 F 10/19/19 08:00 Pulse 89 10/19/19 08:00 Resp 33 H 10/19/19 08:00 BP 99/67 10/19/19 05:30 Pulse Ox 99 10/19/19 08:00 Intake & Output 10/18/19 10/19/19 10/19/19 18:59 06:59 18:59 Intake Total 312.656 6109.234 36 Output Total 1195 750 200 Balance -286.482 9253.234 -164 Weight 113 kg Intake: IV 456 270 36 Potassium Chloride 20 meq 200 In Water For Injection 1 100ml.bag @ 50 mls/hr IVPB Q2H [facility] Rx#: [id number] Sodium Chloride 0.9% 1, 220 220 30 000 ml @ 75 mls/hr IV . [id number] [facility] Rx#:[id number] pressure bag 36 50 6 Intake, IV Titration 170.263 427.234 Amount Amiodarone 300 mg In 232.917 Dextrose 5% in Water 250 ml @ 0.5 MG/MIN 25 mls/hr IV .Q10H [facility] Rx#: [id number] Norepinephrine 8 mg In 72.269 94.317 Sodium Chloride 0.9% 250 ml @ 0.05 MCG/KG/MIN 10. 207 mls/hr IV .Q24H [facility] Rx#:[id number] Potassium Chloride 20 meq 100 In Water For Injection 1 100ml.bag @ 50 mls/hr IVPB Q2H [facility] Rx#: [id number] propofoL 1,000 mg In 97.994 Empty Bag 1 bag @ Titrate IV .Q0M [facility] Rx#: [id number] Oral 1680 Output: Urine 1195 750 200 Other: Voiding Method Indwelling Catheter Indwelling Catheter # Voids 0 ABP, PAP, CO, CI - Last Documented Arterial Blood Pressure 122/60 - Labs CBC & Chem 7: 10/19/19 04:30 10/19/19 04:30 Labs: Abnormal Lab Results - Last 24 Hours (Table) 10/18/19 10/18/19 10/19/19 Range/Units 11:40 11:47 04:30 WBC 13.9 H (3.8-10.6) k/uL RBC 3.76 L (4.30-5.90) m/uL Hgb 12.0 L (13.0-17.5) gm/dL Hct 36.7 L (39.0-53.0) % Plt Count 79 L (150-450) k/uL Neutrophils # 11.6 H (1.3-7.7) k/uL ABG pCO2 31 L (35-45) mmHg ABG pO2 135 H (83-108) mmHg ABG HCO3 20 L (21-25) mmol/L ABG O2 Saturation 98.9 H (94-97) % Sodium (137-145) mmol/L Chloride (98-107) mmol/L Carbon Dioxide (22-30) mmol/L BUN (9-20) mg/dL Glucose (74-99) mg/dL POC Glucose (mg/dL) 131 H (75-99) mg/dL Calcium (8.4-10.2) mg/dL 10/19/19 10/19/19 Range/Units 04:30 05:55 WBC (3.8-10.6) k/uL RBC (4.30-5.90) m/uL Hgb (13.0-17.5) gm/dL Hct (39.0-53.0) % Plt Count (150-450) k/uL Neutrophils # (1.3-7.7) k/uL ABG pCO2 (35-45) mmHg ABG pO2 (83-108) mmHg ABG HCO3 (21-25) mmol/L ABG O2 Saturation (94-97) % Sodium 135 L (137-145) mmol/L Chloride 110 H (98-107) mmol/L Carbon Dioxide 20 L (22-30) mmol/L BUN 41 H (9-20) mg/dL Glucose 131 H (74-99) mg/dL POC Glucose (mg/dL) 105 H (75-99) mg/dL Calcium 7.3 L (8.4-10.2) mg/dL Microbiology - Last 24 Hours (Table) 10/18/19 05:14 Blood Culture Gram Stain - Preliminary Blood 10/18/19 05:14 Blood Culture - Final Blood 10/18/19 00:28 Gram Stain - Preliminary Sputum Sputum Culture - Preliminary 10/16/19 09:37 Blood Culture Gram Stain - Final Blood Blood Culture - Final Escherichia coli
[2019-10-19] MEDS: APIXABAN 5 MG TAB PO SCH ×2 (10:49→20:07)
[2019-10-19] MEDS: THIAMINE 100 MG TAB PO SCH ×2 (10:49→20:06)
[2019-10-19] MEDS: MULTIVITAMINS, THERA 1 EACH TAB PO SCH (10:50)
[2019-10-19] MEDS: SODIUM BICARBONATE TAB 650 MG TAB PO SCH ×2 (10:50→20:06)
[2019-10-19] MEDS: FUROSEMIDE 10 MG/ML 4 ML VIAL IV SCH (10:50)
[2019-10-19] MEDS: PANTOPRAZOLE 40 MG/10 ML VIAL IV SCH (10:50)
[2019-10-19] MEDS: METOPROLOL TARTRATE 50 MG TAB PO SCH ×3 (10:50→21:14)
[2019-10-19] MEDS: clonazePAM 0.5 MG TAB PO PRN ×2 (11:03→23:16)
--- NOTE | 2019-10-19 11:13 | CT ---
EXAMINATION TYPE: CT abdomen pelvis wo con DATE OF EXAM: 10/19/2019 COMPARISON: 02/12/2017 HISTORY: 69-year-old male E. Coli bacteremia, evaluate for possible abdominal source CT DLP: 1095.2 mGycm. Automated exposure control for dose reduction was used. TECHNIQUE: Contiguous axial scanning of the abdomen and pelvis without IV contrast. Coronal and sagit yeni reconstructions performed. FINDINGS: An ICD generator with right atrial, right ventricular, and coronary sinus leads. Trace left greater t coats right effusion. Prominent volume loss and consolidation basilar left lower lobe. Lesser extent of volume loss posterior right base. Heart upper limits of normal in size without pericardial effusion. Noncontrast appearance of the liver, adrenal glands, and pancreas shows no gross abnormal body. The gallbladder is either small or there is a prominent cystic duct remnant after cholecystectomy. 3.8 cm diverticulum of the second portion of the duodenum projecting into the pancreatic head region. Bilateral perinephric stranding likely anasarca change given the body wall edema and additional stran dy densities within the intra-abdominal fat. Spleen mildly enlarged at 14.4 cm. No dilated small bowel, free fluid, or free air. No mesenteric or retroperitoneal lymphadenopathy. No abnormal appendix is identified. Oral contrast progressed to the upper descending colon. Mid to lowe r descending and proximal to mid sigmoid diverticulosis without pericolic inflammatory change. Cunningham catheter is in place. Moderate circumferential bladder wall thickening with perivesicular fat s tranding. Small amount of intraluminal bladder likely due to instrumentation. Difficult to exclude so me mural based air, axial image 77. Some presacral edema is present. Otherwise, no abnormal fluid col lection in the pelvis or pelvic lymphadenopathy. Mild degenerative change of the hips. Degenerative changes left SI joint. Moderate degenerative disc disease L4-L5. IMPRESSION: 1. Moderate circumferential bladder wall thickening with surrounding fat stranding. Findings suggest cystitis. Clinically correlate. 2. A Cunningham catheter is in place. This likely accounts for the small amount of intraluminal bladder a ir. However, there also appears to be a small focus of mural air that could support cystitis. 3. Left-sided clonic diverticulosis without acute diverticulitis. 4. Trace effusions, left greater than right. Volume loss and consolidation of the basilar left lower lobe. Lesser degree of changes at the posterior right base. Correlate to exclude underlying pneumoni a. 5. Mild splenomegaly at 14.4 cm. 6. Generalized anasarca change.
--- NOTE | 2019-10-19 12:21 | P.PN ---
Subjective Progress Note Date: 10/19/19 Principal diagnosis: Septic shock and acute hypoxic respiratory failure This is a 69-year-old white male, presented initially to [facility] on 10/15/19, and his chief complaint was mostly weakness. Apparently the patient was going to bed early the night before, and he fell out of bed. Slipped out onto the floor. He had no significant injury. Brought into the ER on 10/14, and he was noted to have intermittent ventricular tachycardia. Labs were significant for low platelets, relatively normal electrolytes, abnormal BUN of 45 creatinine 1.87, lactic acid of 2.5. Chest x-ray showed mostly chronic changes, no acute process was noted and there was no evidence of pneumonia or evidence of congestive heart failure. Patient was admitted, and multiple consul tants where consulted including cardiology and nephrology and oncology. Admitting diagnoses was possible ventricular tachycardia, nonsustained, and atrial fibrillation. Patient was placed on amiodarone drip, and he was also noted to have evidence of urinary tract infection without symptoms. Eventually his blood cultures came back positive for gram-negative bacilli. At any rate less than night to the patient was transferred to the ICU mostly because of his worsening shortness of breath, and he was noted to have atrial fibrillation with RVR. I was notified about this patient early in the morning after transfer to the ICU, and I recommended immediate intubation since the patient was extremely short of breath based on the nurse taking care of him. I saw him this morning, patient is now on mechanical ventilation. His assist-control rate is 16 tidal volume is 550 FiO2 is 50% and PEEP of 5. ABG showed a pO2 of 290 pCO2 of 44 pH of 7.27. Patient is on 0.9 normal saline at 25 mL per hour, amiodarone at 0.5 mg per hour, and on propofol at 10 mcg/kg/m. His echocardiogram showed LV dys function with ejection fraction of 50-55%. Considering the patient was critically ill, I have arranged for placement of a arterial line and right IJ central line was placed on this patient. In the meantime The patient on Rocephin and vancomycin for his positive blood cultures showing E. coli. Patient was reevaluated today on 10/18/19, remains in the ICU intubated and mechanically ventilated. Patient is on assist control rate of 16 tidal volume is 550 FiO2 is 45% and I cut it down to 35% PEEP is at 5. Remains on propofol at 35 mcg/kg/m, amiodarone at 0.5 mg per hour he is also on norepinephrine at 6 mcg/m. Patient is being treated for gram-negative sepsis and bacteremia. Blood cultures are positive for E. coli, urine cultures are positive for Citrobacter. Patient is on Rocephin, he is also on vancomycin which I plan to discontinue. Chest x-ray showed cardiomegaly with small bilateral pleural effusions, and by basilar atelectasis. Patient has been responding well to diuresis. Labs were reviewed his ABG showed a pO2 of 135 pCO2 of 31 pH of 7.43. WBC count is 16 hemoglobin is 12. Renal profile is improving with BUN 47 creatinine 0.98. Potassium is a bit low being corrected as per protocol. Reevaluated today on 10/19/19, patient was extubated successfully yesterday, he is now on room air. Remains in the ICU, denies any specific complaints, had a bit of confusion last night, but he is back to normal today, normal mental status is intact, he is alert and oriented 3. No focal neurologic deficit. Patient is in atrial fibrillation, rate controlled, he is on Lopressor. He was seen by infectious disease, and was concerned that the patient had 2 different types of infections, E. coli in the blood and Citrobacter in the urine, hence CT of the abdomen and pelvis was done. There was evidence of stranding in the bladder wall, there was also a left sided colonic diverticulosis. And generalized anasarca. There was also some left lower lobe atelectasis and pleural effusion. Clinically however the patient is doing great, and he denies any specific complaints today. Basic metabolic profile is normal renal profile is normal CBC showed WBC count of 13.9 hemoglobin of 12. Objective - Vital Signs Vital signs: Vital Signs Temp 99.1 F 10/19/19 08:00 Pulse 95 10/19/19 11:30 Resp 25 H 10/19/19 11:30 BP 99/67 10/19/19 05:30 Pulse Ox 98 10/19/19 11:30 Intake & Output 10/18/19 10/19/19 10/19/19 18:59 06:59 18:59 Intake Total 034.483 4900.234 95 Output Total 1195 750 420 Balance -124.897 6112.234 -325 Weight 113 kg Intake: IV 456 270 95 Potassium Chloride 20 meq 200 In Water For Injection 1 100ml.bag @ 50 mls/hr IVPB Q2H [facility] Rx#: [id number] Sodium Chloride 0.9% 1, 220 220 30 000 ml @ 75 mls/hr IV . [id number] [facility] Rx#:[id number] cefTRIAXone 2 gm In 50 Sodium Chloride 0.9% 50 ml @ 100 mls/hr IVPB Q24HR [facility] Rx#:[id number] pressure bag 36 50 15 Intake, IV Titration 170.263 427.234 Amount Amiodarone 300 mg In 232.917 Dextrose 5% in Water 250 ml @ 0.5 MG/MIN 25 mls/hr IV .Q10H [facility] Rx#: [id number] Norepinephrine 8 mg In 72.269 94.317 Sodium Chloride 0.9% 250 ml @ 0.05 MCG/KG/MIN 10. 207 mls/hr IV .Q24H [facility] Rx#:[id number] Potassium Chloride 20 meq 100 In Water For Injection 1 100ml.bag @ 50 mls/hr IVPB Q2H [facility] Rx#: [id number] propofoL 1,000 mg In 97.994 Empty Bag 1 bag @ Titrate IV .Q0M [facility] Rx#: [id number] Oral 1680 Output: Urine 1195 750 420 Other: Voiding Method Indwelling Catheter Indwelling Catheter Indwelling Catheter # Voids 0 ABP, PAP, CO, CI - Last Documented Arterial Blood Pressure 99/64 - Exam Physical Exam: Revealed 69-year-old white male, on room air, sitting in bed, asymptomatic, and in no distress Head: Atraumatic, normocephalic. HEENT:[Neck is supple.] [No neck masses.] [No thyromegaly.] [No JVD.] EOMI, no icterus. Right IJ triple-lumen catheter is noted Chest: [Symmetrical chest expansion, diminished breath sounds at the left base, no crackles or rhonchi or wheezes.] Cardiac Exam: Irregular irregular rhythm. [Normal S1 and S2, no S3 gallop, 2/6 systolic murmur thought the precordium..] Abdomen: [Soft, nontender, no megaly, no rebound, no guarding, normal bowel sounds.] Extremities: [No clubbing, 1+ bipedal edema, no cyanosis.] Neurological Exam: Alert and oriented 3, no gross focal deficits. Skin: No rashes. Psychiatric: Normal mood affect and normal mental status examination Lymphatics: No lymphadenopathy. - Labs CBC & Chem 7: 10/19/19 04:30 10/19/19 04:30 Labs: Abnormal Lab Results - Last 24 Hours (Table) 10/19/19 10/19/19 10/19/19 Range/Units 04:30 04:30 05:55 WBC 13.9 H (3.8-10.6) k/uL RBC 3.76 L (4.30-5.90) m/uL Hgb 12.0 L (13.0-17.5) gm/dL Hct 36.7 L (39.0-53.0) % Plt Count 79 L (150-450) k/uL Neutrophils # 11.6 H (1.3-7.7) k/uL Sodium 135 L (137-145) mmol/L Chloride 110 H (98-107) mmol/L Carbon Dioxide 20 L (22-30) mmol/L BUN 41 H (9-20) mg/dL Glucose 131 H (74-99) mg/dL POC Glucose (mg/dL) 105 H (75-99) mg/dL Calcium 7.3 L (8.4-10.2) mg/dL Microbiology - Last 24 Hours (Table) 10/18/19 05:14 Blood Culture Gram Stain - Preliminary Blood 10/18/19 05:14 Blood Culture - Final Blood 10/18/19 00:28 Gram Stain - Preliminary Sputum Sputum Culture - Preliminary 10/16/19 09:37 Blood Culture Gram Stain - Final Blood Blood Culture - Final Escherichia coli Assessment and Plan Assessment: Impression: Acute hypoxic respiratory failure requiring intubation and mechanical ventilation secondary to sepsis and suspected septic shock. extubated on 10/18/19 Acute gram-negative bacteremia with sepsis and septic shock. Acute urinary tract infection. Recurrent episodes of nonsustained ventricular tachycardia with ventricular paced rhythm and atrial fibrillation. Acute kidney injury secondary to hypotension and sepsis. Improving based on the labs today. Possible non-ST elevation myocardial infarction. Thrombocytopenia, possibly secondary to sepsis, or could be a component of ITP. History of nonischemic cardiomyopathy and LV dysfunction. Previous AICD placement. History of prosthetic aortic valve. Paroxysmal atrial fibrillation. Benign essential hypertension. Dyslipidemia. Recommendation: Reviewed the results of the CT of the abdomen and pelvis, Continue antibiotics for his E. coli bacteremia and his Citrobacter urinary tract infection Advanced diet as tolerated. Continue anticoagulation therapy, patient is known to have history of atrial fibrillation. Continue to monitor CVP and continue to monitor in the ICU. Address fluids accordingly. Address diuretics accordingly. Continue to monitor patient in the ICU for the next 24 hours, and if he remains stable consider transfer to a cardiac floor. We'll continue to follow Time with Patient: Less than 30
[2019-10-19] MEDS: NOREPINEPHRINE 8 MG in SODIUM CHLORIDE 0.9% 250 ML IV SCH (16:08)
[2019-10-19] MEDS: CHOLESTYRAMINE (WITH SUGAR) 4 GM PACKET PO SCH (17:24)
[2019-10-19 19:26] LABS: Glucose,Whole Blood 117 mg/dL (75-99)
[2019-10-19] MEDS: TAMSULOSIN 0.4 MG CAP.ER.24H PO SCH (20:06)
[2019-10-19] MEDS: AMIODARONE 200 MG TAB PO SCH (20:07)
[2019-10-19] MEDS ORDERED: QUEtiapine 25 MG TAB PO SCH (21:00)
--- NOTE | 2019-10-19 22:59 | PN ---
PROGRESS NOTE DATE OF SERVICE: 10/19/2019 REASON FOR FOLLOWUP: E coli bacteremia. INTERVAL HISTORY: The patient is currently afebrile. The patient is breathing comfortably. The patient denies having any chest pain or shortness of breath. Minimal cough. No nausea, vomiting. No abdominal pain. However, the patient has had multiple loose stools today. in the stool. PHYSICAL EXAMINATION: Blood pressure 100/60 with a pulse of 104, temperature 97.9. He is 97% on room air. General description is an elderly male up in the chair in no distress. RESPIRATORY SYSTEM: Unlabored breathing, decreased breath sounds at the bases. No wheeze. HEART: S1, S2. Regular rate and rhythm. ABDOMEN: Soft, no tenderness. LABS: Hemoglobin is 12 with white count 13.9, BUN of 41, creatinine 0.87. Sputum showing gram-negative bacilli. Blood culture with an E coli. Repeat blood cultures also positive. The patient did have a CT of abdomen and pelvis completed which shows circumferential bladder wall thickening and left lower lobe consolidation. DIAGNOSTIC IMPRESSION AND PLAN: Patient with an Escherichia coli bacteremia with concern for possible urinary source, possible component of aspiration pneumonitis. Patient is covered with Rocephin to continue with no gram-positive, vancomycin has been discontinued with persistent diarrhea. Stool for Clostridium difficile will be checked, if negative will add Questran for symptomatic relief. Continue supportive care. Patient has been encouraged to increase his probiotic yogurt intake. MMODL / IJN: [id number] /
[2019-10-20 05:18] LABS: Basophils % (A) 0 %; Eosinophils # (A) 0.1 k/uL (0-0.7); Eosinophils % (A) 1 %; HGB 11.2 gm/dL (13.0-17.5); Lymphocytes % (A) 7 %; MCH 31.9 pg (25.0-35.0); MCHC 32.8 g/dL (31.0-37.0); MCV 97.2 fL (80.0-100.0); Mean Platelet Volume 11.6; Monocytes # (A) 0.7 k/uL (0-1.0); Monocytes % (A) 4 %; Neutrophils # (A) 13.1 k/uL (1.3-7.7); Neutrophils % (A) 85 %; Platelet Count 107 k/uL (150-450); RDW 13.5 % (11.5-15.5); WBC 15.4 k/uL (3.8-10.6)
[2019-10-20 05:36] LABS: ALT 26 U/L (4-49); AST 29 U/L (17-59); African American GFR (CKD) >90 (>60 ml/min/1.73 sqM); Alkaline Phosphatase 103 U/L (38-126); Anion Gap 5 mmol/L; Blood Urea Nitrogen 39 mg/dL (9-20); Calcium 7.1 mg/dL (8.4-10.2); Carbon Dioxide 21 mmol/L (22-30); Chloride 111 mmol/L (98-107); Glucose 116 mg/dL (74-99); Magnesium 2.1 mg/dL (1.6-2.3); Non-African American GFR(CKD) 89 (>60 ml/min/1.73 sqM); Potassium 3.7 mmol/L (3.5-5.1); Sodium 137 mmol/L (137-145); Total Bilirubin 1.7 mg/dL (0.2-1.3); Total Protein 4.5 g/dL (6.3-8.2)
[2019-10-20] MEDS ORDERED: POTASSIUM CHLORIDE ER 20 MEQ TAB.ER PO SCH (06:00)
--- NOTE | 2019-10-20 08:08 | XR ---
EXAMINATION TYPE: XR chest 1V portable DATE OF EXAM: 10/20/2019 HISTORY: Shortness of breath. COMPARISON: October 19, 2019 TECHNIQUE: Single view of the chest is submitted. FINDINGS: Right IJ central venous line is unchanged in position. Dual-lead pacer device in place. Right basilar atelectasis and/or developing infiltrate with small bilateral pleural effusions. Improv ed aeration left lower lobe. The heart is stable. Hilar and mediastinal structures are within normal limits. Degenerative changes are seen of the dorsal spine. IMPRESSION: 1. Right basilar atelectasis and/or developing infiltrate with small bilateral pleural effusions. Im proved aeration left lower lobe.
[2019-10-20] MEDS: APIXABAN 5 MG TAB PO SCH ×2 (09:25→21:33)
[2019-10-20] MEDS: AMIODARONE 200 MG TAB PO SCH ×2 (09:25→21:33)
[2019-10-20] MEDS: TAMSULOSIN 0.4 MG CAP.ER.24H PO SCH ×2 (09:26→21:34)
[2019-10-20] MEDS: MULTIVITAMINS, THERA 1 EACH TAB PO SCH (09:26)
[2019-10-20] MEDS: SODIUM BICARBONATE TAB 650 MG TAB PO SCH ×2 (09:26→21:33)
[2019-10-20] MEDS: THIAMINE 100 MG TAB PO SCH ×2 (09:26→21:34)
[2019-10-20] MEDS: FUROSEMIDE 10 MG/ML 4 ML VIAL IV SCH (09:28)
[2019-10-20] MEDS: PANTOPRAZOLE 40 MG/10 ML VIAL IV SCH (09:31)
--- NOTE | 2019-10-20 10:52 | P.PN ---
Subjective Progress Note Date: 10/20/19 Principal diagnosis: Atrial fibrillation HISTORY OF PRESENTING ILLNESS This is a pleasant 69-year-old male past medical history significant for surgical aortic valve replacement in 2008,paroxysmal atrial fibrillation, nonischemic cardiac myopathy status post AICD implantation who presented secondary to chills and not feeling well on 10/15/2019. He was found to have E. coli bacteremia and he does admit to issues with prostate and urinary retention. He was initially 1 out of 2 positive for E. coli from 10/15 and then had repeat blood cultures on 10/17 which were positive for E. coli. He was placed on antibiotics and admits she has been feeling improved. 10/20/2019 Patient today states he is feeling well. He denies any chest pain or pressure. He admits his chills have been improving. He admits his breathing is good. His white count is 15.4, slightly elevated from yesterday at 13.9. DIAGNOSTICS Current cardiac medications include amiodarone 400 mg twice a day, Elocon as 5 mg twice a day, Lasix 40 mg IV daily, Lopressor 50 mg 3 times a day. REVIEW OF SYSTEMS At the time of my exam: CONSTITUTIONAL: Denies fever or chills. CARDIOVASCULAR: Denies chest pain, shortness of breath, orthopnea, PND or palpitations. RESPIRATORY: Denies cough. GASTROINTESTINAL: Denies abdominal pain, diarrhea, constipation, nausea or vomiting. MUSCULOSKELETAL: Denies myalgias. NEUROLOGIC: Denies numbness, tingling or weakness. ENDOCRINE: Denies fatigue, weight change, polydipsia or polyurina. GENITOURINARY: Denies burning, hematuria or urgency with micturation. HEMATOLOGIC: Denies history of anemia or bleeding. PHYSICAL EXAMINATION Blood pressure 116/62 heart rate 92 afebrile and maintaining oxygen saturation on room air. CONSTITUTIONAL: No apparent distress. HEENT: Head is normocephalic. Pupils are equal, round. Sclerae anicteric. Mucous membranes of the mouth are moist. No JVD. No carotid bruit. CHEST EXAMINATION: Lungs are clear to auscultation. No chest wall tenderness is noted on palpation or with deep breathing. HEART EXAMINATION: Regular rate and rhythm. S1, S2 heard. No murmurs, gallops or rub. ABDOMEN: Soft, nontender. Positive bowel sounds. EXTREMITIES: 2+ peripheral pulses, no lower extremity edema and no calf tenderness. NEUROLOGIC EXAMINATION: Patient is awake, alert and oriented x3. ASSESSMENT 1. Urosepsis with bacteremia with E. coli 2. Respiratory failure which is improved 3. Status post aortic valve replacement 4. Severe nonischemic cardiomyopathy 5. Status post AICD implantation 6. Persistent atrial fibrillation with controlled ventricular response 7. Hypertension 8. Hyperlipidemia PLAN Patient's blood pressures improved and his been able to tolerate the Toprol. Ideally she would be on an MARGARET inhibitor however we will monitor his blood pressure. It appears he is recovering from his infection. His repeat blood culture did have 1 of 2 positive for E. coli however no stigmata of endocarditis. If patient has persistent bacteremia may need BLAZE. Objective - Vital Signs Vital signs: Vital Signs Temp 97.8 F 10/20/19 08:00 Pulse 112 H 10/20/19 10:00 Resp 24 10/20/19 10:00 BP 96/59 10/20/19 10:00 Pulse Ox 97 10/20/19 10:00 Intake & Output 10/19/19 10/20/19 10/20/19 18:59 06:59 18:59 Intake Total 116 756 392 Output Total 1218 905 560 Balance -1102 -149 -168 Weight 115.1 kg Intake: IV 116 256 142 KVO 220 80 Sodium Chloride 0.9% 1, 30 000 ml @ 75 mls/hr IV . [id number] NOAH Rx#:[id number] cefTRIAXone 2 gm In 50 50 Sodium Chloride 0.9% 50 ml @ 100 mls/hr IVPB Q24HR NOAH Rx#:[id number] pressure bag 36 36 12 Oral 500 250 Output: Urine 1215 905 560 Stool 3 Other: Voiding Method Indwelling Catheter Indwelling Catheter # Bowel Movements 3 ABP, PAP, CO, CI - Last Documented Arterial Blood Pressure 92/45 - Labs CBC & Chem 7: 10/20/19 05:08 10/20/19 05:08 Labs: Abnormal Lab Results - Last 24 Hours (Table) 10/19/19 10/20/19 10/20/19 Range/Units 19:25 05:08 05:08 WBC 15.4 H (3.8-10.6) k/uL RBC 3.50 L (4.30-5.90) m/uL Hgb 11.2 L (13.0-17.5) gm/dL Hct 34.0 L (39.0-53.0) % Plt Count 107 L (150-450) k/uL Neutrophils # 13.1 H (1.3-7.7) k/uL Chloride 111 H (98-107) mmol/L Carbon Dioxide 21 L (22-30) mmol/L BUN 39 H (9-20) mg/dL Glucose 116 H (74-99) mg/dL POC Glucose (mg/dL) 117 H (75-99) mg/dL Calcium 7.1 L (8.4-10.2) mg/dL Total Bilirubin 1.7 H (0.2-1.3) mg/dL Total Protein 4.5 L (6.3-8.2) g/dL Albumin 2.0 L (3.5-5.0) g/dL Microbiology - Last 24 Hours (Table) 10/18/19 05:14 Blood Culture Gram Stain - Final Blood Blood Culture - Final Escherichia coli 10/18/19 00:28 Gram Stain - Preliminary Sputum Sputum Culture - Preliminary Gram Neg Bacilli
--- NOTE | 2019-10-20 11:51 | P.PN ---
Subjective Progress Note Date: 10/20/19 Principal diagnosis: Septic shock and acute hypoxic respiratory failure This is a 69-year-old white male, presented initially to [facility] on 10/15/19, and his chief complaint was mostly weakness. Apparently the patient was going to bed early the night before, and he fell out of bed. Slipped out onto the floor. He had no significant injury. Brought into the ER on 10/14, and he was noted to have intermittent ventricular tachycardia. Labs were significant for low platelets, relatively normal electrolytes, abnormal BUN of 45 creatinine 1.87, lactic acid of 2.5. Chest x-ray showed mostly chronic changes, no acute process was noted and there was no evidence of pneumonia or evidence of congestive heart failure. Patient was admitted, and multiple consul tants where consulted including cardiology and nephrology and oncology. Admitting diagnoses was possible ventricular tachycardia, nonsustained, and atrial fibrillation. Patient was placed on amiodarone drip, and he was also noted to have evidence of urinary tract infection without symptoms. Eventually his blood cultures came back positive for gram-negative bacilli. At any rate less than night to the patient was transferred to the ICU mostly because of his worsening shortness of breath, and he was noted to have atrial fibrillation with RVR. I was notified about this patient early in the morning after transfer to the ICU, and I recommended immediate intubation since the patient was extremely short of breath based on the nurse taking care of him. I saw him this morning, patient is now on mechanical ventilation. His assist-control rate is 16 tidal volume is 550 FiO2 is 50% and PEEP of 5. ABG showed a pO2 of 290 pCO2 of 44 pH of 7.27. Patient is on 0.9 normal saline at 25 mL per hour, amiodarone at 0.5 mg per hour, and on propofol at 10 mcg/kg/m. His echocardiogram showed LV dys function with ejection fraction of 50-55%. Considering the patient was critically ill, I have arranged for placement of a arterial line and right IJ central line was placed on this patient. In the meantime The patient on Rocephin and vancomycin for his positive blood cultures showing E. coli. Patient was reevaluated today on 10/18/19, remains in the ICU intubated and mechanically ventilated. Patient is on assist control rate of 16 tidal volume is 550 FiO2 is 45% and I cut it down to 35% PEEP is at 5. Remains on propofol at 35 mcg/kg/m, amiodarone at 0.5 mg per hour he is also on norepinephrine at 6 mcg/m. Patient is being treated for gram-negative sepsis and bacteremia. Blood cultures are positive for E. coli, urine cultures are positive for Citrobacter. Patient is on Rocephin, he is also on vancomycin which I plan to discontinue. Chest x-ray showed cardiomegaly with small bilateral pleural effusions, and by basilar atelectasis. Patient has been responding well to diuresis. Labs were reviewed his ABG showed a pO2 of 135 pCO2 of 31 pH of 7.43. WBC count is 16 hemoglobin is 12. Renal profile is improving with BUN 47 creatinine 0.98. Potassium is a bit low being corrected as per protocol. Reevaluated today on 10/19/19, patient was extubated successfully yesterday, he is now on room air. Remains in the ICU, denies any specific complaints, had a bit of confusion last night, but he is back to normal today, normal mental status is intact, he is alert and oriented 3. No focal neurologic deficit. Patient is in atrial fibrillation, rate controlled, he is on Lopressor. He was seen by infectious disease, and was concerned that the patient had 2 different types of infections, E. coli in the blood and Citrobacter in the urine, hence CT of the abdomen and pelvis was done. There was evidence of stranding in the bladder wall, there was also a left sided colonic diverticulosis. And generalized anasarca. There was also some left lower lobe atelectasis and pleural effusion. Clinically however the patient is doing great, and he denies any specific complaints today. Basic metabolic profile is normal renal profile is normal CBC showed WBC count of 13.9 hemoglobin of 12. On 10/20/2019 patient seen in follow-up in the intensive care unit, he is awake and alert, in no acute distress, he sitting up in the recliner, urine, with a pulse ox of 94-97%, hemodynamically patient is stable, remains in A. fib, slightly tachycardic, with a rate of 103-112 BPM, no complaints of chest discomfort complaint shortness of breath, patient is afebrile. Today's chest x- ray shows right basilar atelectasis with small bilateral pleural effusions, and improved aeration of the left lower lobe. He is on Rocephin for E. coli bacteremia related to E. coli urinary tract infection, and UTI related to Citrobacter, ID service is following. Patient is on oral anticoagulation in the form of Eliquis, metoprolol is 50 mg 3 times daily, and he is on the daily dose of IV Lasix at 40 mg. Is maintaining negative fluid balance 1.2 L over the last 24 hours. Objective - Vital Signs Vital signs: Vital Signs Temp 97.8 F 10/20/19 08:00 Pulse 112 H 10/20/19 11:00 Resp 25 H 10/20/19 11:00 BP 96/59 10/20/19 11:00 Pulse Ox 97 10/20/19 11:00 Intake & Output 10/19/19 10/20/19 10/20/19 18:59 06:59 18:59 Intake Total 116 756 412 Output Total 1218 905 720 Balance -1102 -149 -308 Weight 115.1 kg Intake: IV 116 256 162 KVO 220 100 Sodium Chloride 0.9% 1, 30 000 ml @ 75 mls/hr IV . [id number] NO[facility] Rx#:[id number] cefTRIAXone 2 gm In 50 50 Sodium Chloride 0.9% 50 ml @ 100 mls/hr IVPB Q24HR NO[facility] Rx#:[id number] pressure bag 36 36 12 Oral 500 250 Output: Urine 1215 905 720 Stool 3 Other: Voiding Method Indwelling Catheter Indwelling Catheter # Bowel Movements 3 ABP, PAP, CO, CI - Last Documented Arterial Blood Pressure 92/45 - Exam GENERAL EXAM: Alert, very pleasant, 69-year-old white male, on room air, with a pulse ox of 97% comfortable in no apparent distress. HEAD: Normocephalic/atraumatic. EYES: Normal reaction of pupils, equal size. Conjunctiva pink, sclera white. NOSE: Clear with pink turbinates. THROAT: No erythema or exudates. NECK: No masses, no JVD, no thyroid enlargement, no adenopathy. CHEST: No chest wall deformity. Symmetrical expansion. LUNGS: Equal air entry with no crackles, wheeze, rhonchi or dullness. CVS: Irregular rate and rhythm, normal S1 and S2, no gallops, no murmurs, no rubs ABDOMEN: Soft, nontender. No hepatosplenomegaly, normal bowel sounds, no guarding or rigidity. EXTREMITIES: No clubbing, no edema, no cyanosis, 2+ pulses and upper and lower extremities. MUSCULOSKELETAL: Muscle strength and tone normal. SPINE: No scoliosis or deformity SKIN: No rashes CENTRAL NERVOUS SYSTEM: Alert and oriented -3. No focal deficits, tone is normal in all 4 extremities. PSYCHIATRIC: Alert and oriented -3. Appropriate affect. Intact judgment and insight. - Labs CBC & Chem 7: 10/20/19 05:08 10/20/19 05:08 Labs: Abnormal Lab Results - Last 24 Hours (Table) 10/19/19 10/20/19 10/20/19 Range/Units 19:25 05:08 05:08 WBC 15.4 H (3.8-10.6) k/uL RBC 3.50 L (4.30-5.90) m/uL Hgb 11.2 L (13.0-17.5) gm/dL Hct 34.0 L (39.0-53.0) % Plt Count 107 L (150-450) k/uL Neutrophils # 13.1 H (1.3-7.7) k/uL Chloride 111 H (98-107) mmol/L Carbon Dioxide 21 L (22-30) mmol/L BUN 39 H (9-20) mg/dL Glucose 116 H (74-99) mg/dL POC Glucose (mg/dL) 117 H (75-99) mg/dL Calcium 7.1 L (8.4-10.2) mg/dL Total Bilirubin 1.7 H (0.2-1.3) mg/dL Total Protein 4.5 L (6.3-8.2) g/dL Albumin 2.0 L (3.5-5.0) g/dL Microbiology - Last 24 Hours (Table) 10/18/19 05:14 Blood Culture Gram Stain - Final Blood Blood Culture - Final Escherichia coli 10/18/19 00:28 Gram Stain - Preliminary Sputum Sputum Culture - Preliminary Gram Neg Bacilli Assessment and Plan Plan: Assessment: #1. Acute hypoxic rest and treat failure requiring intubation and mechanical ventilation secondary to sepsis and suspected septic shock, extubated on 10/18/2019 #2. Acute E. coli bacteremia with sepsis and septic shock related to E. coli urinary tract infection #3. Citrobacter urinary tract infection #4. Recurrent episodes of nonsustained ventricular tachycardia with ventricular paced rhythm and atrial fibrillation #5. Acute kidney injury secondary to hypotension and sepsis, improving #6. Possible non-ST elevated myocardial infarction #6. Thrombocytopenia possibly secondary to sepsis or possibly a component of ITP #7. History of nonischemic cardiomyopathy and LV dysfunction with previous AICD placement #8. History of prosthetic aortic valve replacement #9. Paroxysmal atrial fibrillation #10. Hypertension #11. Hyperlipidemia Plan: Discontinue the arterial line, hemodynamically patient is stable, remains in atrial fibrillation, slightly tachycardic rate, he is on oral anticoagulation, cardiology is following, adjusting patient's rate control medications, no signs of confusion today, doing well, denies any worsening shortness of breath, no fever or chills, he is on appropriate antibiotics for gram-negative bacteremia and urinary tract infection. ID service is following, continue GI and DVT prophylaxis, doing well, from pulmonary/critical care perspective patient is stable transfer out of intensive care unit I performed a history & physical examination of the patient and discussed their management with my nurse practitioner, Celina Miranda. I reviewed the nurse practitioner's note and agree with the documented findings and plan of care. Lung sounds are positive for diminished breath sounds. The findings and the impression was discussed with the patient. I attest to the documentation by the nurse practitioner. Time with Patient: Less than 30
[2019-10-20] MEDS: METOPROLOL TARTRATE 50 MG TAB PO SCH ×3 (12:19→21:33)
[2019-10-20] MEDS: CHOLESTYRAMINE (WITH SUGAR) 4 GM PACKET PO SCH (12:38)
--- NOTE | 2019-10-20 14:13 | P.PN ---
Subjective Progress Note Date: 10/20/19 HISTORY OF PRESENT ILLNESS This is a 69-year-old male patient of Dr. Hendrickson and Dr. Otero with past medical history of nonischemic cardiomyopathy and nonsustained karina tricular tachycardia status post biventricular AICD, prosthetic aortic valve, paroxysmal atrial fibrillation, hypertension, hyperlipidemia, glaucoma and macular degeneration, remote history of tobacco use. Patient states that he was going to bed early last night and falling out of bed. He states he slipped out onto the floor. He denies any injury and denies any loss of consciousness. He denies any episodes like this in the past. He denies having any chest pain, lightheadedness. He does complain of shortness of breath and mild lower extremity edema. Patient came into [facility] emergency center for evaluation. He was afebrile, initial heart rate 156. EKG ventricular paced rhythm at heart rate of 119 with wide complex beats possible ventricular tachycardia. Blood pressure 101/67, pulse ox 90% on room air. Initial blood work revealed the previously 7.8, hemoglobin 13.1, platelet count 38 with previous normal level. Sodium 133, potassium 3.7, chloride 105, CO2 16, BUN 45 creatinine 1.87. Blood sugar 127. Liver function tests normal. Phosphorus 1.4, magnesium 1.4. Lactic acid initially 2.5 and repeat of 1.6. Triglycerides 192, cholesterol 96, LDL 43, HDL 15. Chest x-ray revealed chronic changes and cardiomegaly without acute pulmonary process. Patient admitted to the cardiac stepdown unit and consult requested with cardiology, nephrology and oncology. Echocardiogram and TSH pending. 10/16: A-Team was called early this morning as patient had a drop in his pulse ox and was placed on 15 L nonrebreather, heart rate increased and patient was in A. fib with RVR. Patient was transferred into the intensive care unit, intubated and placed on mechanical ventilation. Tidal volume 550, FiO2 50, PEEP of 5. Blood pressure is currently 80/59 and patient is currently on norepinephrine. Amiodarone drip has been discontinued. We have ordered one dose of vancomycin and consult added for Dr. Fletcher for E. coli bacteremia. Urine culture is still pending but gram-negative bacilli. Echocardiogram reveals EF of 25-30%, mild stenosis of the bioprosthetic aortic valve, mild mitral regurgitation, mild tricuspid regurgitation, mild pulmonary hypertension. Renal ultrasound revealed no hydronephrosis. The patient's is at bedside and updated regarding condition. Condition is currently guarded. 10/17: Patient remains intubated and on mechanical ventilation with tidal volume 550, FiO2 40, PEEP of 5. Patient is currently on norepinephrine and propofol. He received 1 unit of platelets yesterday and repeat platelet count today is at 55, hemoglobin 12 and WBC 16. Sodium 137, potassium 3.2 and replaced, chloride 111, CO2 20, BUN 47 creatinine 0.98. Blood sugar 156. Urine culture finalized with Citrobacter farmeri and blood culture is E. coli. Sputum culture is in progress. Patient has been seen by Dr. Fletcher and ceftriaxone increased to 2 g daily. OG tube was unable to be passed yesterday and GI consult in place to ass ist with this. He has had good urine output at 75 mL per hour. He has had no fevers overnight. 10/18: Patient was successfully extubated yesterday. He is not requiring oxygen at this time. 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 He is currently on amiodarone drip but will be transitioned to oral today. Cunningham catheter showing dark bette urine. He is just starting on water for now. He has no difficulty swallowing. He did have episode of A. fib with RVR yesterday. Patient has had some hallucinations since he was extubated and seen rats and bats. We will add and clonazepam 3 times daily as needed. He is scheduled for CAT scan of the abdomen and pelvis this morning due to 2 separate organisms and blood in urine. He had Cunningham catheter for urinary retention and Flomax increased to twice daily. Patient has been afebrile, heart rate 85, blood pressure 98/60, pulse ox 100%. Respiratory rate 32. WBC 13.9, hemoglobin 12.0, platelet count 79. Sodium 135, potassium 3.7, chloride 110, CO2 20, BUN 41 creatinine 0.87. Blood sugar 131. Urine culture is Citrobacter and blood culture E. coli. Repeat blood cultures are in progress. Sputum cultures in progress. 10/19: Patient remains in the intensive care unit. Patient states he is feeling well. He states he is eating better today. No more hallucinations. He has been afebrile, heart rate 112, blood pressure 96/59, pulse ox 97% on room air. Repeat blood work revealed WBC 15.4, hemoglobin 11.2. Sodium 137, potassium 3.7, chloride 111, CO2 21, BUN 39 and creatinine 0.83. Blood sugars running between 89 and 117. Total bilirubin 1.7, liver function tests normal. C. difficile toxin negative. Repeat blood culture obtained on October 17 is positive for E. coli. Sputum culture Stenotrophomonas maltophilia. CAT scan of the abdomen and pelvis revealed moderate circumferential bladder wall thickening and surrounding fat stranding. Findings suggest cystitis. Cunningham catheter in place. Mild chronic diverticulosis without diverticulitis. Trace effusions left greater than right, correlate for underlying pneumonia. Mild splenomegaly at 14.4 cm. Generalized anasarca. Repeat chest x-ray reveals right basilar atelectasis and/or developing infiltrate with small bilateral pleural effusions. Improved aeration of the left lower lobe. Patient is followed by pulmonary medicine, cardiology and infectious disease. REVIEW OF SYSTEMS Constitutional: No fever, no chills, no night sweats. No weight change. Reports weakness, fatigue or lethargy. No daytime sleepiness. EENT: No headache. No blurred vision or double vision, no loss of vision. Lungs: No shortness of breath, cough, no sputum production. No wheezing. Cardiovascular: No chest pain, no lower extremity edema. No palpitations. No paroxysmal nocturnal dyspnea. No orthopnea. No lightheadedness or dizziness. No syncopal episodes. Abdominal: No abdominal pain. No nausea, vomiting. No diarrhea. No constipation. No bloody or tarry stools. No loss of appetite. Genitourinary: No dysuria, increased frequency, urgency. Reports urinary retention. Musculoskeletal: No myalgias. No muscle weakness, no gait dysfunction, no frequ ent falls. No back pain. No neck pain. Integumentary: No wounds, no lesions. No rash or pruritus. No unusual bruising. No change in hair or nails. Neurologic: No aphasia. No facial droop. No change in mentation. No head injury. No headache. No paralysis. No paresthesia. Psychiatric: No depression. No anxiety. No mood swings. Endocrine: No abnormal blood sugars. No weight change. PHYSICAL EXAMINATION Gen: This is 69-year-old male patient resting in bed and in no acute distress. Patient is seen in the ICU, resting in bed and appears to be comfortable. HEENT: Head is atraumatic, normocephalic. Pupils equal, round. Sclerae is anicteric. NECK: Supple. No JVD. No lymphadenopathy. No thyromegaly. LUNGS: Clear to auscultation. No wheezes or rhonchi. No intercostal retractions. HEART: Irregularly irregular rate and rhythm. Systolic murmur. ABDOMEN: Soft. Bowel sounds are present. No masses. No tenderness. Cunningham catheter in place. EXTREMITIES: 1+ bilateral pedal edema. No calf tenderness. Dorsalis pedis palpable bilaterally. NEUROLOGICAL: Awake and alert and oriented 3. No focal neural deficits. ASSESSMENT AND PLAN 1. Episodes of nonsustained ventricular tachycardia with ventricular paced rhythm and atrial fibrillation. Cardiology consult appreciated. Amiodarone 400 mg twice daily. 2. Acute kidney injury secondary to ATN, hypotension and atrial fibrillation. Nephrology consult appreciated. Patient has Cunningham catheter. Sodium bicarb oral added and renal ultrasound as above 3. Acute Citrobacter urinary tract infection. Continue Rocephin 2 g daily[address] Consult with Dr. Fletcher. 4. Acute E. coli bacteremia. Abdominal and pelvic CAT scan as above. Continue Rocephin. 5. Septic shock requiring vasopressor. Off vasopressors. 6. Acute hypoxic respiratory failure secondary to sepsis status post intubation and mechanical ventilation, successfully extubated. Consult with Dr. Jara appreciated. 7. Thrombocytopenia secondary to sepsis, improving. Oncology consult appreciated. 8. Elevated troponin, rule out acute coronary syndrome. Cardiology consult appreciated. Echocardiogram as above. 9. Nonischemic cardiomyopathy and nonsustained ventricular tachycardia status post biventricular AICD. Cardiology consult. 10. Prosthetic aortic valve. 11. Paroxysmal atrial fibrillation with episode of RVR. Continue eliquis 5 mg twice daily, Lopressor 50 mg 3 times daily. Amiodarone 400 mg twice daily. 12. Hypertension. 13. Hyperlipidemia. Patient is not currently on statin. 14. Benign prostatic hypertrophy. Continue Flomax or 0.4 mg daily. Cunningham catheter in place. 15. Macular degeneration and glaucoma, stable. 16. GI prophylaxis. Protonix. 17. DVT prophylaxis. Eliquis. 18. Acute delirium with hallucinations, resolved. Discharge plan: Most likely home with homecare. Impression and plan of care have been directed as dictated by the signing physician. Stephenie Chow nurse practitioner acting as scribe for signing physician Objective - Vital Signs Vital signs: Vital Signs Temp 98.0 F 10/20/19 04:00 Pulse 92 10/20/19 07:00 Resp 16 10/20/19 07:00 BP 99/67 10/19/19 20:00 Pulse Ox 96 10/20/19 07:00 Intake & Output 10/19/19 10/20/19 10/20/19 18:59 06:59 18:59 Intake Total 116 756 23 Output Total 1218 905 100 Balance -1102 -149 -77 Weight 115.1 kg Intake: IV 116 256 23 KVO 220 20 Sodium Chloride 0.9% 1, 30 000 ml @ 75 mls/hr IV . [id number] [facility] Rx#:[id number] cefTRIAXone 2 gm In 50 Sodium Chloride 0.9% 50 ml @ 100 mls/hr IVPB Q24HR [facility] Rx#:[id number] pressure bag 36 36 3 Oral 500 Output: Urine 1215 905 100 Stool 3 Other: Voiding Method Indwelling Catheter Indwelling Catheter # Bowel Movements 3 ABP, PAP, CO, CI - Last Documented Arterial Blood Pressure 116/62 - Labs CBC & Chem 7: 10/20/19 05:08 10/20/19 05:08 Labs: Abnormal Lab Results - Last 24 Hours (Table) 10/19/19 10/20/19 10/20/19 Range/Units 19:25 05:08 05:08 WBC 15.4 H (3.8-10.6) k/uL RBC 3.50 L (4.30-5.90) m/uL Hgb 11.2 L (13.0-17.5) gm/dL Hct 34.0 L (39.0-53.0) % Plt Count 107 L (150-450) k/uL Neutrophils # 13.1 H (1.3-7.7) k/uL Chloride 111 H (98-107) mmol/L Carbon Dioxide 21 L (22-30) mmol/L BUN 39 H (9-20) mg/dL Glucose 116 H (74-99) mg/dL POC Glucose (mg/dL) 117 H (75-99) mg/dL Calcium 7.1 L (8.4-10.2) mg/dL Total Bilirubin 1.7 H (0.2-1.3) mg/dL Total Protein 4.5 L (6.3-8.2) g/dL Albumin 2.0 L (3.5-5.0) g/dL Microbiology - Last 24 Hours (Table) 10/18/19 05:14 Blood Culture Gram Stain - Preliminary Blood Blood Culture - Preliminary Gram Neg Bacilli 10/18/19 00:28 Gram Stain - Preliminary Sputum Sputum Culture - Preliminary Gram Neg Bacilli
[2019-10-20] MEDS ORDERED: BENZOCAINE/MENTHOL LOZENG 1 EACH LOZENGE MUCOUS MEM PRN (15:08)
--- NOTE | 2019-10-20 19:58 | P.PN ---
Subjective Progress Note Date: 10/20/19 Principal diagnosis: Sepsis Platelets are continuing to improve with treatment and improvement of underlying infection. Patient seen and evaluated, sitting in recliner, NAD. Reviewed todays chest xrayappears improved on left lower lung. He continues on Eliquis. No s/s bleeding Objective - Vital Signs Vital signs: Vital Signs Temp 97.8 F 10/20/19 08:00 Pulse 110 H 10/20/19 08:00 Resp 22 10/20/19 09:00 BP 110/71 10/20/19 09:00 Pulse Ox 94 L 10/20/19 09:00 Intake & Output 10/19/19 10/20/19 10/20/19 18:59 06:59 18:59 Intake Total 116 756 69 Output Total 1218 905 210 Balance -1102 -149 -141 Weight 115.1 kg Intake: IV 116 256 69 KVO 220 60 Sodium Chloride 0.9% 1, 30 000 ml @ 75 mls/hr IV . [id number] [facility] Rx#:[id number] cefTRIAXone 2 gm In 50 Sodium Chloride 0.9% 50 ml @ 100 mls/hr IVPB Q24HR [facility] Rx#:[id number] pressure bag 36 36 9 Oral 500 Output: Urine 1215 905 210 Stool 3 Other: Voiding Method Indwelling Catheter Indwelling Catheter # Bowel Movements 3 ABP, PAP, CO, CI - Last Documented Arterial Blood Pressure 98/55 - Exam - Constitutional General appearance: Present: no distress - EENT Eyes: Present: EOMI ENT: Present: hearing grossly normal, normal oropharynx - Respiratory Respiratory: bilateral: diminished - Cardiovascular Rhythm: regular Heart sounds: normal: S1, S2 - Gastrointestinal General gastrointestinal: Present: normal bowel sounds, soft - Integumentary Integumentary: Present: normal - Neurologic Neurologic: Present: CNII-XII intact - Musculoskeletal Musculoskeletal: Present: generalized weakness, strength equal bilaterally - Psychiatric Psychiatric: Present: A&O x's 3, appropriate affect - Labs CBC & Chem 7: 10/20/19 05:08 10/20/19 05:08 Labs: Abnormal Lab Results - Last 24 Hours (Table) 10/19/19 10/20/19 10/20/19 Range/Units 19:25 05:08 05:08 WBC 15.4 H (3.8-10.6) k/uL RBC 3.50 L (4.30-5.90) m/uL Hgb 11.2 L (13.0-17.5) gm/dL Hct 34.0 L (39.0-53.0) % Plt Count 107 L (150-450) k/uL Neutrophils # 13.1 H (1.3-7.7) k/uL Chloride 111 H (98-107) mmol/L Carbon Dioxide 21 L (22-30) mmol/L BUN 39 H (9-20) mg/dL Glucose 116 H (74-99) mg/dL POC Glucose (mg/dL) 117 H (75-99) mg/dL Calcium 7.1 L (8.4-10.2) mg/dL Total Bilirubin 1.7 H (0.2-1.3) mg/dL Total Protein 4.5 L (6.3-8.2) g/dL Albumin 2.0 L (3.5-5.0) g/dL Microbiology - Last 24 Hours (Table) 10/18/19 05:14 Blood Culture Gram Stain - Final Blood Blood Culture - Final Escherichia coli 10/18/19 00:28 Gram Stain - Preliminary Sputum Sputum Culture - Preliminary Gram Neg Bacilli Assessment and Plan Plan: Assessment and Recommendations: Thrombocytopenia - Recovering - Improving with treatment and improvement of underlying problem, therefore felt to be likely from consumption due to underlying bacteremia. - No evidence to represent overt DIC in labs. - There is potential underlying marrow damage from prior alcohol abuse, although no history of documented cytopenias in past. - Since platelet count has been greater than 50K, ok to continue on anticoagulation. - Should continue to see improvement as he is recovering. Acute Hypoxic respiratory failure: Improved - On room air - Secondary to bacteremia and UTI Gram Negative Bacteremia: - Infectious disease and primary care management - Improvement Overall patient continues to improve as underlying infectious process improves. Will continue to follow and monitor CBC
[2019-10-20 20:23] LABS: Hepatitis B Surface AB- Quant 3.5 mIU/mL; Hepatitis B Surface Antibody Non-Reactive (Non-Reactive); Hepatitis B Surface Antigen Non-Reactive (Non-Reactive)
[2019-10-20] MEDS: clonazePAM 0.5 MG TAB PO PRN (21:32)
[2019-10-20] MEDS ORDERED: ACETAMINOPHEN TAB 325 MG TAB PO PRN (21:42)
[2019-10-20] MEDS: LEVOFLOXACIN 750MG-D5W PMX 750 MG in DEXTROSE/WATER 1 150ML.BAG IVPB SCH (23:08)
--- NOTE | 2019-10-20 23:20 | PN ---
PROGRESS NOTE DATE OF SERVICE: 10/20/2019 REASON FOR FOLLOWUP: E coli bacteremia and stenotrophomonas pneumonia. INTERVAL HISTORY: The patient is currently afebrile. The patient has been breathing comfortably. Denies having any chest pain or shortness of breath. Occasional cough. No nausea, vomiting. No abdominal pain. No diarrhea. PHYSICAL EXAMINATION: Blood pressure 107/67 with a pulse of 110, temperature of 98. He is 99% on room air. General description is an elderly male up in the chair in no distress. RESPIRATORY SYSTEM: Unlabored breathing with decreased breath sounds at the base. No wheeze. HEART: S1, S2. Regular rate and rhythm. ABDOMEN: Soft. No tenderness. LABS: Blood culture showing persistent E coli bacteremia. Sputum is stenotrophomonas. DIAGNOSTIC IMPRESSION AND PLAN: Patient with Escherichia coli bacteremia, for which the patient is currently covered with Rocephin, though blood cultures are showing persistently positive with a new fever. Blood cultures will be repeated. To cover for the stenotrophomonas we will add Levaquin and we will monitor clinical course closely. Continue with supportive care. MMODL / IJN: [id number] /
[2019-10-21 04:48] LABS: Basophils # (A) 0.1 k/uL (0-0.2); Basophils % (A) 1 %; Eosinophils # (A) 0.1 k/uL (0-0.7); Eosinophils % (A) 1 %; HCT 36.8 % (39.0-53.0); HGB 11.8 gm/dL (13.0-17.5); Lymphocytes # (A) 0.8 k/uL (1.0-4.8); Lymphocytes % (A) 6 %; MCH 31.7 pg (25.0-35.0); MCHC 32.1 g/dL (31.0-37.0); MCV 98.7 fL (80.0-100.0); Mean Platelet Volume 9.8; Monocytes # (A) 0.4 k/uL (0-1.0); Monocytes % (A) 3 %; Neutrophils # (A) 10.7 k/uL (1.3-7.7); Neutrophils % (A) 87 %; Platelet Count 148 k/uL (150-450); RBC 3.72 m/uL (4.30-5.90); RDW 13.7 % (11.5-15.5); WBC 12.4 k/uL (3.8-10.6)
[2019-10-21 04:52] LABS: African American GFR (CKD) >90 (>60 ml/min/1.73 sqM); Anion Gap 5 mmol/L; Blood Urea Nitrogen 38 mg/dL (9-20); Calcium 7.3 mg/dL (8.4-10.2); Carbon Dioxide 21 mmol/L (22-30); Chloride 110 mmol/L (98-107); Glucose 114 mg/dL (74-99); Non-African American GFR(CKD) 79 (>60 ml/min/1.73 sqM); Potassium 4.1 mmol/L (3.5-5.1); Sodium 136 mmol/L (137-145)
--- NOTE | 2019-10-21 07:47 | P.PN ---
Subjective Progress Note Date: 10/21/19 Principal diagnosis: Septic shock and acute hypoxic respiratory failure This is a 69-year-old white male, presented initially to [facility] on 10/15/19, and his chief complaint was mostly weakness. Apparently the patient was going to bed early the night before, and he fell out of bed. Slipped out onto the floor. He had no significant injury. Brought into the ER on 10/14, and he was noted to have intermittent ventricular tachycardia. Labs were significant for low platelets, relatively normal electrolytes, abnormal BUN of 45 creatinine 1.87, lactic acid of 2.5. Chest x-ray showed mostly chronic changes, no acute process was noted and there was no evidence of pneumonia or evidence of congestive heart failure. Patient was admitted, and multiple consul tants where consulted including cardiology and nephrology and oncology. Admitting diagnoses was possible ventricular tachycardia, nonsustained, and atrial fibrillation. Patient was placed on amiodarone drip, and he was also noted to have evidence of urinary tract infection without symptoms. Eventually his blood cultures came back positive for gram-negative bacilli. At any rate less than night to the patient was transferred to the ICU mostly because of his worsening shortness of breath, and he was noted to have atrial fibrillation with RVR. I was notified about this patient early in the morning after transfer to the ICU, and I recommended immediate intubation since the patient was extremely short of breath based on the nurse taking care of him. I saw him this morning, patient is now on mechanical ventilation. His assist-control rate is 16 tidal volume is 550 FiO2 is 50% and PEEP of 5. ABG showed a pO2 of 290 pCO2 of 44 pH of 7.27. Patient is on 0.9 normal saline at 25 mL per hour, amiodarone at 0.5 mg per hour, and on propofol at 10 mcg/kg/m. His echocardiogram showed LV dys function with ejection fraction of 50-55%. Considering the patient was critically ill, I have arranged for placement of a arterial line and right IJ central line was placed on this patient. In the meantime The patient on Rocephin and vancomycin for his positive blood cultures showing E. coli. Patient was reevaluated today on 10/18/19, remains in the ICU intubated and mechanically ventilated. Patient is on assist control rate of 16 tidal volume is 550 FiO2 is 45% and I cut it down to 35% PEEP is at 5. Remains on propofol at 35 mcg/kg/m, amiodarone at 0.5 mg per hour he is also on norepinephrine at 6 mcg/m. Patient is being treated for gram-negative sepsis and bacteremia. Blood cultures are positive for E. coli, urine cultures are positive for Citrobacter. Patient is on Rocephin, he is also on vancomycin which I plan to discontinue. Chest x-ray showed cardiomegaly with small bilateral pleural effusions, and by basilar atelectasis. Patient has been responding well to diuresis. Labs were reviewed his ABG showed a pO2 of 135 pCO2 of 31 pH of 7.43. WBC count is 16 hemoglobin is 12. Renal profile is improving with BUN 47 creatinine 0.98. Potassium is a bit low being corrected as per protocol. Reevaluated today on 10/19/19, patient was extubated successfully yesterday, he is now on room air. Remains in the ICU, denies any specific complaints, had a bit of confusion last night, but he is back to normal today, normal mental status is intact, he is alert and oriented 3. No focal neurologic deficit. Patient is in atrial fibrillation, rate controlled, he is on Lopressor. He was seen by infectious disease, and was concerned that the patient had 2 different types of infections, E. coli in the blood and Citrobacter in the urine, hence CT of the abdomen and pelvis was done. There was evidence of stranding in the bladder wall, there was also a left sided colonic diverticulosis. And generalized anasarca. There was also some left lower lobe atelectasis and pleural effusion. Clinically however the patient is doing great, and he denies any specific complaints today. Basic metabolic profile is normal renal profile is normal CBC showed WBC count of 13.9 hemoglobin of 12. On 10/20/2019 patient seen in follow-up in the intensive care unit, he is awake and alert, in no acute distress, he sitting up in the recliner, urine, with a pulse ox of 94-97%, hemodynamically patient is stable, remains in A. fib, slightly tachycardic, with a rate of 103-112 BPM, no complaints of chest discomfort complaint shortness of breath, patient is afebrile. Today's chest x- ray shows right basilar atelectasis with small bilateral pleural effusions, and improved aeration of the left lower lobe. He is on Rocephin for E. coli bacteremia related to E. coli urinary tract infection, and UTI related to Citrobacter, ID service is following. Patient is on oral anticoagulation in the form of Eliquis, metoprolol is 50 mg 3 times daily, and he is on the daily dose of IV Lasix at 40 mg. Is maintaining negative fluid balance 1.2 L over the last 24 hours. On 10/21/2019 patient seen in follow-up in intensive care unit. He is awake and alert, in no acute distress, denies any shortness of breath, he patient is on room air pulse ox is 100%, remains in A. fib, however the rate is much better controlled on today's exam, and current rate is 76 bpm, lung sounds are clear, diminished, no rhonchi or wheezing. Did have fever spikes last night, with a T- max of 102.5F. Today's chest x-ray shows small bilateral pleural effusions, somewhat improved aeration. he remains on antibiotics in the form of ceftriaxone, and Levaquin for E. coli bacteremia, related to E. coli and Citrobacter urinary tract infection, and sputum culture came back positive for Stenotrophomonas maltophilia with sensitivity to Levaquin. ID service is following. Denies any chest pain, today's labs have been reviewed, showing red blood cell count of 12.4, hemoglobin of 11.8, sodium is 136, potassium is 4.1, chloride is 110, CO2 is 21, B1 is 38, creatinine 0.97. No other acute events overnight, no nausea vomiting or diarrhea, no altered mentation, mild swelling involving lower extremities and hands, patient remains on once daily dose of Lasix, he is in -1.2 L fluid balance over the last 24 hours. No signs of delirium tremens. Objective - Vital Signs Vital signs: Vital Signs Temp 97.8 F 10/21/19 04:00 Pulse 80 10/21/19 04:00 Resp 16 10/21/19 04:00 BP 92/61 10/21/19 04:00 Pulse Ox 100 10/21/19 04:00 Intake & Output 10/20/19 10/21/19 10/21/19 18:59 06:59 18:59 Intake Total 532 1320 Output Total 1242 660 Balance -710 660 Weight 113.5 kg Intake: IV 282 240 KVO 220 240 cefTRIAXone 2 gm In 50 Sodium Chloride 0.9% 50 ml @ 100 mls/hr IVPB Q24HR [facility] Rx#:[id number] pressure bag 12 Oral 250 1080 Output: Urine 1240 660 Stool 2 Other: Voiding Method Indwelling Catheter Indwelling Catheter # Voids 0 ABP, PAP, CO, CI - Last Documented Arterial Blood Pressure 92/45 - Exam GENERAL EXAM: Alert, very pleasant, 69-year-old white male, on room air, with a pulse ox of 100% comfortable in no apparent distress. HEAD: Normocephalic/atraumatic. EYES: Normal reaction of pupils, equal size. Conjunctiva pink, sclera white. NOSE: Clear with pink turbinates. THROAT: No erythema or exudates. NECK: No masses, no JVD, no thyroid enlargement, no adenopathy. CHEST: No chest wall deformity. Symmetrical expansion. LUNGS: Equal air entry with no crackles, wheeze, rhonchi or dullness. CVS: Irregular rate and rhythm, normal S1 and S2, no gallops, no murmurs, no rubs ABDOMEN: Soft, nontender. No hepatosplenomegaly, normal bowel sounds, no guarding or rigidity. EXTREMITIES: No clubbing, no edema, no cyanosis, 2+ pulses and upper and lower extremities. MUSCULOSKELETAL: Muscle strength and tone normal. SPINE: No scoliosis or deformity SKIN: No rashes CENTRAL NERVOUS SYSTEM: Alert and oriented -3. No focal deficits, tone is normal in all 4 extremities. PSYCHIATRIC: Alert and oriented -3. Appropriate affect. Intact judgment and insight. - Labs CBC & Chem 7: 10/21/19 03:50 10/21/19 03:50 Labs: Abnormal Lab Results - Last 24 Hours (Table) 10/21/19 10/21/19 Range/Units 03:50 03:50 WBC 12.4 H (3.8-10.6) k/uL RBC 3.72 L (4.30-5.90) m/uL Hgb 11.8 L (13.0-17.5) gm/dL Hct 36.8 L (39.0-53.0) % Plt Count 148 L (150-450) k/uL Neutrophils # 10.7 H (1.3-7.7) k/uL Lymphocytes # 0.8 L (1.0-4.8) k/uL Sodium 136 L (137-145) mmol/L Chloride 110 H (98-107) mmol/L Carbon Dioxide 21 L (22-30) mmol/L BUN 38 H (9-20) mg/dL Glucose 114 H (74-99) mg/dL Calcium 7.3 L (8.4-10.2) mg/dL Microbiology - Last 24 Hours (Table) 10/18/19 05:14 Blood Culture Gram Stain - Final Blood Blood Culture - Final Escherichia coli 10/18/19 00:28 Gram Stain - Final Sputum Sputum Culture - Final Stenotrophomonas maltophilia Assessment and Plan Plan: Assessment: #1. Acute hypoxic rest and treat failure requiring intubation and mechanical ventilation secondary to sepsis and suspected septic shock, extubated on 10/18/2019, improved #2. Acute E. coli bacteremia with sepsis and septic shock related to E. coli urinary tract infection #3. Citrobacter urinary tract infection #4. Stenotrophomonas maltophilia pneumonia #5. Recurrent episodes of nonsustained ventricular tachycardia with ventricular paced rhythm and atrial fibrillation #6. Acute kidney injury secondary to hypotension and sepsis, improving #7. Possible non-ST elevated myocardial infarction #8. Thrombocytopenia possibly secondary to sepsis or possibly a component of ITP, improving #9. History of nonischemic cardiomyopathy and LV dysfunction with previous AICD placement #10. History of prosthetic aortic valve replacement #11. Paroxysmal atrial fibrillation #12. Hypertension #13. Hyperlipidemia Plan: Continue with antibiotics per ID service recommendations, sputum culture showed Stenotrophomonas maltophilia with sensitivity to Levaquin, which was added by t jeovanny ID service, hemodynamically patient remains stable, heart rate is better controlled, continue oral anticoagulation, continue once daily dose of Lasix, patient is maintaining negative fluid balance, increase activity as tolerated, patient is stable to transfer the intensive care unit to regular medical surgical floor without remote telemetry. We'll continue to follow. I performed a history & physical examination of the patient and discussed their management with my nurse practitioner, Celina Miranda. I reviewed the nurse practitioner's note and agree with the documented findings and plan of care. Lung sounds are positive for diminished breath sounds. The findings and the impression was discussed with the patient. I attest to the documentation by the nurse practitioner. Time with Patient: Less than 30
--- NOTE | 2019-10-21 08:37 | XR ---
EXAMINATION TYPE: XR chest 1V portable DATE OF EXAM: 10/21/2019 CLINICAL HISTORY: Tube placement TECHNIQUE: Portable upright view of the chest obtained COMPARISON: 10/20/2019 chest radiograph FINDINGS: Interval removal of right-sided internal jugular central venous catheter. Sternotomy wires , left side AICD, and valvular prosthesis redemonstrated. The cardiomediastinal silhouette is within normal limits for size. Pulmonary vasculature is normal. There is improved aeration of the right lung base. Persistent small left pleural effusion. No pneumothorax. IMPRESSION: 1. Improved aeration of the right lung base versus 10/20/2019. 2. Persistent small left pleural effusion.
[2019-10-21] MEDS: FUROSEMIDE 10 MG/ML 4 ML VIAL IV SCH (09:12)
[2019-10-21] MEDS: AMIODARONE 200 MG TAB PO SCH ×2 (09:12→20:32)
[2019-10-21] MEDS: APIXABAN 5 MG TAB PO SCH ×2 (09:12→20:32)
[2019-10-21] MEDS: METOPROLOL TARTRATE 50 MG TAB PO SCH ×3 (09:13→20:31)
[2019-10-21] MEDS: SODIUM BICARBONATE TAB 650 MG TAB PO SCH ×2 (09:13→20:31)
[2019-10-21] MEDS: MULTIVITAMINS, THERA 1 EACH TAB PO SCH (09:13)
[2019-10-21] MEDS: PANTOPRAZOLE 40 MG/10 ML VIAL IV SCH (09:13)
[2019-10-21] MEDS: TAMSULOSIN 0.4 MG CAP.ER.24H PO SCH ×2 (09:13→20:32)
[2019-10-21] MEDS: THIAMINE 100 MG TAB PO SCH ×2 (09:13→20:32)
[2019-10-21 11:33] VITALS: BMI 32.1
--- NOTE | 2019-10-21 12:05 | P.PN ---
Subjective Progress Note Date: 10/21/19 Principal diagnosis: Sepsis His blood counts continue to improve as well as oxygenation, although he did spike a fever last night which he has not had in a few days. T-max was 102.5. Re-velazquez cultures completed. I do not see COVID testing, although we do have validated sources of his infection with sputum (Stenotrophomonas maltophilia) and E. Coli bacteremia which is known related to E. coli and Citrobacter urinary tract infection. Infectious disease is following. No distinct new symptom complaints. Still with increased edema, improving. His total bilirubin has increased, so will recheck today along with iron studies. Objective - Vital Signs Vital signs: Vital Signs Temp 97.8 F 10/21/19 09:00 Pulse 78 10/21/19 09:00 Resp 20 10/21/19 09:00 BP 110/64 10/21/19 09:00 Pulse Ox 100 10/21/19 09:00 Intake & Output 10/20/19 10/21/19 10/21/19 18:59 06:59 18:59 Intake Total 532 1320 190 Output Total 1242 660 50 Balance -710 660 140 Weight 113.5 kg 113.5 kg Intake: IV 282 240 70 KVO 220 240 20 cefTRIAXone 2 gm In 50 50 Sodium Chloride 0.9% 50 ml @ 100 mls/hr IVPB Q24HR [facility] Rx#:[id number] pressure bag 12 Oral 250 1080 120 Output: Urine 1240 660 50 Stool 2 Other: Voiding Method Indwelling Catheter Indwelling Catheter Indwelling Catheter # Voids 0 ABP, PAP, CO, CI - Last Documented Arterial Blood Pressure 92/45 - Exam - Constitutional General appearance: Present: no distress - EENT Eyes: Present: EOMI ENT: Present: hearing grossly normal, normal oropharynx - Respiratory Respiratory: bilateral: diminished - Cardiovascular Rhythm: regular Heart sounds: normal: S1, S2 - Gastrointestinal General gastrointestinal: Present: normal bowel sounds, soft - Integumentary Integumentary: Present: normal BLE edema - Neurologic Neurologic: Present: CNII-XII intact - Musculoskeletal Musculoskeletal: Present: generalized weakness, strength equal bilaterally - Psychiatric Psychiatric: Present: A&O x's 3, appropriate affect - Labs CBC & Chem 7: 10/21/19 03:50 10/21/19 03:50 Labs: Abnormal Lab Results - Last 24 Hours (Table) 10/21/19 10/21/19 Range/Units 03:50 03:50 WBC 12.4 H (3.8-10.6) k/uL RBC 3.72 L (4.30-5.90) m/uL Hgb 11.8 L (13.0-17.5) gm/dL Hct 36.8 L (39.0-53.0) % Plt Count 148 L (150-450) k/uL Neutrophils # 10.7 H (1.3-7.7) k/uL Lymphocytes # 0.8 L (1.0-4.8) k/uL Sodium 136 L (137-145) mmol/L Chloride 110 H (98-107) mmol/L Carbon Dioxide 21 L (22-30) mmol/L BUN 38 H (9-20) mg/dL Glucose 114 H (74-99) mg/dL Calcium 7.3 L (8.4-10.2) mg/dL Microbiology - Last 24 Hours (Table) 10/18/19 05:14 Blood Culture Gram Stain - Final Blood Blood Culture - Final Escherichia coli 10/18/19 00:28 Gram Stain - Final Sputum Sputum Culture - Final Stenotrophomonas maltophilia Assessment and Plan Plan: Assessment and Recommendations: Thrombocytopenia - Recovering - Improving with treatment and improvement of underlying problem, therefore felt to be likely from consumption due to underlying bacteremia. - No evidence to represent overt DIC in labs. - There is potential underlying marrow damage from prior alcohol abuse, although no history of documented cytopenias in past. - Since platelet count has been greater than 50K, ok to continue on anticoagulation. - Should continue to see improvement as he is recovering. - Iron stores are increased and no area for iron replacement at this time. Acute Hypoxic respiratory failure: Improved - On room air - Secondary to bacteremia and UTI - Sputum Positive Stenotrophomonas maltophilia Gram Negative E. Coli Bacteremia: secondary to UTI - Infectious disease and primary care management - Improvement Febrile: Recurrent T-max on 10/20/19 102.5 - Re- velazquez cultures per ID - Chest xray - Continued on abx Will continue to monitor CBC, from hematology standpoint continues to improve.
[2019-10-21 12:07] LABS: ALT 33 U/L (4-49); AST 40 U/L (17-59); Albumin 2.2 g/dL (3.5-5.0); Alkaline Phosphatase 115 U/L (38-126); Bilirubin,Unconjugated 0.7 mg/dL (0.0-1.1); Total Bilirubin 1.7 mg/dL (0.2-1.3)
--- NOTE | 2019-10-21 12:27 | PN ---
PROGRESS NOTE Mr. Mcnair is a 69-year-old gentleman with history of aortic valve replacement, paroxysmal atrial fibrillation, nonischemic cardiomyopathy, AICD, who presented to hospital with fever and chills. He had E coli bacteremia secondary to urinary tract infection. This morning he is feeling better. Denies chest pain, difficulty in breathing or palpitations. Remains in paced rhythm. PHYSICAL EXAM: Heart rate is 78 beats, blood pressure is 110/60, respiratory rate 18, O2 sat is 100% on room air. There is no jugular venous distention. Chest exam reveals good air entry bilaterally. Heart exam reveals first and second heart sounds. Ejection systolic murmur in the aortic area. Abdomen soft. Exam of extremities did not reveal any edema. Peripheral pulses are felt. LAB: Show a hemoglobin of 11.8, platelet count is 148, potassium is 4.1, creatinine is 0.97. The patient is currently on Eliquis 5 b.i.d., amiodarone 400 b.i.d. which we can switch to 200 b.i.d. from tomorrow, Lopressor 50 t.i.d. ASSESSMENT: 1. Persistent atrial fibrillation with controlled ventricular rate. 2. E. coli septicemia. 3. Status post AICD. 4. History of aortic valve replacement. PLAN: Patient is doing well, is stable to be transferred out of ICU. An echocardiogram on this admission revealed severe LV dysfunction. EDUAR / IJN: [id number] /
--- NOTE | 2019-10-21 14:08 | P.PN ---
Subjective Progress Note Date: 10/21/19 HISTORY OF PRESENT ILLNESS This is a 69-year-old male patient of Dr. Hendrickson and Dr. Otero with past medical history of nonischemic cardiomyopathy and nonsustained karina tricular tachycardia status post biventricular AICD, prosthetic aortic valve, paroxysmal atrial fibrillation, hypertension, hyperlipidemia, glaucoma and macular degeneration, remote history of tobacco use. Patient states that he was going to bed early last night and falling out of bed. He states he slipped out onto the floor. He denies any injury and denies any loss of consciousness. He denies any episodes like this in the past. He denies having any chest pain, lightheadedness. He does complain of shortness of breath and mild lower extremity edema. Patient came into [facility] [place] [facility] for evaluation. He was afebrile, initial heart rate 156. EKG ventricular paced rhythm at heart rate of 119 with wide complex beats possible ventricular tachycardia. Blood pressure 101/67, pulse ox 90% on room air. Initial blood work revealed the previously 7.8, hemoglobin 13.1, platelet count 38 with previous normal level. Sodium 133, potassium 3.7, chloride 105, CO2 16, BUN 45 creatinine 1.87. Blood sugar 127. Liver function tests normal. Phosphorus 1.4, magnesium 1.4. Lactic acid initially 2.5 and repeat of 1.6. Triglycerides 192, cholesterol 96, LDL 43, HDL 15. Chest x-ray revealed chronic changes and cardiomegaly without acute pulmonary process. Patient admitted to the cardiac stepdown unit and consult requested with cardiology, nephrology and oncology. Echocardiogram and TSH pending. 10/16: A-Team was called early this morning as patient had a drop in his pulse ox and was placed on 15 L nonrebreather, heart rate increased and patient was in A. fib with RVR. Patient was transferred into the intensive care unit, intubated and placed on mechanical ventilation. Tidal volume 550, FiO2 50, PEEP of 5. Blood pressure is currently 80/59 and patient is currently on norepinephrine. Amiodarone drip has been discontinued. We have ordered one dose of vancomycin and consult added for Dr. Fletcher for E. coli bacteremia. Urine culture is still pending but gram-negative bacilli. Echocardiogram reveals EF of 25-30%, mild stenosis of the bioprosthetic aortic valve, mild mitral regurgitation, mild tricuspid regurgitation, mild pulmonary hypertension. Renal ultrasound revealed no hydronephrosis. The patient's is at bedside and updated regarding condition. Condition is currently guarded. 10/17: Patient remains intubated and on mechanical ventilation with tidal volume 550, FiO2 40, PEEP of 5. Patient is currently on norepinephrine and propofol. He received 1 unit of platelets yesterday and repeat platelet count today is at 55, hemoglobin 12 and WBC 16. Sodium 137, potassium 3.2 and replaced, chloride 111, CO2 20, BUN 47 creatinine 0.98. Blood sugar 156. Urine culture finalized with Citrobacter farmeri and blood culture is E. coli. Sputum culture is in progress. Patient has been seen by Dr. Fletcher and ceftriaxone increased to 2 g daily. OG tube was unable to be passed yesterday and GI consult in place to ass ist with this. He has had good urine output at 75 mL per hour. He has had no fevers overnight. 10/18: Patient was successfully extubated yesterday. He is not requiring oxygen at this time. surveillance system monitor is paced rhythm. He is currently on amiodarone drip but will be transitioned to oral today. Cunningham catheter showing dark bette urine. He is just starting on water for now. He has no difficulty swallowing. He did have episode of A. fib with RVR yesterday. Patient has had some hallucinations since he was extubated and seen rats and bats. We will add and clonazepam 3 times daily as needed. He is scheduled for CAT scan of the abdomen and pelvis this morning due to 2 separate organisms and blood in urine. He had Cunningham catheter for urinary retention and Flomax increased to twice daily. Patient has been afebrile, heart rate 85, blood pressure 98/60, pulse ox 100%. Respiratory rate 32. WBC 13.9, hemoglobin 12.0, platelet count 79. Sodium 135, potassium 3.7, chloride 110, CO2 20, BUN 41 creatinine 0.87. Blood sugar 131. Urine culture is Citrobacter and blood culture E. coli. Repeat blood cultures are in progress. Sputum cultures in progress. 10/19: Patient remains in the intensive care unit. Patient states he is feeling well. He states he is eating better today. No more hallucinations. He has been afebrile, heart rate 112, blood pressure 96/59, pulse ox 97% on room air. Repeat blood work revealed WBC 15.4, hemoglobin 11.2. Sodium 137, potassium 3.7, chloride 111, CO2 21, BUN 39 and creatinine 0.83. Blood sugars running between 89 and 117. Total bilirubin 1.7, liver function tests normal. C. difficile toxin negative. Repeat blood culture obtained on October 17 is positive for E. coli. Sputum culture Stenotrophomonas maltophilia. CAT scan of the abdomen and pelvis revealed moderate circumferential bladder wall thickening and surrounding fat stranding. Findings suggest cystitis. Cunningham catheter in place. Mild chronic diverticulosis without diverticulitis. Trace effusions left greater than right, correlate for underlying pneumonia. Mild splenomegaly at 14.4 cm. Generalized anasarca. Repeat chest x-ray reveals right basilar atelectasis and/or developing infiltrate with small bilateral pleural effusions. Improved aeration of the left lower lobe. Patient is followed by pulmonary medicine, cardiology and infectious disease. 10/20: Patient remains in the intensive care unit [facility] floorwithout telemetry. He states he is feeling well today. He continues to slowly improve. He denies having any shortness of breath. Temperature max 102.5. Heart rate is 76, pulse ox 100% on room air, blood pressure 110/64. Repeat blood culture was obtained and patient was started on Levaquin in addition to ceftriaxone by Dr. Fletcher. Repeat blood work reveals WBC 12.4, hemoglobin 11.8, platelet count 148. Sodium 136, potassium 4.1, chloride 110, CO2 21, BUN 38 and creatinine 0.97. Total bilirubin 1.7, conjugated 0, u nconjugated 0.7, delta 1. Hepatitis B panel negative. surveillance system monitor atrial fibrillation this morning and ventricular paced. Patient is followed by oncology and thrombocytopenia secondary to bacteremia.Patient is okay for anticoagulation. REVIEW OF SYSTEMS Constitutional: No fever, no chills, no night sweats. No weight change. Reports weakness, fatigue or lethargy. No daytime sleepiness. EENT: No headache. No blurred vision or double vision, no loss of vision. Lungs: No shortness of breath, cough, no sputum production. No wheezing. Cardiovascular: No chest pain, no lower extremity edema. No palpitations. No paroxysmal nocturnal dyspnea. No orthopnea. No lightheadedness or dizziness. No syncopal episodes. Abdominal: No abdominal pain. No nausea, vomiting. No diarrhea. No constipation. No bloody or tarry stools. No loss of appetite. Genitourinary: No dysuria, increased frequency, urgency. Reports urinary retention. Musculoskeletal: No myalgias. No muscle weakness, no gait dysfunction, no frequent falls. No back pain. No neck pain. Integumentary: No wounds, no lesions. No rash or pruritus. No unusual bruising. No change in hair or nails. Neurologic: No aphasia. No facial droop. No change in mentation. No headache. No paralysis. No paresthesia. Psychiatric: No depression. No anxiety. No mood swings. Endocrine: No abnormal blood sugars. No weight change. PHYSICAL EXAMINATION Gen: This is 69-year-old male patient seen in the ICU, resting in bed and appears to be comfortable. HEENT: Head is atraumatic, normocephalic. Pupils equal, round. Sclerae is anicteric. NECK: Supple. No JVD. No lymphadenopathy. No thyromegaly. LUNGS: Clear to auscultation. No wheezes or rhonchi. No intercostal retrac tions. HEART: Irregularly irregular rate and rhythm. Systolic murmur. ABDOMEN: Soft. Bowel sounds are present. No masses. No tenderness. Cunningham catheter in place Draining bette urine. EXTREMITIES: 1+ bilateral pedal edema. No calf tenderness. Dorsalis pedis palpable bilaterally. NEUROLOGICAL: Awake and alert and oriented 3. No focal neural deficits. ASSESSMENT AND PLAN 1. Episodes of nonsustained ventricular tachycardia with ventricular paced rhythm and atrial fibrillation. Cardiology consult appreciated. Amiodarone 400 mg twice daily. 2. Acute kidney injury secondary to ATN, hypotension and atrial fibrillation. Nephrology consult appreciated. Patient has Cunningham catheter. Sodium bicarb oral added and renal ultrasound as above 3. Acute Citrobacter urinary tract infection. Continue Rocephin 2 g daily And Levaquin. Consult with Dr. Fletcher. 4. Acute E. coli bacteremia. Abdominal and pelvic CAT scan as above. Continue Rocephin And Levaquin. 5. Septic shock requiring vasopressor. Off vasopressors. 6. Acute hypoxic respiratory failure secondary to sepsis status post intubation and mechanical ventilation, successfully extubated. Consult with Dr. Jara appreciated. 7. Thrombocytopenia secondary to sepsis, improving. Oncology consult appreciated. 8. Elevated troponin, rule out acute coronary syndrome. Cardiology consult a ppreciated. Echocardiogram as above. 9. Nonischemic cardiomyopathy and nonsustained ventricular tachycardia status post biventricular AICD. Cardiology consult. 10. Prosthetic aortic valve. 11. Paroxysmal atrial fibrillation with episode of RVR. Continue eliquis 5 mg twice daily, Lopressor 50 mg 3 times daily. Amiodarone 400 mg twice daily. 12. Hypertension. 13. Hyperlipidemia. Patient is not currently on statin. 14. Benign prostatic hypertrophy. Continue Flomax or 0.4 mg daily. Cunningham catheter in place. 15. Macular degeneration and glaucoma, stable. 16. GI prophylaxis. Protonix. 17. DVT prophylaxis. Eliquis. 18. Acute delirium with hallucinations, resolved. Discharge plan: Most likely home with homecare. Impression and plan of care have been directed as dictated by the signing physician. Stephenie Chow nurse practitioner acting as scribe for signing physic kirsty Objective - Vital Signs Vital signs: Vital Signs Temp 97.8 F 10/21/19 04:00 Pulse 80 10/21/19 04:00 Resp 16 10/21/19 04:00 BP 92/61 10/21/19 04:00 Pulse Ox 100 10/21/19 04:00 Intake & Output 10/20/19 10/21/19 10/21/19 18:59 06:59 18:59 Intake Total 532 1320 Output Total 1242 660 Balance -710 660 Weight 113.5 kg Intake: IV 282 240 KVO 220 240 [id number] 2 gm In 50 Sodium Chloride 0.9% 50 ml @ 100 mls/hr IVPB Q24HR COUNT INCLUDES THE [facility] Rx#:[id number] pressure bag 12 Oral 250 1080 Output: Urine 1240 660 Stool 2 Other: Voiding Method Indwelling Catheter Indwelling Catheter # Voids 0 ABP, PAP, CO, CI - Last Documented Arterial Blood Pressure 92/45 - Labs CBC & Chem 7: 10/21/19 03:50 10/21/19 03:50 Labs: Abnormal Lab Results - Last 24 Hours (Table) 10/21/19 10/21/19 Range/Units 03:50 03:50 WBC 12.4 H (3.8-10.6) k/uL RBC 3.72 L (4.30-5.90) m/uL Hgb 11.8 L (13.0-17.5) gm/dL Hct 36.8 L (39.0-53.0) % Plt Count 148 L (150-450) k/uL Neutrophils # 10.7 H (1.3-7.7) k/uL Lymphocytes # 0.8 L (1.0-4.8) k/uL Sodium 136 L (137-145) mmol/L Chloride 110 H (98-107) mmol/L Carbon Dioxide 21 L (22-30) mmol/L BUN 38 H (9-20) mg/dL Glucose 114 H (74-99) mg/dL Calcium 7.3 L (8.4-10.2) mg/dL Microbiology - Last 24 Hours (Table) 10/18/19 05:14 Blood Culture Gram Stain - Final Blood Blood Culture - Final Escherichia coli 10/18/19 00:28 Gram Stain - Final Sputum Sputum Culture - Final Stenotrophomonas maltophilia
--- NOTE | 2019-10-21 15:32 | PN ---
PROGRESS NOTE Patient is seen for followup for acute kidney injury secondary to sepsis hypotension. Renal function has improved. Creatinine is currently staying at 0.8-0.9 mg/dL. The patient is maintained on IV Lasix. He currently has good urine output. On examination, blood pressure was 92/61, heart rate 76 per minute, patient is afebrile. Examination of the heart S1, S2. Examination of the lungs, bilateral breath sounds are heard. Abdomen is soft, nontender. Examination of lower extremities shows edema 1+ bilaterally. SERVER SYSTEMS ADMINISTRATOR exam grossly intact. LABS: Show sodium 136, potassium 4.1, chloride 110, BUN 38, creatinine 0.97, hemoglobin 11.8 g/dL. ASSESSMENT: 1. Acute kidney injury secondary to hypotension, sepsis, currently improved. 2. Mild volume overload, maintained on IV Lasix. 3. Sepsis with urine culture growing Citrobacter Farmeri and blood cultures growing Escherichia coli maintained on antibiotics. PLAN: Continue with the current dose of Lasix. Maintain antibiotics as per ID. We will sign off. Continue to monitor renal function periodically. MMODL / IJN: [id number] /
[2019-10-21 18:46] LABS: % Iron Saturation 6.06 (15.00-50.00); Ferritin 1626.1 ng/mL (22.0-322.0)
[2019-10-21] MEDS: LEVOFLOXACIN 750MG-D5W PMX 750 MG in DEXTROSE/WATER 1 150ML.BAG IVPB SCH (23:28)
[2019-10-21] MEDS: clonazePAM 0.5 MG TAB PO PRN (23:28)
--- NOTE | 2019-10-22 00:30 | PN ---
PROGRESS NOTE DATE OF SERVICE: 10/21/2019 REASON FOR FOLLOWUP: E coli bacteremia and Stenotrophomonas pneumonia. INTERVAL HISTORY: The patient is currently afebrile. No fever since last night. The patient denies having any chest pain. Minimal cough. No sputum. No nausea, no vomiting. No abdominal pain. No diarrhea. PHYSICAL EXAMINATION: Blood pressure 139/89 with a pulse of 80, temperature 98.7. He is 97% on room air. General description is an elderly male up in the chair in no distress. RESPIRATORY SYSTEM: Unlabored breathing, decreased breath sounds in the bases. No wheeze. HEART: S1, S2. Regular rate and rhythm. ABDOMEN: Soft. No tenderness. LABS: Hemoglobin 11.8, white count of 12.4, BUN of 38, creatinine 0.97. Blood culture repeat is so far pending. DIAGNOSTIC IMPRESSION AND PLAN: Patient with an Escherichia coli bacteremia with initial concern for urinary source. However, urine is showing Citrobacter. A CT of abdomen and pelvis did not show any evidence of any inflammation. Chest x-ray with concern for right lower lobe pneumonia. Sputum is Stenotrophomonas. Patient is covered with Rocephin and Levaquin to continue while monitoring clinical course closely. White count showing a downward trend and fever is resolving. Continue with supportive care. at the bedside. Questions were answered. MMODL / IJN: [id number] /
--- NOTE | 2019-10-22 06:40 | XR ---
EXAMINATION TYPE: XR chest 1V portable DATE OF EXAM: 10/22/2019 CLINICAL HISTORY: Difficulty breathing progress study. TECHNIQUE: Single AP portable upright view of the chest is obtained. COMPARISON: Chest x-ray from one day earlier and older studies. FINDINGS: Persistent cardiomegaly with multi lead pacemaker/AICD. Overlying sternal wires and metall ic aortic valve are redemonstrated. Persistent left basilar opacities on background chronic parenchym al change. Osseous structures are intact. IMPRESSION: Persistent chronic parenchymal change and cardiomegaly with left basilar acute infiltrate and/or atelectasis. No significant change from most recent x-ray.
[2019-10-22] MEDS ORDERED: PANTOPRAZOLE 40 MG TABLET PO SCH (07:30)
--- NOTE | 2019-10-22 08:54 | P.PN ---
Subjective Progress Note Date: 10/22/19 Principal diagnosis: Septic shock and acute hypoxic respiratory failure This is a 69-year-old white male, presented initially to [facility] on 10/15/19, and his chief complaint was mostly weakness. Apparently the patient was going to bed early the night before, and he fell out of bed. Slipped out onto the floor. He had no significant injury. Brought into the ER on 10/14, and he was noted to have intermittent ventricular tachycardia. Labs were significant for low platelets, relatively normal electrolytes, abnormal BUN of 45 creatinine 1.87, lactic acid of 2.5. Chest x-ray showed mostly chronic changes, no acute process was noted and there was no evidence of pneumonia or evidence of congestive heart failure. Patient was admitted, and multiple consul tants where consulted including cardiology and nephrology and oncology. Admitting diagnoses was possible ventricular tachycardia, nonsustained, and atrial fibrillation. Patient was placed on amiodarone drip, and he was also noted to have evidence of urinary tract infection without symptoms. Eventually his blood cultures came back positive for gram-negative bacilli. At any rate less than night to the patient was transferred to the ICU mostly because of his worsening shortness of breath, and he was noted to have atrial fibrillation with RVR. I was notified about this patient early in the morning after transfer to the ICU, and I recommended immediate intubation since the patient was extremely short of breath based on the nurse taking care of him. I saw him this morning, patient is now on mechanical ventilation. His assist-control rate is 16 tidal volume is 550 FiO2 is 50% and PEEP of 5. ABG showed a pO2 of 290 pCO2 of 44 pH of 7.27. Patient is on 0.9 normal saline at 25 mL per hour, amiodarone at 0.5 mg per hour, and on propofol at 10 mcg/kg/m. His echocardiogram showed LV dys function with ejection fraction of 50-55%. Considering the patient was critically ill, I have arranged for placement of a arterial line and right IJ central line was placed on this patient. In the meantime The patient on Rocephin and vancomycin for his positive blood cultures showing E. coli. Patient was reevaluated today on 10/18/19, remains in the ICU intubated and mechanically ventilated. Patient is on assist control rate of 16 tidal volume is 550 FiO2 is 45% and I cut it down to 35% PEEP is at 5. Remains on propofol at 35 mcg/kg/m, amiodarone at 0.5 mg per hour he is also on norepinephrine at 6 mcg/m. Patient is being treated for gram-negative sepsis and bacteremia. Blood cultures are positive for E. coli, urine cultures are positive for Citrobacter. Patient is on Rocephin, he is also on vancomycin which I plan to discontinue. Chest x-ray showed cardiomegaly with small bilateral pleural effusions, and by basilar atelectasis. Patient has been responding well to diuresis. Labs were reviewed his ABG showed a pO2 of 135 pCO2 of 31 pH of 7.43. WBC count is 16 hemoglobin is 12. Renal profile is improving with BUN 47 creatinine 0.98. Potassium is a bit low being corrected as per protocol. Reevaluated today on 10/19/19, patient was extubated successfully yesterday, he is now on room air. Remains in the ICU, denies any specific complaints, had a bit of confusion last night, but he is back to normal today, normal mental status is intact, he is alert and oriented 3. No focal neurologic deficit. Patient is in atrial fibrillation, rate controlled, he is on Lopressor. He was seen by infectious disease, and was concerned that the patient had 2 different types of infections, E. coli in the blood and Citrobacter in the urine, hence CT of the abdomen and pelvis was done. There was evidence of stranding in the bladder wall, there was also a left sided colonic diverticulosis. And generalized anasarca. There was also some left lower lobe atelectasis and pleural effusion. Clinically however the patient is doing great, and he denies any specific complaints today. Basic metabolic profile is normal renal profile is normal CBC showed WBC count of 13.9 hemoglobin of 12. On 10/20/2019 patient seen in follow-up in the intensive care unit, he is awake and alert, in no acute distress, he sitting up in the recliner, urine, with a pulse ox of 94-97%, hemodynamically patient is stable, remains in A. fib, slightly tachycardic, with a rate of 103-112 BPM, no complaints of chest discomfort complaint shortness of breath, patient is afebrile. Today's chest x- ray shows right basilar atelectasis with small bilateral pleural effusions, and improved aeration of the left lower lobe. He is on Rocephin for E. coli bacteremia related to E. coli urinary tract infection, and UTI related to Citrobacter, ID service is following. Patient is on oral anticoagulation in the form of Eliquis, metoprolol is 50 mg 3 times daily, and he is on the daily dose of IV Lasix at 40 mg. Is maintaining negative fluid balance 1.2 L over the last 24 hours. On 10/21/2019 patient seen in follow-up in intensive care unit. He is awake and alert, in no acute distress, denies any shortness of breath, he patient is on room air pulse ox is 100%, remains in A. fib, however the rate is much better controlled on today's exam, and current rate is 76 bpm, lung sounds are clear, diminished, no rhonchi or wheezing. Did have fever spikes last night, with a T- max of 102.5F. Today's chest x-ray shows small bilateral pleural effusions, somewhat improved aeration. he remains on antibiotics in the form of ceftriaxone, and Levaquin for E. coli bacteremia, related to E. coli and Citrobacter urinary tract infection, and sputum culture came back positive for Stenotrophomonas maltophilia with sensitivity to Levaquin. ID service is following. Denies any chest pain, today's labs have been reviewed, showing red blood cell count of 12.4, hemoglobin of 11.8, sodium is 136, potassium is 4.1, chloride is 110, CO2 is 21, B1 is 38, creatinine 0.97. No other acute events overnight, no nausea vomiting or diarrhea, no altered mentation, mild swelling involving lower extremities and hands, patient remains on once daily dose of Lasix, he is in -1.2 L fluid balance over the last 24 hours. No signs of delirium tremens. On 10/22/2019 patient seen in follow-up in intensive care unit, he has been overflow from medical surgical floor for last 24 hours, he has remained stable, remains in A. fib with a controlled rate, hemodynamically patient is stable, he is on room air and his pulse ox is 96%. He has been afebrile, he is on, initially Rocephin and Levaquin for urinary tract infection related to Citrobacter, and E. coli, E. coli bacteremia, and stenotrophomonas pneumonia. Repeat blood cultures were sent, and have shown no growth at the 24-hour elliot. ID service is following, clinically patient has remained stable, still has some lower extremity swelling, and mild swelling of his hands, he has been on IV Lasix on a daily basis, he is maintaining negative fluid balance, on no wo rsening hypoxemia or shortness of breath. His chest x-ray was reviewed today showing chronic parenchyma changes, cardiomegaly, with left basilar acute infiltrate and/or atelectasis. Without significant change from yesterday. Objective - Vital Signs Vital signs: Vital Signs Temp 98.7 F 10/21/19 23:45 Pulse 74 10/21/19 23:46 Resp 16 10/21/19 23:46 BP 125/71 10/21/19 23:45 Pulse Ox 96 10/21/19 23:45 Intake & Output 10/21/19 10/22/19 10/22/19 18:59 06:59 18:59 Intake Total 350 540 Output Total 706 301 Balance -356 239 Weight 113.5 kg Intake: IV 230 0 KVO 180 0 cefTRIAXone 2 gm In 50 Sodium Chloride 0.9% 50 ml @ 100 mls/hr IVPB Q24HR [facility] Rx#:[id number] Oral 120 540 Output: Urine 703 300 Stool 3 1 Other: Voiding Method Indwelling Catheter Urinal # Voids 0 0 # Bowel Movements 1 ABP, PAP, CO, CI - Last Documented Arterial Blood Pressure 92/45 - Exam GENERAL EXAM: Alert, very pleasant, 69-year-old white male, on room air, with a pulse ox of 96% comfortable in no apparent distress. HEAD: Normocephalic/atraumatic. EYES: Normal reaction of pupils, equal size. Conjunctiva pink, sclera white. NOSE: Clear with pink turbinates. THROAT: No erythema or exudates. NECK: No masses, no JVD, no thyroid enlargement, no adenopathy. CHEST: No chest wall deformity. Symmetrical expansion. LUNGS: Equal air entry with no crackles, wheeze, rhonchi or dullness. CVS: Irregular rate and rhythm, normal S1 and S2, no gallops, no murmurs, no rubs ABDOMEN: Soft, nontender. No hepatosplenomegaly, normal bowel sounds, no guarding or rigidity. EXTREMITIES: No clubbing, 1+ edema in lower extremities, and mild edema in upper extremities, no cyanosis, 2+ pulses and upper and lower extremities. MUSCULOSKELETAL: Muscle strength and tone normal. SPINE: No scoliosis or deformity SKIN: No rashes CENTRAL NERVOUS SYSTEM: Alert and oriented -3. No focal deficits, tone is normal in all 4 extremities. PSYCHIATRIC: Alert and oriented -3. Appropriate affect. Intact judgment and insight. - Labs CBC & Chem 7: 10/21/19 03:50 10/21/19 03:50 Labs: Abnormal Lab Results - Last 24 Hours (Table) 10/21/19 10/21/19 Range/Units 03:50 03:50 Sodium 136 L (137-145) mmol/L Chloride 110 H (98-107) mmol/L Carbon Dioxide 21 L (22-30) mmol/L BUN 38 H (9-20) mg/dL Glucose 114 H (74-99) mg/dL Calcium 7.3 L (8.4-10.2) mg/dL Iron 12 L (65-175) ug/dL TIBC 198 L (228-460) ug/dL % Saturation 6.06 L (15.00-50.00) Ferritin 1626.1 H (22.0-322.0) ng/mL Total Bilirubin 1.7 H (0.2-1.3) mg/dL Delta Bilirubin 1.0 H (0.0-0.2) mg/dL Total Protein 5.0 L (6.3-8.2) g/dL Albumin 2.2 L (3.5-5.0) g/dL Microbiology - Last 24 Hours (Table) 10/21/19 03:50 Blood Culture - Preliminary Blood No Growth after 24 hours 10/20/19 22:34 Blood Culture - Preliminary Blood No Growth after 24 hours 10/18/19 05:14 Blood Culture Gram Stain - Final Blood Blood Culture - Final Escherichia coli Assessment and Plan Plan: Assessment: #1. Acute hypoxic rest and treat failure requiring intubation and mechanical ventilation secondary to sepsis and suspected septic shock, extubated on 10/18/2019, improved #2. Acute E. coli bacteremia with sepsis and septic shock related to E. coli urinary tract infection #3. Citrobacter urinary tract infection #4. Stenotrophomonas maltophilia pneumonia #5. Recurrent episodes of nonsustained ventricular tachycardia with ventricular paced rhythm and atrial fibrillation #6. Acute kidney injury secondary to hypotension and sepsis, improving #7. Possible non-ST elevated myocardial infarction #8. Thrombocytopenia possibly secondary to sepsis or possibly a component of ITP, improving #9. History of nonischemic cardiomyopathy and LV dysfunction with previous AICD placement #10. History of prosthetic aortic valve replacement #11. Paroxysmal atrial fibrillation #12. Hypertension #13. Hyperlipidemia Plan: We'll discontinue the Rocephin and Levaquin, we'll switch the patient to oral Bactrim DS twice daily, renal function has improved, we will switch the IV Lasix to oral Lasix at 20 mg daily, he has remained stable overnight, no acute events, no fever or chills, no altered mentation, increase activity as tolerated, still awaiting a bed on the medical surgical floor, from pulmonary/renal Perspective patient could be considered for discharge home if cleared by cardiology and primary care service. No worsening dyspnea, he is on room air, today's chest x- ray has been reviewed, with stable findings of left basilar infiltrate/atelectasis. No complaints of chest pain, patient is on oral anticoagulation for atrial fibrillation, the rate is controlled, cardiology is following I performed a history & physical examination of the patient and discussed their management with my nurse practitioner, Celina Miranda. I reviewed the nurse practitioner's note and agree with the documented findings and plan of care. Lung sounds are positive for diminished breath sounds. The findings and the impression was discussed with the patient. I attest to the documentation by the nurse practitioner. Time with Patient: Less than 30
[2019-10-22] MEDS ORDERED: SULFAMETHOX-TMP 800-160MG 1 EACH TAB PO SCH (09:00)
[2019-10-22] MEDS ORDERED: FUROSEMIDE 20 MG TAB PO SCH (09:00)
--- NOTE | 2019-10-22 09:45 | P.PN ---
Subjective Progress Note Date: 10/22/19 Principal diagnosis: Atrial fibrillation This is a pleasant 69-year-old male past medical history significant for surgical aortic valve replacement in 2009,paroxysmal atrial fibrillation, nonischemic cardiac myopathy status post AICD implantation who presented secondary to chills and not feeling well on 10/15/2019. He was found to have E. coli bacteremia and he does admit to issues with prostate and urinary retention. He was initially 1 out of 2 positive for E. coli from 10/15 and then had repeat blood cultures on 10/17 which were positive for E. coli. He was placed on anti biotics and admits she has been feeling improved. 10/20/2019 Patient today states he is feeling well. He denies any chest pain or pressure. He admits his chills have been improving. He admits his breathing is good. His white count is 15.4, slightly elevated from yesterday at 13.9. 10/22/2019 Patient did have a fever 2 nights ago however no recurrence. Denies any further chills. He admits he is feeling good overall. No chest pain or pressure. Heart rates are controlled. REVIEW OF SYSTEMS At the time of my exam: CONSTITUTIONAL: Denies fever or chills. CARDIOVASCULAR: Denies chest pain, shortness of breath, orthopnea, PND or palpitations. RESPIRATORY: Denies cough. GASTROINTESTINAL: Denies abdominal pain, diarrhea, constipation, nausea or vomiting. MUSCULOSKELETAL: Denies myalgias. NEUROLOGIC: Denies numbness, tingling or weakness. ENDOCRINE: Denies fatigue, weight change, polydipsia or polyurina. GENITOURINARY: Denies burning, hematuria or urgency with micturation. HEMATOLOGIC: Denies history of anemia or bleeding. PHYSICAL EXAMINATION Blood pressure 125/71 heart rate 74 afebrile and maintaining oxygen saturation on room air. CONSTITUTIONAL: No apparent distress. HEENT: Head is normocephalic. Pupils are equal, round. Sclerae anicteric. Mucous membranes of the mouth are moist. No JVD. No carotid bruit. CHEST EXAMINATION: Lungs are clear to auscultation. No chest wall tenderness is noted on palpation or with deep breathing. HEART EXAMINATION: Irregularly irregular rate and rhythm. S1, S2 heard. No murmurs, gallops or rub. ABDOMEN: Soft, nontender. Positive bowel sounds. EXTREMITIES: 2+ peripheral pulses, no lower extremity edema and no calf tenderness. NEUROLOGIC EXAMINATION: Patient is awake, alert and oriented x3. ASSESSMENT 1. Urosepsis with bacteremia with E. coli 2. Respiratory failure which is improved 3. Status post aortic valve replacement 4. Severe nonischemic cardiomyopathy 5. Status post AICD implantation 6. Persistent atrial fibrillation with controlled ventricular response 7. Hypertension 8. Hyperlipidemia PLAN No further chills and patient appears to be recovering from his E. coli sepsis likely from urosepsis. No evidence to suggest any endocarditis. Recent echo with normal ejection fraction and no significant valvular disease. Continue with current cardiac regimen including Eliquis 5 mg twice a day, amiodarone 400 mg twice a day, Lasix 20 mg daily, Lopressor 50 mg 3 times a day. Patient appears stable for discharge from a cardiac standpoint. Continue with supportive care. Objective - Vital Signs Vital signs: Vital Signs Temp 98.7 F 10/21/19 23:45 Pulse 74 10/21/19 23:46 Resp 16 10/21/19 23:46 BP 125/71 10/21/19 23:45 Pulse Ox 96 10/21/19 23:45 Intake & Output 10/21/19 10/22/19 10/22/19 18:59 06:59 18:59 Intake Total 350 540 Output Total 706 301 Balance -356 239 Weight 113.5 kg Intake: IV 230 0 KVO 180 0 cefTRIAXone 2 gm In 50 Sodium Chloride 0.9% 50 ml @ 100 mls/hr IVPB Q24HR [facility] Rx#:[id number] Oral 120 540 Output: Urine 703 300 Stool 3 1 Other: Voiding Method Indwelling Catheter Urinal # Voids 0 0 # Bowel Movements 1 ABP, PAP, CO, CI - Last Documented Arterial Blood Pressure 92/45 - Labs CBC & Chem 7: 10/21/19 03:50 10/21/19 03:50 Labs: Abnormal Lab Results - Last 24 Hours (Table) 10/21/19 10/21/19 Range/Units 03:50 03:50 Sodium 136 L (137-145) mmol/L Chloride 110 H (98-107) mmol/L Carbon Dioxide 21 L (22-30) mmol/L BUN 38 H (9-20) mg/dL Glucose 114 H (74-99) mg/dL Calcium 7.3 L (8.4-10.2) mg/dL Iron 12 L (65-175) ug/dL TIBC 198 L (228-460) ug/dL % Saturation 6.06 L (15.00-50.00) Ferritin 1626.1 H (22.0-322.0) ng/mL Total Bilirubin 1.7 H (0.2-1.3) mg/dL Delta Bilirubin 1.0 H (0.0-0.2) mg/dL Total Protein 5.0 L (6.3-8.2) g/dL Albumin 2.2 L (3.5-5.0) g/dL Microbiology - Last 24 Hours (Table) 10/21/19 03:50 Blood Culture - Preliminary Blood No Growth after 24 hours 10/20/19 22:34 Blood Culture - Preliminary Blood No Growth after 24 hours 10/18/19 05:14 Blood Culture Gram Stain - Final Blood Blood Culture - Final Escherichia coli
[2019-10-22] MEDS: AMIODARONE 200 MG TAB PO SCH (09:48)
[2019-10-22] MEDS: SODIUM BICARBONATE TAB 650 MG TAB PO SCH (09:48)
[2019-10-22] MEDS: TAMSULOSIN 0.4 MG CAP.ER.24H PO SCH ×2 (09:48→09:54)
[2019-10-22] MEDS: METOPROLOL TARTRATE 50 MG TAB PO SCH (09:49)
[2019-10-22] MEDS: THIAMINE 100 MG TAB PO SCH (09:49)
[2019-10-22] MEDS: MULTIVITAMINS, THERA 1 EACH TAB PO SCH (09:49)
[2019-10-22] MEDS: APIXABAN 5 MG TAB PO SCH (09:49)
[2019-10-22 10:43] VITALS: BP 100/63; PULSE 71; RESP 16; TEMP 97.8
--- NOTE | 2019-10-22 13:46 | P.DS ---
Providers Date of admission: 10/15/19 21:31 Expected date of discharge: 10/22/19 Attending physician: Bart Hoffman Consults: 10/15/19 21:30 Consult Physician Urgent Consulting Provider: Qian Otero Consult Reason/Comments: afib Do you want consulting provider notified?: Yes 10/16/19 09:00 Consult Physician Routine Consulting Provider: Denice Roth Consult Reason/Comments: akd Do you want consulting provider notified?: Yes 10/16/19 09:54 Consult Physician Routine Consulting Provider: Wilberto Mata Consult Reason/Comments: thrombocytopenia, etoh, on eliquis Do you want consulting provider notified?: Yes 10/17/19 05:39 Consult Physician Routine Consulting Provider: Eloise Jara Consult Reason/Comments: ICU Do you want consulting provider notified?: Already Contacted 10/17/19 09:07 Consult Physician Routine Consulting Provider: Brennen Fletcher Consult Reason/Comments: e coli bacteremia Do you want consulting provider notified?: Yes Primary care physician: [facility] Course: HISTORY OF PRESENT ILLNESS This is a 69-year-old male patient of Dr. Hendrickson and Dr. Otero with past medical history of nonischemic cardiomyopathy and nonsustained ventricular tachycardia status post biventricular AICD, prosthetic aortic valve, paroxysmal atrial fibrillation, hypertension, hyperlipidemia, glaucoma and macular degeneration, remote history of tobacco use. Patient states that he was going to bed early last night and falling out of bed. He states he slipped out onto the floor. He denies any injury and denies any loss of consciousness. He denies any episodes like this in the past. He denies having any chest pain, lightheadedness. He does complain of shortness of breath and mild lower extremity edema. Patient came into [facility] emergency center for evaluation. He was afebrile, initial heart rate 156. EKG ventricular paced rhythm at heart rate of 119 with wide complex beats possible ventricular tachycardia. Blood pressure 101/67, pulse ox 90% on room air. Initial blood work revealed the previously 7.8, hemoglobin 13.1, platelet count 38 with previous normal level. Sodium 133, potassium 3.7, chloride 105, CO2 16, BUN 45 creatinine 1.87. Blood sugar 127. Liver function tests normal. Phosphorus 1.4, magnesium 1.4. Lactic acid initially 2.5 and repeat of 1.6. Triglycerides 192, cholesterol 96, LDL 43, HDL 15. Chest x-ray revealed chronic changes and cardiomegaly without acute pulmonary process. Patient admitted to the cardiac stepdown unit and consult requested with cardiology, nephrology and oncology. Echocardiogram and TSH pending. 10/16: A-Team was called early this morning as patient had a drop in his pulse ox and was placed on 15 L nonrebreather, heart rate increased and patient was in A. fib with RVR. Patient was transferred into the intensive care unit, intubated and placed on mechanical ventilation. Tidal volume 550, FiO2 50, PEEP of 5. Blood pressure is currently 80/59 and patient is currently on norepinephrine. Amiodarone drip has been discontinued. We have ordered one dose of vancomycin and consult added for Dr. Fletcher for E. coli bacteremia. Urine culture is still pending but gram-negative bacilli. Echocardiogram reveals EF of 25-30%, mild stenosis of the bioprosthetic aortic valve, mild mitral regurgitation, mild tricuspid regurgitation, mild pulmonary hypertension. Renal ultrasound revealed no hydronephrosis. The patient's is at bedside and updated regarding condition. Condition is currently guarded. 10/17: Patient remains intubated and on mechanical ventilation with tidal volume 550, FiO2 40, PEEP of 5. Patient is currently on norepinephrine and propofol. He received 1 unit of platelets yesterday and repeat platelet count today is at 55, hemoglobin 12 and WBC 16. Sodium 137, potassium 3.2 and replaced, chloride 111, CO2 20, BUN 47 creatinine 0.98. Blood sugar 156. Urine culture finalized with Citrobacter farmeri and blood culture is E. coli. Sputum culture is in progress. Patient has been seen by Dr. Fletcher and ceftriaxone increased to 2 g daily. OG tube was unable to be passed yesterday and GI consult in place to assist with this. He has had good urine output at 75 mL per hour. He has had no fevers overnight. 10/18: Patient was successfully extubated yesterday. He is not requiring oxygen at this time. quality assurance monitor is paced rhythm. He is currently on amiodarone drip but will be transitioned to oral today. Cunningham catheter showing dark bette urine. He is just starting on water for now. He has no difficulty swallowing. He did have episode of A. fib with RVR yesterday. Patient has had some hallucinations since he was extubated and seen rats and bats. We will add and clonazepam 3 times daily as needed. He is scheduled for CAT scan of the abdomen and pelvis this morning due to 2 separate organisms and blood in urine. He had Cunningham catheter for urinary retention and Flomax increased to twice daily. Patient has been afebrile, heart rate 85, blood pressure 98/60, pulse ox 100%. Respiratory rate 32. WBC 13.9, hemoglobin 12.0, platelet count 79. Sodium 135, potassium 3.7, chloride 110, CO2 20, BUN 41 creatinine 0.87. Blood sugar 131. Urine culture is Citrobacter and blood culture E. coli. Repeat blood cultures are in progress. Sputum cultures in progress. 10/19: Patient remains in the intensive care unit. Patient states he is feeling well. He states he is eating better today. No more hallucinations. He has been afebrile, heart rate 112, blood pressure 96/59, pulse ox 97% on room air. Repeat blood work revealed WBC 15.4, hemoglobin 11.2. Sodium 137, potassium 3.7, chloride 111, CO2 21, BUN 39 and creatinine 0.83. Blood sugars running between 89 and 117. Total bilirubin 1.7, liver function tests normal. C. difficile toxin negative. Repeat blood culture obtained on October 17 is positive for E. coli. Sputum culture Stenotrophomonas maltophilia. CAT scan of the abdomen and pelvis revealed moderate circumferential bladder wall thickening and surrounding fat stranding. Findings suggest cystitis. Cunningham catheter in place. Mild chronic diverticulosis without diverticulitis. Trace effusions left greater than right, correlate for underlying pneumonia. Mild splenomegaly at 14.4 cm. Generalized anasarca. Repeat chest x-ray reveals right basilar atelectasis and/or developing infiltrate with small bilateral pleural effusions. Improved aeration of the left lower lobe. Patient is followed by pulmonary medicine, cardiology and infectious disease. 10/20: Patient remains in the intensive care unit waiting [facility] bed on the [facility] floorwithout telemetry. He states he is feeling well today. He continues to slowly improve. He denies having any shortness of breath. Temperature max 102.5. Heart rate is 76, pulse ox 100% on room air, blood pressure 110/64. Repeat blood culture was obtained and patient was started on Levaquin in addition to ceftriaxone by Dr. Fletcher. Repeat blood work reveals WBC 12.4, hemoglobin 11.8, platelet count 148. Sodium 136, potassium 4.1, chloride 110, CO2 21, BUN 38 and creatinine 0.97. Total bilirubin 1.7, conjugated 0, unconjugated 0.7, delta 1. Hepatitis B panel negative. quality assurance monitor atrial fibrillation this morning and ventricular paced. Patient is followed by oncology and thrombocytopenia secondary to bacteremia.Patient is okay for anticoagulation. 10/21: Patient is seen up and ambulating in the hallway in the intensive care unit. His gait is steady. Patient denies any shortness of breath or chest pain. He is waiting for bed on the [facility] floor. Patient has been cleared for discharge by pulmonary medicine. Dr. Romero is recommended a course of Bactrim and Cipro for 10 days and he will follow-up with the patient for repeat blood culture in the office. Patient has been afebrile, heart rate 71, blood pressure 100/63, pulse ox 99% on room air. Patient will be discharged home today in stable condition. Discharge diagnoses 1. Episodes of nonsustained ventricular tachycardia with ventricular paced rhythm and atrial fibrillation. 2. Acute kidney injury secondary to ATN, hypotension and atrial fibrillation. 3. Acute Citrobacter urinary tract infection. 4. Acute E. coli bacteremia. 5. Septic shock requiring vasopressor. 6. Acute hypoxic respiratory failure secondary to sepsis status post intubation and mechanical ventilation, successfully extubated. 7. Thrombocytopenia secondary to sepsis, improving. 8. Elevated troponin secondary to acute renal failure and sepsis, acute coronary syndrome ruled out. 9. Nonischemic cardiomyopathy and nonsustained ventricular tachycardia status post biventricular AICD. 10. Prosthetic aortic valve. 11. Paroxysmal atrial fibrillation with episode of RVR. 12. Hypertension. 13. Hyperlipidemia. 14. Benign prostatic hypertrophy. 15. Macular degeneration and glaucoma, stable. 16. Acute delirium with hallucinations, resolved. Discharge plan: home with homecare. Impression and plan of care have been directed as dictated by the signing physician. Stephenie Chow nurse practitioner acting as scribe for signing physician Patient Condition at Discharge: Good Plan - Discharge Summary Discharge Rx Participant: Yes New Discharge Prescriptions: New Sulfamethox-Tmp 800-160Mg [Bactrim DS 800-160 mg] 1 each PO BID #20 tab Ciprofloxacin HCl [Cipro] 500 mg PO BID 10 Days #20 tab Amiodarone [Cordarone] 200 mg PO BID #60 tab Furosemide [Lasix] 20 mg PO DAILY #30 tab Metoprolol Tartrate [Lopressor] 50 mg PO TID #90 tab Multivitamins, Thera [Multivitamin (formulary)] 1 each PO DAILY tab Sodium Bicarbonate Tab 650 mg PO DAILY #30 tab Thiamine [Vitamin B-1] 100 mg PO BID tab Continue Apixaban [Eliquis] 5 mg PO BID #60 tab Tamsulosin [Flomax] 0.4 mg PO DAILY Discontinued Losartan Potassium 100 mg PO DAILY Metoprolol Tartrate [Lopressor] 75 mg PO BID Discharge Medication List Apixaban [Eliquis] 5 mg PO BID #60 tab 10/04/18 [Rx] Tamsulosin [Flomax] 0.4 mg PO DAILY 10/15/19 [History] Amiodarone [Cordarone] 200 mg PO BID #60 tab 10/22/19 [Rx] Ciprofloxacin HCl [Cipro] 500 mg PO BID 10 Days #20 tab 10/22/19 [Rx] Furosemide [Lasix] 20 mg PO DAILY #30 tab 10/22/19 [Rx] Metoprolol Tartrate [Lopressor] 50 mg PO TID #90 tab 10/22/19 [Rx] Multivitamins, Thera [Multivitamin (formulary)] 1 each PO DAILY tab 10/22/19 [Rx] Sodium Bicarbonate Tab 650 mg PO DAILY #30 tab 10/22/19 [Rx] Sulfamethox-Tmp 800-160Mg [Bactrim DS 800-160 mg] 1 each PO BID #20 tab 10/22/19 [Rx] Thiamine [Vitamin B-1] 100 mg PO BID tab 10/22/19 [Rx] Follow up Appointment(s)/Referral(s): [facility], [NON-STAFF] - Qian Otero MD [STAFF PHYSICIAN] - 11/03/19 3:45 pm Ryan Hendrickson DO [Primary Care Provider] - 1 Week (office not answering. Please call to make appointment) Brennen Fletcher MD [STAFF PHYSICIAN] - 11/11/19 11:00 am Patient Instructions/Handouts: A-fib (Atrial Fibrillation) (DC) Activity/Diet/Wound Care/Special Instructions: Cardiac diet activity as tolerated Discharge Disposition: HOME WITH HOME HEALTH SERVICES
--- NOTE | 2019-10-22 15:31 | PN ---
PROGRESS NOTE DATE OF SERVICE: 10/22/2019 REASON FOR FOLLOWUP: E coli bacteremia and Stenotrophomonas pneumonia. INTERVAL HISTORY: The patient is currently afebrile. Patient is feeling better, breathing comfortably. On room air. Denies any chest pain or shortness of breath. Very minimal cough. No nausea, no vomiting. No abdominal pain. No diarrhea. No urinary symptoms. PHYSICAL EXAMINATION: Blood pressure 100/63 with a pulse of 71, temperature 97.9. He is 99% on room air. General description: The patient is an elderly male up in the chair in no distress. Respiratory system: Unlabored breathing, clear to auscultation anteriorly. Heart S1, S2. Regular rate and rhythm. Abdomen soft, no tenderness. LABS: Hemoglobin 11.8, white count 12.4, BUN of 38, creatinine 0.97. Blood cultures 10/19 and 10/20 have been negative. DIAGNOSTIC IMPRESSION AND PLAN: Patient with an E coli bacteremia, possibly urinary source in this patient also with component of pneumonia. Sputum has been positive for Stenotrophomonas pneumonia, recommending Cipro and Bactrim twice a day for 10 days and close outpatient followup. We will repeat blood cultures a week after completing antibiotic to make sure no evidence of any recurrence of bacteremia. This plan has been discussed in detail with the patient as well as the nurse practitioner working on discharge. MMODL / IJN: [id number] /
[2019-10-23 07:51] LABS: Methylmalonic Acid 0.74 umol/L (<0.40)
== END 2019-10-22 13:32 | disposition home health service (06) | DRG 871 ==
LOC: EC 19:52 → 3SCARD 21:31 → 2SICU 10-17 05:34 → 4SSUR 10-22 09:26
PROVIDERS: ADMIT Internal Medicine Geriatric Medicine; ATTEND Internal Medicine Geriatric Medicine
PROC: 02H633Z Insertion of Infusion Device into Right Atrium, Percutaneous Approach (ICD-10-PCS; principal; 2019-10-17)
PROC: 03HY32Z Insertion of Monitoring Device into Upper Artery, Percutaneous Approach (ICD-10-PCS; 2019-10-17)
PROC: 4A133J1 Monitoring of Arterial Pulse, Peripheral, Percutaneous Approach (ICD-10-PCS; 2019-10-17)
PROC: 4A133B1 Monitoring of Arterial Pressure, Peripheral, Percutaneous Approach (ICD-10-PCS; 2019-10-17)
PROC: 5A1945Z Respiratory Ventilation, 24-96 Consecutive Hours (ICD-10-PCS; 2019-10-17)
PROC: 0BH17EZ Insertion of Endotracheal Airway into Trachea, Via Natural or Artificial Opening (ICD-10-PCS; 2019-10-17)
DX: A41.51 Sepsis due to Escherichia coli [E. coli] (principal); N17.0 Acute kidney failure with tubular necrosis; J96.01 Acute respiratory failure with hypoxia; R65.21 Severe sepsis with septic shock; J15.6 Pneumonia due to other Gram-negative bacteria; I47.2 Ventricular tachycardia; N39.0 Urinary tract infection, site not specified; I42.8 Other cardiomyopathies; I50.22 Chronic systolic (congestive) heart failure; E87.2 Acidosis; I48.19 Other persistent atrial fibrillation; J98.11 Atelectasis; R44.3 Hallucinations, unspecified; T82.857A Stenosis of other cardiac prosthetic devices, implants and grafts, initial encounter; Z99.11 Dependence on respirator [ventilator] status; M62.82 Rhabdomyolysis; E78.5 Hyperlipidemia, unspecified; H35.30 Unspecified macular degeneration; H40.9 Unspecified glaucoma; R31.9 Hematuria, unspecified; N40.1 Benign prostatic hyperplasia with lower urinary tract symptoms; I11.0 Hypertensive heart disease with heart failure; E83.39 Other disorders of phosphorus metabolism; E83.42 Hypomagnesemia; E87.6 Hypokalemia; I27.20 Pulmonary hypertension, unspecified; I08.1 Rheumatic disorders of both mitral and tricuspid valves; K76.9 Liver disease, unspecified; D69.59 Other secondary thrombocytopenia; B95.8 Unspecified staphylococcus as the cause of diseases classified elsewhere; K57.30 Diverticulosis of large intestine without perforation or abscess without bleeding; M79.89 Other specified soft tissue disorders; Y83.1 Surgical operation with implant of artificial internal device as the cause of abnormal reaction of the patient, or of later complication, without mention of misadventure at the time of the procedure; Y92.009 Unspecified place in unspecified non-institutional (private) residence as the place of occurrence of the external cause; Z79.01 Long term (current) use of anticoagulants; Z79.899 Other long term (current) drug therapy; Z95.2 Presence of prosthetic heart valve; Z95.3 Presence of xenogenic heart valve; Z95.0 Presence of cardiac pacemaker; Z98.890 Other specified postprocedural states; Z90.49 Acquired absence of other specified parts of digestive tract; Z90.89 Acquired absence of other organs; Z87.891 Personal history of nicotine dependence; Z82.49 Family history of ischemic heart disease and other diseases of the circulatory system; Z80.9 Family history of malignant neoplasm, unspecified; Z88.0 Allergy status to penicillin; Z95.810 Presence of automatic (implantable) cardiac defibrillator
CPT/HCPCS: 36415; 36600; 71045; 71046; 74176; 76770; 80048; 80053; 80061; 80076; 81001; 82550; 82553; 82607; 82728; 82805; 83540; 83550; 83605; 83625; 83735; 83880; 83921; 84100; 84132; 84443; 84484; 85025; 85384; 85610; 85730; 86704; 86706; 86850; 86900; 86901; 87040; 87070; 87077; 87086; 87186; 87205; 87324; 87340; 93005; 93306; 94002; 94003; 96365; 96366; 96368; 96376; 99291

== ENCOUNTER 2019-10-23 11:40 | Emergency (ER) | payer MEDICARE ==
[2019-10-23 11:46] VITALS: RESP 18
[2019-10-23] MEDS ORDERED: DIPH,PERTUS(ACELL)TETVAC-LF 0.5 ML VIAL IM ONE (12:09)
[2019-10-23] MEDS ORDERED: ceFAZolin 1,000 MG VIAL (IM USE) IM STA (12:09)
--- NOTE | 2019-10-23 12:24 | ED ---
General Adult HPI - General Chief complaint: Fall Stated complaint: fall head injury Time Seen by Provider: 10/23/19 11:45 Source: patient, RN notes reviewed, old records reviewed Mode of arrival: wheelchair Limitations: no limitations - History of Present Illness Initial comments: This is a 69-year-old male who presents emergency department stating that yesterday he went to reach for a railing to go up a step and fell backwards onto his butt and then tipped backwards and hit his head on the concrete. Patient states he was not days he did not lose consciousness and he denies any neck pain. Patient denies any numbness weakness. Patient is however on eliquis. Patient stated this occurred at 1:30 yesterday afternoon. Patient states laceration. Then he thought so decided to intubate Her. Per patient denies any other injury. Patient has any back pain patient denies any tailbone pain. Patient denies any extremity pain. - Related Data Home Medications Medication Instructions Recorded Confirmed Tamsulosin [Flomax] 0.4 mg PO DAILY 10/15/19 10/23/19 Multivitamins, Thera [Multivitamin 1 tab PO DAILY 10/23/19 10/23/19 (formulary)] Sulfamethox-Tmp 800-160Mg [Bactrim 1 tab PO BID 10/23/19 10/23/19 DS 800-160 mg] Previous Rx's Medication Instructions Recorded Apixaban [Eliquis] 5 mg PO BID #60 tab 10/04/18 Amiodarone [Cordarone] 200 mg PO BID #60 tab 10/22/19 Ciprofloxacin HCl [Cipro] 500 mg PO BID 10 Days #20 tab 10/22/19 Furosemide [Lasix] 20 mg PO DAILY #30 tab 10/22/19 Metoprolol Tartrate [Lopressor] 50 mg PO TID #90 tab 10/22/19 Sodium Bicarbonate Tab 650 mg PO DAILY #30 tab 10/22/19 Thiamine [Vitamin B-1] 100 mg PO BID tab 10/22/19 Allergies Allergy/AdvReac Type Severity Reaction Status Date / Time Penicillins Allergy Rash/Hives Verified 10/23/19 13:22 Review of Systems ROS Statement: Those systems with pertinent positive or pertinent negative responses have been documented in the HPI. ROS Other: All systems not noted in ROS Statement are negative. Past Medical History Past Medical History: Atrial Fibrillation, Eye Disorder, Hyperlipidemia, Hypertension Additional Past Medical History / Comment(s): PAST EPISODE OF AFIB SUMMER 2018. MACULAR DEGENERATION AND GLAUCOMA History of Any Multi-Drug Resistant Organisms: None Reported Past Surgical History: Appendectomy, Cardiac Valve Replacement, Cholecystectomy, Hernia Repair, Pacemaker Additional Past Surgical History / Comment(s): AORTIC VALVE REPLACEMENT 2008. INGUINAL HERNIA REPAIR. UMBILICAL HERNIA REPAIR. COLONOSCOPY. PACEMAKER 2019 Past Anesthesia/Blood Transfusion Reactions: No Reported Reaction Type of Cardiac Device: Permanent Pacemaker Device Placement Date:: 2018 Past Psychological History: No Psychological Hx Reported Smoking Status: Former smoker Past Alcohol Use History: Daily, Heavy Past Drug Use History: None Reported - Past Family History Mother Family Medical History: Hypertension Father Additional Family Medical History / Comment(s): Enlarged Heart General Exam - General Exam Comments Initial Comments: GENERAL: Patient is well-developed and well-nourished. Patient is nontoxic and well- hydrated and is in mild distress. ENT: Neck is soft and supple. No significant lymphadenopathy is noted. Oropharynx is clear. Moist mucous membranes. Neck has full range of motion without eliciting any pain. EYES: The sclera were anicteric and conjunctiva were pink and moist. Extraocular movements were intact and pupils were equal round and reactive to light. Eye lids were unremarkable. PULMONARY: Unlabored respirations. Good breath sounds bilaterally. No audible rales rhonchi or wheezing was noted. CARDIOVASCULAR: There is a regular rate and rhythm without any murmurs gallops or rubs. ABDOMEN: Soft and nontender with normal bowel sounds. SKIN: Patient has a large laceration on the occipital scalp region elicits phthalate laceration measuring about 5 cm total NEUROLOGIC: Patient is alert and oriented x3. Cranial nerves II through XII are grossly intact. Motor and sensory are also intact. Normal speech, volume and content. Symmetrical smile. MUSCULOSKELETAL: Normal extremities with adequate strength and full range of motion. LYMPHATICS: No significant lymphadenopathy is noted PSYCHIATRIC: Normal psychiatric evaluation. Limitations: no limitations Course Vital Signs 10/23/19 11:42 Temperature 97.4 F L Pulse Rate 65 Respiratory 18 Rate Blood Pressure 107/67 O2 Sat by Pulse 97 Oximetry Procedures - Laceration Laceration #1 Consent Obtained: verbal consent Indication: laceration Site: scalp Description: irregular Anesthetic Used: lidocaine 1% Pre-repair: wound explored Size of Sutures: other (Pinon were placed) Number of Sutures: 5 Patient Tolerated Procedure: well Additional Comments: There was some tissue that had to be removed because it was no longer viable. I removed with a 15 blade scalpel Medical Decision Making - Medical Decision Making CT of the brain and C-spine were negative. Patient had a tetanus and Ancef in the emergency department. Disposition Clinical Impression: Scalp laceration, Fall Disposition: HOME SELF-CARE Condition: Good Instructions (If sedation given, give patient instructions): Laceration (ED), Fall Prevention for Older Adults (ED) Additional Instructions: Patient should continue taking his Cipro as previously prescribed. Is patient prescribed a controlled substance at d/c from ED?: No Referrals: Ryan Hendrickson DO [Primary Care Provider] - 1-2 days Time of Disposition: 13:40
--- NOTE | 2019-10-23 12:58 | CT ---
EXAMINATION TYPE: CT brain emmanuel wo con DATE OF EXAM: 10/23/2019 COMPARISON: None HISTORY: 69-year-old male pain after injury, Scalp laceration CT DLP: 1463.2 mGycm Automated exposure control for dose reduction was used. Technique: Examination of the head was done in axial plane without intravenous contrast. Coronal and sagittal reconstructions performed. CT of the cervical spine was obtained in axial plane without intravenous injection of contrast mater ial. Coronal and sagittal reformatted images were obtained from the axial views for evaluation of f ractures, spinal alignment and canal. FINDINGS: Head: There is no evidence of acute intracranial hemorrhage, acute ischemic changes, mass, mass-effect, or extra-axial fluid collection. There is no effacement of cerebral sulci or basal subarachnoid cister ns. There is no hydrocephalus. There is no midline shift. Hyde-white matter distinction is preserv ed. There is a posterior right parietal scalp laceration. No underlying calvarial fracture is seen. Atherosclerotic calcifications within the carotid siphons. Partially empty sella. Mild generalized ambirz pratentorial volume loss. Rightward nasal septal deviation. Partial opacification inferior left mastoid air cells. Trace mucosa l thickening throughout the ethmoid air cells. Visualized orbits and globes are intact. Cervical spine: No craniocervical junction abnormalities, predental space widening, or prevertebral soft tissue swell ing. Preserved alignment of the cervical spine. Mild degenerative disc disease. Scattered mild facet arthr opathy. No acute fracture of the cervical spine. Alignment is maintained. There is variable mild neural foraminal narrowing upper and mid cervical spine. Sagittal and coronal reformatted images confirm above findings. COMBINED IMPRESSION: 1. Mild generalized cerebral atrophy. Right posterior parietal scalp laceration. No underlying calvar ial fracture. No acute intracranial abnormality seen. 2. Acute fracture or malalignment of the cervical spine. 3. Some trapped fluid in the inferior left mastoid air cells. Correlate for any mastoid pain to exclu de mastoiditis.
[2019-10-23] MEDS ORDERED: LIDOCAINE 1% INJ 10MG/ML (20 ML MDV) SQ ONE (13:25)
[2019-10-23 13:59] VITALS: BP 109/63; PULSE 62; TEMP 97.9
== END 2019-10-23 13:59 | disposition home or self-care (01) ==
LOC: EC 11:40
DX: S01.01XA Laceration without foreign body of scalp, initial encounter (principal); I48.91 Unspecified atrial fibrillation; H40.9 Unspecified glaucoma; Z23 Encounter for immunization; Z87.891 Personal history of nicotine dependence; Z88.0 Allergy status to penicillin; Z95.5 Presence of coronary angioplasty implant and graft; Z98.890 Other specified postprocedural states; W10.9XXA Fall (on) (from) unspecified stairs and steps, initial encounter; Y93.01 Activity, walking, marching and hiking; Y92.009 Unspecified place in unspecified non-institutional (private) residence as the place of occurrence of the external cause
CPT/HCPCS: 72125; 70450; 90715; 90471; 96372; 99284; 12002; J0690; J2001

== ENCOUNTER 2019-12-26 04:46 | Observation (INO) | payer MEDICARE ==
--- NOTE | 2019-12-26 05:48 | ED ---
Fever HPI - General Chief Complaint: Fever Stated Complaint: Possible UTI Time Seen by Provider: 12/26/19 05:03 Source: patient Mode of arrival: ambulatory Limitations: no limitations - History of Present Illness Initial Comments: This patient is a 69-year-old man who presents with complaint that he believes he has developed urinary tract infection. He states that he had similar symptoms with previous urinary tract infection diagnosis. He states that tonight he started to have shaking chills, nausea, felt like his heart was racing, and was feeling sweaty. Patient states that his checked his heart rate and it was over 120 at home. He does have history of atrial fibrillation that has taken his medications. The patient also is having some discolored urine which he felt was probably blood there. MD Complaint: fever -: hour(s) Temperature Source: subjective Associated Symptoms: chills, rigors, dysuria Treatments Prior to Arrival: none - Related Data Home Medications Medication Instructions Recorded Confirmed Tamsulosin [Flomax] 0.4 mg PO BID 10/15/19 12/26/19 Multivitamins, Thera [Multivitamin 1 tab PO DAILY 10/23/19 12/26/19 (formulary)] Amiodarone [Cordarone] 200 mg PO DAILY 12/26/19 12/26/19 Losartan Potassium 50 mg PO DAILY 12/26/19 12/26/19 Metoprolol Tartrate [Lopressor] 75 mg PO BID 12/26/19 12/26/19 Previous Rx's Medication Instructions Recorded Apixaban [Eliquis] 5 mg PO BID #60 tab 10/04/18 Furosemide [Lasix] 20 mg PO DAILY #30 tab 10/22/19 Cefuroxime [Ceftin] 250 mg PO BID 7 Days #14 tab 12/27/19 Allergies Allergy/AdvReac Type Severity Reaction Status Date / Time Penicillins Allergy Rash/Hives Verified 12/26/19 08:06 Review of Systems ROS Statement: Those systems with pertinent positive or pertinent negative responses have been documented in the HPI. ROS Other: All systems not noted in ROS Statement are negative. Constitutional: Reports: chills Respiratory: Denies: cough, dyspnea Cardiovascular: Reports: palpitations. Denies: chest pain, edema, syncope Gastrointestinal: Denies: abdominal pain, nausea, vomiting, diarrhea Genitourinary: Reports: dysuria, frequency, hematuria Musculoskeletal: Denies: back pain Skin: Denies: rash Neurological: Denies: headache, weakness, numbness Past Medical History Past Medical History: Atrial Fibrillation, Eye Disorder, Hyperlipidemia, Hypertension Additional Past Medical History / Comment(s): PAST EPISODE OF AFIB SUMMER 2018. MACULAR DEGENERATION AND GLAUCOMA History of Any Multi-Drug Resistant Organisms: None Reported Past Surgical History: Appendectomy, Cardiac Valve Replacement, Cholecystectomy, Hernia Repair, Pacemaker Additional Past Surgical History / Comment(s): AORTIC VALVE REPLACEMENT 2008. INGUINAL HERNIA REPAIR. UMBILICAL HERNIA REPAIR. COLONOSCOPY. PACEMAKER 2019 Past Anesthesia/Blood Transfusion Reactions: No Reported Reaction Type of Cardiac Device: Permanent Pacemaker Device Placement Date:: 2018 Past Psychological History: No Psychological Hx Reported Smoking Status: Former smoker Past Alcohol Use History: Daily, Heavy Past Drug Use History: None Reported - Past Family History Mother Family Medical History: Hypertension Father Additional Family Medical History / Comment(s): Enlarged Heart General Exam Limitations: no limitations General appearance: alert, in no apparent distress Head exam: Present: atraumatic, normocephalic Eye exam: Present: normal appearance. Absent: scleral icterus, conjunctival injection ENT exam: Present: normal oropharynx Neck exam: Present: normal inspection Respiratory exam: Present: normal lung sounds bilaterally. Absent: respiratory distress, wheezes, rales, rhonchi, stridor Cardiovascular Exam: Present: tachycardia (Rate approximately 116 at my exam), irregular rhythm, systolic murmur. Absent: diastolic murmur, rubs, gallop GI/Abdominal exam: Present: soft. Absent: distended, tenderness, guarding, rebound, rigid, mass Extremities exam: Present: normal inspection, normal capillary refill, pedal e alden (Right ankle, patient states is chronic ). Absent: calf tenderness Back exam: Present: normal inspection. Absent: CVA tenderness (R), CVA tenderness (L) Neurological exam: Present: alert Skin exam: Present: warm, dry, intact, normal color. Absent: rash Course Vital Signs 12/26/19 12/26/19 12/26/19 04:48 08:00 10:20 Temperature 99.4 F 98.4 F 97.8 F Pulse Rate 125 H 84 Pulse Rate [ 77 Pulse Oximetery ] Respiratory 20 16 18 Rate Blood Pressure 113/100 122/86 Blood Pressure 100/62 [Right Arm] O2 Sat by Pulse 99 99 97 Oximetry Medical Decision Making - Lab Data Result diagrams: 12/26/19 06:00 12/26/19 06:09 Lab Results 12/26/19 12/26/19 12/26/19 Range/Units 06:00 06:00 06:09 WBC 9.2 (3.8-10.6) k/uL RBC 3.72 L (4.30-5.90) m/uL Hgb 11.8 L (13.0-17.5) gm/dL Hct 35.4 L (39.0-53.0) % MCV 95.1 (80.0-100.0) fL MCH 31.8 (25.0-35.0) pg MCHC 33.4 (31.0-37.0) g/dL RDW 15.2 (11.5-15.5) % Plt Count 127 L (150-450) k/uL Neutrophils % 93 % Lymphocytes % 4 % Monocytes % 3 % Eosinophils % 1 % Basophils % 0 % Neutrophils # 8.5 H (1.3-7.7) k/uL Lymphocytes # 0.4 L (1.0-4.8) k/uL Monocytes # 0.2 (0-1.0) k/uL Eosinophils # 0.0 (0-0.7) k/uL Basophils # 0.0 (0-0.2) k/uL PT 10.6 (9.0-12.0) sec INR 1.0 (<1.2) APTT 26.2 (22.0-30.0) sec Sodium (137-145) mmol/L Potassium (3.5-5.1) mmol/L Chloride (98-107) mmol/L Carbon Dioxide (22-30) mmol/L Anion Gap mmol/L BUN (9-20) mg/dL Creatinine (0.66-1.25) mg/dL Est GFR (CKD-EPI)AfAm (>60 ml/min/1.73 sqM) Est GFR (CKD-EPI)NonAf (>60 ml/min/1.73 sqM) Glucose (74-99) mg/dL Lactic Ac Sepsis Rflx Plasma Lactic Acid Srinivasan (0.7-2.0) mmol/L Calcium (8.4-10.2) mg/dL Total Bilirubin (0.2-1.3) mg/dL AST (17-59) U/L ALT (4-49) U/L Alkaline Phosphatase (38-126) U/L Troponin I (0.000-0.034) ng/mL Total Protein (6.3-8.2) g/dL Albumin (3.5-5.0) g/dL Triglycerides (<150) mg/dL Cholesterol (<200) mg/dL LDL Cholesterol, Calc (0-99) mg/dL HDL Cholesterol (40-60) mg/dL Urine Color Dark Brown Urine Appearance Cloudy (Clear) Urine pH 6.0 (5.0-8.0) Ur Specific [place] 1.018 (1.001-1.035) Urine Protein 1+ H (Negative) Urine Glucose (UA) Negative (Negative) Urine Ketones Negative (Negative) Urine Blood Large H (Negative) Urine Nitrite Negative (Negative) Urine Bilirubin Negative (Negative) Urine Urobilinogen <2.0 (<2.0) mg/dL Ur Leukocyte Esterase Large H (Negative) Urine RBC >182 H (0-5) /hpf Urine WBC 166 H (0-5) /hpf Ur Squamous Epith Cells 2 (0-4) /hpf Urine Mucus Rare H (None) /hpf 12/26/19 12/26/19 12/26/19 Range/Units 06:09 06:09 06:09 WBC (3.8-10.6) k/uL RBC (4.30-5.90) m/uL Hgb (13.0-17.5) gm/dL Hct (39.0-53.0) % MCV (80.0-100.0) fL MCH (25.0-35.0) pg MCHC (31.0-37.0) g/dL RDW (11.5-15.5) % Plt Count (150-450) k/uL Neutrophils % % Lymphocytes % % Monocytes % % Eosinophils % % Basophils % % Neutrophils # (1.3-7.7) k/uL Lymphocytes # (1.0-4.8) k/uL Monocytes # (0-1.0) k/uL Eosinophils # (0-0.7) k/uL Basophils # (0-0.2) k/uL PT (9.0-12.0) sec INR (<1.2) APTT (22.0-30.0) sec Sodium 131 L (137-145) mmol/L Potassium 3.8 (3.5-5.1) mmol/L Chloride 102 (98-107) mmol/L Carbon Dioxide 24 (22-30) mmol/L Anion Gap 5 mmol/L BUN 11 (9-20) mg/dL Creatinine 0.73 (0.66-1.25) mg/dL Est GFR (CKD-EPI)AfAm >90 (>60 ml/min/1.73 sqM) Est GFR (CKD-EPI)NonAf >90 (>60 ml/min/1.73 sqM) Glucose 118 H (74-99) mg/dL Lactic Ac Sepsis Rflx Plasma Lactic Acid Srinivasan 2.2 H* (0.7-2.0) mmol/L Calcium 8.2 L (8.4-10.2) mg/dL Total Bilirubin 0.9 (0.2-1.3) mg/dL AST 21 (17-59) U/L ALT 13 (4-49) U/L Alkaline Phosphatase 69 (38-126) U/L Troponin I 0.059 H* (0.000-0.034) ng/mL Total Protein 5.9 L (6.3-8.2) g/dL Albumin 3.1 L (3.5-5.0) g/dL Triglycerides (<150) mg/dL Cholesterol (<200) mg/dL LDL Cholesterol, Calc (0-99) mg/dL HDL Cholesterol (40-60) mg/dL Urine Color Urine Appearance (Clear) Urine pH (5.0-8.0) Ur Specific [place] (1.001-1.035) Urine Protein (Negative) Urine Glucose (UA) (Negative) Urine Ketones (Negative) Urine Blood (Negative) Urine Nitrite (Negative) Urine Bilirubin (Negative) Urine Urobilinogen (<2.0) mg/dL Ur Leukocyte Esterase (Negative) Urine RBC (0-5) /hpf Urine WBC (0-5) /hpf Ur Squamous Epith Cells (0-4) /hpf Urine Mucus (None) /hpf 12/26/19 12/26/19 12/26/19 Range/Units 06:09 07:28 09:51 WBC (3.8-10.6) k/uL RBC (4.30-5.90) m/uL Hgb (13.0-17.5) gm/dL Hct (39.0-53.0) % MCV (80.0-100.0) fL MCH (25.0-35.0) pg MCHC (31.0-37.0) g/dL RDW (11.5-15.5) % Plt Count (150-450) k/uL Neutrophils % % Lymphocytes % % Monocytes % % Eosinophils % % Basophils % % Neutrophils # (1.3-7.7) k/uL Lymphocytes # (1.0-4.8) k/uL Monocytes # (0-1.0) k/uL Eosinophils # (0-0.7) k/uL Basophils # (0-0.2) k/uL PT (9.0-12.0) sec INR (<1.2) APTT (22.0-30.0) sec Sodium (137-145) mmol/L Potassium (3.5-5.1) mmol/L Chloride (98-107) mmol/L Carbon Dioxide (22-30) mmol/L Anion Gap mmol/L BUN (9-20) mg/dL Creatinine (0.66-1.25) mg/dL Est GFR (CKD-EPI)AfAm (>60 ml/min/1.73 sqM) Est GFR (CKD-EPI)NonAf (>60 ml/min/1.73 sqM) Glucose (74-99) mg/dL Lactic Ac Sepsis Rflx Y Plasma Lactic Acid Srinivasan (0.7-2.0) mmol/L Calcium (8.4-10.2) mg/dL Total Bilirubin (0.2-1.3) mg/dL AST (17-59) U/L ALT (4-49) U/L Alkaline Phosphatase (38-126) U/L Troponin I 0.221 H* (0.000-0.034) ng/mL Total Protein (6.3-8.2) g/dL Albumin (3.5-5.0) g/dL Triglycerides 56 (<150) mg/dL Cholesterol 148 (<200) mg/dL LDL Cholesterol, Calc 85 (0-99) mg/dL HDL Cholesterol 52 (40-60) mg/dL Urine Color Urine Appearance (Clear) Urine pH (5.0-8.0) Ur Specific [place] (1.001-1.035) Urine Protein (Negative) Urine Glucose (UA) (Negative) Urine Ketones (Negative) Urine Blood (Negative) Urine Nitrite (Negative) Urine Bilirubin (Negative) Urine Urobilinogen (<2.0) mg/dL Ur Leukocyte Esterase (Negative) Urine RBC (0-5) /hpf Urine WBC (0-5) /hpf Ur Squamous Epith Cells (0-4) /hpf Urine Mucus (None) /hpf 12/26/19 Range/Units 09:51 WBC (3.8-10.6) k/uL RBC (4.30-5.90) m/uL Hgb (13.0-17.5) gm/dL Hct (39.0-53.0) % MCV (80.0-100.0) fL MCH (25.0-35.0) pg MCHC (31.0-37.0) g/dL RDW (11.5-15.5) % Plt Count (150-450) k/uL Neutrophils % % Lymphocytes % % Monocytes % % Eosinophils % % Basophils % % Neutrophils # (1.3-7.7) k/uL Lymphocytes # (1.0-4.8) k/uL Monocytes # (0-1.0) k/uL Eosinophils # (0-0.7) k/uL Basophils # (0-0.2) k/uL PT (9.0-12.0) sec INR (<1.2) APTT (22.0-30.0) sec Sodium (137-145) mmol/L Potassium (3.5-5.1) mmol/L Chloride (98-107) mmol/L Carbon Dioxide (22-30) mmol/L Anion Gap mmol/L BUN (9-20) mg/dL Creatinine (0.66-1.25) mg/dL Est GFR (CKD-EPI)AfAm (>60 ml/min/1.73 sqM) Est GFR (CKD-EPI)NonAf (>60 ml/min/1.73 sqM) Glucose (74-99) mg/dL Lactic Ac Sepsis Rflx Plasma Lactic Acid Srinivasan 2.0 (0.7-2.0) mmol/L Calcium (8.4-10.2) mg/dL Total Bilirubin (0.2-1.3) mg/dL AST (17-59) U/L ALT (4-49) U/L Alkaline Phosphatase (38-126) U/L Troponin I (0.000-0.034) ng/mL Total Protein (6.3-8.2) g/dL Albumin (3.5-5.0) g/dL Triglycerides (<150) mg/dL Cholesterol (<200) mg/dL LDL Cholesterol, Calc (0-99) mg/dL HDL Cholesterol (40-60) mg/dL Urine Color Urine Appearance (Clear) Urine pH (5.0-8.0) Ur Specific [place] (1.001-1.035) Urine Protein (Negative) Urine Glucose (UA) (Negative) Urine Ketones (Negative) Urine Blood (Negative) Urine Nitrite (Negative) Urine Bilirubin (Negative) Urine Urobilinogen (<2.0) mg/dL Ur Leukocyte Esterase (Negative) Urine RBC (0-5) /hpf Urine WBC (0-5) /hpf Ur Squamous Epith Cells (0-4) /hpf Urine Mucus (None) /hpf - EKG Data -: EKG Interpreted by [place] EKG shows normal: intervals (QRS duration is 158 ms, prolonged consistent with paced rhythm) Rate: tachycardia (Rate 101 bpm) Interpretation: other (ECG shows ventricular paced rhythm at approximately 101 bpm) Disposition Clinical Impression: Atrial fibrillation with RVR, Urinary tract infection, Sepsis Disposition: ADMITTED IP TO THIS [facility] Condition: Good
--- NOTE | 2019-12-26 05:48 | XR ---
EXAMINATION TYPE: XR chest 1V portable DATE OF EXAM: 12/26/2019 COMPARISON: Chest x-ray October 22, 2019. HISTORY: Fever. TECHNIQUE: Single AP portable frontal upright view of the chest is obtained. FINDINGS: Persistent cardiomegaly with multi lead pacemaker/AICD. Overlying sternal wires and metall ic aortic valve are redemonstrated. Chronic parenchymal change with persistent left basilar opacity. New central vascular congestion. Osseous structures remain intact. IMPRESSION: Chronic changes and cardiomegaly with stable left basilar opacity favoring scarring and/ or atelectasis. New mild to moderate central vascular congestion felt present. Correlate for CHF exac erbation..
[2019-12-26 06:20] LABS: Basophils % (A) 0 %; Eosinophils % (A) 1 %; HCT 35.4 % (39.0-53.0); HGB 11.8 gm/dL (13.0-17.5); Lymphocytes # (A) 0.4 k/uL (1.0-4.8); Lymphocytes % (A) 4 %; MCH 31.8 pg (25.0-35.0); MCHC 33.4 g/dL (31.0-37.0); MCV 95.1 fL (80.0-100.0); Mean Platelet Volume 7.3; Monocytes # (A) 0.2 k/uL (0-1.0); Monocytes % (A) 3 %; Neutrophils # (A) 8.5 k/uL (1.3-7.7); Neutrophils % (A) 93 %; Platelet Count 127 k/uL (150-450); RBC 3.72 m/uL (4.30-5.90); RDW 15.2 % (11.5-15.5); WBC 9.2 k/uL (3.8-10.6)
[2019-12-26 06:25] LABS: Appearance,Urine Cloudy (Clear); Bilirubin,Urine Negative (Negative); Blood,Urine Large (Negative); Color,Urine Dark Brown; Glucose,Urine (UA) Negative (Negative); Ketones,Urine Negative (Negative); Leukocyte Esterase,Urine Large (Negative); Mucus,Urine Rare /hpf; Nitrite,Urine Negative (Negative); Protein,Urine 1+ (Negative); RBC,Urine >182 /hpf (0-5); Specific Gravity,Urine 1.018 (1.001-1.035); Squamous Epithelial Cell,Urine 2 /hpf (0-4); Urobilinogen,Urine <2.0 mg/dL (<2.0); WBC,Urine 166 /hpf (0-5)
[2019-12-26 06:28] LABS: ALT 13 U/L (4-49); AST 21 U/L (17-59); African American GFR (CKD) >90 (>60 ml/min/1.73 sqM); Albumin 3.1 g/dL (3.5-5.0); Alkaline Phosphatase 69 U/L (38-126); Anion Gap 5 mmol/L; Blood Urea Nitrogen 11 mg/dL (9-20); Calcium 8.2 mg/dL (8.4-10.2); Carbon Dioxide 24 mmol/L (22-30); Chloride 102 mmol/L (98-107); Glucose 118 mg/dL (74-99); Non-African American GFR(CKD) >90 (>60 ml/min/1.73 sqM); Potassium 3.8 mmol/L (3.5-5.1); Sodium 131 mmol/L (137-145); Total Bilirubin 0.9 mg/dL (0.2-1.3); Total Protein 5.9 g/dL (6.3-8.2)
[2019-12-26 06:30] LABS: Partial Thromboplastin Time 26.2 sec (22.0-30.0); Prothrombin Time 10.6 sec (9.0-12.0)
[2019-12-26] MEDS ORDERED: LEVOFLOXACIN 750 MG TAB PO STA (06:32)
[2019-12-26] MEDS ORDERED: NITROGLYCERIN SL TABS 0.4 MG TAB SUBLINGUAL PRN (07:10)
[2019-12-26] MEDS: SODIUM CHLORIDE 0.9% 1,000 ML IV SCH (07:53)
[2019-12-26 08:06] VITALS: RESP 18
[2019-12-26] MEDS ORDERED: METOPROLOL TARTRATE 50 MG TAB PO SCH (09:00)
[2019-12-26] MEDS ORDERED: APIXABAN 5 MG TAB PO SCH (09:00)
[2019-12-26] MEDS ORDERED: AMIODARONE 200 MG TAB PO SCH (09:00)
[2019-12-26] MEDS: AMIODARONE 200 MG TAB PO SCH (11:14)
[2019-12-26] MEDS: FUROSEMIDE 20 MG TAB PO SCH (11:14)
[2019-12-26] MEDS: METOPROLOL TARTRATE 25 MG TAB PO SCH ×2 (11:14→22:07)
[2019-12-26] MEDS: THIAMINE 100 MG TAB PO SCH ×2 (11:14→22:07)
[2019-12-26] MEDS: TAMSULOSIN 0.4 MG CAP.ER.24H PO SCH ×2 (11:14→22:07)
[2019-12-26] MEDS: SODIUM BICARBONATE TAB 650 MG TAB PO SCH (11:15)
--- NOTE | 2019-12-26 12:55 | P.HPIM ---
History of Present Illness H&P Date: 12/26/19 HISTORY OF PRESENT ILLNESS This is a 69-year-old male patient of Dr. Hendrickson and Dr. Otero with past medical history of nonischemic cardiomyopathy and nonsustained ventricular tachycardia status post biventricular AICD, prosthetic aortic valve, paroxysmal atrial fibrillation, hypertension, hyperlipidemia, glaucoma and macular degeneration, remote history of tobacco use. Patient was last hospitalized in October of this year which time he was treated for acute kidney injury, Citrobacter urinary tract infection, nonsustained ventricular tachycardia, ventricular paced rhythm and atrial fibrillation, septic shock, acute hypoxic respiratory failure requiring intubation. The patient had scheduled appointment with urologist today outside of [facility]. He has had some problems with chills blood in his urine that started yesterday. He states he had episode where his heart rate was elevated and his respiratory rate was rapid. He has not been feeling well for the past 48 hours he denies having any cough, wheezing or lower extremity edema. He states he feels like his urethra fills with urinating as pressure but is unable to go. He complains of dribbling urine and unable to void completely. Echocardiogram from October revealed EF of 25-30%, mild mitral regurgitation, mild tricuspid regurgitation, mild pulmonary hypertension, small generalized pericardial effusion. Patient came into [facility] emergency [facility] for evaluation. He was afebrile, initial heart rate 125, blood pressure 113/100, pulse ox 99%. WBC 9.2, hemoglobin 11.8, platelet count 127. Sodium 131, potassium 3.8, chloride 102, CO2 24, BUN 11 creatinine 0.73, blood sugar 118. Urinalysis dark brown, cloudy, blood large, leukoesterase large, RBC greater than 182, WBC 166. Troponin 0.059. EKG sinus tachycardia, paced rhythm. Bladder scan 220, pulse. Patient was given a dose of Rocephin and Levaquin and scheduled for admission to the hospital. Urine culture, blood culture obtained, consults with cardiology and urology. Patient to have straight cath done 1. REVIEW OF SYSTEMS Constitutional: No fever, reports chills, no night sweats. No weight change. Reports weakness, Reports fatigue. Reports generalized malaise.. No daytime sleepiness. EENT: No headache. No blurred vision or double vision, no loss of vision. No loss of Hearing, no ringing in the ears, no dizziness. No nasal drainage or congestion. No epistaxis. No sore throat. Lungs: Reports shortness of breath, denies dyspnea on exertion, denies cough, no sputum production. No wheezing. Cardiovascular: No chest pain, Reports lower extremity edema chronic. No palpitations. No paroxysmal nocturnal dyspnea. No orthopnea. No lightheadedness or dizziness. No syncopal episodes. Abdominal: No abdominal pain. No nausea, vomiting. No diarrhea. No constipation. No bloody or tarry stools.. No loss of appetite. Genitourinary: Reports dysuria, decreased frequency. Reports urinary retention. Musculoskeletal: No myalgias. No muscle weakness, no gait dysfunction, no frequent falls. No back pain. No neck pain. Integumentary: No wounds, no lesions. No rash or pruritus. No unusual bruising. No change in hair or nails. Neurologic: No aphasia. No facial droop. No change in mentation. No head injury. No headache. No paralysis. No paresthesia. Psychiatric: No depression. No anxiety. No mood swings. Endocrine: No abnormal blood sugars. No weight change. SOCIAL HISTORY Patient smoked 2 packs of cigarettes per day for 20 years and quit 15 years ago. Patient drinks 10 beers per day for at least the last 15-20 years. He denies any marijuana or illicit drug use. 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 He is and lives at home with his in the winter in [place]. FAMILY HISTORY Mother at age 97 from old age. Father at age 59 from cardiomyopathy. Patient has 1 brother with no major medical problems and one sister that from some type of cancer. Patient has one child with no major medical problems. PHYSICAL EXAMINATION Gen: This is 69-year-old male patient resting in ER and in no acute distress. HEENT: Head is atraumatic, normocephalic. Pupils equal, round. Sclerae is anicteric. NECK: Supple. No JVD. No lymphadenopathy. No thyromegaly. LUNGS: Clear to auscultation. No wheezes or rhonchi. No intercostal retractions. HEART: Irregularly irregular rate and rhythm. Systolic murmur. ABDOMEN: Soft. Bowel sounds are present. No masses. No tenderness. EXTREMITIES: 1+ bilateral pedal edema. No calf tenderness. Dorsalis pedis palpable bilaterally. NEUROLOGICAL: Patient is awake, alert and oriented x3. Cranial nerves 2 through 12 are grossly intact. ASSESSMENT AND PLAN 1. Acute urinary tract infection with urinary retention. Consult urology. Urine culture, blood culture in progress. Patient will be started on ceftriaxone. 2. Abnormal troponins. Complete third troponin, cardiology consult. 3. Chronic thrombocytopenia. Patient was previously seen by oncology which was thought to be due to consumption from underlying bacteremia and possible bone marrow damage from prior alcohol abuse. 4. Nonischemic cardiomyopathy and history of nonsustained ventricular tachycardia status post biventricular AICD. Cardiology consult. 5. Prosthetic aortic valve. 6. Paroxysmal atrial fibrillation. Continue eliquis 5 mg twice daily, Lopressor 75 mg 2 times daily, amiodarone 200 mg daily. 7. Hypertension. Continue Lopressor. 8. Hyperlipidemia. Patient is not currently on statin. 9. Benign prostatic hypertrophy. Continue Flomax or 0.4 mg daily. 10. Macular degeneration and glaucoma, stable. 11. GI prophylaxis. Protonix. 12. DVT prophylaxis. Eliquis. Patient will be admitted to the hospital for a minimum of 2 night stay. Discharge plan: home. Impression and plan of care have been directed as dictated by the signing physician. Stephenie Chow nurse practitioner acting as scribe for signing physici an. Past Medical History Past Medical History: Atrial Fibrillation, Eye Disorder, Hyperlipidemia, Hypertension Additional Past Medical History / Comment(s): PAST EPISODE OF AFIB SUMMER 2018. MACULAR DEGENERATION AND GLAUCOMA History of Any Multi-Drug Resistant Organisms: None Reported Past Surgical History: Appendectomy, Cardiac Valve Replacement, Cholecystectomy, Hernia Repair, Pacemaker Additional Past Surgical History / Comment(s): AORTIC VALVE REPLACEMENT 2008. INGUINAL HERNIA REPAIR. UMBILICAL HERNIA REPAIR. COLONOSCOPY. PACEMAKER 2019 Past Anesthesia/Blood Transfusion Reactions: No Reported Reaction Type of Cardiac Device: Permanent Pacemaker Device Placement Date:: 2018 Past Psychological History: No Psychological Hx Reported Smoking Status: Former smoker Past Alcohol Use History: Daily, Heavy Past Drug Use History: None Reported - Past Family History Mother Family Medical History: Hypertension Father Additional Family Medical History / Comment(s): Enlarged Heart Medications and Allergies Home Medications Medication Instructions Recorded Confirmed Type Apixaban [Eliquis] 5 mg PO BID #60 tab 10/04/18 12/26/19 Rx Tamsulosin [Flomax] 0.4 mg PO BID 10/15/19 12/26/19 History Furosemide [Lasix] 20 mg PO DAILY #30 tab 10/22/19 12/26/19 Rx Multivitamins, Thera [Multivitamin 1 tab PO DAILY 10/23/19 12/26/19 History (formulary)] Amiodarone [Cordarone] 200 mg PO DAILY 12/26/19 12/26/19 History Losartan Potassium 50 mg PO DAILY 12/26/19 12/26/19 History Metoprolol Tartrate [Lopressor] 75 mg PO BID 12/26/19 12/26/19 History Allergies Allergy/AdvReac Type Severity Reaction Status Date / Time Penicillins Allergy Rash/Hives Verified 12/26/19 08:06 Physical Exam Vitals: Vital Signs Temp Pulse Resp BP Pulse Ox 12/26/19 08:00 98.4 F 84 18 122/86 99 12/26/19 04:48 99.4 F 125 H 20 113/100 99 Intake and Output 12/25/19 12/26/19 12/26/19 22:59 06:59 14:59 Other: Weight 104.326 kg Results CBC & Chem 7: 12/26/19 06:00 12/26/19 06:09 Labs: Abnormal Lab Results - Last 24 Hours (Table) 12/26/19 12/26/19 12/26/19 Range/Units 06:00 06:00 06:09 RBC 3.72 L (4.30-5.90) m/uL Hgb 11.8 L (13.0-17.5) gm/dL Hct 35.4 L (39.0-53.0) % Plt Count 127 L (150-450) k/uL Neutrophils # 8.5 H (1.3-7.7) k/uL Lymphocytes # 0.4 L (1.0-4.8) k/uL Sodium 131 L (137-145) mmol/L Glucose 118 H (74-99) mg/dL Plasma Lactic Acid Srinivasan (0.7-2.0) mmol/L Calcium 8.2 L (8.4-10.2) mg/dL Troponin I (0.000-0.034) ng/mL Total Protein 5.9 L (6.3-8.2) g/dL Albumin 3.1 L (3.5-5.0) g/dL Urine Protein 1+ H (Negative) Urine Blood Large H (Negative) Ur Leukocyte Esterase Large H (Negative) Urine RBC >182 H (0-5) /hpf Urine WBC 166 H (0-5) /hpf Urine Mucus Rare H (None) /hpf 12/26/19 12/26/19 Range/Units 06:09 06:09 RBC (4.30-5.90) m/uL Hgb (13.0-17.5) gm/dL Hct (39.0-53.0) % Plt Count (150-450) k/uL Neutrophils # (1.3-7.7) k/uL Lymphocytes # (1.0-4.8) k/uL Sodium (137-145) mmol/L Glucose (74-99) mg/dL Plasma Lactic Acid Srinivasan 2.2 H* (0.7-2.0) mmol/L Calcium (8.4-10.2) mg/dL Troponin I 0.059 H* (0.000-0.034) ng/mL Total Protein (6.3-8.2) g/dL Albumin (3.5-5.0) g/dL Urine Protein (Negative) Urine Blood (Negative) Ur Leukocyte Esterase (Negative) Urine RBC (0-5) /hpf Urine WBC (0-5) /hpf Urine Mucus (None) /hpf
--- NOTE | 2019-12-26 19:24 | P.GSCN ---
History of Present Illness Consult date: 12/26/19 Reason for Consult: Urinary retention History of present illness: Mr Mcnair is 69-year-old male presents with dribbling with urina tion, gross hematuria associated with chills. He indicated he was admitted in the hospital in 10/2019 for sepsis secondary to UTI. He indicated he has straining with urination, with dribbling stream, and sensation of incomplete emptying and urethral ballooning. He indicated symptoms ongoing for past 3-4 weeks. Urology is consulted for urinary retention and UTI. He has hx of meatal stricture, nursing attempted castañeda placement were unsuccessful. Review of Systems - Constitutional Reports chills, Denies fever, Denies weakness - EENT Ears, nose, mouth and throat: Denies dysphagia - Cardiovascular Denies chest pain - Respiratory Denies cough, Denies 7 - Gastrointestinal Reports abdominal pain, Denies nausea, Denies vomiting - Genitourinary Reports hematuria, Denies flank pain, Denies testicular pain - Integumentary Denies rash, Denies unusual bruising - Neurological Denies headaches, Denies syncope Past Medical History Past Medical History: Atrial Fibrillation, Heart Failure, CVA/TIA, Eye Disorder, Hyperlipidemia, Hypertension, Prostate Disorder Additional Past Medical History / Comment(s): Paroxysmal Afib, nonsustained Vtach, nonischemic cardiomyopathy/AICD/pacer, UTI with past sepsis/bacteremia/respiratory failure/vented, BPH, recent TIA, diverticular disease, arthritis bilateral thumbs. History of Any Multi-Drug Resistant Organisms: None Reported Past Surgical History: AICD, Appendectomy, Cardiac Valve Replacement, Cholecystectomy, Heart Catheterization, Hernia Repair, Pacemaker Additional Past Surgical History / Comment(s): 2019 AICD/pacer, 2009 aortic valve replacement, inguinal hernia surgery as infant, umbilical surgery, colonoscopy. Past Anesthesia/Blood Transfusion Reactions: No Reported Reaction Additional Past Anesthesia/Blood Transfusion Reaction / Comm: Pt has received blood in past. Type of Cardiac Device: Permanent Pacemaker, AICD Device Placement Date:: 2018 Smoking Status: Former smoker - Past Family History Mother Family Medical History: Congestive Heart Failure (CHF), Hypertension Additional Family Medical History / Comment(s): Mother lived to be 97yrs old. Father Additional Family Medical History / Comment(s): Father had an enlarged heart and of this at the age of 59yrs. Medications and Allergies Home Medications Medication Instructions Recorded Confirmed Type Apixaban [Eliquis] 5 mg PO BID #60 tab 10/04/18 12/26/19 Rx Tamsulosin [Flomax] 0.4 mg PO BID 10/15/19 12/26/19 History Furosemide [Lasix] 20 mg PO DAILY #30 tab 10/22/19 12/26/19 Rx Multivitamins, Thera [Multivitamin 1 tab PO DAILY 10/23/19 12/26/19 History (formulary)] Amiodarone [Cordarone] 200 mg PO DAILY 12/26/19 12/26/19 History Losartan Potassium 50 mg PO DAILY 12/26/19 12/26/19 History Metoprolol Tartrate [Lopressor] 75 mg PO BID 12/26/19 12/26/19 History Allergies Allergy/AdvReac Type Severity Reaction Status Date / Time Penicillins Allergy Rash/Hives Verified 12/26/19 08:06 Surgical - Exam Vital Signs Temp Pulse Resp BP Pulse Ox 99.4 F 125 H 20 113/100 99 12/26/19 04:48 12/26/19 04:48 12/26/19 04:48 12/26/19 04:48 12/26/19 04:48 - General well developed, well nourished, no distress - Eyes PERRL, normal ocular movement - ENT normal nares, normal mucosa - Respiratory normal expansion, normal respiratory effort - Abdomen Abdomen: soft, non tender - Genitourinary hypospidias, with pinpoint urethral meatus opening testicles present - Psychiatric oriented to time, oriented to person, oriented to place, speech is normal Results - Labs 12/26/19 06:00 12/26/19 06:09 Abnormal Lab Results - Last 24 Hours (Table) 12/26/19 12/26/19 12/26/19 Range/Units 06:00 06:00 06:09 RBC 3.72 L (4.30-5.90) m/uL Hgb 11.8 L (13.0-17.5) gm/dL Hct 35.4 L (39.0-53.0) % Plt Count 127 L (150-450) k/uL Neutrophils # 8.5 H (1.3-7.7) k/uL Lymphocytes # 0.4 L (1.0-4.8) k/uL Sodium 131 L (137-145) mmol/L Glucose 118 H (74-99) mg/dL Plasma Lactic Acid Srinivasan (0.7-2.0) mmol/L Calcium 8.2 L (8.4-10.2) mg/dL Troponin I (0.000-0.034) ng/mL Total Protein 5.9 L (6.3-8.2) g/dL Albumin 3.1 L (3.5-5.0) g/dL Urine Protein 1+ H (Negative) Urine Blood Large H (Negative) Ur Leukocyte Esterase Large H (Negative) Urine RBC >182 H (0-5) /hpf Urine WBC 166 H (0-5) /hpf Urine Mucus Rare H (None) /hpf 12/26/19 12/26/19 12/26/19 Range/Units 06:09 06:09 09:51 RBC (4.30-5.90) m/uL Hgb (13.0-17.5) gm/dL Hct (39.0-53.0) % Plt Count (150-450) k/uL Neutrophils # (1.3-7.7) k/uL Lymphocytes # (1.0-4.8) k/uL Sodium (137-145) mmol/L Glucose (74-99) mg/dL Plasma Lactic Acid Srinivasan 2.2 H* (0.7-2.0) mmol/L Calcium (8.4-10.2) mg/dL Troponin I 0.059 H* 0.221 H* (0.000-0.034) ng/mL Total Protein (6.3-8.2) g/dL Albumin (3.5-5.0) g/dL Urine Protein (Negative) Urine Blood (Negative) Ur Leukocyte Esterase (Negative) Urine RBC (0-5) /hpf Urine WBC (0-5) /hpf Urine Mucus (None) /hpf 12/26/19 Range/Units 13:11 RBC (4.30-5.90) m/uL Hgb (13.0-17.5) gm/dL Hct (39.0-53.0) % Plt Count (150-450) k/uL Neutrophils # (1.3-7.7) k/uL Lymphocytes # (1.0-4.8) k/uL Sodium (137-145) mmol/L Glucose (74-99) mg/dL Plasma Lactic Acid Srinivasan (0.7-2.0) mmol/L Calcium (8.4-10.2) mg/dL Troponin I 0.200 H* (0.000-0.034) ng/mL Total Protein (6.3-8.2) g/dL Albumin (3.5-5.0) g/dL Urine Protein (Negative) Urine Blood (Negative) Ur Leukocyte Esterase (Negative) Urine RBC (0-5) /hpf Urine WBC (0-5) /hpf Urine Mucus (None) /hpf Microbiology - Last 24 Hours (Table) 12/26/19 06:00 Urine Culture - Preliminary Urine,Clean Catch Diabetes panel 12/26/19 Range/Units 06:09 Sodium 131 L (137-145) mmol/L Potassium 3.8 (3.5-5.1) mmol/L Chloride 102 (98-107) mmol/L Carbon Dioxide 24 (22-30) mmol/L BUN 11 (9-20) mg/dL Creatinine 0.73 (0.66-1.25) mg/dL Glucose 118 H (74-99) mg/dL Calcium 8.2 L (8.4-10.2) mg/dL AST 21 (17-59) U/L ALT 13 (4-49) U/L Alkaline Phosphatase 69 (38-126) U/L Total Protein 5.9 L (6.3-8.2) g/dL Albumin 3.1 L (3.5-5.0) g/dL Calcium panel 12/26/19 Range/Units 06:09 Calcium 8.2 L (8.4-10.2) mg/dL Albumin 3.1 L (3.5-5.0) g/dL Pituitary panel 12/26/19 Range/Units 06:09 Sodium 131 L (137-145) mmol/L Potassium 3.8 (3.5-5.1) mmol/L Chloride 102 (98-107) mmol/L Carbon Dioxide 24 (22-30) mmol/L BUN 11 (9-20) mg/dL Creatinine 0.73 (0.66-1.25) mg/dL Glucose 118 H (74-99) mg/dL Calcium 8.2 L (8.4-10.2) mg/dL Adrenal panel 12/26/19 Range/Units 06:09 Sodium 131 L (137-145) mmol/L Potassium 3.8 (3.5-5.1) mmol/L Chloride 102 (98-107) mmol/L Carbon Dioxide 24 (22-30) mmol/L BUN 11 (9-20) mg/dL Creatinine 0.73 (0.66-1.25) mg/dL Glucose 118 H (74-99) mg/dL Calcium 8.2 L (8.4-10.2) mg/dL Total Bilirubin 0.9 (0.2-1.3) mg/dL AST 21 (17-59) U/L ALT 13 (4-49) U/L Alkaline Phosphatase 69 (38-126) U/L Total Protein 5.9 L (6.3-8.2) g/dL Albumin 3.1 L (3.5-5.0) g/dL Assessment and Plan Assessment: 69 yo male presents with UTI, urology is counsulted for urinary retention and castañeda placement. Patient has pinpoint urethral meatus opening. He is been having difficulty voiding secondary to his meatal stricture Plan: -Meatal stricture were dilated using the S-Shape dilators, please see procedure not for details. -Discharge patient home with castañeda, he will f/u in Urology clinic for castañeda removal -Continue abx for UTI, will need abx of minimum of 7 days based on cultures -Hold Eliquis given the urethral bleeding secondary to dilation
--- NOTE | 2019-12-26 19:36 | P.PCN ---
Date of Procedure: 12/26/19 Preoperative Diagnosis: Urethral stricture Postoperative Diagnosis: same Procedure(s) Performed: dilation of urethral stricture Implants: none Anesthesia: none Surgeon: Brad Cervantes Estimated Blood Loss (ml): 10 Pathology: none sent Condition: stable Disposition: PACU Indications for Procedure: 69 yo male with difficulty voiding and urinary retention, Urology consulted for difficult castañeda placement. Patient has pinpoint meatal stricture. Discussed with him he will require dilation of meatal stricture in order to accommodate the castañeda Operative Findings: pinpoint urethal meatus stricture Description of Procedure: Patient had pinpoint urethral meatus stricture, I initially attempted to gently dilate the stricture using the male sounds but resistance was met. At this time I attempted to advanced a 6 Fr open ended catheter and stiff were but resistance was met at the meatus. At this time I switched to 0.025 glidwire, I was able to navigate the wire past the tight stricture into the bladder. Next a 6 Fr open ended catheter was passed over the wire, Wire was removed with catheter in place, clear yellow urine was aspirated from the catheter. next the stiff wire was passed through the catheter and catheter was removed with wire in place. The stricture was dilated over the wire using S-Shaped dilators, we started with 6 Fr and slowly to 18 Fr. Next a14 fr castañeda was placed over the wire. Balloon was inflated with 15 mL. patient tolerated procedure well
[2019-12-27 03:19] LABS: Cholesterol 148 mg/dL (<200); HDL Cholesterol 52 mg/dL (40-60); LDL Cholesterol,Calculated 85 mg/dL (0-99); Triglycerides 56 mg/dL (<150)
[2019-12-27] MEDS ORDERED: PANTOPRAZOLE 40 MG TABLET PO SCH (07:30)
[2019-12-27] MEDS: SODIUM CHLORIDE 0.9% 1,000 ML IV SCH (07:43)
[2019-12-27 08:01] VITALS: BP 119/64; PULSE 56; TEMP 97.6
[2019-12-27] MEDS: AMIODARONE 200 MG TAB PO SCH (08:02)
[2019-12-27] MEDS: METOPROLOL TARTRATE 25 MG TAB PO SCH (08:02)
[2019-12-27] MEDS: TAMSULOSIN 0.4 MG CAP.ER.24H PO SCH (08:02)
[2019-12-27] MEDS: THIAMINE 100 MG TAB PO SCH (08:02)
[2019-12-27] MEDS: FUROSEMIDE 20 MG TAB PO SCH (08:02)
[2019-12-27] MEDS: SODIUM BICARBONATE TAB 650 MG TAB PO SCH (08:02)
[2019-12-27] MEDS ORDERED: ASPIRIN 325 MG TAB PO SCH (09:00)
--- NOTE | 2019-12-27 12:58 | P.DS ---
Providers Date of admission: 12/26/19 07:41 Expected date of discharge: 12/27/19 Attending physician: Bart Hoffman Consults: 12/26/19 07:10 Consult Physician Routine Consulting Provider: Leobardo Ramirez Consult Reason/Comments: elevated troponin Do you want consulting provider notified?: Yes 12/26/19 10:54 Consult Physician Routine Consulting Provider: Brad Cervantes Consult Reason/Comments: UTI, urinary retention Do you want consulting provider notified?: Yes Primary care physician: Ryan Hendrickson [facility] Course: HISTORY OF PRESENT ILLNESS This is a 69-year-old male patient of Dr. Hendrickson and Dr. Otero with past medical history of nonischemic cardiomyopathy and nonsustained ventricular tachycardia status post biventricular AICD, prosthetic aortic valve, paroxysmal atrial fibrillation, hypertension, hyperlipidemia, glaucoma and macular degeneration, remote history of tobacco use. Patient was last hospitalized in October of this year which time he was treated for acute kidney injury, Citrobacter urinary tract infection, nonsustained ventricular tachycardia, ventricular paced rhythm and atrial fibrillation, septic shock, ac nikolski hypoxic respiratory failure requiring intubation. The patient had scheduled appointment with urologist today outside of [facility]. He has had some problems with chills blood in his urine that started yesterday. He states he had episode where his heart rate was elevated and his respiratory rate was rapid. He has not been feeling well for the past 48 hours he denies having any cough, wheezing or lower extremity edema. He states he feels like his urethra fills with urinating as pressure but is unable to go. He complains of dribbling urine and unable to void completely. Echocardiogram from October revealed EF of 25-30%, mild mitral regurgitation, mild tricuspid regurgitation, mild pulmonary hypertension, small generalized pericardial effusion. Patient came into [facility] emergency center for evaluation. He was afebrile, initial heart rate 125, blood pressure 113/100, pulse ox 99%. WBC 9.2, hemoglobin 11.8, platelet count 127. Sodium 131, potassium 3.8, chloride 102, CO2 24, BUN 11 creatinine 0.73, blood sugar 118. Urinalysis dark brown, cloudy, blood large, leukoesterase large, RBC greater than 182, WBC 166. Troponin 0.059. EKG sinus tachycardia, paced rhythm. Bladder scan 220, pulse. Patient was given a dose of Rocephin and Levaquin and scheduled for admission to the hospital. Urine culture, blood culture obtained, consults with cardiology and urology. Patient to have straight cath done . 12/26: Patient was seen by urology yesterday and dilatation of the urethral stricture was done and Cunningham catheter placed. On no hematuria at this time. Patient will be resumed on eliquis as cleared by urologist. Urine culture remains pending. Troponins have been 0.059, 0.2-1 and 0.2. He denies having any chest pain or shortness of breath. Awaiting cardiology consult and if cleared patient will be discharged home today. He has been afebrile, heart rate 56, blood pressure 119/64, pulse ox 97% on room air. Patient discharged in stab le condition. ASSESSMENT AND PLAN 1. Acute urinary tract infection with urinary retention secondary to urethral stricture. 2. Abnormal troponins, acute coronary syndrome ruled out by cardiology. 3. Chronic thrombocytopenia. 4. Nonischemic cardiomyopathy and history of nonsustained ventricular tachycardia status post biventricular AICD. 5. Prosthetic aortic valve. 6. Paroxysmal atrial fibrillation. 7. Hypertension. 8. Hyperlipidemia. 9. Benign prostatic hypertrophy. 10. Macular degeneration and glaucoma, stable. Discharge plan: home. Impression and plan of care have been directed as dictated by the signing physician. Stephenie Chow nurse practitioner acting as scribe for signing physician. Patient Condition at Discharge: Good Plan - Discharge Summary Discharge Rx Participant: No New Discharge Prescriptions: New Cefuroxime [Ceftin] 250 mg PO BID 7 Days #14 tab Continue Apixaban [Eliquis] 5 mg PO BID #60 tab Tamsulosin [Flomax] 0.4 mg PO BID Furosemide [Lasix] 20 mg PO DAILY #30 tab Multivitamins, Thera [Multivitamin (formulary)] 1 tab PO DAILY Metoprolol Tartrate [Lopressor] 75 mg PO BID Amiodarone [Cordarone] 200 mg PO DAILY Losartan Potassium 50 mg PO DAILY Discharge Medication List Apixaban [Eliquis] 5 mg PO BID #60 tab 10/04/18 [Rx] Tamsulosin [Flomax] 0.4 mg PO BID 10/15/19 [History] Furosemide [Lasix] 20 mg PO DAILY #30 tab 10/22/19 [Rx] Multivitamins, Thera [Multivitamin (formulary)] 1 tab PO DAILY 10/23/19 [History] Amiodarone [Cordarone] 200 mg PO DAILY 12/26/19 [History] Losartan Potassium 50 mg PO DAILY 12/26/19 [History] Metoprolol Tartrate [Lopressor] 75 mg PO BID 12/26/19 [History] Cefuroxime [Ceftin] 250 mg PO BID 7 Days #14 tab 12/27/19 [Rx] Follow up Appointment(s)/Referral(s): Qian Otero MD [STAFF PHYSICIAN] - 2 Weeks (Office closed - please call to make appointment) Brad Cervantes MD [STAFF PHYSICIAN] - 1 Week (Office closed - please call to make appointment) Ryan Hendrickson DO [Primary Care Provider] - 1 Week (Office closed - please call to make appointment) Patient Instructions/Handouts: A-fib (Atrial Fibrillation) (DC), Urinary Tract Infection in Men (DC) Discharge Disposition: HOME SELF-CARE
--- NOTE | 2019-12-27 14:43 | P.PN ---
Subjective Progress Note Date: 12/27/19 S/p Castañeda placement, requiring urethral dilation, urine clear this am, no urethral bleeding appreciated Objective - Vital Signs Vital signs: Vital Signs Temp 97.6 F 12/27/19 08:00 Pulse 56 L 12/27/19 08:00 Resp 18 12/27/19 08:00 BP 119/64 12/27/19 08:00 Pulse Ox 97 12/27/19 08:00 Intake & Output 12/26/19 12/27/19 12/27/19 18:59 06:59 18:59 Intake Total 320 240 Output Total 100 580 Balance 220 -580 240 Weight 104.326 kg 88 kg Intake: Oral 320 240 Output: Urine 100 580 Other: Voiding Method Indwelling Catheter Indwelling Catheter Indwelling Catheter # Voids 1 - Constitutional General appearance: Present: no acute distress - Gastrointestinal General gastrointestinal: Present: soft. Absent: distended - Genitourinary Genitourinary Comment(s): no urethral bleeding noticed, castañeda draining clear yellow urine - Psychiatric Psychiatric: Present: A&O x's 3 - Labs CBC & Chem 7: 12/26/19 06:00 12/26/19 06:09 Labs: Microbiology - Last 24 Hours (Table) 12/26/19 06:19 Blood Culture - Preliminary Blood No Growth after 24 hours 12/26/19 06:09 Blood Culture - Preliminary Blood No Growth after 24 hours 12/26/19 06:00 Urine Culture - Preliminary Urine,Clean Catch Assessment and Plan Assessment: 69 yo male presents with UTI, urology is counsulted for urinary retention and castañeda placement. Patient has pinpoint urethral meatus opening. He is been having difficulty voiding secondary to his meatal stricture. Urethral dilation performed yesterday and castañeda catheter was placed Plan: . -Discharge patient home with castañeda, he will f/u in Urology clinic in 1 week for castañeda removal -Continue abx for UTI, will need abx of minimum of 7 days based on cultures -ok to resume eliquis
--- NOTE | 2019-12-27 16:28 | P.CRDCN ---
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 Pt follows with Dr. Palma in office. Patient presents to ER with symptoms of shaking, chills, nausea, sweatiness and palpitations. Patient states symptoms are very similar to when he had a prior urinary tract infection. Patient found to have urinary retention upon admission urethral stricture. Patient has now been placed with Cunningham catheter and urology is following. Patient is paced on telemetry with known AICD placement. Patient vital signs stable. Saturation 98% on room air. Patient is currently resting in bed with no current complaints of chest pain, chest pressure, shortness of breath or palpitations. Patient states he feels much improved with urethral stricture relief/Cunningham catheter insertion. Patient has mild lower extremity edema. SIGNIFICANT PAST MEDICAL HISTORY: urinary tract infection, BPH, atrial fibrillation, CK D, non-obstructive CAD by cardiac cath in 2008, biventricular AICD, S/P prosthetic aortic valve, hypertension, hyperlipidemia and smoking/EtOH history. PAST SURGICAL HISTORY: See list. EKG = paced, HR 54 Troponins positive x 3 SIGNIFICANT LABORATORY VALUES: Chest x-ray 12/26/19 = Possible CHF with chronic changes. Most recent echo 10/23/19 = EF 20-25%, bio-prosthetic AV with mild stenosis. REVIEW OF SYSTEMS: CONSTITUTIONAL: Denies fever. Denies chills. EYES: Denies blurred vision. Denies blurred vision or vision changes. Denies eye pain. EARS, NOSE, MOUTH & THROAT: Denies headache. Denies sore throat. Denies ear pain Denies hemoptysis. CARDIOVASCULAR: Denies chest pain. Denies shortness of breath. Denies orthopnea. Denies PND. Denies palpitations. RESPIRATORY: Denies cough. Denies shortness of breath. GASTROINTESTINAL: Denies abdominal pain or distention. Denies diarrhea. Denies constipation. Denies nausea. Denies vomiting. MUSCULOSKELETAL: Denies myalgias. INTEGUMENTARY: Denies pruitis. Denies rash. ENDOCRINE: Denies fatigue. Denies weight change. Denies polydipsia. Denies po lyurina Denies heat/cold intolerance. GENITOURINARY: Denies burning, hematuria or urgency with micturation. HEMATOLOGIC: Denies history of anemia. Denies bleeding. NEUROLOGIC: Denies numbness. Denies tingling. Denies weakness. PSYCHIATRIC: Denies anxiety. Denies depression. PHYSICAL EXAM: GENERAL: Well developed, in no acute distress. HEENT: Head is atraumatic, normocephalic. Pupils are equal, round. Extra ocular movements intact. Mucous membranes moist. Neck supple. No JVD. No carotid bruit. No thyromegaly. LUNGS: Mildly diminished to auscultation. No wheezes, rales or rhonchi. No chest wall tenderness on palpation or with deep breathing. HEART: Regular rate and rhythm, no rubs or gallops. S1 and S2 heard. No murmur. ABDOMEN: Abdominal exam, WNL. Bowel sounds x4 quads. Soft, non-tender, without masses, organomegaly, or abdominal aorta enlargement. EXTREMITIES/VASCULAR: Extremities have easily palpable radial, femoral, dorsalis pedis and posterior tibial pulses. No cyanosis, calf tenderness. Mild BLE edema. NEUROLOGIC: Patient is awake, alert and oriented x3. No focal neurologic abnormalities. FINAL IMPRESSION: 1. Urine retention 2. Troponin elevation secondary to GLADYS 3. Paroxysmal Atrial Fibrillation 4. EF 25-30%, dialated cardiomyopathy 5. S/P AICD PLAN: Okay for discharge from cardiology perspective. Troponin elevation secondary to acute kidney injury, no acute cardiology process. Patient to continue same all medical/medication regime. Patient to follow-up with Dr. Otero in office within 2 weeks. Nurse Practitioner note has been reviewed by the Physician. Signing provider agrees with the documented findings, assessment and plan of care. Past Medical History Past Medical History: Atrial Fibrillation, Eye Disorder, Hyperlipidemia, Hypertension Additional Past Medical History / Comment(s): PAST EPISODE OF AFIB SUMMER 2018. MACULAR DEGENERATION AND GLAUCOMA History of Any Multi-Drug Resistant Organisms: None Reported Past Surgical History: Appendectomy, Cardiac Valve Replacement, Cholecystectomy, Hernia Repair, Pacemaker Additional Past Surgical History / Comment(s): AORTIC VALVE REPLACEMENT 2008. INGUINAL HERNIA REPAIR. UMBILICAL HERNIA REPAIR. COLONOSCOPY. PACEMAKER 2019 Past Anesthesia/Blood Transfusion Reactions: No Reported Reaction Additional Past Anesthesia/Blood Transfusion Reaction / Comment(s): Pt has recei keaton blood in past. Type of Cardiac Device: Permanent Pacemaker Device Placement Date:: 2018 Past Psychological History: No Psychological Hx Reported Smoking Status: Former smoker Past Alcohol Use History: Daily, Heavy Past Drug Use History: None Reported - Past Family History Mother Family Medical History: Hypertension Additional Family Medical History / Comment(s): Mother lived to be 97yrs old. Father Additional Family Medical History / Comment(s): Enlarged Heart Medications and Allergies Home Medications Medication Instructions Recorded Confirmed Type Apixaban [Eliquis] 5 mg PO BID #60 tab 10/04/18 12/26/19 Rx Tamsulosin [Flomax] 0.4 mg PO BID 10/15/19 12/26/19 History Furosemide [Lasix] 20 mg PO DAILY #30 tab 10/22/19 12/26/19 Rx Multivitamins, Thera [Multivitamin 1 tab PO DAILY 10/23/19 12/26/19 History (formulary)] Amiodarone [Cordarone] 200 mg PO DAILY 12/26/19 12/26/19 History Losartan Potassium 50 mg PO DAILY 12/26/19 12/26/19 History Metoprolol Tartrate [Lopressor] 75 mg PO BID 12/26/19 12/26/19 History Cefuroxime [Ceftin] 250 mg PO BID 7 Days #14 tab 12/27/19 Rx Allergies Allergy/AdvReac Type Severity Reaction Status Date / Time Penicillins Allergy Rash/Hives Verified 12/26/19 08:06 Physical Exam Vitals: Vital Signs Temp Pulse Resp BP Pulse Ox 12/27/19 08:00 97.6 F 56 L 18 119/64 97 12/27/19 04:00 97.7 F 62 18 115/57 95 12/27/19 00:00 98.0 F 77 18 93/53 95 12/26/19 20:00 97.8 F 66 18 100/65 100 Intake and Output 12/27/19 12/27/19 12/27/19 06:59 14:59 22:59 Intake Total 240 Output Total 580 Balance -580 240 Intake: Oral 240 Output: Urine 580 Other: Voiding Method Indwelling Catheter Indwelling Catheter Weight 88 kg Results 12/26/19 06:00 12/26/19 06:09 Lipids 12/26/19 Range/Units 06:09 Triglycerides 56 (<150) mg/dL Cholesterol 148 (<200) mg/dL HDL Cholesterol 52 (40-60) mg/dL Intake and Output 12/27/19 12/27/19 12/27/19 06:59 14:59 22:59 Intake Total 240 Output Total 580 Balance -580 240 Intake: Oral 240 Output: Urine 580 Other: Voiding Method Indwelling Catheter Indwelling Catheter Weight 88 kg 12/26/19 06:00 12/26/19 06:09 - EKG Interpretation EKG: sinus rhythm, no acute changes EKG Interpretations (text) Paced
[2019-12-28] MEDS ORDERED: FUROSEMIDE 40 MG TAB PO SCH (09:00)
--- NOTE | 2019-12-30 07:26 | CDI ---
Documentation Clarification Form Date: 12/30/2019 06:16:00 AM From: Gris Pierson Phone: If you have a question about this query, please contact Arlin Jimenez, Youth Specialist at [phone] between 8am and 5pm. Admit Date: 12/26/2019 12:35:00 PM Patient Name: Neville Mcnair Visit Number: [id number] Discharge Date: 12/27/2019 ATTENTION: The Clinical Documentation Specialists (CDI) and [facility] Coding Staff appreciate your assistance in clarifying documentation. Please respond to the clarification below the line at the bottom and electronically sign. The CDI & [facility] Coding staff will review the response and follow-up if needed. Please note: Queries are made part of the Legal Health Record. If you have any questions, please contact the author of this message via ITS. Dr. Bertha Hinojosa CHF is documented in Past Medical history of patient in urology consult. Please clarify if patient has CHF and if so the acuity and type. History/Risk Factors: cardiomyopathy, MR/TR aortic valve replacement, AICD atrial fib, VS/Pulse OX: 99.4 F, 125 bpm, 20, 113/100, 99 RA Echocardiogram Results: October EF 25-30% Chest X Ray: Possible CHF Treatment: Lasix 20 mg PO daily In your professional opinion, can you please clarify if patient has CHF and if so the acuity and type. Systolic Heart Failure: Acute Chronic Acute on Chronic Diastolic Heart Failure: Acute Chronic Acute on Chronic Systolic & Diastolic Heart Failure: Acute Chronic Acute on Chronic Heart Failure Unable to Determine Other, please specify MTDD
--- NOTE | 2020-01-05 09:57 | CDI ---
Documentation Clarification Form Date: 12/30/2019 06:16:00 AM From: Gris Pierson Phone: If you have a question about this query, please contact Arlin Jimenez Crossword Puzzle Maker at [phone] between 8am and 5pm Admit Date: 12/26/2019 12:35:00 PM Patient Name: Neville Mcnair Visit Number: [id number] Discharge Date: 12/27/2019 02:15:00 PM ATTENTION: The Clinical Documentation Specialists (CDI) and [facility] Coding Staff appreciate your assistance in clarifying documentation. Please respond to the clarification below the line at the bottom and electronically sign. The CDI & [facility] Coding staff will review the response and follow-up if needed. Please note: Queries are made part of the Legal Health Record. If you have any questions, please contact the author of this message via ITS. Dr. Bertha Hinojosa CHF is documented in Past Medical history of patient in urology consult. Please clarify if patient has CHF and if so the acuity and type. History/Risk Factors: cardiomyopathy, MR/TR aortic valve replacement, AICD atrial fib, VS/Pulse OX: 99.4 F, 125 bpm, 20, 113/100, 99 RA Echocardiogram Results: October EF 25-30% Chest X Ray: Possible CHF Treatment: Lasix 20 mg PO daily In your professional opinion, can you please clarify if patient has CHF and if so the acuity and type. Systolic Heart Failure: Acute Chronic Acute on Chronic Diastolic Heart Failure: Acute Chronic Acute on Chronic Systolic & Diastolic Heart Failure: Acute Chronic Acute on Chronic Heart Failure Unable to Determine Other, please specify Acute on Chronic Systolic Heart Failure MTDD
== END 2019-12-27 14:15 | disposition home or self-care (01) ==
LOC: EC 04:46 → 3SCARD 07:41 → INTOOBSV 12:35 → OBSVTOIN 12:35 → 3SCARD 14:33 → UNDODISIN 12-27 14:15 → UNDODISOB 12-28 12:35
PROVIDERS: ADMIT Internal Medicine Geriatric Medicine; ATTEND Internal Medicine Geriatric Medicine
DX: N35.911 Unspecified urethral stricture, male, meatal (principal); N39.0 Urinary tract infection, site not specified; I50.23 Acute on chronic systolic (congestive) heart failure; I13.0 Hypertensive heart and chronic kidney disease with heart failure and stage 1 through stage 4 chronic kidney disease, or unspecified chronic kidney disease; N17.9 Acute kidney failure, unspecified; I31.3 Pericardial effusion (noninflammatory); I42.0 Dilated cardiomyopathy; I47.2 Ventricular tachycardia; N40.1 Benign prostatic hyperplasia with lower urinary tract symptoms; R33.8 Other retention of urine; D69.6 Thrombocytopenia, unspecified; E78.5 Hyperlipidemia, unspecified; H35.30 Unspecified macular degeneration; H40.9 Unspecified glaucoma; N18.9 Chronic kidney disease, unspecified; Z87.891 Personal history of nicotine dependence; I25.10 Atherosclerotic heart disease of native coronary artery without angina pectoris; I27.20 Pulmonary hypertension, unspecified; I08.1 Rheumatic disorders of both mitral and tricuspid valves; Z79.01 Long term (current) use of anticoagulants; Z95.2 Presence of prosthetic heart valve; I48.0 Paroxysmal atrial fibrillation; R31.0 Gross hematuria; Z79.899 Other long term (current) drug therapy; Z82.49 Family history of ischemic heart disease and other diseases of the circulatory system; Z86.73 Personal history of transient ischemic attack (TIA), and cerebral infarction without residual deficits
CPT/HCPCS: 93005 ×2; 96365; 99284; 36415; 80061; 80053; 83605; 84484; 85025; 85610; 85730; 81001; 87040; 87086; 71045; 53600; G0378 ×2; C1769; J0696 ×2; 99285

== ENCOUNTER → 2020-10-08 | Outpatient (CLI) | payer MEDICARE ==
[2020-10-08 21:23] LABS: African American GFR (CKD) 98.5 (60.0-200.0); Albumin 4.1 g/dL (3.80-4.90); Albumin/Globulin Ratio 1.46 (1.60-3.17); Anion Gap 9.7 mmol/L (4.00-12.00); BUN/Creat Ratio 16.67 Ratio (12.00-20.00); Calcium 9.1 mg/dL (8.7-10.3); Carbon Dioxide 27.3 mmol/L (21.6-31.8); Globulin 2.8 g/dL (1.6-3.3); Potassium 3.9 mmol/L (3.5-5.5); Total Protein 6.9 g/dL (6.2-8.2)
== END | disposition home or self-care (01) ==
LOC: LABWHC1 10:29
PROVIDERS: ATTEND Nurse Practitioner Adult Health
DX: I48.0 Paroxysmal atrial fibrillation (principal); I42.8 Other cardiomyopathies
CPT/HCPCS: 36415; 80053; 84443

== ENCOUNTER 2020-12-08 10:45 | Inpatient (IN) | payer MEDICARE ==
[2020-12-08] MEDS ORDERED: FUROSEMIDE 10 MG/ML 4 ML VIAL IV STA (11:35)
--- NOTE | 2020-12-08 11:40 | ED ---
SOB HPI - General Chief Complaint: Shortness of Breath Stated Complaint: SOB Time Seen by Provider: 12/08/20 10:58 Source: patient Mode of arrival: ambulatory Limitations: no limitations - History of Present Illness Initial Comments: 70-year-old male history of CHF in the past who states she's been having exertional dyspnea all this past summer for last several days is gotten worse with orthopnea severe exertional dyspnea increased swelling to his lower extremities no fevers chills nausea vomiting sweats he was sent over by his doctor for further evaluation. MD Complaint: shortness of breath - Related Data Home Medications Medication Instructions Recorded Confirmed Tamsulosin [Flomax] 0.4 mg PO BID 10/15/19 12/08/20 Multivitamins, Thera [Multivitamin 1 tab PO DAILY 10/23/19 12/08/20 (formulary)] Amiodarone [Cordarone] 100 mg PO DAILY 12/26/19 12/08/20 Metoprolol Tartrate [Lopressor] 75 mg PO BID 12/26/19 12/08/20 Ferrous Sulfate [Feosol] 325 mg PO DAILY 12/08/20 12/08/20 Furosemide [Lasix] 40 mg PO DAILY 12/08/20 12/08/20 Losartan Potassium 50 mg PO DAILY 12/08/20 12/08/20 Vit C/E/Zn/Coppr/Lutein/Zeaxan 1 cap PO BID 12/08/20 12/08/20 [Preservision Areds 2 Softgel] Previous Rx's Medication Instructions Recorded Apixaban [Eliquis] 5 mg PO BID #60 tab 10/04/18 Allergies Allergy/AdvReac Type Severity Reaction Status Date / Time No Known Allergies Allergy Unverified 12/08/20 12:03 Review of Systems ROS Statement: Those systems with pertinent positive or pertinent negative responses have been documented in the HPI. ROS Other: All systems not noted in ROS Statement are negative. Past Medical History Past Medical History: Atrial Fibrillation, Eye Disorder, Hyperlipidemia, Hypertension Additional Past Medical History / Comment(s): anemia, PAST EPISODE OF AFIB SUMMER 2018. MACULAR DEGENERATION AND GLAUCOMA History of Any Multi-Drug Resistant Organisms: None Reported Past Surgical History: Appendectomy, Cardiac Valve Replacement, Cholecystectomy, Hernia Repair, Pacemaker Additional Past Surgical History / Comment(s): AORTIC VALVE REPLACEMENT 2008. INGUINAL HERNIA REPAIR. UMBILICAL HERNIA REPAIR. COLONOSCOPY. PACEMAKER 2019 Past Anesthesia/Blood Transfusion Reactions: No Reported Reaction Additional Past Anesthesia/Blood Transfusion Reaction / Comment(s): Pt has received blood in past. Type of Cardiac Device: Permanent Pacemaker Device Placement Date:: 2018 Past Psychological History: No Psychological Hx Reported Smoking Status: Former smoker Past Alcohol Use History: Daily, Heavy Past Drug Use History: None Reported - Past Family History Mother Family Medical History: Hypertension Father Additional Family Medical History / Comment(s): Enlarged Heart General Exam - General Exam Comments Initial Comments: This is a well-developed well-nourished awake alert oriented 3 male Limitations: no limitations General appearance: alert, in no apparent distress Head exam: Present: atraumatic, normocephalic, normal inspection Eye exam: Present: normal appearance, PERRL, EOMI. Absent: scleral icterus, conjunctival injection, periorbital swelling ENT exam: Present: normal exam, mucous membranes moist Neck exam: Present: normal inspection, full ROM, other (No stridor JVD or bruits). Absent: tenderness, meningismus, lymphadenopathy Respiratory exam: Present: decreased breath sounds. Absent: respiratory distress, wheezes, rales, rhonchi, stridor Cardiovascular Exam: Present: regular rate, normal rhythm, normal heart sounds. Absent: systolic murmur, diastolic murmur, rubs, gallop, clicks GI/Abdominal exam: Present: soft, normal bowel sounds. Absent: distended, tend erness, guarding, rebound, rigid Extremities exam: Present: full ROM, normal capillary refill, pedal edema. Absent: tenderness, joint swelling, calf tenderness Back exam: Present: normal inspection Neurological exam: Present: alert, oriented X3, CN II-XII intact Psychiatric exam: Present: normal affect, normal mood Skin exam: Present: warm, dry, intact, normal color. Absent: rash Course Vital Signs 12/08/20 12/08/20 12/08/20 10:51 11:07 12:00 Temperature 98.2 F Pulse Rate 70 67 56 L Respiratory 18 16 21 Rate Blood Pressure 133/87 144/90 O2 Sat by Pulse 97 100 Oximetry 12/08/20 12/08/20 12/08/20 12:06 13:00 14:00 Temperature Pulse Rate 82 55 L 52 L Respiratory 18 19 16 Rate Blood Pressure 139/81 130/85 115/69 O2 Sat by Pulse 93 L 97 Oximetry Medical Decision Making - Lab Data Result diagrams: 12/08/20 11:33 12/08/20 11:33 Lab Results 12/08/20 12/08/20 12/08/20 Range/Units 11:33 11:33 11:33 WBC 8.1 (3.8-10.6) k/uL RBC 4.07 L (4.30-5.90) m/uL Hgb 13.3 (13.0-17.5) gm/dL Hct 41.1 (39.0-53.0) % MCV 101.0 H (80.0-100.0) fL MCH 32.7 (25.0-35.0) pg MCHC 32.3 (31.0-37.0) g/dL RDW 12.7 (11.5-15.5) % Plt Count 146 L (150-450) k/uL MPV 7.8 Neutrophils % 76 % Lymphocytes % 12 % Monocytes % 7 % Eosinophils % 1 % Basophils % 1 % Neutrophils # 6.1 (1.3-7.7) k/uL Lymphocytes # 1.0 (1.0-4.8) k/uL Monocytes # 0.6 (0-1.0) k/uL Eosinophils # 0.1 (0-0.7) k/uL Basophils # 0.0 (0-0.2) k/uL Manual Slide Review Performed PT 10.2 (9.0-12.0) sec INR 0.9 (<1.2) APTT 29.4 (22.0-30.0) sec Sodium 133 L (137-145) mmol/L Potassium 4.7 (3.5-5.1) mmol/L Chloride 100 (98-107) mmol/L Carbon Dioxide 26 (22-30) mmol/L Anion Gap 7 mmol/L BUN 15 (9-20) mg/dL Creatinine 0.91 (0.66-1.25) mg/dL Est GFR (CKD-EPI)AfAm >90 (>60 ml/min/1.73 sqM) Est GFR (CKD-EPI)NonAf 84 (>60 ml/min/1.73 sqM) Glucose 103 H (74-99) mg/dL Plasma Lactic Acid Srinivasan (0.7-2.0) mmol/L Calcium 9.2 (8.4-10.2) mg/dL Magnesium 1.9 (1.6-2.3) mg/dL Total Bilirubin 1.1 (0.2-1.3) mg/dL AST 24 (17-59) U/L ALT 19 (4-49) U/L Alkaline Phosphatase 87 (38-126) U/L Troponin I (0.000-0.034) ng/mL NT-Pro-B Natriuret Pep pg/mL Total Protein 6.9 (6.3-8.2) g/dL Albumin 3.8 (3.5-5.0) g/dL Coronavirus (PCR) (Not Detectd) 12/08/20 12/08/20 12/08/20 Range/Units 11:33 11:33 11:33 WBC (3.8-10.6) k/uL RBC (4.30-5.90) m/uL Hgb (13.0-17.5) gm/dL Hct (39.0-53.0) % MCV (80.0-100.0) fL MCH (25.0-35.0) pg MCHC (31.0-37.0) g/dL RDW (11.5-15.5) % Plt Count (150-450) k/uL MPV Neutrophils % % Lymphocytes % % Monocytes % % Eosinophils % % Basophils % % Neutrophils # (1.3-7.7) k/uL Lymphocytes # (1.0-4.8) k/uL Monocytes # (0-1.0) k/uL Eosinophils # (0-0.7) k/uL Basophils # (0-0.2) k/uL Manual Slide Review PT (9.0-12.0) sec INR (<1.2) APTT (22.0-30.0) sec Sodium (137-145) mmol/L Potassium (3.5-5.1) mmol/L Chloride (98-107) mmol/L Carbon Dioxide (22-30) mmol/L Anion Gap mmol/L BUN (9-20) mg/dL Creatinine (0.66-1.25) mg/dL Est GFR (CKD-EPI)AfAm (>60 ml/min/1.73 sqM) Est GFR (CKD-EPI)NonAf (>60 ml/min/1.73 sqM) Glucose (74-99) mg/dL Plasma Lactic Acid Srinivasan 1.0 (0.7-2.0) mmol/L Calcium (8.4-10.2) mg/dL Magnesium (1.6-2.3) mg/dL Total Bilirubin (0.2-1.3) mg/dL AST (17-59) U/L ALT (4-49) U/L Alkaline Phosphatase (38-126) U/L Troponin I <0.012 (0.000-0.034) ng/mL NT-Pro-B Natriuret Pep 7640 pg/mL Total Protein (6.3-8.2) g/dL Albumin (3.5-5.0) g/dL Coronavirus (PCR) (Not Detectd) 12/08/20 Range/Units 13:06 WBC (3.8-10.6) k/uL RBC (4.30-5.90) m/uL Hgb (13.0-17.5) gm/dL Hct (39.0-53.0) % MCV (80.0-100.0) fL MCH (25.0-35.0) pg MCHC (31.0-37.0) g/dL RDW (11.5-15.5) % Plt Count (150-450) k/uL MPV Neutrophils % % Lymphocytes % % Monocytes % % Eosinophils % % Basophils % % Neutrophils # (1.3-7.7) k/uL Lymphocytes # (1.0-4.8) k/uL Monocytes # (0-1.0) k/uL Eosinophils # (0-0.7) k/uL Basophils # (0-0.2) k/uL Manual Slide Review PT (9.0-12.0) sec INR (<1.2) APTT (22.0-30.0) sec Sodium (137-145) mmol/L Potassium (3.5-5.1) mmol/L Chloride (98-107) mmol/L Carbon Dioxide (22-30) mmol/L Anion Gap mmol/L BUN (9-20) mg/dL Creatinine (0.66-1.25) mg/dL Est GFR (CKD-EPI)AfAm (>60 ml/min/1.73 sqM) Est GFR (CKD-EPI)NonAf (>60 ml/min/1.73 sqM) Glucose (74-99) mg/dL Plasma Lactic Acid Srinivasan (0.7-2.0) mmol/L Calcium (8.4-10.2) mg/dL Magnesium (1.6-2.3) mg/dL Total Bilirubin (0.2-1.3) mg/dL AST (17-59) U/L ALT (4-49) U/L Alkaline Phosphatase (38-126) U/L Troponin I (0.000-0.034) ng/mL NT-Pro-B Natriuret Pep pg/mL Total Protein (6.3-8.2) g/dL Albumin (3.5-5.0) g/dL Coronavirus (PCR) Not Detected (Not Detectd) - EKG Data -: EKG Interpreted by Me EKG Comments: AV dual paced rhythm rate 74 IA interval 112 QRS 154 QT since QTC 486/539 Disposition Clinical Impression: Congestive heart failure, Exertional dyspnea, Peripheral edema Disposition: ADMITTED IP TO THIS HOSP Condition: Fair Referrals: Ryan Hendrickson DO [Primary Care Provider] - 1-2 days
--- NOTE | 2020-12-08 11:54 | XR ---
EXAMINATION TYPE: XR chest 2V DATE OF EXAM: 12/08/2020 COMPARISON: 12/26/2019 TECHNIQUE: PA and lateral views submitted. HISTORY: Shortness of breath FINDINGS: Postoperative change and cardiac device. Bilateral infiltrate and pleural effusion with diffuse inter stitial pattern. Heart size normal. Biapical pleural thickening. Hypertrophic and degenerative change of the spine. Previous cardiac valve surgery suggested. IMPRESSION: 1. Correlate for CHF otherwise consider diffuse interstitial pneumonia.
[2020-12-08 12:02] LABS: Basophils % (A) 1 %; Eosinophils # (A) 0.1 k/uL (0-0.7); Eosinophils % (A) 1 %; HCT 41.1 % (39.0-53.0); HGB 13.3 gm/dL (13.0-17.5); Lymphocytes % (A) 12 %; MCH 32.7 pg (25.0-35.0); MCHC 32.3 g/dL (31.0-37.0); Mean Platelet Volume 7.8; Monocytes # (A) 0.6 k/uL (0-1.0); Monocytes % (A) 7 %; Neutrophils # (A) 6.1 k/uL (1.3-7.7); Neutrophils % (A) 76 %; Platelet Count 146 k/uL (150-450); RBC 4.07 m/uL (4.30-5.90); RDW 12.7 % (11.5-15.5); WBC 8.1 k/uL (3.8-10.6)
[2020-12-08 12:10] LABS: INR 0.9 (<1.2); Partial Thromboplastin Time 29.4 sec (22.0-30.0); Prothrombin Time 10.2 sec (9.0-12.0)
[2020-12-08 12:16] LABS: ALT 19 U/L (4-49); AST 24 U/L (17-59); African American GFR (CKD) >90 (>60 ml/min/1.73 sqM); Albumin 3.8 g/dL (3.5-5.0); Alkaline Phosphatase 87 U/L (38-126); Anion Gap 7 mmol/L; Blood Urea Nitrogen 15 mg/dL (9-20); Calcium 9.2 mg/dL (8.4-10.2); Carbon Dioxide 26 mmol/L (22-30); Chloride 100 mmol/L (98-107); Glucose 103 mg/dL (74-99); Magnesium 1.9 mg/dL (1.6-2.3); Non-African American GFR(CKD) 84 (>60 ml/min/1.73 sqM); Potassium 4.7 mmol/L (3.5-5.1); Sodium 133 mmol/L (137-145); Total Bilirubin 1.1 mg/dL (0.2-1.3); Total Protein 6.9 g/dL (6.3-8.2)
[2020-12-08] MEDS: SODIUM CHLORIDE 0.9% 1,000 ML IV SCH (16:31)
[2020-12-08] MEDS: FUROSEMIDE 40 MG TAB PO SCH ×2 (16:41→23:45)
[2020-12-08] MEDS: METOPROLOL TARTRATE 25 MG TAB PO SCH (21:29)
[2020-12-08] MEDS: TAMSULOSIN 0.4 MG CAP.ER.24H PO SCH (21:30)
[2020-12-08] MEDS: APIXABAN 5 MG TAB PO SCH (21:30)
[2020-12-08] MEDS: VIT A,C & E-LUTEIN-MINERALS 1 EACH TAB PO SCH (23:45)
[2020-12-09] MEDS: TAMSULOSIN 0.4 MG CAP.ER.24H PO SCH ×2 (08:22→20:20)
[2020-12-09] MEDS: LOSARTAN 50 MG TAB PO SCH (08:22)
[2020-12-09] MEDS: VIT A,C & E-LUTEIN-MINERALS 1 EACH TAB PO SCH ×2 (08:22→21:41)
[2020-12-09] MEDS: MULTIVITAMINS, THERA 1 EACH TAB PO SCH (08:22)
[2020-12-09] MEDS: METOPROLOL TARTRATE 25 MG TAB PO SCH ×2 (08:22→20:20)
[2020-12-09] MEDS: APIXABAN 5 MG TAB PO SCH ×2 (08:22→20:20)
[2020-12-09] MEDS: FUROSEMIDE 40 MG TAB PO SCH (08:22)
[2020-12-09] MEDS: AMIODARONE 100 MG TAB PO SCH (08:22)
[2020-12-09] MEDS: FERROUS SULFATE 325 MG TAB PO SCH (08:22)
[2020-12-09] MEDS ORDERED: FUROSEMIDE 40 MG TAB PO SCH (09:00)
[2020-12-09] MEDS: metOLazone 2.5 MG TAB PO SCH (11:56)
[2020-12-09] MEDS: FUROSEMIDE 10 MG/ML 10 ML VIAL IV SCH ×2 (11:56→23:03)
--- NOTE | 2020-12-09 14:59 | P.HPIM ---
History of Present Illness H&P Date: 12/09/20 HISTORY OF PRESENT ILLNESS This is a 70-year-old male patient of Dr. Hendrickson and Dr. Otero with past medical history of nonischemic cardiomyopathy and nonsustained ventricular tachycardia status post biventricular AICD, prosthetic aortic valve, paroxysmal atrial fibrillation, hypertension, hyperlipidemia, glaucoma and macular degeneration, remote history of tobacco use. Patient was last hospitalized in October 2019 which time he was treated for acute kidney injury, Citrobacter urinary tract infection, nonsustained ventricular tachycardia, ventricular paced rhythm and atrial fibrillation, septic shock, acute hypoxic respiratory failure requiring intubation. Patient was then admitted and December 2019 for acute UTI and urinary retention secondary to urethral stricture. Patient states he has had lower extremity edema for the past 3 years but much smaller severe over the last 3-4 days going up to his thighs. He states he is drinking lots of water and does not take in much sodium. He complains of exertional dyspnea. Echocardiogram from October 2019 reveals EF of 25-30%, mild mitral regurgitation, mild tricuspid regurgitation, mild pulmonary hypertension. Patient came into [facility] emergency center for evaluation. She is afebrile, heart rate 54, blood pressure 118/77, pulse ox 98% on room air. WBC 8.1, hemoglobin 13, platelet count 146. Sodium 133 otherwise electrolytes and renal function were normal. Blood sugar 103. Liver function tests normal. Magnesium 1.9. Troponin negative. ProBNP 7640. Rotavirus PCR not detected. CXR: CHF. Consider diffuse interstitial pneumonia. Patient started on IV Lasix and [facility]. REVIEW OF SYSTEMS Constitutional: No fever, no chills, no night sweats. Reports weight change. No weakness, fatigue or lethargy. No daytime sleepiness. EENT: No headache. No blurred vision or double vision, no loss of vision. No loss of Hearing, no ringing in the ears, no dizziness. No nasal drainage or congestion. No epistaxis. No sore throat. Lungs: Reports shortness of breath, cough, no sputum production. No wheezing. Reports dyspnea on exertion. Cardiovascular: No chest pain, reports lower extremity edema. No palpitations. No paroxysmal nocturnal dyspnea. No orthopnea. No lightheadedness or dizziness. No syncopal episodes. Abdominal: No abdominal pain. No nausea, vomiting. No diarrhea. No constipation. No bloody or tarry stools.. No loss of appetite. Genitourinary: No dysuria, increased frequency, urgency. No urinary retention. Musculoskeletal: No myalgias. No muscle weakness, no gait dysfunction, no frequent falls. No back pain. No neck pain. Integumentary: No wounds, no lesions. No rash or pruritus. No unusual b ruising. No change in hair or nails. Neurologic: No aphasia. No facial droop. No change in mentation. No head injury. No headache. No paralysis. No paresthesia. Psychiatric: No depression. No anxiety. No mood swings. Endocrine: No abnormal blood sugars. Reports weight change. No excessive sweat ing or thirst. No cold intolerance. SOCIAL HISTORY Patient smoked 2 packs of cigarettes per day for 20 years and quit 15 years ago. Patient drinks 10 beers per day for at least the last 20+ years. She denies having any withdrawal symptoms when he stops drinking. He denies any marijuana or illicit drug use. 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 He is and lives at home with his in the winter in [place]. FAMILY HISTORY Mother at age 97 from old age. Father at age 59 from cardiomyopathy. Patient has 1 brother age 79 with history of heart failure. Patient has one sister that from diabetes complications. Patient has one child with no major medical problems. PHYSICAL EXAMINATION Gen: This is 70-year-old male patient resting in bed and in no acute distress. HEENT: Head is atraumatic, normocephalic. Pupils equal, round. Sclerae is anicteric. NECK: Supple. No JVD. No lymphadenopathy. No thyromegaly. LUNGS: Clear to auscultation. No wheezes or rhonchi. No intercostal retractions. HEART: Irregularly irregular rate and rhythm. Systolic murmur. ABDOMEN: Soft. Bowel sounds are present. No masses. No tenderness. EXTREMITIES: 2+ bilateral pedal edema up to his thighs. No calf tenderness. Dorsalis pedis palpable bilaterally. NEUROLOGICAL: Patient is awake, alert and oriented x3. Cranial nerves 2 through 12 are grossly intact. ASSESSMENT AND PLAN 1. Acute on chronic systolic heart failure. Patient started on Lasix 60 mg IV every 12 hours, start metolazone 2.5 mg daily, monitor I&O and daily weights, continue Lopressor 75 mg twice daily. Obtain echocardiogram. 2. History of nonischemic cardiomyopathy, nonsustained ventricular tachycardia status post biventricular AICD, stable. 3. Paroxysmal atrial fibrillation. Continue eliquis 5 mg twice daily, Lopressor 75 mg twice daily, amiodarone 100 mg daily. 4. Hypertension. Continue Lopressor, Cozaar 50 mg daily. 5. Prosthetic aortic valve. 6. Hyperlipidemia. Patient is not currently on statin. 7. Benign prostatic hypertrophy. Continue Flomax or 0.4 mg daily. 8. Macular degeneration and glaucoma, stable. 9. GI prophylaxis. Protonix. 10. DVT prophylaxis. Eliquis. Patient will be admitted to the hospital for a minimum of 2 night stay. DISCHARGE PLAN Home. Impression and plan of care have been directed as dictated by the signing physician. Stephenie Chow nurse practitioner acting as scribe for signing physician. Past Medical History Past Medical History: Atrial Fibrillation, Eye Disorder, Hyperlipidemia, Hypertension Additional Past Medical History / Comment(s): anemia, PAST EPISODE OF AFIB SUMMER 2018. MACULAR DEGENERATION AND GLAUCOMA History of Any Multi-Drug Resistant Organisms: None Reported Past Surgical History: Appendectomy, Cardiac Valve Replacement, Cholecystectomy, Hernia Repair, Pacemaker Additional Past Surgical History / Comment(s): AORTIC VALVE REPLACEMENT 2008. INGUINAL HERNIA REPAIR. UMBILICAL HERNIA REPAIR. COLONOSCOPY. PACEMAKER 2018 Past Anesthesia/Blood Transfusion Reactions: No Reported Reaction Additional Past Anesthesia/Blood Transfusion Reaction / Comment(s): Pt has received blood in past. Type of Cardiac Device: Permanent Pacemaker Device Placement Date:: 2018 Past Psychological History: No Psychological Hx Reported Additional Psychological History / Comment(s): Pt resides with his spouse. He is independent. Smoking Status: Former smoker Past Alcohol Use History: Daily, Heavy Additional Past Alcohol Use History / Comment(s): He drinks 4-6 beers per day. Past Drug Use History: None Reported - Past Family History Mother Family Medical History: Hypertension Father Additional Family Medical History / Comment(s): Enlarged Heart Medications and Allergies Home Medications Medication Instructions Recorded Confirmed Type Apixaban [Eliquis] 5 mg PO BID #60 tab 10/04/18 12/08/20 Rx Tamsulosin [Flomax] 0.4 mg PO BID 10/15/19 12/08/20 History Multivitamins, Thera [Multivitamin 1 tab PO DAILY 10/23/19 12/08/20 History (formulary)] Amiodarone [Cordarone] 100 mg PO DAILY 12/26/19 12/08/20 History Metoprolol Tartrate [Lopressor] 75 mg PO BID 12/26/19 12/08/20 History Ferrous Sulfate [Feosol] 325 mg PO DAILY 12/08/20 12/08/20 History Furosemide [Lasix] 40 mg PO DAILY 12/08/20 12/08/20 History Losartan Potassium 50 mg PO DAILY 12/08/20 12/08/20 History Vit C/E/Zn/Coppr/Lutein/Zeaxan 1 cap PO BID 12/08/20 12/08/20 History [Preservision Areds 2 Softgel] Allergies Allergy/AdvReac Type Severity Reaction Status Date / Time No Known Allergies Allergy Unverified 12/08/20 12:03 Physical Exam Vitals: Vital Signs Temp Pulse Pulse Resp BP BP Pulse Ox 12/09/20 08:00 97.4 F L 59 L 17 127/77 92 L 12/09/20 02:13 97.5 F L 57 L 16 137/78 94 L 12/08/20 19:15 97.3 F L 65 16 107/71 99 12/08/20 16:44 16 12/08/20 16:26 97.6 F 62 16 150/79 99 12/08/20 15:58 98.7 F 54 L 20 118/77 98 12/08/20 15:00 98.6 F 52 L 19 120/74 98 12/08/20 14:00 52 L 16 115/69 97 12/08/20 13:00 55 L 19 130/85 12/08/20 12:06 82 18 139/81 93 L 12/08/20 12:00 56 L 21 144/90 100 12/08/20 11:07 67 16 12/08/20 10:51 98.2 F 70 18 133/87 97 Intake and Output 12/08/20 12/09/20 12/09/20 22:59 06:59 14:59 Intake Total 236 Output Total 750 700 Balance -514 -700 Intake: Oral 236 Output: Urine 750 700 Other: Voiding Method Toilet Urinal Weight 117.934 kg 71 kg Results CBC & Chem 7: 12/08/20 11:33 12/08/20 11:33 Labs: Abnormal Lab Results - Last 24 Hours (Table) 12/08/20 12/08/20 Range/Units 11:33 11:33 RBC 4.07 L (4.30-5.90) m/uL MCV 101.0 H (80.0-100.0) fL Plt Count 146 L (150-450) k/uL Sodium 133 L (137-145) mmol/L Glucose 103 H (74-99) mg/dL Thrombosis Risk Factor Assmnt - Choose All That Apply Each Factor Represents 1 point: Medical pt on bed rest, Obesity (BMI >25) Other Risk Factors: Yes Each Risk Factor Represents 2 Points: Age 61-74 years Thrombosis Risk Factor Assessment Total Risk Factor Score: 4 Thrombosis Risk Factor Assessment Level: Moderate Risk
[2020-12-09] MEDS: SODIUM CHLORIDE 0.9% 1,000 ML IV SCH (16:01)
--- NOTE | 2020-12-09 16:53 | ECHOF ---
Referral Reason:LVF MEASUREMENTS -------- HEIGHT: 188.0 cm WEIGHT: 117.9 kg BP: 127/77 RVIDd: 3.9 cm (< 3.3) IVSd: 1.4 cm (0.6 - 1.1) LVIDd: 6.2 cm (3.9 - 5.3) LVPWd: 1.5 cm (0.6 - 1.1) IVSs: 1.8 cm LVIDs: 5.3 cm LVPWs: 1.9 cm LA Diam: 4.3 cm (2.7 - 3.8) LAESV Index (A-L): 33.13 ml/m Ao Diam: 4.2 cm (2.0 - 3.7) MV EXCURSION: 15.857 mm (> 18.000) MV EF SLOPE: 52 mm/s (70 - 150) EPSS: 1.9 cm MV E Abdoul: 0.96 m/s MV DecT: 177 ms MV A Abdoul: 0.39 m/s MV E/A Ratio: 2.43 AV maxP.19 mmHg AV meanP.84 mmHg RAP: 5.00 mmHg RVSP: 46.67 mmHg FINDINGS -------- Sinus rhythm. This was a technically adequate study. The left ventricle is mildly dilated. There is moderate concentric left ventricular hypertrophy. Overall left ventricular systolic function is moderate-severely impaired with, an EF between 30 - 35 %. The right ventricle is moderately enlarged. LA is midly dilated 29-33ml/m2. The right atrium is normal in size. 5 ml of Lumason was utilized for enhancement of images. Interatrial and interventricular septum intact. Peak/mean gradient across the Aortic Valve is 47.19mmHg / 26.84mmHg. There is mild regurgitation of the bioprosthetic aortic valve. There is mild stenosis of the bioprosthetic aortic valve. The mitral valve leaflets are mildly thickened. Mild mitral annular calcification present. Mild m itral regurgitation is present. Mild tricuspid regurgitation present. There is moderate pulmonary hypertension. The right ventric ular systolic pressure, as measured by Doppler, is 46.67mmHg. Trace/mild (physiologic) pulmonic regurgitation. The aortic root is dilated measuring 4.2cm. Normal inferior vena cava with normal inspiratory collapse consistent with estimated right atrial pre ssure of 5 mmHg. There is no pericardial effusion. CONCLUSIONS -------- 1. The left ventricle is mildly dilated. 2. There is moderate concentric left ventricular hypertrophy. 3. Overall left ventricular systolic function is moderate-severely impaired with, an EF between 30 - 35 %. 4. The right ventricle is moderately enlarged. 5. LA is midly dilated 29-33ml/m2. 6. 5 ml of Lumason was utilized for enhancement of images. 7. Peak/mean gradient across the Aortic Valve is 47.19mmHg / 26.84mmHg. 8. There is mild regurgitation of the bioprosthetic aortic valve. 9. There is mild stenosis of the bioprosthetic aortic valve. 10. The mitral valve leaflets are mildly thickened. 11. Mild mitral annular calcification present. 12. Mild mitral regurgitation is present. 13. Mild tricuspid regurgitation present. 14. There is moderate pulmonary hypertension. 15. The right ventricular systolic pressure, as measured by Doppler, is 46.67mmHg. 16. Trace/mild (physiologic) pulmonic regurgitation. 17. The aortic root is dilated measuring 4.2cm. 18. There is no pericardial effusion. [employer]ILY [employer] LEGAL ASSISTANT: Charity Nielsen RDCS
[2020-12-10 06:41] LABS: African American GFR (CKD) 87 (>60 ml/min/1.73 sqM); Anion Gap 9 mmol/L; Blood Urea Nitrogen 20 mg/dL (9-20); Carbon Dioxide 31 mmol/L (22-30); Chloride 93 mmol/L (98-107); Glucose 108 mg/dL (74-99); Non-African American GFR(CKD) 75 (>60 ml/min/1.73 sqM); Potassium 3.5 mmol/L (3.5-5.1); Sodium 133 mmol/L (137-145)
[2020-12-10 07:32] LABS: Calcium 9.5 mg/dL (8.4-10.2)
[2020-12-10] MEDS: metOLazone 2.5 MG TAB PO SCH (08:40)
[2020-12-10] MEDS: AMIODARONE 100 MG TAB PO SCH (08:40)
[2020-12-10] MEDS: FERROUS SULFATE 325 MG TAB PO SCH (08:40)
[2020-12-10] MEDS: VIT A,C & E-LUTEIN-MINERALS 1 EACH TAB PO SCH ×2 (08:40→20:21)
[2020-12-10] MEDS: TAMSULOSIN 0.4 MG CAP.ER.24H PO SCH (08:40)
[2020-12-10] MEDS: MULTIVITAMINS, THERA 1 EACH TAB PO SCH (08:40)
[2020-12-10] MEDS: APIXABAN 5 MG TAB PO SCH ×2 (08:40→20:20)
[2020-12-10] MEDS: METOPROLOL TARTRATE 25 MG TAB PO SCH ×2 (09:17→20:21)
[2020-12-10] MEDS: LOSARTAN 50 MG TAB PO SCH (09:17)
[2020-12-10] MEDS: FUROSEMIDE 10 MG/ML 10 ML VIAL IV SCH (10:49)
--- NOTE | 2020-12-10 14:28 | P.PN ---
Subjective Progress Note Date: 12/10/20 HISTORY OF PRESENT ILLNESS This is a 70-year-old male patient of Dr. Hendrickson and Dr. Otero with past medical history of nonischemic cardiomyopathy and nonsustained ventricular t achycardia status post biventricular AICD, prosthetic aortic valve, paroxysmal atrial fibrillation, hypertension, hyperlipidemia, glaucoma and macular degeneration, remote history of tobacco use. Patient was last hospitalized in October 2019 which time he was treated for acute kidney injury, Citrobacter urinary tract infection, nonsustained ventricular tachycardia, ventricular paced rhythm and atrial fibrillation, septic shock, acute hypoxic respiratory failure requiring intubation. Patient was then admitted and December 2019 for acute UTI and urinary retention secondary to urethral stricture. Patient states he has had lower extremity edema for the past 3 years but much smaller severe over the last 3-4 days going up to his thighs. He states he is drinking lots of water and does not take in much sodium. He complains of exertional dyspnea. Echocardiogram from October 2019 reveals EF of 25-30%, mild mitral regurgitation, mild tricuspid regurgitation, mild pulmonary hypertension. Patient came into [facility] emergency center for evaluation. She is afebrile, heart rate 54, blood pressure 118/77, pulse ox 98% on room air. WBC 8.1, hemoglobin 13, platelet count 146. Sodium 133 otherwise electrolytes and renal function were normal. Blood sugar 103. Liver function tests normal. Magnesium 1.9. Troponin negative. ProBNP 7640. Rotavirus PCR not detected. CXR: CHF. Consider diffuse interstitial pneumonia. Patient started on IV Lasix and admitted to the [facility] floor. 12/10: Patient states that he is feeling very well today he has decreased edema in his lower extremities but he still feels tightness in the thighs. Patient states he has shortness of breath with exertion but has to be significant exertion not just with walking. When he had exertional dyspnea before arrival, it was after caring and the garbage cans from the road. Patient denies having a ny chest pain, no lightheadedness or dizziness. Weight is down 9 kg. Sodium 133, potassium 3.5, chloride 93, CO2 31, BUN 20 creatinine 1, blood sugar 108. He has been afebrile, heart rate 67, blood pressure 117/70, pulse ox 95% on room air. Anticipate probable discharge over the weekend. 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 REVIEW OF SYSTEMS Constitutional: No fever, no chills, no night sweats. Reports weight change. No weakness, fatigue or lethargy. No daytime sleepiness. EENT: No headache. No blurred vision or double vision, no loss of vision. No loss of Hearing, no ringing in the ears, no dizziness. No nasal drainage or congestion. No epistaxis. No sore throat. Lungs: Reports shortness of breath, cough, no sputum production. No wheezing. Reports dyspnea on exertion. Cardiovascular: No chest pain, reports lower extremity edema-improved. No palpitations. No paroxysmal nocturnal dyspnea. No orthopnea. No lightheadedness or dizziness. No syncopal episodes. Abdominal: No abdominal pain. No nausea, vomiting. No diarrhea. No constipation. No bloody or tarry stools. No loss of appetite. Genitourinary: No dysuria, increased frequency, urgency. No urinary retention. Musculoskeletal: No myalgias. No muscle weakness, no gait dysfunction, no frequent falls. No back pain. No neck pain. Integumentary: No wounds, no lesions. No rash or pruritus. No unusual bruising. No change in hair or nails. Neurologic: No aphasia. No facial droop. No change in mentation. No head injury. No headache. No paralysis. No paresthesia. Psychiatric: No depression. No anxiety. No mood swings. Endocrine: No abnormal blood sugars. Reports weight change. No excessive sweating or thirst. No cold intolerance. PHYSICAL EXAMINATION Gen: This is 70-year-old male patient resting in a recliner with her legs elevated and in no acute distress. HEENT: Head is atraumatic, normocephalic. Pupils equal, round. Sclerae is anicteric. NECK: Supple. No JVD. No lymphadenopathy. No thyromegaly. LUNGS: Clear to auscultation. No wheezes or rhonchi. No intercostal re tractions. HEART: Irregularly irregular rate and rhythm. Systolic murmur. ABDOMEN: Soft. Bowel sounds are present. No masses. No tenderness. EXTREMITIES: 1+ bilateral pedal edema up to his thighs. No calf tenderness. Dorsalis pedis palpable bilaterally. NEUROLOGICAL: Patient is awake, alert and oriented x3. Cranial nerves 2 through 12 are grossly intact. ASSESSMENT AND PLAN 1. Acute on chronic systolic heart failure. Continue on Lasix 60 mg IV every 12 hours, continue metolazone 2.5 mg daily, monitor I&O and daily weights, continue Lopressor 75 mg twice daily. Echocardiogram as above 2. History of nonischemic cardiomyopathy, nonsustained ventricular tachycardia status post biventricular AICD, stable. 3. Paroxysmal atrial fibrillation. Continue eliquis 5 mg twice daily, Lopressor 75 mg twice daily, amiodarone 100 mg daily. 4. Hypertension. Continue Lopressor, Cozaar 50 mg daily. 5. Prosthetic aortic valve. 6. Hyperlipidemia. Patient is not currently on statin. 7. Benign prostatic hypertrophy. Continue Flomax or 0.4 mg daily. 8. Macular degeneration and glaucoma, stable. 9. GI prophylaxis. Protonix. 10. DVT prophylaxis. Eliquis. DISCHARGE PLAN Home on the weekend. Impression and plan of care have been directed as dictated by the signing physician. Stephenie Chow nurse practitioner acting as scribe for signing physician. Objective - Vital Signs Vital signs: Vital Signs Temp 97.5 F L 12/10/20 07:41 Pulse 67 12/10/20 07:41 Resp 17 12/10/20 07:41 BP 117/70 12/10/20 07:41 Pulse Ox 95 12/10/20 07:41 Intake & Output 12/09/20 12/10/20 12/10/20 18:59 06:59 18:59 Intake Total 240 Output Total 2350 2180 875 Balance -2349 -1940 -875 Weight 71 kg 108.9 kg Intake: Oral 240 Output: Urine 2350 2180 875 Other: Voiding Method Toilet Urinal Urinal Urinal # Voids 3 1 4 # Bowel Movements 0 - Labs CBC & Chem 7: 12/08/20 11:33 12/10/20 06:04 Labs: Abnormal Lab Results - Last 24 Hours (Table) 12/10/20 Range/Units 06:04 Sodium 133 L (137-145) mmol/L Chloride 93 L (98-107) mmol/L Carbon Dioxide 31 H (22-30) mmol/L Glucose 108 H (74-99) mg/dL
[2020-12-10] MEDS: SODIUM CHLORIDE 0.9% 1,000 ML IV SCH (16:28)
[2020-12-11] MEDS: FUROSEMIDE 10 MG/ML 10 ML VIAL IV SCH (08:45)
[2020-12-11] MEDS: AMIODARONE 100 MG TAB PO SCH (08:46)
[2020-12-11] MEDS: METOPROLOL TARTRATE 25 MG TAB PO SCH ×2 (08:47→20:19)
[2020-12-11] MEDS: VIT A,C & E-LUTEIN-MINERALS 1 EACH TAB PO SCH ×2 (08:47→20:19)
[2020-12-11] MEDS: APIXABAN 5 MG TAB PO SCH ×2 (08:47→20:19)
[2020-12-11] MEDS: MULTIVITAMINS, THERA 1 EACH TAB PO SCH (08:47)
[2020-12-11] MEDS: FERROUS SULFATE 325 MG TAB PO SCH (08:47)
[2020-12-11 09:16] LABS: African American GFR (CKD) 77 (>60 ml/min/1.73 sqM); Anion Gap 6 mmol/L; Blood Urea Nitrogen 28 mg/dL (9-20); Calcium 10.1 mg/dL (8.4-10.2); Carbon Dioxide 35 mmol/L (22-30); Chloride 93 mmol/L (98-107); Glucose 137 mg/dL (74-99); Non-African American GFR(CKD) 67 (>60 ml/min/1.73 sqM); Potassium 3.7 mmol/L (3.5-5.1); Sodium 134 mmol/L (137-145)
[2020-12-11] MEDS: metOLazone 2.5 MG TAB PO SCH (10:19)
--- NOTE | 2020-12-11 11:45 | P.PN ---
Subjective Progress Note Date: 12/11/20 HISTORY OF PRESENT ILLNESS This is a 70-year-old male patient of Dr. Hendrickson and Dr. Otero with past medical history of nonischemic cardiomyopathy and nonsustained ventricular ta chycardia status post biventricular AICD, prosthetic aortic valve, paroxysmal atrial fibrillation, hypertension, hyperlipidemia, glaucoma and macular degeneration, remote history of tobacco use. Patient was last hospitalized in October 2019 which time he was treated for acute kidney injury, Citrobacter urinary tract infection, nonsustained ventricular tachycardia, ventricular paced rhythm and atrial fibrillation, septic shock, acute hypoxic respiratory failure requiring intubation. Patient was then admitted and December 2019 for acute UTI and urinary retention secondary to urethral stricture. Patient states he has had lower extremity edema for the past 3 years but much smaller severe over the last 3-4 days going up to his thighs. He states he is drinking lots of water and does not take in much sodium. He complains of exertional dyspnea. Echocardiogram from October 2019 reveals EF of 25-30%, mild mitral regurgitation, mild tricuspid regurgitation, mild pulmonary hypertension. Patient came into [facility] emergency center for evaluation. She is afebrile, heart rate 54, blood pressure 118/77, pulse ox 98% on room air. WBC 8.1, hemoglobin 13, platelet count 146. Sodium 133 otherwise electrolytes and renal function were normal. Blood sugar 103. Liver function tests normal. Magnesium 1.9. Troponin negative. ProBNP 7640. Rotavirus PCR not detected. CXR: CHF. Consider diffuse interstitial pneumonia. Patient started on IV Lasix and admitted to the [facility] floor. 12/10: Patient states that he is feeling very well today he has decreased edema in his lower extremities but he still feels tightness in the thighs. Patient states he has shortness of breath with exertion but has to be significant exertion not just with walking. When he had exertional dyspnea before arrival, it was after caring and the garbage cans from the road. Patient denies having any chest pain, no lightheadedness or dizziness. Weight is down 9 kg. Sodium 133, potassium 3.5, chloride 93, CO2 31, BUN 20 creatinine 1, blood sugar 108. He has been afebrile, heart rate 67, blood pressure 117/70, pulse ox 95% on room air. Anticipate probable discharge over the weekend. 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 12/11: She is found resting comfortably in bed with no platelets or concerns. Patient has no acute distress. Patient states that his shortness of breath has improved significantly, his edema to the lower extremities has improved however there is still 1+ pedal edema noted bilaterally. We will consult cardiology. Patient has been afebrile, heart rate 72, respirations 16, blood pressure 133/72, pulse ox a 92% on room air. Sodium 134, potassium 3.7, BUN 28, creatinine 1.10 REVIEW OF SYSTEMS Constitutional: No fever, no chills, no night sweats. Reports weight change. No weakness, fatigue or lethargy. No daytime sleepiness. EENT: No headache. No blurred vision or double vision, no loss of vision. No loss of Hearing, no ringing in the ears, no dizziness. No nasal drainage or congestion. No epistaxis. No sore throat. Lungs: Reports shortness of breath, cough, no sputum production. No wheezing. Reports dyspnea on exertion. Cardiovascular: No chest pain, reports lower extremity edema-improved. No palpitations. No paroxysmal nocturnal dyspnea. No orthopnea. No lightheadedness or dizziness. No syncopal episodes. Abdominal: No abdominal pain. No nausea, vomiting. No diarrhea. No constipation. No bloody or tarry stools. No loss of appetite. Genitourinary: No dysuria, increased frequency, urgency. No urinary retention. Musculoskeletal: No myalgias. No muscle weakness, no gait dysfunction, no frequent falls. No back pain. No neck pain. Integumentary: No wounds, no lesions. No rash or pruritus. No unusual bruising. No change in hair or nails. Neurologic: No aphasia. No facial droop. No change in mentation. No head injury. No headache. No paralysis. No paresthesia. Psychiatric: No depression. No anxiety. No mood swings. Endocrine: No abnormal blood sugars. Reports weight change. No excessive sweating or thirst. No cold intolerance. PHYSICAL EXAMINATION Gen: This is 70-year-old male patient resting in a recliner with her legs elevated and in no acute distress. HEENT: Head is atraumatic, normocephalic. Pupils equal, round. Sclerae is anicteric. NECK: Supple. No JVD. No lymphadenopathy. No thyromegaly. LUNGS: Clear to auscultation. No wheezes or rhonchi. No intercostal retractions. HEART: Irregularly irregular rate and rhythm. Systolic murmur. ABDOMEN: Soft. Bowel sounds are present. No masses. No tenderness. EXTREMITIES: 1+ bilateral pedal edema up to his thighs. No calf tenderness. Dorsalis pedis palpable bilaterally. NEUROLOGICAL: Patient is awake, alert and oriented x3. Cranial nerves 2 through 12 are grossly intact. ASSESSMENT AND PLAN 1. Acute on chronic systolic heart failure. Continue on Lasix 60 mg IV every 12 hours, continue metolazone 2.5 mg daily, monitor I&O and daily weights, continue Lopressor 75 mg twice daily. Echocardiogram as above. Consult cardiology 2. History of nonischemic cardiomyopathy, nonsustained ventricular tachycardia status post biventricular AICD, stable. 3. Paroxysmal atrial fibrillation. Continue eliquis 5 mg twice daily, Lopressor 75 mg twice daily, amiodarone 100 mg daily. 4. Hypertension. Continue Lopressor, Cozaar 50 mg daily. 5. Prosthetic aortic valve. 6. Hyperlipidemia. Patient is not currently on statin. 7. Benign prostatic hypertrophy. Continue Flomax or 0.4 mg daily. 8. Macular degeneration and glaucoma, stable. 9. GI prophylaxis. Protonix. 10. DVT prophylaxis. Eliquis. 11. COVID-19 negative. Patient was hospitalized during a pandemic DISCHARGE PLAN Home possibly tomorrow Impression and plan of care have been directed as dictated by the signing physician. Sveta Olivo nurse practitioner acting as scribe for signing physician. Objective - Vital Signs Vital signs: Vital Signs Temp 98.3 F 12/11/20 08:00 Pulse 72 12/11/20 08:00 Resp 16 12/11/20 08:00 BP 116/77 12/11/20 10:19 Pulse Ox 92 L 12/11/20 08:00 Intake & Output 12/10/20 12/11/20 12/11/20 18:59 06:59 18:59 Intake Total 540 Output Total 7309 119 Balance -3595 -106 Weight 107.8 kg Intake: Oral 540 Output: Urine 8754 475 Other: Voiding Method Urinal Urinal # Voids 4 4 - Labs CBC & Chem 7: 12/08/20 11:33 12/11/20 08:10 Labs: Abnormal Lab Results - Last 24 Hours (Table) 12/11/20 Range/Units 08:10 Sodium 134 L (137-145) mmol/L Chloride 93 L (98-107) mmol/L Carbon Dioxide 35 H (22-30) mmol/L BUN 28 H (9-20) mg/dL Glucose 137 H (74-99) mg/dL
--- NOTE | 2020-12-11 15:55 | P.CRDCN ---
History of Present Illness Consult date: 12/11/20 Consult reason: congestive heart failure Chief complaint: Swelling and shortness of breath History of present illness: This is Cedrick Roberts NP dictating a consult on this patient on behalf of Dr. Jackson. The patient was interviewed and examined. HPI: Patient is a pleasant 70-year-old male who initially presented to Hospital with lower extremity edema worse the last 3-4 days and exertional dyspnea. Patient reports that his fluid retention has been worse in the last week, as well as a shortness of breath worse over the last week as well. Patient reports he has had a gradual increase in his symptoms. Patient has a known history of nonischemic cardiomyopathy, nonsustained ventricular tachycardia status post biventricular AICD, prosthetic aortic valve (bovine) via open-heart, paroxysmal atrial fibrillation, hypertension, hyperlipidemia, glaucoma, macular degenera tion, and remote history of tobacco use. Patient's home medications include Flomax, multivitamin, metoprolol 75 mg by mouth twice a day, losartan 50 mg by mouth daily, furosemide 40 mg by mouth daily, ferrous sulfate 325 mg by mouth daily, Eliquis 5 mg by mouth twice a day, and amiodarone [address] Patient [address] Otero in the office. ROS: [No fever, chills, or rigors] [no cough, phlegm, or expectoration] [no nausea, vomiting, or diarrhea] [no hematuria, dysuria] [no musculoskelatal complaints] [no strokes or seizures] [no skin lesions] EXAMINATION: GENERAL: Well-appearing, well-nourished and in no acute distress. NECK: Supple without JVD or thyromegaly. LUNGS: Breath sounds clear to auscultation bilaterally. Respiration equal and unlabored. No wheezes, rales or rhonchi. HEART: Irregular rate and rhythm, systolic murmur, no rubs or gallops. S1 and S2 heard. EXTREMITIES: Normal range of motion, 2+ edema bilateral lower legs, right leg to mid ramirez, and left leg to mid foot. No clubbing or cyanosis. Peripheral pulses intact and strong. REVIEW OF LABS, ECG & MEDICAL DATA: LABS: Hemoglobin 13.3, PT 10.2, INR 0.9, APTT 29.4, sodium 134, chloride 93, B1 28, creatinine 1.10, glucose 137, troponin less than 0.012, BNP 7640 EKG: Patient has an atrioventricular paced rhythm on EKG. 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 VITALS: Temp 97.4, pulse 67, respirations 16, blood pressure 110/70, O2 sat 93 on room air. IMPRESSION/PLAN: 1. Acute on chronic congestive heart failure-agree with current medical management strategy, continue Lasix 60 mg IV every 12 hours, continue metolazone, monitor intake and output and daily weights, continue Lopressor. Echocardiogram that shows an EF of 30-35% is an increase from the patient's last echo from 10/23/2019 which was at 20-25%. 2 paroxysmal atrial fibrillation-continue Alquist, Lopressor, and amiodarone. 3. Hypertension-continue Lopressor, and Cozaar. 4. Hyperlipidemia-start atorvastatin 40 mg 1 tab nightly. Thank you for the consult and allowing us to participate in the care of this patient. Past Medical History Past Medical History: Atrial Fibrillation, Eye Disorder, Hyperlipidemia, Hypertension Additional Past Medical History / Comment(s): anemia, PAST EPISODE OF AFIB SUMMER 2018. MACULAR DEGENERATION AND GLAUCOMA History of Any Multi-Drug Resistant Organisms: None Reported Past Surgical History: Appendectomy, Cardiac Valve Replacement, Cholecystectomy, Hernia Repair, Pacemaker Additional Past Surgical History / Comment(s): AORTIC VALVE REPLACEMENT 2008. INGUINAL HERNIA REPAIR. UMBILICAL HERNIA REPAIR. COLONOSCOPY. PACEMAKER 2019 Past Anesthesia/Blood Transfusion Reactions: No Reported Reaction Additional Past Anesthesia/Blood Transfusion Reaction / Comment(s): Pt has received blood in past. Type of Cardiac Device: Permanent Pacemaker Device Placement Date:: 2018 Past Psychological History: No Psychological Hx Reported Additional Psychological History / Comment(s): Pt resides with his spouse. He is independent. Smoking Status: Former smoker Past Alcohol Use History: Daily, Heavy Additional Past Alcohol Use History / Comment(s): He drinks 4-6 beers per day. Past Drug Use History: None Reported - Past Family History Mother Family Medical History: Hypertension Father Additional Family Medical History / Comment(s): Enlarged Heart Medications and Allergies Home Medications Medication Instructions Recorded Confirmed Type Apixaban [Eliquis] 5 mg PO BID #60 tab 10/04/18 12/08/20 Rx Tamsulosin [Flomax] 0.4 mg PO BID 10/15/19 12/08/20 History Multivitamins, Thera [Multivitamin 1 tab PO DAILY 10/23/19 12/08/20 History (formulary)] Amiodarone [Cordarone] 100 mg PO DAILY 12/26/19 12/08/20 History Metoprolol Tartrate [Lopressor] 75 mg PO BID 12/26/19 12/08/20 History Ferrous Sulfate [Feosol] 325 mg PO DAILY 12/08/20 12/08/20 History Furosemide [Lasix] 40 mg PO DAILY 12/08/20 12/08/20 History Losartan Potassium 50 mg PO DAILY 12/08/20 12/08/20 History Vit C/E/Zn/Coppr/Lutein/Zeaxan 1 cap PO BID 12/08/20 12/08/20 History [Preservision Areds 2 Softgel] Allergies Allergy/AdvReac Type Severity Reaction Status Date / Time No Known Allergies Allergy Unverified 12/08/20 12:03 Physical Exam Vitals: Vital Signs Temp Pulse Resp BP Pulse Ox 12/11/20 13:50 97.4 F L 67 16 110/70 93 L 12/11/20 10:19 116/77 12/11/20 08:00 98.3 F 72 16 133/72 92 L 12/11/20 02:00 97.4 F L 63 17 97/55 91 L 12/10/20 20:00 97.6 F 71 17 114/68 97 12/10/20 16:27 110/67 Intake and Output 12/10/20 12/11/20 12/11/20 22:59 06:59 14:59 Intake Total 540 Output Total 1000 475 Balance -460 -475 Intake: Oral 540 Output: Urine 1000 475 Other: Voiding Method Urinal # Voids 4 4 Weight 107.8 kg Results 12/08/20 11:33 12/11/20 08:10 Comprehensive Metabolic Panel 12/11/20 Range/Units 08:10 Sodium 134 L (137-145) mmol/L Potassium 3.7 (3.5-5.1) mmol/L Chloride 93 L (98-107) mmol/L Carbon Dioxide 35 H (22-30) mmol/L BUN 28 H (9-20) mg/dL Creatinine 1.10 (0.66-1.25) mg/dL Glucose 137 H (74-99) mg/dL Calcium 10.1 (8.4-10.2) mg/dL Current Medications Generic Name Dose Route Start Last Admin Trade Name Freq PRN Reason Stop Dose Admin Amiodarone HCl 100 mg 12/09/20 09:00 12/11/20 08:46 Amiodarone 100 Mg Tab PO 100 mg DAILY NOAH Administration Apixaban 5 mg 12/08/20 21:00 12/11/20 08:47 Apixaban 5 Mg Tab PO 5 mg BID NOAH Administration Protocol Ferrous Sulfate 325 mg 12/09/20 09:00 12/11/20 08:47 Ferrous Sulfate 325 Mg Tab PO 325 mg DAILY NOAH Administration Furosemide 60 mg 12/11/20 09:00 12/11/20 08:45 Furosemide 10 Mg/Ml 10 Ml Vial IV 60 mg DAILY NOAH Administration Sodium Chloride 1,000 mls @ 20 mls/hr 12/08/20 15:00 12/10/20 16:28 Saline 0.9% IV Not Given .Q24H NOAH Metolazone 2.5 mg 12/09/20 10:45 12/11/20 10:19 Metolazone 2.5 Mg Tab PO 2.5 mg DAILY NOAH Administration Metoprolol Tartrate 75 mg 12/08/20 21:00 12/11/20 08:47 Metoprolol Tartrate 25 Mg Tab PO Not Given BID NOAH Multivitamins 1 each 12/09/20 09:00 12/11/20 08:47 Multivitamins, Thera 1 Each Tab PO 1 each DAILY NOAH Administration Multivitamins/Minerals 1 each 12/08/20 21:00 12/11/20 08:47 Vit A,C & G-Vekxdg-Nfvofamg 1 Each Tab PO 1 each BID NOAH Administration Intake and Output 12/10/20 12/11/20 12/11/20 22:59 06:59 14:59 Intake Total 540 Output Total 1000 475 Balance -460 -475 Intake: Oral 540 Output: Urine 1000 475 Other: Voiding Method Urinal # Voids 4 4 Weight 107.8 kg 12/08/20 11:33 12/11/20 08:10
[2020-12-11] MEDS: SODIUM CHLORIDE 0.9% 1,000 ML IV SCH (16:58)
[2020-12-11] MEDS: ATORVASTATIN 40 MG TAB PO SCH (20:12)
[2020-12-12] MEDS: METOPROLOL TARTRATE 25 MG TAB PO SCH ×2 (09:42→21:05)
[2020-12-12] MEDS: APIXABAN 5 MG TAB PO SCH ×2 (09:42→21:05)
[2020-12-12] MEDS: FERROUS SULFATE 325 MG TAB PO SCH (09:42)
[2020-12-12] MEDS: MULTIVITAMINS, THERA 1 EACH TAB PO SCH (09:42)
[2020-12-12] MEDS: AMIODARONE 100 MG TAB PO SCH (09:43)
[2020-12-12] MEDS: FUROSEMIDE 10 MG/ML 10 ML VIAL IV SCH (09:43)
[2020-12-12] MEDS: VIT A,C & E-LUTEIN-MINERALS 1 EACH TAB PO SCH ×2 (10:01→21:04)
[2020-12-12] MEDS: metOLazone 2.5 MG TAB PO SCH (10:01)
--- NOTE | 2020-12-12 11:20 | P.PN ---
Subjective Progress Note Date: 12/12/20 HISTORY OF PRESENT ILLNESS This is a 70-year-old male patient of Dr. Hendrickson and Dr. Otero with past medical history of nonischemic cardiomyopathy and nonsustained ventricular ta chycardia status post biventricular AICD, prosthetic aortic valve, paroxysmal atrial fibrillation, hypertension, hyperlipidemia, glaucoma and macular degeneration, remote history of tobacco use. Patient was last hospitalized in October 2019 which time he was treated for acute kidney injury, Citrobacter urinary tract infection, nonsustained ventricular tachycardia, ventricular paced rhythm and atrial fibrillation, septic shock, acute hypoxic respiratory failure requiring intubation. Patient was then admitted and December 2019 for acute UTI and urinary retention secondary to urethral stricture. Patient states he has had lower extremity edema for the past 3 years but much smaller severe over the last 3-4 days going up to his thighs. He states he is drinking lots of water and does not take in much sodium. He complains of exertional dyspnea. Echocardiogram from October 2019 reveals EF of 25-30%, mild mitral regurgitation, mild tricuspid regurgitation, mild pulmonary hypertension. Patient came into [facility] emergency center for evaluation. She is afebrile, heart rate 54, blood pressure 118/77, pulse ox 98% on room air. WBC 8.1, hemoglobin 13, platelet count 146. Sodium 133 otherwise electrolytes and renal function were normal. Blood sugar 103. Liver function tests normal. Magnesium 1.9. Troponin negative. ProBNP 7640. Rotavirus PCR not detected. CXR: CHF. Consider diffuse interstitial pneumonia. Patient started on IV Lasix and admitted to the [facility] floor. 12/10: Patient states that he is feeling very well today he has decreased edema in his lower extremities but he still feels tightness in the thighs. Patient states he has shortness of breath with exertion but has to be significant exertion not just with walking. When he had exertional dyspnea before arrival, it was after caring and the garbage cans from the road. Patient denies having any chest pain, no lightheadedness or dizziness. Weight is down 9 kg. Sodium 133, potassium 3.5, chloride 93, CO2 31, BUN 20 creatinine 1, blood sugar 108. He has been afebrile, heart rate 67, blood pressure 117/70, pulse ox 95% on room air. Anticipate probable discharge over the weekend. 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 12/11: Patient is found resting comfortably in bed with no platelets or concerns. Patient has no acute distress. Patient states that his shortness of breath has improved significantly, his edema to the lower extremities has improved however there is still 1+ pedal edema noted bilaterally. We will consult cardiology. Patient has been afebrile, heart rate 72, respirations 16, blood pressure 133/72, pulse ox a 92% on room air. Sodium 134, potassium 3.7, BUN 28, creatinine 1.10 12/12: Patient is found resting comfortably in bed in no acute distress. He has been ambulatory within the room. Performing ADLs independently. Patient states that he is better today compared to yesterday. However he is reluctant to go home today and requests that he is discharged tomorrow. Bilateral lower extremity edema continues to improve. Patient remains afebrile, heart rate 61, respirations 16, blood pressure 118/66, pulse ox 92% on room air. REVIEW OF SYSTEMS Constitutional: No fever, no chills, no night sweats. Reports weight change. No weakness, fatigue or lethargy. No daytime sleepiness. EENT: No headache. No blurred vision or double vision, no loss of vision. No loss of Hearing, no ringing in the ears, no dizziness. No nasal drainage or congestion. No epistaxis. No sore throat. Lungs: Reports shortness of breath, cough, no sputum production. No wheezing. Reports dyspnea on exertion. Cardiovascular: No chest pain, reports lower extremity edema-improved. No palpitations. No paroxysmal nocturnal dyspnea. No orthopnea. No lightheadedness or dizziness. No syncopal episodes. Abdominal: No abdominal pain. No nausea, vomiting. No diarrhea. No constip ation. No bloody or tarry stools. No loss of appetite. Genitourinary: No dysuria, increased frequency, urgency. No urinary retention. Musculoskeletal: No myalgias. No muscle weakness, no gait dysfunction, no frequent falls. No back pain. No neck pain. Integumentary: No wounds, no lesions. No rash or pruritus. No unusual bruising. No change in hair or nails. Neurologic: No aphasia. No facial droop. No change in mentation. No head injury. No headache. No paralysis. No paresthesia. Psychiatric: No depression. No anxiety. No mood swings. Endocrine: No abnormal blood sugars. Reports weight change. No excessive sweating or thirst. No cold intolerance. PHYSICAL EXAMINATION Gen: This is 70-year-old male patient resting in a recliner with her legs elevated and in no acute distress. HEENT: Head is atraumatic, normocephalic. Pupils equal, round. Sclerae is anicteric. NECK: Supple. No JVD. No lymphadenopathy. No thyromegaly. LUNGS: Clear to auscultation. No wheezes or rhonchi. No intercostal retractions. HEART: Irregularly irregular rate and rhythm. Systolic murmur. ABDOMEN: Soft. Bowel sounds are present. No masses. No tenderness. EXTREMITIES: 1+ bilateral pedal edema up to his thighs. No calf tenderness. Dorsalis pedis palpable bilaterally. NEUROLOGICAL: Patient is awake, alert and oriented x3. Cranial nerves 2 through 12 are grossly intact. ASSESSMENT AND PLAN 1. Acute on chronic systolic heart failure. Continue on Lasix 60 mg IV every 12 hours, continue metolazone 2.5 mg daily, monitor I&O and daily weights, continue Lopressor 75 mg twice daily. Echocardiogram as above. Cardiology consult appreciated 2. History of nonischemic cardiomyopathy, nonsustained ventricular tachycardia status post biventricular AICD, stable. 3. Paroxysmal atrial fibrillation. Continue eliquis 5 mg twice daily, Lopre ssor 75 mg twice daily, amiodarone 100 mg daily. 4. Hypertension. Continue Lopressor, Cozaar 50 mg daily. 5. Prosthetic aortic valve. 6. Hyperlipidemia. Patient is not currently on statin. 7. Benign prostatic hypertrophy. Continue Flomax or 0.4 mg daily. 8. Macular degeneration and glaucoma, stable. 9. GI prophylaxis. Protonix. 10. DVT prophylaxis. Eliquis. 11. COVID-19 negative. Patient was hospitalized during a pandemic DISCHARGE PLAN Home on Sunday Impression and plan of care have been directed as dictated by the signing physician. Sveta Olivo nurse practitioner acting as scribe for signing physician. Objective - Vital Signs Vital signs: Vital Signs Temp 97.6 F 12/12/20 08:00 Pulse 61 12/12/20 08:00 Resp 16 12/12/20 08:00 BP 118/66 12/12/20 08:00 Pulse Ox 92 L 12/12/20 08:00 Intake & Output 12/11/20 12/12/20 12/12/20 18:59 06:59 18:59 Intake Total 1080 Output Total 475 600 Balance 605 -600 Weight 73 kg 106.6 kg Intake: Oral 1080 Output: Urine 475 600 Other: Voiding Method Urinal Toilet Urinal # Voids 4 2 # Bowel Movements 0 - Labs CBC & Chem 7: 12/08/20 11:33 12/11/20 08:10
--- NOTE | 2020-12-12 13:06 | P.PN ---
Subjective Progress Note Date: 12/12/20 Principal diagnosis: CHF This is Cedrick Roberts NP dictating a progress note on this patient on behalf of Dr. Jackson. The patient was interviewed and examined. Patient is a pleasant 70-year-old male who initially presented to Hospital with lower extremity edema worse the last 3-4 days and exertional dyspnea. Patient reports that his fluid retention has been worse in the last week, as well as a shortness of breath worse over the last week as well. Patient reports he has had a gradual increase in his symptoms. Patient has a known history of nonischemic cardiomyopathy, nonsustained ventricular tachycardia status post biventricular AICD, prosthetic aortic valve (bovine) via open-heart, paroxysmal atrial fibrillation, hypertension, hyperlipidemia, glaucoma, macular degeneration, and remote history of tobacco use. Patient's home medications include Flomax, multivitamin, metoprolol 75 mg by mouth twice a day, losartan 50 mg by mouth daily, furosemide 40 mg by mouth daily, ferrous sulfate 325 mg by mouth daily, Eliquis 5 mg by mouth twice a day, and amiodarone [address] Otero in the office. 12/12/2020: Patient reports improvement overnight. Patient states that he was able to lie back in his bed without feeling like he was drowning. It's hard to tell by his daily weights if he has lost or gained weight, as they've used both a bed scale in the standing scale to get his weight. Recommend a more consistent method of checking patient's weight daily for accurate measurement of weight loss or gain. Patient is very happy with the progress of his edema in his lower legs, as his right lower leg edema has significantly diminished from yesterday, now only 1+ at the mid calf down to 2+ in the foot. The left foot edema is almost completely gone, now barely 1+ pitting. Patient's BNP is significantly decreased from yesterday down to 4050 today. GENERAL: Well-appearing, well-nourished and in no acute distress. NECK: Supple without JVD or thyromegaly. LUNGS: Breath sounds clear to auscultation bilaterally. Respiration equal and unlabored. No wheezes, rales or rhonchi. HEART: Regular rate and rhythm without murmurs, rubs or gallops. S1 and S2 heard. EXTREMITIES: Normal range of motion, edema has improved from yesterday, no descending from mid calf on the right leg 1+ pitting to 2+ pitting in the foot, and barely 1+ pitting in the left foot from the mid foot to toes. No clubbing or cyanosis. Peripheral pulses intact and strong. VITALS: [Temp 97.6, pulse rate 61, respirations 16, blood pressure 118/66, O2 saturation 92% on room air] TELEMETRY: [Paced rhythm on telemetry] LABS: Sodium 134, potassium 3.7, B1 28, creatinine 1.10, BNP 4050 IMPRESSION/PLAN: 1. Acute on chronic congestive heart failure-Lasix 60mg IV push daily, with last dose today. Start Lasix 40 mg by mouth twice a day tomorrow. Watch BUN/creatinine closely. Continue metolazone. Strict I's and O's. Daily weight. 2. Paroxysmal atrial fibrillation-continue Eliquis, Lopressor, and amiodarone. 3. Hypertension-continue Lopressor and Cozaar. 4. Hyperlipidemia-continue atorvastatin 40 mg 1 tab nightly. Thank you for allowing us to participate in the care of this patient. Objective - Vital Signs Vital signs: Vital Signs Temp 97.6 F 12/12/20 08:00 Pulse 61 12/12/20 08:00 Resp 16 12/12/20 08:00 BP 118/66 12/12/20 08:00 Pulse Ox 92 L 12/12/20 08:00 Intake & Output 12/11/20 12/12/20 12/12/20 18:59 06:59 18:59 Intake Total 1080 Output Total 475 600 Balance 605 -600 Weight 73 kg 106.6 kg Intake: Oral 1080 Output: Urine 475 600 Other: Voiding Method Urinal Toilet Urinal # Voids 4 2 # Bowel Movements 0 - Labs CBC & Chem 7: 12/08/20 11:33 12/11/20 08:10
[2020-12-12] MEDS: SODIUM CHLORIDE 0.9% 1,000 ML IV SCH (17:02)
[2020-12-12] MEDS: ATORVASTATIN 40 MG TAB PO SCH (21:05)
[2020-12-13 08:31] VITALS: BP 112/72; PULSE 70; RESP 18; TEMP 97.5
[2020-12-13] MEDS ORDERED: FUROSEMIDE 40 MG TAB PO SCH (09:00)
[2020-12-13] MEDS: VIT A,C & E-LUTEIN-MINERALS 1 EACH TAB PO SCH (09:02)
[2020-12-13] MEDS: MULTIVITAMINS, THERA 1 EACH TAB PO SCH (09:02)
[2020-12-13] MEDS: AMIODARONE 100 MG TAB PO SCH (09:02)
[2020-12-13] MEDS: FERROUS SULFATE 325 MG TAB PO SCH (09:03)
[2020-12-13] MEDS: APIXABAN 5 MG TAB PO SCH (09:03)
[2020-12-13] MEDS: METOPROLOL TARTRATE 25 MG TAB PO SCH (09:03)
[2020-12-13] MEDS: metOLazone 2.5 MG TAB PO SCH (09:03)
[2020-12-13] MEDS: SODIUM CHLORIDE 0.9% 1,000 ML IV SCH (09:32)
--- NOTE | 2020-12-13 11:02 | P.DS ---
Providers Date of admission: 12/08/20 14:48 Expected date of discharge: 12/13/20 Attending physician: Marko Wright MD Consults: 12/11/20 09:56 Consult Physician Routine Consulting Provider: Qian Otero Consult Reason/Comments: CHF Do you want consulting provider notified?: Yes Primary care physician: [facility] Course: HISTORY OF PRESENT ILLNESS This is a 70-year-old male patient of Dr. Hendrickson and Dr. Otero with past medical history of nonischemic cardiomyopathy and nonsustained ventricular tachycardia status post biventricular AICD, prosthetic aortic valve, paroxysmal atrial fibrillation, hypertension, hyperlipidemia, glaucoma and macular degeneration, remote history of tobacco use. Patient was last hospitalized in October 2019 which time he was treated for acute kidney injury, Citrobacter urinary tract infection, nonsustained ventricular tachycardia, ventricular paced rhythm and atrial fibrillation, septic shock, acute hypoxic respiratory failure requiring intubation. Patient was then admitted and December 2019 for acute UTI and urinary retention secondary to urethral stricture. Patient states he has had lower extremity edema for the past 3 years but much smaller severe over the last 3-4 days going up to his thighs. He states he is drinking lots of water and does not take in much sodium. He complains of exertional dyspnea. Echocardiogram from October 2019 reveals EF of 25-30%, mild mitral regurgitation, mild tricuspid regurgitation, mild pulmonary hypertension. Patient came into [facility] emergency center for evaluation. She is afebrile, heart rate 54, blood pressure 118/77, pulse ox 98% on room air. WBC 8.1, hemoglobin 13, platelet count 146. Sodium 133 otherwise electrolytes and renal function were normal. Blood sugar 103. Liver function tests normal. Magnesium 1.9. Troponin negative. ProBNP 7640. Rotavirus PCR not detected. CXR: CHF. Consider diffuse interstitial pneumonia. Patient started on IV Lasix and admitted to the [facility] floor. 12/10: Patient states that he is feeling very well today he has decreased edema in his lower extremities but he still feels tightness in the thighs. Patient states he has shortness of breath with exertion but has to be significant exertion not just with walking. When he had exertional dyspnea before arrival, it was after caring and the garbage cans from the road. Patient denies having any chest pain, no lightheadedness or dizziness. Weight is down 9 kg. Sodium 133, potassium 3.5, chloride 93, CO2 31, BUN 20 creatinine 1, blood sugar 108. He has been afebrile, heart rate 67, blood pressure 117/70, pulse ox 95% on room air. Anticipate probable discharge over the weekend. 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 12/11: Patient is found resting comfortably in bed with no platelets or concerns. Patient has no acute distress. Patient states that his shortness of breath has improved significantly, his edema to the lower extremities has improved however there is still 1+ pedal edema noted bilaterally. We will consult cardiology. Patient has been afebrile, heart rate 72, respirations 16, blood pressure 133/72, pulse ox a 92% on room air. Sodium 134, potassium 3.7, BUN 28, creatinine 1.10 12/12: Patient is found resting comfortably in bed in no acute distress. He has been ambulatory within the room. Performing ADLs independently. Patient states that he is better today compared to yesterday. However he is reluctant to go home today and requests that he is discharged tomorrow. Bilateral lower extremity edema continues to improve. Patient remains afebrile, heart rate 61, respirations 16, blood pressure 118/66, pulse ox 92% on room air. 12/13: Patient noted to have significant improvement in lower extremity edema. He denies shortness of breath. He has been seen and followed by cardiology. Patient will be transitioned from IV Lasix to oral and discharged home today in stable condition. DISCHARGE DIAGNOSES 1. Acute on chronic systolic heart failure. 2. History of nonischemic cardiomyopathy, nonsustained ventricular tachycardia status post biventricular AICD, stable. 3. Paroxysmal atrial fibrillation. 4. Hypertension. 5. Prosthetic aortic valve. 6. Hyperlipidemia. 7. Benign prostatic hypertrophy. 8. Macular degeneration and glaucoma, stable. 9. COVID-19 negative. Patient was hospitalized during a pandemic DISCHARGE PLAN Home Impression and plan of care have been directed as dictated by the signing physician. Stephenie Chow nurse practitioner acting as scribe for signing physician. Patient Condition at Discharge: Good Plan - Discharge Summary Discharge Rx Participant: No New Discharge Prescriptions: New Losartan [Cozaar] 25 mg PO HS #30 tab metOLazone [Zaroxolyn] 2.5 mg PO DAILY #30 tab Furosemide [Lasix] 40 mg PO BID@0900,1600 #60 tab Atorvastatin [Lipitor] 40 mg PO HS #30 tab Potassium Chloride ER [K-Dur 20] 20 meq PO DAILY #30 tab Continue Apixaban [Eliquis] 5 mg PO BID #60 tab Tamsulosin [Flomax] 0.4 mg PO BID Multivitamins, Thera [Multivitamin (formulary)] 1 tab PO DAILY Metoprolol Tartrate [Lopressor] 75 mg PO BID Amiodarone [Cordarone] 100 mg PO DAILY Ferrous Sulfate [Iron (65 MG Elemental)] 325 mg PO DAILY Vit C/E/Zn/Coppr/Lutein/Zeaxan [Preservision Areds 2 Softgel] 1 cap PO BID Discontinued Furosemide [Lasix] 40 mg PO DAILY Losartan Potassium 50 mg PO DAILY Discharge Medication List Apixaban [Eliquis] 5 mg PO BID #60 tab 10/04/18 [Rx] Tamsulosin [Flomax] 0.4 mg PO BID 10/15/19 [History] Multivitamins, Thera [Multivitamin (formulary)] 1 tab PO DAILY 10/23/19 [History] Amiodarone [Cordarone] 100 mg PO DAILY 12/26/19 [History] Metoprolol Tartrate [Lopressor] 75 mg PO BID 12/26/19 [History] Ferrous Sulfate [Iron (65 MG Elemental)] 325 mg PO DAILY 12/08/20 [History] Vit C/E/Zn/Coppr/Lutein/Zeaxan [Preservision Areds 2 Softgel] 1 cap PO BID 12/08/20 [History] Atorvastatin [Lipitor] 40 mg PO HS #30 tab 12/13/20 [Rx] Furosemide [Lasix] 40 mg PO BID@0900,1600 #60 tab 12/13/20 [Rx] Losartan [Cozaar] 25 mg PO HS #30 tab 12/13/20 [Rx] Potassium Chloride ER [K-Dur 20] 20 meq PO DAILY #30 tab 12/13/20 [Rx] metOLazone [Zaroxolyn] 2.5 mg PO DAILY #30 tab 12/13/20 [Rx] Follow up Appointment(s)/Referral(s): Qian Otero MD [STAFF PHYSICIAN] - 1 Week (Please call office when discharge to arrange follow up appointment) Ryan Hendrickson DO [Primary Care Provider] - 01/18/21 3:45 pm Patient Instructions/Handouts: Heart Failure (DC) Activity/Diet/Wound Care/Special Instructions: Patient to monitor his weight daily Discharge Disposition: HOME SELF-CARE
--- NOTE | 2020-12-13 13:20 | P.PN ---
Subjective Patient is a pleasant 70-year-old male past medical history of nonischemic cardiomyopathy, nonsustained ventricular tachycardia status post biventricular AICD, prosthetic aortic valve (bovine) via open-heart, paroxysmal atrial fibrillation, hypertension, hyperlipidemia, glaucoma, macular degeneration, and remote history of tobacco use. He follows with Dr. Otero. Patient initially presented to Hospital with lower extremity edema worse the last 3-4 days and exertional dyspnea. Patient reports that his fluid retention has been worse in the last week, as well as a shortness of breath worse over the last week as well. Patient reports he has had a gradual increase in his symptoms. 12/13/2020: Patient seen at bedside, denies any chest pain or shortness of breath. Patient reports improvement over the past 2 days. Blood pressure 112/72, heart rate 70, afebrile, and her saturations on room air. He's currently maintained on Lasix 40 mg twice a day, metolazone 2.5 mg daily, losartan 25 mg nightly, atorvastatin 40 mg nightly, Eliquis 5 mg twice a day, Lopressor 75 mg twice a day, amiodarone 100 mg daily. ProBNP has decreased to 4050. GENERAL: Well-appearing, well-nourished and in no acute distress. NECK: Supple without JVD or thyromegaly. LUNGS: Breath sounds clear to auscultation bilaterally. Respiration equal and unlabored. No wheezes, rales or rhonchi. HEART: Regular rate and rhythm without murmurs, rubs or gallops. S1 and S2 heard. EXTREMITIES: Normal range of motion, edema has improved from yesterday. No clubbing or cyanosis. Peripheral pulses intact and strong. ASSESSMENT: Acute on chronic congestive heart failure Paroxysmal atrial fibrillation Hypertension Hyperlipidemia PLAN Continue Lasix 40 mg by mouth twice a day. Continue metolazone. Continue Eliquis, Lopressor, and amiodarone. Continue Lopressor and Cozaar. Continue atorvastatin 40 mg 1 tab nightly. No further recommendations or changes from a cardiology perspective we will follow the patient as needed. Ok to discharge from a cardiology perspective. Please reach out with further questions or concerns. Follow up with Dr. Otero in 1-2 weeks. Thank you for allowing us to participate in the care of this patient. Objective - Vital Signs Vital signs: Vital Signs Temp 97.5 F L 12/13/20 08:00 Pulse 70 12/13/20 08:00 Resp 18 12/13/20 08:00 BP 112/72 12/13/20 08:00 Pulse Ox 93 L 12/13/20 08:00 Intake & Output 12/12/20 12/13/20 12/13/20 18:59 06:59 18:59 Intake Total 800 Output Total 1380 Balance 800 -1380 Weight 106.6 kg 105.6 kg Intake: Oral 800 Output: Urine 1380 Other: Voiding Method Toilet Toilet Urinal Urinal - Labs CBC & Chem 7: 12/08/20 11:33 12/11/20 08:10
[2020-12-13] MEDS ORDERED: LOSARTAN 25 MG TAB PO SCH (21:00)
== END 2020-12-13 13:10 | disposition home or self-care (01) | DRG 292 ==
LOC: EC 10:45 → 4SSUR 14:48
PROVIDERS: ADMIT Internal Medicine; ATTEND Internal Medicine
DX: I11.0 Hypertensive heart disease with heart failure (principal); T82.857A Stenosis of other cardiac prosthetic devices, implants and grafts, initial encounter; T82.897A Other specified complication of cardiac prosthetic devices, implants and grafts, initial encounter; I50.23 Acute on chronic systolic (congestive) heart failure; E78.5 Hyperlipidemia, unspecified; H35.30 Unspecified macular degeneration; H40.9 Unspecified glaucoma; I27.20 Pulmonary hypertension, unspecified; I08.3 Combined rheumatic disorders of mitral, aortic and tricuspid valves; I42.8 Other cardiomyopathies; I48.0 Paroxysmal atrial fibrillation; N40.0 Benign prostatic hyperplasia without lower urinary tract symptoms; Y83.1 Surgical operation with implant of artificial internal device as the cause of abnormal reaction of the patient, or of later complication, without mention of misadventure at the time of the procedure; Z20.822 Contact with and (suspected) exposure to COVID-19; E66.9 Obesity, unspecified; Z95.2 Presence of prosthetic heart valve; Z79.01 Long term (current) use of anticoagulants; Z79.899 Other long term (current) drug therapy; Z82.49 Family history of ischemic heart disease and other diseases of the circulatory system; Z83.3 Family history of diabetes mellitus; Z87.891 Personal history of nicotine dependence; Z95.810 Presence of automatic (implantable) cardiac defibrillator; Z90.49 Acquired absence of other specified parts of digestive tract; Z98.890 Other specified postprocedural states; Z87.440 Personal history of urinary (tract) infections; Z68.29 Body mass index [BMI] 29.0-29.9, adult
CPT/HCPCS: 36415; 71046; 80048; 80053; 83605; 83735; 83880; 84484; 85025; 85610; 85730; 87635; 93005; 93306; 96374; 99285

== ENCOUNTER → 2020-12-22 | Outpatient (CLI) | payer MEDICARE ==
[2020-12-22 18:16] LABS: Chol/HDL Ratio 2.08 Ratio; HDL Cholesterol 71.6 mg/dL (40.00-60.00); Triglycerides 45.9 mg/dL (0.00-149.00); VLDL Calculation 9.18 mg/dL (5.00-40.00)
== END | disposition home or self-care (01) ==
LOC: LABWHC1 08:43
PROVIDERS: ATTEND Nurse Practitioner Adult Health
DX: E78.2 Mixed hyperlipidemia (principal); I42.8 Other cardiomyopathies
CPT/HCPCS: 36415; 80061; 84450; 84460

== ENCOUNTER → 2021-08-08 | Outpatient (CLI) | payer MEDICARE ==
[2021-08-08 14:51] LABS: African American GFR (CKD) 78.5 (60.0-200.0); Albumin 4.1 g/dL (3.8-4.9); Albumin/Globulin Ratio 1.55 (1.60-3.17); Anion Gap 11.4 mmol/L (10.00-18.00); BUN/Creat Ratio 13.33 Ratio (12.00-20.00); Blood Urea Nitrogen 14.4 mg/dL (9.0-27.0); Carbon Dioxide 29.7 mmol/L (20.0-27.5); Globulin 2.7 g/dL (1.6-3.3); Non-African American GFR(CKD) 67.7 (60.0-200.0); Potassium 3.5 mmol/L (3.5-5.5); Total Bilirubin 0.9 mg/dL (0.30-1.20); Total Protein 6.8 g/dL (6.2-8.2)
== END | disposition home or self-care (01) ==
LOC: LABWHC1 10:20
PROVIDERS: ATTEND Internal Medicine Interventional Cardiology
DX: I42.8 Other cardiomyopathies (principal)
CPT/HCPCS: 36415; 80053

== ENCOUNTER → 2021-11-25 | Outpatient (CLI) | payer MEDICARE ==
[2021-11-25 15:19] LABS: African American GFR (CKD) 65.8 (60.0-200.0); Albumin 4.1 g/dL (3.8-4.9); Albumin/Globulin Ratio 1.6 (1.60-3.17); Anion Gap 11.5 mmol/L (10.00-18.00); BUN/Creat Ratio 18.24 Ratio (12.00-20.00); Blood Urea Nitrogen 22.8 mg/dL (9.0-27.0); Calcium 9.3 mg/dL (8.7-10.3); Carbon Dioxide 36.1 mmol/L (20.0-27.5); Globulin 2.6 g/dL (1.6-3.3); Non-African American GFR(CKD) 56.8 (60.0-200.0); Total Bilirubin 0.9 mg/dL (0.30-1.20); Total Protein 6.6 g/dL (6.2-8.2)
== END | disposition home or self-care (01) ==
LOC: LABWHC1 09:20
PROVIDERS: ATTEND Internal Medicine Interventional Cardiology
DX: I48.0 Paroxysmal atrial fibrillation (principal); I42.8 Other cardiomyopathies
CPT/HCPCS: 36415; 80053; 83880; 84443

== ENCOUNTER → 2022-10-19 | Outpatient (CLI) | payer MEDICARE ==
[2022-10-19 12:34] LABS: African American GFR (CKD) 68 (>60 ml/min/1.73 sqM); Anion Gap 6 mmol/L; Blood Urea Nitrogen 17 mg/dL (9-20); Carbon Dioxide 37 mmol/L (22-30); Chloride 94 mmol/L (98-107); Glucose 95 mg/dL (74-99); Non-African American GFR(CKD) 59 (>60 ml/min/1.73 sqM); Sodium 137 mmol/L (137-145)
[2022-10-19 12:35] LABS: NT-Pro-B-Type Natriuretic Pept 2060 pg/mL
== END | disposition home or self-care (01) ==
LOC: LABWHC1 10:39
PROVIDERS: ATTEND Nurse Practitioner Adult Health
DX: I42.8 Other cardiomyopathies (principal)
CPT/HCPCS: 36415; 80048; 83880